=== PATIENT | female | born 1945 | race Caucasian/White ===

== ENCOUNTER → 2016-06-03 | Day surgery (SDC) | payer OTHER ==
[2016-05-27 08:22] VITALS: Ht 162.6 cm; Wt 77.3 kg
[~2016-06-03] VITALS: Ht 162.6 cm; Wt 77.3 kg
[~2016-06-03] MED LIST: 500ML BSS 0.3ML EPI 1:1000PF IRRIG ONE; ACETAMINOPHEN 325 MG TAB PO PRN; AMVISC PLUS 0.8ML SYRINGE INT OCU ONE; ATROPINE SULFATE 0.1 MG/ML 5ML SYR IV PRN; BRIMONIDINE TART 0.2% OP SOLN PER DROP CHARGE ONE; BSS FLUSH ONE; BUME1TAB PO; CALC600T9 PO; CYAN10004 PO; DICY20TA35 PO; DULO-24 PO; ENDOCOAT 0.85ML SYRINGE INT OCU ONE; EpHEDrine SULFATE INJ 50 MG/ML AMP IV PRN; EpINEphrine INJ 1MG/ML AMP 1 MG/ML AMP ONE; FLUT0.15 NAE; LACTATED RINGER'S 1000ML 500 ML IV SCH; LEVO-14 PO; LEVO100T7 PO; LIDOCAINE 4% OP SOLN DROP CHARGE ONE; LIDOCAINE 4% OP SOLN DROP CHARGE OPR SCH; LIDOCAINE HCL 1% MPF 2 ML VIAL ONE; LISI-789 PO; MIDAZOLAM HCL 1 MG/ML 2ML VIAL ONE; MIX: 3ML BSS AND 1ML EPI(PF) TOP ONE; MOXIFLOXACIN OPH SOLN PER DROP CHARGE ONE; POTA10CA28 PO; POVIDONE-IODINE OP SOLN 30 ML BTL ONE; PRLSR20 PO; PROB1TAB16 PO; PROPARACAINE 0.5% OP SOLN PER DROP CHARGE OPR SCH; ROPI1TAB PO; SUMA100T16 PO; TOBRAMYCIN/DEXAMETHASONE OPH OINT PER APPLN CHARGE ONE; VNTHFA/IN INH; ZNT/150 PO
[2016-06-03] MEDS: PHENYLEPHRINE HCL 2.5% OP SOLN PER DROP CHARGE OPR SCH ×2 (09:47→09:52)
[2016-06-03] MEDS: TROPICAMIDE 1% OP SOLN PER DROP CHARGE OPR SCH ×2 (09:48→09:53)
[2016-06-03] MEDS: CYCLOPENTOLATE HCL 1% OP SOLN PER DROP CHARGE OPR SCH ×2 (09:49→09:54)
[2016-06-03] MEDS: KETOROLAC 0.5% OP SOLN PER DROP CHARGE OPR SCH ×2 (09:50→09:55)
[2016-06-03] MEDS: MOXIFLOXACIN OPH SOLN PER DROP CHARGE OPR SCH ×2 (09:51→10:01)
--- NOTE | 2016-06-03 10:37 | History & Physical Bridge - [place] ---
H&P Re-Evaluation Bridge Note: I have examined the patient, reviewed the History & Physical and in the interval since the performance of the History & Physical I have noted the following changes of clinical significance: No changes noted
--- NOTE | 2016-06-03 10:58 | Discharge Instructions-SurgCtr ---
Discharge Instructions Visit Reason for Visit: Cataract Right Eye Discharge Discharge Diagnosis / Problem: cataract right eye Discharge Goals Goal(s): Improve function Activity Recommendations Activity Limitations: per Instructions/Follow-up section Lifting Limitations: no more than 5 pounds Anesthesia . Post Anesthesia Instructions: If you have had General Anesthesia or IV Sedation: * Do not drive today. * Resume driving when surgeon permits. * Do not make important decisions or sign legal documents today. * Call surgeon for: 1. Temperature elevations greater than 101 degrees F. 2. Uncontrollable pain. 3. Excessive bleeding. 4. Persistent nausea and vomiting. 5. Medication intolerance (nausea, vomiting or rash). * For nausea and vomiting use only clear liquids such as: tea, soda, bouillon until nausea subsides, then gradually increase diet as tolerated. * If you have any concerns or questions, call your surgeon's office. If physician is unavailable and it is an emergency, call 911 or go to the nearest emergency room. . Instructions / Follow-Up Instructions / Follow-Up ACTIVITY RECOMMENDATIONS: * Light activities * You may walk outside, read, watch television. * Mild irritation and blurred vision are common for the first few days, redness around the white part of the eye is common. MEDICATIONS: Resume previous medications unless instructed otherwise by your surgeon. Eye drops (today and tomorrow): Polytrim - one drop in operative eye every 2 hours while awake Prednisolone 1% - one drop in operative eye every 2 hours while awake Ketorolac - one drop in operative eye every 2 hours while awake SPECIAL CARE INSTRUCTIONS: * If any problems or concerns, please call Dr. Barton's office at . * Keep plastic shield taped over eye to sleep at night. * Keep plastic shield taped over eye except to administer eye drops. * Keep plastic shield on until office visit the following day. FOLLOW UP VISIT: Follow-up with Dr. Barton in the [place] office as scheduled. If not already scheduled, please call the office at . Diet Recommendations Home Diet: resume previous diet Procedures Procedures Performed: Right Cataract Phacoemulsification With Intraocular Lens Implant Pending Studies Studies pending at discharge: no Medical Emergencies . Who to Call and When: Medical Emergencies: If at any time you feel your situation is an emergency, please call 911 immediately. . Non-Emergent Contact Non-Emergency issues call your: [employer] . . "Provider Documentation" section prepared by Wilmar Barton.
--- NOTE | 2016-06-03 10:58 | [facility] Post Operative Brief Note ---
Immediate Operative Summary Operative Date Jun 03, 2016. Pre-Operative Diagnosis Right Eye Cataract Post-Operative Diagnosis Same Procedure(s) Performed Right Cataract Phacoemulsification With Intraocular Lens Implant Surgeon Dr Barton [employer] Surgeon(s) None Estimated Blood Loss 0ml Findings cataract right eye Specimens None Complication(s) None Disposition Recovery Room / PACU
[2016-06-03 10:59] VITALS: TEMP 36.2
--- NOTE | 2016-06-03 11:14 | OPERATIVE REPORT ---
DATE OF OPERATION: 06/03/2016 PREOPERATIVE DIAGNOSIS: Cataract, right eye. POSTOPERATIVE DIAGNOSIS: Cataract, right eye. PROCEDURE: Phacoemulsification cataract extraction with intraocular lens placement, right eye. SURGEON: Dr. Barton. COMPLICATIONS: None. ESTIMATED BLOOD LOSS: None. ANESTHESIA: Topical with sedation. OPERATION AND FINDINGS: After informed consent was obtained in the holding area the patient was wheeled back to the Operating Room where cardiac monitoring leads and oxygen by nasal cannula was administered by Anesthesia. Gentle IV sedation was given, and the patient's right eye was prepped and draped in usual sterile fashion. A wire lid speculum was placed into the right eye and the operating microscope was swung into position. Using 0.12 forceps and a Supersharp blade a paracentesis port was made 3 o'clock hours away from the 9 o'clock position of patient's right eye. 1% non-preserved Lidocaine was then injected into the anterior chamber for anesthesia. A 2.2 mm keratotome blade was then used to make a shelved clear corneal incision at the 9 o'clock position of her right eye. Amvisc was injected into the anterior chamber and a cystotome and Utrata forceps were used to perform a curvilinear capsulorrhexis. BSS on a hydrodissection cannula was used to hydrodissect the lens nucleus away from the capsular bag. The phacoemulsification handpiece was then used in a stop and chop fashion to remove the lens nucleus. The irrigation and aspiration handpiece was then used to remove the residual cortical material. Amvisc was injected into the capsular bag and anterior chamber and a Bausch \T\ Lomb MX60, 18.5 Diopter intraocular lens was injected into the capsular bag. Irrigation and aspiration handpiece was used to remove the residual viscoelastic material. The wounds were hydrated and noted to be watertight. The wire lid speculum was removed from the eye. Vigamox, Brimonidine, and TobraDex ointment were placed on the eye and it was shielded. It should be noted that EndoCoat was used throughout the case to protect the cornea endothelium. DISPOSITION: The patient tolerated the procedure well and was wheeled to the post anesthesia care unit in stable condition. I attest to the content of the Intraoperative Record and any orders documented therein. Any exceptions are noted below. I attest to the content of the Intraoperative Record and any orders documented therein. Any exceptio ns are noted below.
[2016-06-03 11:19] VITALS: BP 115/77; PULSE 88; O2SAT 94
--- NOTE | 2016-06-03 11:24 | Anesthesia Progress Nt - [facility] ---
Anesthesia Post Op Note Date & Time Jun 03, 2016 at 11:24 Vital Signs Pain Intensity: 0 Vital Signs Past 12 Hours Date Time Temp Pulse Resp B/P Pulse Ox O2 Delivery O2 Flow Rate FiO2 06/03/16 11:19 88 16 115/77 94 Room Air 06/03/16 10:59 36.2 71 16 147/80 96 Room Air 06/03/16 09:35 36.5 84 16 126/92 99 Room Air Notes Mental Status: alert / awake / arousable, participated in evaluation Pt Amnestic to Procedure: Yes Nausea / Vomiting: adequately controlled Pain: adequately controlled Airway Patency, RR, SpO2: stable & adequate BP & HR: stable & adequate Hydration State: stable & adequate Anesthetic Complications: no major complications apparent
== END | disposition home or self-care (01) ==
LOC: X.SURG 09:16
PROVIDERS: ATTEND Ophthalmology
DX: H26.9 Unspecified cataract (principal); H54.7 Unspecified visual loss; H53.2 Diplopia; I10 Essential (primary) hypertension; Z98.49 Cataract extraction status, unspecified eye; K21.9 Gastro-esophageal reflux disease without esophagitis; H52.13 Myopia, bilateral; Z98.890 Other specified postprocedural states; Z90.710 Acquired absence of both cervix and uterus; Z88.2 Allergy status to sulfonamides

== ENCOUNTER 2020-06-03 22:28 | Inpatient (IN) ==
[2020-06-03] MEDS ORDERED: SODIUM CHLORIDE 0.9% 1000ML 1,000 ML IV ONE ×2 (22:51)
[2020-06-03] MEDS ORDERED: ONDANSETRON INJ 2 MG/ML 2 ML VIAL IV STA (22:51)
[2020-06-03] MEDS ORDERED: ACETAMINOPHEN 500 MG TAB PO STA (22:51)
--- NOTE | 2020-06-03 22:58 | Emergency Department Note ---
Impression & Plan Sepsis, Acute UTI (urinary tract infection), Failure of outpatient treatment ED Provider Note Name: ROSSY BURDEN Age: 74 Sex: F Arrives Via: Walk-In Informant: Patient ED Provider: Thomas Chavarira MD Chief Complaint: Fever Impression: Sepsis Acute UTI Failure of Outpatient Treatment Medical Decision Makin yr old female with a history of GERD, IBS, Restless Leg, Migraine, HTN, Depression/Anxiety, Hypothyroid, Osteoporosis, Pyelonephritis, ISSA, HLD and previous admission for sepsis arrives with fevers, chills, uti symptoms and low back pain worsening last 24 hours. Ill appearing on arrival with fever/tachy. Given IV fluids (given the patients BMI >30, IBW was used to calculate the 30ml/kg fluid bolus) and Tylenol with improving HR and symptoms. BP stable and Lactate OK. She looks much better though is still ill appearing and I do not feel discharge reasonable at this time, especially given she was just treated with abx. This is consistent with UTI sepsis. Zosyn ordered (noted allergic Keflex with Hives). Hospitalist consulted and managed. Offered to call though she notes she has let him know what is going on. Prior Medical Record and Triage/Nursing Notes reviewed by Me Additional history obtained from chart Differentials:Viral syndrome, otitis, pharyngitis, pneumonia, influenza, meningitis, urinary tract infection, sepsis, bacteremia, as well as other pat hologies. Vital Signs: reviewed and remarkable for fever, tachycardia Interventions: saline lock, nss bolus 2 L IV, zosyn 4.5gm IV (ordered but hosp italist changed to Aztreonam) Labs:Reviewed and remarkable for concerning for UTI Imaging:X ray results are stated below per my interpretation: Chest: 1 view: No infiltrate, no effusion, normal cardiac border. EKG:Per My Interpretation: Indication sepsis: NSR 90 bpm, qtc 450. No Ectopy. No Ischemia. Compared to EKG 09/20/15, no significant changes. Cardiac/Tele Monitoring: Cardiac Monitoring: An Order was placed for continuous cardiac monitoring. The monitor shows a rate of 90 with a normal sinus rhythm. Consults:Dr Gerald Delacruz Hospitalist Plan: Disposition:Hospitalization. Referred to: PCP Condition: Good History of Present Illness:74 yr old female arrives for evaluation of fever. Patient with recent UTI treated 3 weeks ago with Macrobid. She notes over last 24 hours worsening fatigue and weakness. Today developed low back pain, urinary frequency/burning, fevers, chills, rigors, nausea, and loss of appetite. She notes having developed a worsening headache as evening has gone on. No rash, sob, chest pain, diaphoresis, vomiting, neck stiffness, leg swelling, syncope, nor other symptoms. Exertion makes worse, rest makes better. She used 1 gm Tylenol 4 hours ago with minimal improvement. History of sepsis secondary to UTI and required admission 2 years ago for this. No sick contacts. No history COVID, nor vaccine. Ecoli UTI has been pansensitive in past per EPIC record a few weeks ago. Treated with Macrobid 3 weeks ago for UTI. ROS: See above HPI for pertinent positives & negatives. A total of 10 systems reviewed and were otherwise negative. Past Medical History:GERD, IBS, Restless Leg, Migraine, HTN, Depression/Anxiety, Hypothyroid, Osteoporosis, Pyelonephritis, ISSA, HLD, Past Surgical History:Tonsillectomy, appendectomy, PINA-BSO, Family History:Restless legs Social History:Lives with , retired, ex-smoker Home Medications:See Below Allergies:Sulfa, Keflex, Lisinopril Vitals:Blood Pressure: 125/70, Pulse 116, RR 20, T 38.2C, O2 98% on RA Physical Exam: GENERAL: Patient is tired and ill appearing and in moderate distress. EYES: No scleral icterus, unremarkable pupils. ENT: Mucous membranes moist, no nasal congestion. NECK: No masses appreciated, nomeningismus, trachea is midline. RESPIRATORY: Mild dyspnea/tachypnea. Clear to auscultation and equal bilaterall y. No wheeze, no rhonchi. CARDIOVASCULAR: Tachy.No murmurs, rubs, gallops appreciated. GASTROINTESTINAL: Abdomen soft, non-tender, no peritonitis.Bowel sounds positive.No masses appreciated. BACK: No midline tenderness, no CVA tenderness EXTREMITIES: Normal motion all extremities, no cyanosis, no edema. NEUROLOGIC: Alert and oriented, no acute motor or sensory deficits, no focal weakness, cranial nerves grossly intact. SKIN: No rash, no jaundice, no diaphoresis. PSYCH: Appropriate GCS: 15 ED Course: Times/Reassessments: improving heart rate, still appearing ill thus hospitalization indicated Thomas Chavarria MD Past Med/Surg History Social History Smoking Status: Former smoker Preferred Language: Yemeni Feels Safe at Home: Yes Allergies Allergies Allergy/AdvReac Type Severity Reaction Status Date / Time cephalexin Allergy Intermediate Hives Verified 06/03/20 23:07 Sulfa (Sulfonamide Allergy Intermediate HIVES Verified 06/03/20 23:07 Antibiotics) Home Meds Home Medications Medication Instructions Recorded Confirmed albuterol sulfate [Ventolin HFA] 2 - 4 puff INHALATION Q6H PRN #0 03/19/16 06/03/20 bumetanide 1 mg PO DAILY PRN #0 tab 03/19/16 06/03/20 dicyclomine 20 mg PO BID PRN #0 tab 03/19/16 06/03/20 duloxetine 20 mg PO BID #0 03/19/16 06/03/20 fluticasone propionate [Flonase 1 spray INTRANASAL DAILY PRN #0 03/19/16 06/03/20 Allergy Relief] omeprazole magnesium [Prilosec OTC] 20 mg PO DAILY PRN #0 03/19/16 06/03/20 potassium chloride 10 meq PO DAILY PRN #0 cap 03/19/16 06/03/20 sumatriptan succinate [Imitrex] 100 mg PO DIRECTED PRN #0 tab 03/19/16 06/03/20 cyanocobalamin (vitamin B-12) 1,000 mcg PO DAILY #0 05/27/16 06/03/20 [Vitamin B-12] Medical Marijuana 1 dose SUBLINGUAL BID 06/03/20 06/03/20 levothyroxine 75 mcg PO DAILY 06/03/20 06/03/20 multivitamin 1 tab PO HS 06/03/20 06/03/20 Results & Data (ED) Vital Signs Vital Signs - 24 hr 06/03/20 22:30 06/03/20 23:30 06/04/20 00:00 Temperature 38.2 C H Temperature Source Oral Pulse Rate 116 H 93 H 102 H Respiratory Rate 20 16 14 Blood Pressure 125/70 117/67 97/69 L Blood Pressure Mean 88 83 78 Pulse Oximetry 98 96 93 Oxygen Delivery Method Room Air Sepsis Recent Fever Within 48 Hours Yes Sepsis New/Unexplained Change in Mental Status N/A Sepsis Action Taken by Nursing No Action Required 06/04/20 00:21 06/04/20 00:30 Temperature 37.1 C Temperature Source Oral Pulse Rate 96 H Respiratory Rate 12 Blood Pressure 93/52 L Blood Pressure Mean 65 Pulse Oximetry 94 Oxygen Delivery Method Room Air Sepsis Recent Fever Within 48 Hours Sepsis New/Unexplained Change in Mental Status Sepsis Action Taken by Nursing Laboratory Data Result diagrams: 06/03/20 23:08 06/03/20 23:08 Lab Results 06/03/20 06/03/20 06/03/20 Range/Units 22:46 23:08 23:08 WBC (4.8-10.8) K/uL RBC (4.2-5.4) M/uL Hgb (12.0-16.0) g/dL Hct (37-47) % MCV (80-100) fL MCH (25-34) pg MCHC (32-36) g/dL RDW Std Deviation (36.4-46.3) fL RDW Coeff of [place] (11.5-14.5) % Plt Count (130-400) K/uL MPV (7.4-10.4) fL Immature Gran % (Auto) % Neut % (Auto) % Lymph % (Auto) % [place] % (Auto) % Eos % (Auto) % Baso % (Auto) % Neut # (Auto) (1.4-6.5) K/uL Lymph # (Auto) (1.2-3.4) K/uL [place] # (Auto) (0.11-0.59) K/uL Eos # (Auto) (0-0.5) K/uL Baso # (Auto) (0-0.2) K/uL Immature Gran # (Auto) (0.00-0.02) K/uL PT (9.0-12.0) Seconds INR (0.9-1.1) Sodium 137 (136-145) mmol/L Potassium 3.3 L (3.5-5.1) mmol/L Chloride 105 (98-107) mmol/L Carbon Dioxide 24 (21-32) mmol/L Anion Gap 8.0 (3-11) BUN 25 H (7-18) mg/dl Creatinine 0.95 (0.6-1.2) mg/dl Est Cr Clr Drug Dosing 55.0 ml/min Est GFR ( Amer) 69.4 Est GFR (Non-Af Amer) 59.8 BUN/Creatinine Ratio 26.7 H (10-20) Glucose 119 H (70-99) mg/dl Lactate 1.3 (0.4-2.0) mmol/L Calcium 8.7 (8.5-10.1) mg/dl Magnesium 2.1 (1.8-2.4) mg/dl Total Bilirubin 0.7 (0.2-1) mg/dl Direct Bilirubin < 0.1 (0-0.2) mg/dl AST 38 H (15-37) U/L ALT 59 (12-78) U/L Alkaline Phosphatase 108 (45-117) U/L Troponin I < 0.015 (0-0.045) ng/ml Total Protein 7.4 (6.4-8.2) gm/dl Albumin 3.8 (3.4-5.0) gm/dl Lipase 83 (73-393) U/L TSH 2.030 (0.300-4.500) uIu/ml Urine Color Yellow Urine Appearance Cloudy A (Clear) Urine pH 8.0 H (4.5-7.5) Ur Specific [place] 1.017 (1.000-1.030) Urine Protein 1+ H (Negative) Urine Glucose (UA) Negative (Negative) Urine Ketones Negative (Negative) Urine Blood 1+ H (Negative) Urine Nitrite Positive A (Negative) Urine Bilirubin Negative (Negative) Urine Urobilinogen Negative (Negative) Ur Leukocyte Esterase 2+ H (Negative) Urine WBC (Auto) >30 H (0-5) /hpf Urine RBC (Auto) 10-30 H (0-4) /hpf U Hyaline Cast (Auto) 1-5 (0-5) /lpf U Epithel Cells (Auto) 0-5 (0-5) /lpf Urine Bacteria (Auto) 4+ H (Negative) COVID-19 Eval Order SARS-CoV-2 (PCR) (Negative) Influenza Type A (PCR) (Neg) Influenza Type B (PCR) (Neg) RSV (RT-PCR) (Neg) 06/03/20 06/03/20 06/03/20 Range/Units 23:08 23:08 23:25 WBC 12.22 H (4.8-10.8) K/uL RBC 4.79 (4.2-5.4) M/uL Hgb 14.0 (12.0-16.0) g/dL Hct 41.3 (37-47) % MCV 86.2 (80-100) fL MCH 29.2 (25-34) pg MCHC 33.9 (32-36) g/dL RDW Std Deviation 45.4 (36.4-46.3) fL RDW Coeff of [place] 14.4 (11.5-14.5) % Plt Count 221 (130-400) K/uL MPV 9.9 (7.4-10.4) fL Immature Gran % (Auto) 0.2 % Neut % (Auto) 83.2 % Lymph % (Auto) 4.7 % [place] % (Auto) 11.3 % Eos % (Auto) 0.4 % Baso % (Auto) 0.2 % Neut # (Auto) 10.17 H (1.4-6.5) K/uL Lymph # (Auto) 0.57 L (1.2-3.4) K/uL [place] # (Auto) 1.38 H (0.11-0.59) K/uL Eos # (Auto) 0.05 (0-0.5) K/uL Baso # (Auto) 0.02 (0-0.2) K/uL Immature Gran # (Auto) 0.03 H (0.00-0.02) K/uL PT 10.8 (9.0-12.0) Seconds INR 1.1 (0.9-1.1) Sodium (136-145) mmol/L Potassium (3.5-5.1) mmol/L Chloride (98-107) mmol/L Carbon Dioxide (21-32) mmol/L Anion Gap (3-11) BUN (7-18) mg/dl Creatinine (0.6-1.2) mg/dl Est Cr Clr Drug Dosing ml/min Est GFR ( Amer) Est GFR (Non-Af Amer) BUN/Creatinine Ratio (10-20) Glucose (70-99) mg/dl Lactate (0.4-2.0) mmol/L Calcium (8.5-10.1) mg/dl Magnesium (1.8-2.4) mg/dl Total Bilirubin (0.2-1) mg/dl Direct Bilirubin (0-0.2) mg/dl AST (15-37) U/L ALT (12-78) U/L Alkaline Phosphatase (45-117) U/L Troponin I (0-0.045) ng/ml Total Protein (6.4-8.2) gm/dl Albumin (3.4-5.0) gm/dl Lipase (73-393) U/L TSH (0.300-4.500) uIu/ml Urine Color Urine Appearance (Clear) Urine pH (4.5-7.5) Ur Specific [place] (1.000-1.030) Urine Protein (Negative) Urine Glucose (UA) (Negative) Urine Ketones (Negative) Urine Blood (Negative) Urine Nitrite (Negative) Urine Bilirubin (Negative) Urine Urobilinogen (Negative) Ur Leukocyte Esterase (Negative) Urine WBC (Auto) (0-5) /hpf Urine RBC (Auto) (0-4) /hpf U Hyaline Cast (Auto) (0-5) /lpf U Epithel Cells (Auto) (0-5) /lpf Urine Bacteria (Auto) (Negative) COVID-19 Eval Order [facility]Rsv at [facility] SARS-CoV-2 (PCR) (Negative) Influenza Type A (PCR) (Neg) Influenza Type B (PCR) (Neg) RSV (RT-PCR) (Neg) 06/03/20 Range/Units 23:25 WBC (4.8-10.8) K/uL RBC (4.2-5.4) M/uL Hgb (12.0-16.0) g/dL Hct (37-47) % MCV (80-100) fL MCH (25-34) pg MCHC (32-36) g/dL RDW Std Deviation (36.4-46.3) fL RDW Coeff of [place] (11.5-14.5) % Plt Count (130-400) K/uL MPV (7.4-10.4) fL Immature Gran % (Auto) % Neut % (Auto) % Lymph % (Auto) % [place] % (Auto) % Eos % (Auto) % Baso % (Auto) % Neut # (Auto) (1.4-6.5) K/uL Lymph # (Auto) (1.2-3.4) K/uL [place] # (Auto) (0.11-0.59) K/uL Eos # (Auto) (0-0.5) K/uL Baso # (Auto) (0-0.2) K/uL Immature Gran # (Auto) (0.00-0.02) K/uL PT (9.0-12.0) Seconds INR (0.9-1.1) Sodium (136-145) mmol/L Potassium (3.5-5.1) mmol/L Chloride (98-107) mmol/L Carbon Dioxide (21-32) mmol/L Anion Gap (3-11) BUN (7-18) mg/dl Creatinine (0.6-1.2) mg/dl Est Cr Clr Drug Dosing ml/min Est GFR ( Amer) Est GFR (Non-Af Amer) BUN/Creatinine Ratio (10-20) Glucose (70-99) mg/dl Lactate (0.4-2.0) mmol/L Calcium (8.5-10.1) mg/dl Magnesium (1.8-2.4) mg/dl Total Bilirubin (0.2-1) mg/dl Direct Bilirubin (0-0.2) mg/dl AST (15-37) U/L ALT (12-78) U/L Alkaline Phosphatase (45-117) U/L Troponin I (0-0.045) ng/ml Total Protein (6.4-8.2) gm/dl Albumin (3.4-5.0) gm/dl Lipase (73-393) U/L TSH (0.300-4.500) uIu/ml Urine Color Urine Appearance (Clear) Urine pH (4.5-7.5) Ur Specific [place] (1.000-1.030) Urine Protein (Negative) Urine Glucose (UA) (Negative) Urine Ketones (Negative) Urine Blood (Negative) Urine Nitrite (Negative) Urine Bilirubin (Negative) Urine Urobilinogen (Negative) Ur Leukocyte Esterase (Negative) Urine WBC (Auto) (0-5) /hpf Urine RBC (Auto) (0-4) /hpf U Hyaline Cast (Auto) (0-5) /lpf U Epithel Cells (Auto) (0-5) /lpf Urine Bacteria (Auto) (Negative) COVID-19 Eval Order SARS-CoV-2 (PCR) NEGATIVE (Negative) Influenza Type A (PCR) Negative (Neg) Influenza Type B (PCR) Negative (Neg) RSV (RT-PCR) Negative (Neg) Administered Medications Discontinued Medications Acetaminophen (Acetaminophen 500 Mg Tab) 500 mg PO NOW STA Stop: 06/03/20 22:52 Last Admin: 06/03/20 23:35 Dose: 500 mg Documented by: [id number] Sodium Chloride (Nss 1000ml) 1,000 mls @ 999 mls/hr IV .Q1H1M ONE Stop: 06/03/20 23:51 Last Infusion: 06/04/20 00:24 Dose: 0 mls/hr Documented by: [id number] Admin: 06/03/20 23:23 Dose: 999 mls/hr Documented by: [id number] Sodium Chloride (Nss 1000ml) 1,000 mls @ 999 mls/hr IV .Q1H1M ONE Stop: 06/03/20 23:51 Last Infusion: 06/04/20 00:24 Dose: 0 mls/hr Documented by: [id number] Admin: 06/03/20 23:23 Dose: 999 mls/hr Documented by: [id number] Piperacillin Sod/Tazobactam Sod (Zosyn) 4.5 gm in 120 mls @ 240 mls/hr IV NOW ONE Stop: 06/04/20 00:14 Last Admin: 06/04/20 00:31 Dose: Not Given Documented by: [id number] Ondansetron HCl (Ondansetron Inj 2 Mg/Ml 2 Ml Vial) 4 mg IV NOW STA Stop: 06/03/20 22:52 Last Admin: 06/03/20 23:35 Dose: 4 mg Documented by: [id number] Potassium Chloride (Potassium Chloride Crtab 20 Meq Tabcr) 40 meq PO NOW STA Stop: 06/03/20 23:53 Last Admin: 06/04/20 00:15 Dose: 40 meq Documented by: [id number] Discharge Plan Visit Data Chief Complaint: Fever Stated Complaint: FEVER ED Provider: Thomas Chavarria Discharge Problem: Sepsis, Acute UTI (urinary tract infection), Failure of outpatient treatment Forms Stand Alone Forms: [facility] Prescriptions Prescriptions: No Action potassium chloride 10 mEq Capsule, Extended Release 10 meq PO DAILY PRN (Reason: WHEN TAKES BUMETANIDE) Qty: 0 RF: 0 sumatriptan succinate [Imitrex] 100 mg Tablet 100 mg PO DIRECTED PRN (Reason: Headache) Qty: 0 RF: 0 dicyclomine 20 mg Tablet 20 mg PO BID PRN (Reason: Diarrhea) Qty: 0 RF: 0 bumetanide 1 mg Tablet 1 mg PO DAILY PRN (Reason: Fluid Retention) Qty: 0 RF: 0 albuterol sulfate [Ventolin HFA] 90 mcg/actuation Hfa Aerosol Inhaler 2 - 4 puff INHALATION Q6H PRN (Reason: Shortness Of Breath) Qty: 0 RF: 0 fluticasone propionate [Flonase Allergy Relief] 50 mcg/actuation Benedict,Suspension 1 spray intranasal DAILY PRN (Reason: Allergy Symptoms) Qty: 0 RF: 0 omeprazole magnesium [Prilosec OTC] 20 mg Tablet,Delayed Release (Dr/Ec) 20 mg PO DAILY PRN (Reason: HEARTBURN/INDIGESTION) Qty: 0 RF: 0 duloxetine 20 mg Capsule,Delayed Release(Dr/Ec) 20 mg PO BID Qty: 0 RF: 0 cyanocobalamin (vitamin B-12) [Vitamin B-12] 1,000 mcg Tablet 1,000 mcg PO DAILY Qty: 0 RF: 0 multivitamin Tablet 1 tab PO HS RF: 0 levothyroxine 75 mcg tablet 75 mcg PO DAILY RF: 0 Medical Marijuana 1 dose sublingual BID RF: 0 Discharge Problem: Sepsis Qualifiers: Sepsis type: Escherichia coli Sepsis acute organ dysfunction status: without acute organ dysfunction Qualified Code(s): A41.51 - Sepsis due to Escherichia coli [E. coli]
[2020-06-03 23:11] LABS: Appearance Urine Cloudy (Clear); Bacteria Urine Automated 4+ (Negative); Bilirubin Urine Negative (Negative); Blood Urine 1+ (Negative); Color Urine Yellow; Epithelial Cell Urine Auto 0-5 /lpf (0-5); Glucose Urine UA Negative (Negative); Ketones Urine Negative (Negative); Leukocyte Esterase Urine 2+ (Negative); Nitrite Urine Positive (Negative); Specific Gravity Urine 1.017 (1.000-1.030); Urobilinogen Urine Negative (Negative); WBC Urine Automated >30 /hpf (0-5)
[2020-06-03 23:12] LABS: Protein Urine 1+ (Negative)
[2020-06-03 23:18] LABS: Basophils # (auto) 0.02 K/uL (0-0.2); Basophils % (auto) 0.2 %; Eosinophils # (auto) 0.05 K/uL (0-0.5); Eosinophils % (auto) 0.4 %; Hematocrit (blood only) 41.3 % (37-47); Immature Granulocytes # (auto) 0.03 K/uL (0.00-0.02); Immature Granulocytes % (auto) 0.2 %; Lymphocytes # (auto) 0.57 K/uL (1.2-3.4); Lymphocytes % (auto) 4.7 %; Mean Corpuscular Hemoglobin 29.2 pg (25-34); Mean Corpuscular Hgb Conc 33.9 g/dL (32-36); Mean Corpuscular Volume 86.2 fL (80-100); Mean Platelet Volume 9.9 fL (7.4-10.4); Monocytes # (auto) 1.38 K/uL (0.11-0.59); Monocytes % (auto) 11.3 %; Neutrophils # (auto) 10.17 K/uL (1.4-6.5); Neutrophils % (auto) 83.2 %; Platelet Count 221 K/uL (130-400); RDW Coefficient of Variation 14.4 % (11.5-14.5); RDW Standard Deviation 45.4 fL (36.4-46.3); Red Blood Count 4.79 M/uL (4.2-5.4); White Blood Count 12.22 K/uL (4.8-10.8)
[2020-06-03 23:29] LABS: INR 1.1 (0.9-1.1); Prothrombin Time 10.8 Seconds (9.0-12.0)
--- NOTE | 2020-06-03 23:35 | XRay Report ---
SINGLE VIEW CHEST CLINICAL HISTORY: Sepsis. FINDINGS: An AP, portable, upright chest radiograph is compared to chest x-ray and chest CT dated 09/05. The cardiomediastinal silhouette is unremarkable noting atherosclerotic calcification of the thoracic aorta. Emphysema and chronic interstitial thickening is similar to previous. There is mild b ibasilar scarring/atelectasis. No airspace consolidation or large pleural effusion is identified. Que stion a 12 mm nodular density projecting over a right lower rib. No pneumothorax is seen. The skeleta l structures are osteopenic. The bony thorax is grossly intact. IMPRESSION: 1. Emphysematous change with no acute cardiopulmonary abnormality. 2. Question a 12 mm nodular density projecting over a right lower rib. This may be artifactual. Corre lation with a dedicated PA and lateral examination is recommended when the patient is clinically able . ACT 112: Positive. There are findings on this exam that require communication between the performing entity and the patient following Patient Test Result Information Act ([place] Act 112) guidelines. Electronically signed by: Joni Fay M.D. 06/03/2020 11:34 PM
[2020-06-03 23:37] LABS: Alanine Aminotransferase 59 U/L (12-78); Albumin Level 3.8 gm/dl (3.4-5.0); Aspartate Aminotransferase 38 U/L (15-37); BUN Creatinine Ratio 26.7 (10-20); Bilirubin Direct < 0.1 mg/dl (0-0.2); Blood Urea Nitrogen 25 mg/dl (7-18); Calcium 8.7 mg/dl (8.5-10.1); Carbon Dioxide 24 mmol/L (21-32); Chloride 105 mmol/L (98-107); Est GFR (African American) 69.4; Est GFR (Non-African American) 59.8; Glucose 119 mg/dl (70-99); Lipase 83 U/L (73-393); Magnesium 2.1 mg/dl (1.8-2.4); Potassium 3.3 mmol/L (3.5-5.1); Sodium 137 mmol/L (136-145)
[2020-06-03] MEDS ORDERED: PIPERACILL/TAZOBAC CONSULT ACTIVE PRN (23:45)
[2020-06-03] MEDS ORDERED: PIPERACILLIN/TAZOBACTAM 4.5 GM/120 ML BAG IV ONE (23:45)
[2020-06-03 23:48] LABS: Alkaline Phosphatase 108 U/L (45-117); Bilirubin,Total 0.7 mg/dl (0.2-1); Total Protein 7.4 gm/dl (6.4-8.2); Troponin I < 0.015 ng/ml (0-0.045)
[2020-06-03] MEDS ORDERED: POTASSIUM CHLORIDE CRTAB 20 MEQ TABCR PO STA (23:52)
[2020-06-04 00:19] LABS: Influenza A virus by PCR Negative (Neg); Influenza B virus by PCR Negative (Neg); RSV by PCR Negative (Neg); SARS CoV2 RNA(COVID-19) InHosp NEGATIVE (Negative)
[2020-06-04] MEDS ORDERED: POTASSIUM CHLORIDE 40 MEQ in SODIUM CHLORIDE 0.9% 1000ML 1,000 ML IV STA (00:23)
[2020-06-04] MEDS ORDERED: AZTREONAM 2,000 MG in DEXTROSE 5% 100 ML IV STA (00:23)
--- NOTE | 2020-06-04 00:29 | History & Physical Report ---
Date of Service June 04, 2020 Assessment & Plan (1) Sepsis: hx recurrent UTIs/history stress/urge incontinence as per records Failed outpatient treatment Rule out obstructive uropathy given recurrent disease/persistent symptoms hypertension, BP on the lower side Hypokalemia secondary to diuretic Rx Hyperglycemia rule out DM Abnormal portable CXR finding, possible pulmonary nodule past tobacco abuse Medical telemetry Cultures, Azactam CT abdomen pelvis RE flank pain rule out obstructive uropathy IVF, replace potassium Hold home diuretic until patient euvolemic Check hemoglobin A1c 2 view CXR in a.m. RE possible pulmonary nodule DVT prophylaxis per Lovenox subcu Full code Patient requesting updates from providers. Mr. Norman Sewell, contact #[phone]. Text document was generated using [employer] voice recognition software. It may contain grammatical or spelling errors. Kindly contact undersigned for clarification of any documentation item in question. History of Present Illness Chief Complaint: Fever, UTI symptoms, back pain Primary Care Provider: Nader Clark MD History obtained from patient and records. Medical history significant for hypertension, hyperlipidemia, GERD, IBS (constipation predominant), recurrent UTIs/history stress/urge incontinence as per records, ISSA on CPAP, past tobacco abuse. Last confinement September 2015 for sepsis secondary to pyelonephritis. Few weeks ago, patient had UTI symptoms without hematuria. No fever, no chills. Outpatient UA showed pansensitive E. coli. Persistent UTI symptoms despite completion of Macrobid course outpatient. Outpatient urology referral contemplated by PCP for microscopic hematuria on repeat UA. Patient had worsening discomfort the last few days with fever and chills. Achy back pain without gross hematuria symptoms No chest pain, no S OB, no cough. Patient brought to the ER by . Medical History as above Surgical History : Appendectomy, carpal tunnel surgery, cystoscopy, sinus surgery, cataract surgery, nasal septoplasty, PINA/BSO Family History : PTSD Personal/Social history : Past tobacco abuse, occasional EtOH intake, retired laboratory secretary Allergies Allergy/AdvReac Type Severity Reaction Status Date / Time cephalexin Allergy Intermediate Hives Verified 06/03/20 23:07 Sulfa (Sulfonamide Allergy Intermediate HIVES Verified 06/03/20 23:07 Antibiotics) Home Medications Medication Instructions Recorded Confirmed Type albuterol sulfate [Ventolin HFA] 2 - 4 puff INHALATION Q6H PRN #0 03/19/16 06/03/20 History bumetanide 1 mg PO DAILY PRN #0 tab 03/19/16 06/03/20 History dicyclomine 20 mg PO BID PRN #0 tab 03/19/16 06/03/20 History duloxetine 20 mg PO BID #0 03/19/16 06/03/20 History fluticasone propionate [Flonase 1 spray INTRANASAL DAILY PRN #0 03/19/16 06/03/20 History Allergy Relief] omeprazole magnesium [Prilosec OTC] 20 mg PO DAILY PRN #0 03/19/16 06/03/20 History potassium chloride 10 meq PO DAILY PRN #0 cap 03/19/16 06/03/20 History sumatriptan succinate [Imitrex] 100 mg PO DIRECTED PRN #0 tab 03/19/16 06/03/20 History cyanocobalamin (vitamin B-12) 1,000 mcg PO DAILY #0 05/27/16 06/03/20 History [Vitamin B-12] Medical Marijuana 1 dose SUBLINGUAL BID 06/03/20 06/03/20 History levothyroxine 75 mcg PO DAILY 06/03/20 06/03/20 History multivitamin 1 tab PO HS 06/03/20 06/03/20 History Past Med/Surg History Social History Smoking Status: Former smoker Hx Alcohol Use: No Hx Substance Use: No Preferred Language: Frisian Communication Ability: Effective Beliefs That Will Affect Care: None Current Living Situation: Spouse Other Information That Helps Us Care for You: No Feels Safe at Home: Yes Safety Concerns: Feels Safe At This Time Assistive Devices: CPAP Review of Systems Review of Systems: As per HPI, all 10 systems reviewed, all other ROS negative Physical Exam Physical Exam: GENERAL: Slightly uncomfortable, anxious, obese, looks younger for stated age, no respiratory distress SKIN: Normal color, warm HEENT: Bespectacled, [place] palpebral conjunctivae, no ptosis, dry buccal mucosa NECK : Supple, short neck, no tenderness CHEST : CTA, no tenderness HEART : Tachycardic , no obvious murmurs ABDOMEN: Some distention, nontender BACK : Minimal flank tenderness EXTREMITIES : No LE swelling/tenderness, no other conspicuous deformities noted NEUROLOGIC : Coherent, no facial asymmetry, no other gross focality Results & Data Results & Data ([facility]) Vital Signs (Past 12 Hours) Vital Signs Temp Pulse Resp BP Pulse Ox 06/04/20 00:21 37.1 C 06/03/20 23:30 93 H 16 117/67 96 06/03/20 22:30 38.2 C H 116 H 20 125/70 98 Laboratory Results Laboratory Results WBC 12.22 K/uL (4.8-10.8) H 06/03/20 23:08 RBC 4.79 M/uL (4.2-5.4) 06/03/20 23:08 Hgb 14.0 g/dL (12.0-16.0) 06/03/20 23:08 Hct 41.3 % (37-47) 06/03/20 23:08 MCV 86.2 fL (80-100) 06/03/20 23:08 MCH 29.2 pg (25-34) 06/03/20 23:08 MCHC 33.9 g/dL (32-36) 06/03/20 23:08 RDW Std Deviation 45.4 fL (36.4-46.3) 06/03/20 23:08 RDW Coeff of [place] 14.4 % (11.5-14.5) 06/03/20 23:08 Plt Count 221 K/uL (130-400) 06/03/20 23:08 MPV 9.9 fL (7.4-10.4) 06/03/20 23:08 Immature Gran % (Auto) 0.2 % 06/03/20 23:08 Neut % (Auto) 83.2 % 06/03/20 23:08 Lymph % (Auto) 4.7 % 06/03/20 23:08 [place] % (Auto) 11.3 % 06/03/20 23:08 Eos % (Auto) 0.4 % 06/03/20 23:08 Baso % (Auto) 0.2 % 06/03/20 23:08 Neut # (Auto) 10.17 K/uL (1.4-6.5) H 06/03/20 23:08 Lymph # (Auto) 0.57 K/uL (1.2-3.4) L 06/03/20 23:08 [place] # (Auto) 1.38 K/uL (0.11-0.59) H 06/03/20 23:08 Eos # (Auto) 0.05 K/uL (0-0.5) 06/03/20 23:08 Baso # (Auto) 0.02 K/uL (0-0.2) 06/03/20 23:08 Immature Gran # (Auto) 0.03 K/uL (0.00-0.02) H 06/03/20 23:08 PT 10.8 Seconds (9.0-12.0) 06/03/20 23:08 INR 1.1 (0.9-1.1) 06/03/20 23:08 Sodium 137 mmol/L (136-145) 06/03/20 23:08 Potassium 3.3 mmol/L (3.5-5.1) L 06/03/20 23:08 Chloride 105 mmol/L (98-107) 06/03/20 23:08 Carbon Dioxide 24 mmol/L (21-32) 06/03/20 23:08 Anion Gap 8.0 (3-11) 06/03/20 23:08 BUN 25 mg/dl (7-18) H 06/03/20 23:08 Creatinine 0.95 mg/dl (0.6-1.2) 06/03/20 23:08 Est Cr Clr Drug Dosing 55.0 ml/min 06/03/20 23:08 Est GFR ( Amer) 69.4 06/03/20 23:08 Est GFR (Non-Af Amer) 59.8 06/03/20 23:08 BUN/Creatinine Ratio 26.7 (10-20) H 06/03/20 23:08 Glucose 119 mg/dl (70-99) H 06/03/20 23:08 Lactate 1.3 mmol/L (0.4-2.0) 06/03/20 23:08 Calcium 8.7 mg/dl (8.5-10.1) 06/03/20 23:08 Magnesium 2.1 mg/dl (1.8-2.4) 06/03/20 23:08 Total Bilirubin 0.7 mg/dl (0.2-1) 06/03/20 23:08 Direct Bilirubin < 0.1 mg/dl (0-0.2) 06/03/20 23:08 AST 38 U/L (15-37) H 06/03/20 23:08 ALT 59 U/L (12-78) 06/03/20 23:08 Alkaline Phosphatase 108 U/L (45-117) 06/03/20 23:08 Troponin I < 0.015 ng/ml (0-0.045) 06/03/20 23:08 Total Protein 7.4 gm/dl (6.4-8.2) 06/03/20 23:08 Albumin 3.8 gm/dl (3.4-5.0) 06/03/20 23:08 Lipase 83 U/L (73-393) 06/03/20 23:08 TSH 2.030 uIu/ml (0.300-4.500) 06/03/20 23:08 Urine Color Yellow 06/03/20 22:46 Urine Appearance Cloudy (Clear) A 06/03/20 22:46 Urine pH 8.0 (4.5-7.5) H 06/03/20 22:46 Ur Specific [place] 1.017 (1.000-1.030) 06/03/20 22:46 Urine Protein 1+ (Negative) H 06/03/20 22:46 Urine Glucose (UA) Negative (Negative) 06/03/20 22:46 Urine Ketones Negative (Negative) 06/03/20 22:46 Urine Blood 1+ (Negative) H 06/03/20 22:46 Urine Nitrite Positive (Negative) A 06/03/20 22:46 Urine Bilirubin Negative (Negative) 06/03/20 22:46 Urine Urobilinogen Negative (Negative) 06/03/20 22:46 Ur Leukocyte Esterase 2+ (Negative) H 06/03/20 22:46 Urine WBC (Auto) >30 /hpf (0-5) H 06/03/20 22:46 Urine RBC (Auto) 10-30 /hpf (0-4) H 06/03/20 22:46 U Hyaline Cast (Auto) 1-5 /lpf (0-5) 06/03/20 22:46 U Epithel Cells (Auto) 0-5 /lpf (0-5) 06/03/20 22:46 Urine Bacteria (Auto) 4+ (Negative) H 06/03/20 22:46 COVID-19 Eval Order CovFluRsv at [facility] 06/03/20 23:25 SARS-CoV-2 (PCR) NEGATIVE (Negative) 06/03/20 23:25 Influenza Type A (PCR) Negative (Neg) 06/03/20 23:25 Influenza Type B (PCR) Negative (Neg) 06/03/20 23:25 RSV (RT-PCR) Negative (Neg) 06/03/20 23:25 Diagnostic Findings Chest x-ray : 1. Emphysematous change with no acute cardiopulmonary abnormality. 2. Question a 12 mm nodular density projecting over a right lower rib. This may be artifactual. Correlation with a dedicated PA and lateral examination is recommended when the patient is clinically able. EKG as per my interpretation : Rate 90, NSR, LAD, LAFB, T wave abnormality septal leads (1) Sepsis Sepsis acute organ dysfunction status: without acute organ dysfunction Sepsis type: Escherichia coli Qualified Code(s): A41.51 - Sepsis due to Escherichia coli [E. coli]
[2020-06-04] MEDS ORDERED: LORazepam 0.25 MG/0.5 ML VIAL IV PRN (01:55)
[2020-06-04] MEDS ORDERED: PANTOprazole 40 MG TAB PO PRN (01:55)
[2020-06-04] MEDS ORDERED: FLUTICASONE PROPIONATE NA SPR 16 GM BTL PRN (01:55)
[2020-06-04] MEDS ORDERED: PROMETHAZINE HCL 12.5 MG in SODIUM CHLORIDE 0.9% 50 ML IV PRN (01:55)
[2020-06-04] MEDS ORDERED: traMADol HCL 50 MG TABLET PO PRN (01:55)
[2020-06-04] MEDS ORDERED: MoRPHine SULFATE 4 MG/ML 1 ML CARP\\VIAL IV PRN (01:55)
[2020-06-04] MEDS ORDERED: AZTREONAM CONSULT ACTIVE PRN (03:47)
[2020-06-04] MEDS: LEVOTHYROXINE SODIUM 75 MCG TABLET PO SCH (06:29)
[2020-06-04 06:54] LABS: White Blood Count 12.69 K/uL (4.8-10.8)
[2020-06-04 06:55] LABS: Basophils # (auto) 0.02 K/uL (0-0.2); Basophils % (auto) 0.2 %; Eosinophils # (auto) 0.03 K/uL (0-0.5); Eosinophils % (auto) 0.2 %; Hematocrit (blood only) 37.8 % (37-47); Hemoglobin 12.7 g/dL (12.0-16.0); Immature Granulocytes # (auto) 0.01 K/uL (0.00-0.02); Immature Granulocytes % (auto) 0.1 %; Lymphocytes # (auto) 1.07 K/uL (1.2-3.4); Lymphocytes % (auto) 8.4 %; Mean Corpuscular Hemoglobin 29.7 pg (25-34); Mean Corpuscular Hgb Conc 33.6 g/dL (32-36); Mean Corpuscular Volume 88.5 fL (80-100); Mean Platelet Volume 10.1 fL (7.4-10.4); Monocytes # (auto) 1.82 K/uL (0.11-0.59); Monocytes % (auto) 14.3 %; Neutrophils # (auto) 9.74 K/uL (1.4-6.5); Neutrophils % (auto) 76.8 %; Platelet Count 207 K/uL (130-400); RDW Coefficient of Variation 14.7 % (11.5-14.5); RDW Standard Deviation 47.6 fL (36.4-46.3); Red Blood Count 4.27 M/uL (4.2-5.4)
--- NOTE | 2020-06-04 07:40 | CT Scan Report ---
CT OF THE ABDOMEN AND PELVIS WITHOUT CONTRAST CLINICAL HISTORY: Flank pain. Hematuria. COMPARISON STUDY: CT of the abdomen and pelvis September 18, 2015. TECHNIQUE: Axial images of the abdomen and pelvis were obtained without IV contrast. Images were revi ewed in the axial, sagittal, and coronal planes. Automated exposure control was utilized for the kristopher dy. A dose lowering technique was utilized adhering to the principles of ALARA. FINDINGS: Mild emphysema is noted within the lower lungs. There is mild right perinephric and periure teral infiltration with mild right hydroureter and hydronephrosis. Numerous small right renal calculi measure up to 3 mm. There are no ureteral calculi. There is mild left hydronephrosis. Collecting sys tem dilatation is similar to CT of September 18, 2015. A few punctate left renal calculi are present. Ther e is no left perinephric infiltration. Evaluation of the remainder of the abdomen and pelvis is subop timal on this unenhanced exam. There is probable hepatic steatosis. The spleen, adrenal glands and pa ncreas are unremarkable. A moderate amount stool is noted within the colon. There is no evidence for a bowel obstruction. The uterus is surgically absent. No acute fracture or suspicious osseous lesion is noted. There is no evidence for a bowel obstruction. IMPRESSION: 1. Mild right hydronephrosis and hydroureter with perinephric and periureteral infiltration. No urete ral calculi. The findings could reflect a recently passed calculus or an infectious process and could be correlated with urinalysis. 2. Bilateral nephrolithiasis. 3. Mild left hydronephrosis which is similar to CT of September 18, 2015. This may reflect a mild UPJ type obstruction. ACT 112: Negative or not required by law. Electronically signed by: Nick Oreilly M.D. 06/04/2020 7:39 AM
[2020-06-04 07:59] LABS: BUN Creatinine Ratio 26.8 (10-20); Calcium 7.4 mg/dl (8.5-10.1); Creatinine Clr Calc Pharmacy 72.8 ml/min; Est GFR (Non-African American) 83.7; Potassium 5.4 mmol/L (3.5-5.1)
[2020-06-04] MEDS: AZTREONAM 1,000 MG in DEXTROSE 5% 100 ML IV SCH ×3 (08:04→23:40)
[2020-06-04] MEDS: DULoxetine HCL 20 MG CAP PO SCH ×2 (08:04→19:33)
[2020-06-04] MEDS: ENOXAPARIN INJ 40 MG/0.4 ML SYR SQ SCH (08:05)
--- NOTE | 2020-06-04 09:18 | Electrocardiogram Report ---
Test Reason : Blood Pressure : / mmHG Vent. Rate : 090 BPM Atrial Rate : 090 BPM P-R Int : 172 ms QRS Dur : 090 ms QT Int : 368 ms P-R-T Axes : 038 -49 024 degrees QTc Int : 450 ms Normal sinus rhythm Low voltage QRS Left anterior fascicular block Abnormal ECG When compared with ECG of 20-SEP-2015 07:04, Premature atrial complexes are no longer Present Left anterior fascicular block now present Confirmed by Tremaine Jackson ([id number]) on 06/04/2020 9:18:23 AM Referred By: REFERRED SELF Confirmed By:Tremaine Jackson
--- NOTE | 2020-06-04 10:36 | Hospitalist Progress Note ---
Date of Service June 04, 2020 Assessment & Plan (1) Acute UTI (urinary tract infection): Recurrent UTI Possible sepsis since pt met criteria on admission with Leukocytosis and tachycardia Failed outpatient management with Macrobid therapy UA on admission positive for leukocytes, nitrite and bacteria CT abd/pelvis showed mild right hydronephrosis and hydroureter with perinephric and periureteral infiltration. No ureteral calculi. Mild left hydronephrosis which is similar to CT of September 18, 2015. WBC on admission slightly increased from 12.2 to 12.6 Received IV Zosyn in the ER, then starting on IV Azactam Blood and urine cx collected in the ER - pending Will monitor WBC Hyperkalemia Possible related to K supplement Potassium 5.4 today Will repeat K later Continue monitor BMP Lung Nodule CXR showed questionable 12 mm nodular density projecting over a right lower rib Will get a PA and lateral CXR in am DVT px on Lovenox Code status Full code Admission and Anticipated Discharge Date Admission Date: June 04, 2020 Subjective Pt was seen and examined for follow up of UTI symptoms Lying in bed with no distress watching TV She said that her back tenderness improves She said that she continues to have burning with urination She said that she feels a little better Denies any chest pain, palpitation, dizziness and SOB Review of Systems Review of Systems: All systems reviewed & are unremarkable except as noted in Subjective Physical Exam Physical Exam: General- No acute distress Head- atraumatic Eyes- PERRL, EOMI, ENT- oropharynx clear Neck- supple, no JVD Lungs- clear to auscultation Heart- regular rhythm; no murmur Abdomen- normal bowel sounds, soft, nontender Extremities- no calf tenderness Neuro- alert, oriented x 3; PERRL, EOMI; no facial palsy; no dysarthria Skin- warm & dry Results & Data Results & Data ([facility]) Vital Signs (Past 12 Hours) Vital Signs Temp Pulse Pulse Resp BP BP BP 06/04/20 07:47 36.5 C 65 20 90/59 L 06/04/20 06:59 60 06/04/20 06:55 64 06/04/20 02:45 85 06/04/20 01:56 37.2 C 103 H 18 107/67 06/04/20 01:01 96 H 17 100/51 L 06/04/20 00:30 96 H 12 93/52 L 06/04/20 00:21 37.1 C 06/04/20 00:00 102 H 14 97/69 L 06/03/20 23:30 93 H 16 117/67 06/03/20 22:30 38.2 C H 116 H 20 125/70 Pulse Ox 06/04/20 07:47 96 06/04/20 06:59 06/04/20 06:55 06/04/20 02:45 06/04/20 01:56 95 06/04/20 01:01 96 06/04/20 00:30 94 06/04/20 00:21 06/04/20 00:00 93 06/03/20 23:30 96 06/03/20 22:30 98
[2020-06-04] MEDS: ACETAMINOPHEN 325 MG TAB PO PRN ×3 (11:46→23:40)
[2020-06-04] MEDS: MULTIVITAMIN TAB PO SCH (19:33)
[2020-06-04] MEDS ORDERED: SUMAtriptan succinate 100 MG TAB PO STA (19:49)
[2020-06-05] MEDS: LEVOTHYROXINE SODIUM 75 MCG TABLET PO SCH (06:17)
[2020-06-05 07:08] LABS: Estimated Average Glucose 108 mg/dl; Hemoglobin A1C 5.4 % (4.5-5.6)
[2020-06-05] MEDS: DULoxetine HCL 20 MG CAP PO SCH ×2 (08:15→20:36)
[2020-06-05] MEDS: ENOXAPARIN INJ 40 MG/0.4 ML SYR SQ SCH (08:16)
[2020-06-05] MEDS: AZTREONAM 1,000 MG in DEXTROSE 5% 100 ML IV SCH ×3 (08:16→23:12)
[2020-06-05] MEDS ORDERED: SUMAtriptan succinate 50 MG TAB PO ONE (09:10)
--- NOTE | 2020-06-05 17:04 | Hospitalist Progress Note ---
Date of Service June 05, 2020 Assessment & Plan (1) Acute UTI (urinary tract infection): Recurrent UTI Possible sepsis since pt met criteria on admission with Leukocytosis and tachycardia Failed outpatient management with Macrobid therapy UA on admission positive for leukocytes, nitrite and bacteria CT abd/pelvis showed mild right hydronephrosis and hydroureter with perinephric and periureteral infiltration. No ureteral calculi. Mild left hydronephrosis which is similar to CT of September 18, 2015. WBC on admission slightly increased from 12.2 to 12.6 Received IV Zosyn in the ER, then starting on IV Azactam Urine cx grew E. coli Will follow urine sensitivity Hyperkalemia Possible related to K supplement Repeat K was 3.8 Continue monitor BMP Lung Nodule CXR showed questionable 12 mm nodular density projecting over a right lower rib Will get a PA and lateral CXR in am ISSA Continue CPAP DVT px on Lovenox Code status Full code Admission and Anticipated Discharge Date Admission Date: June 04, 2020 Subjective Pt was seen and examined for follow up of UTI symptoms Walking in her room with no distress She said that she feels much better Denies any chest pain, palpitation, dizziness and SOB Physical Exam Physical Exam: General- No acute distress Head- atraumatic Eyes- PERRL, EOMI, ENT- oropharynx clear Neck- supple, no JVD Lungs- clear to auscultation Heart- regular rhythm; no murmur Abdomen- normal bowel sounds, soft, nontender Extremities- no calf tenderness Neuro- alert, oriented x 3; PERRL, EOMI; no facial palsy; no dysarthria Skin- warm & dry Results & Data Results & Data ([facility]) Vital Signs (Past 12 Hours) Vital Signs Temp Pulse Pulse Resp BP BP Pulse Ox 06/05/20 16:00 72 06/05/20 15:10 37.1 C 78 18 113/71 97 06/05/20 11:36 36.4 C L 66 16 117/75 96 06/05/20 08:45 74 06/05/20 07:00 36.7 C 78 20 109/71 94
[2020-06-05] MEDS: MULTIVITAMIN TAB PO SCH (20:36)
[2020-06-06] MEDS: LEVOTHYROXINE SODIUM 75 MCG TABLET PO SCH (05:32)
[2020-06-06 06:28] LABS: Hematocrit (blood only) 41.2 % (37-47); Hemoglobin 14.1 g/dL (12.0-16.0); Mean Corpuscular Hemoglobin 29.8 pg (25-34); Mean Corpuscular Hgb Conc 34.2 g/dL (32-36); Mean Corpuscular Volume 87.1 fL (80-100); Mean Platelet Volume 10.6 fL (7.4-10.4); Platelet Count 267 K/uL (130-400); RDW Coefficient of Variation 14.2 % (11.5-14.5); RDW Standard Deviation 45.7 fL (36.4-46.3); Red Blood Count 4.73 M/uL (4.2-5.4); White Blood Count 8.34 K/uL (4.8-10.8)
[2020-06-06 07:03] LABS: BUN Creatinine Ratio 13.5 (10-20); Calcium 9.1 mg/dl (8.5-10.1); Est GFR (African American) 95.4; Est GFR (Non-African American) 82.3; Potassium 3.5 mmol/L (3.5-5.1)
[2020-06-06] MEDS: ENOXAPARIN INJ 40 MG/0.4 ML SYR SQ SCH (07:46)
[2020-06-06] MEDS: DULoxetine HCL 20 MG CAP PO SCH (07:47)
--- NOTE | 2020-06-06 08:16 | XRay Report ---
TWO VIEW CHEST CLINICAL HISTORY: Follow-up pulmonary nodule. FINDINGS: PA and lateral chest radiographs are compared to study dated 06/03/2020 and correlated with abdominal CT dated 06/04/2020. The cardiomediastinal silhouette is unremarkable noting atherosclerotic calcification of the thoracic aorta. Emphysema and chronic interstitial thickening is similar to pre vious. There is no airspace consolidation or pleural effusion. There are foci of bibasilar scarring/a telectasis. There is no pneumothorax. The skeletal structures are osteopenic. Degenerative change and mild compression deformities are noted in the thoracic spine. IMPRESSION: 1. Emphysematous change with no active disease in the chest. 2. No pulmonary nodule is identified at the right lung base as questioned on the prior examination. T his was likely artifactual, and the right lung base was also evaluated on the 06/04/[address] ACT 112: Negative or not required by law. Electronically signed by: Joni Fay M.D. 06/06/2020 8:15 AM
[2020-06-06] MEDS: AZTREONAM 1,000 MG in DEXTROSE 5% 100 ML IV SCH (08:46)
[2020-06-06] MEDS ORDERED: POTASSIUM CHLORIDE CRTAB 20 MEQ TABCR PO ONE (11:30)
[2020-06-06] MEDS ORDERED: POTASSIUM CHLORIDE 10 MEQ TABCR PO ONE (12:15)
--- NOTE | 2020-06-06 15:03 | Hospitalist Progress Note ---
Date of Service June 06, 2020 Assessment & Plan (1) Acute UTI (urinary tract infection): Recurrent UTI Possible sepsis since pt met criteria on admission with Leukocytosis and tachycardia Failed outpatient management with Macrobid therapy UA on admission positive for leukocytes, nitrite and bacteria CT abd/pelvis showed mild right hydronephrosis and hydroureter with perinephric and periureteral infiltration. No ureteral calculi. Mild left hydronephrosis which is similar to CT of September 18, 2015. WBC on admission slightly increased from 12.2 to 12.6 Received IV Zosyn in the ER, then starting on IV Azactam Urine cx grew E. coli Will transition IV Azactam to PO cipro to complete the course of the antibiotic with cipro Hyperkalemia Possible related to K supplement K 3.5 today Continue monitor BMP Questionable Lung Nodule CXR showed questionable 12 mm nodular density projecting over a right lower rib CXR LA/PA showed no pulmonary nodule is identified at the right lung base as questioned on the prior examination. This was likely artifactual, and the right lung base was also evaluated on the 06/04/[address] Brief Episode of PAT Showed on telemonitor Asymptomatic K was 3.5, supplement was given ISSA Continue CPAP DVT px on Lovenox Code status Full code Disposition Will discharge home today Admission and Anticipated Discharge Date Admission Date: June 04, 2020 Subjective Pt was seen and examined for follow up of UTI symptoms Lying in bed with with no distress. Pt said that she feels fine She said that she does not have any burning during urination and her urine is cleared She said that she feels good to go home Denies any chest pain, palpitation, dizziness and SOB Review of Systems Review of Systems: All systems reviewed & are unremarkable except as noted in Subjective Physical Exam Physical Exam: General- No acute distress Head- atraumatic Eyes- PERRL, EOMI, ENT- oropharynx clear Neck- supple, no JVD Lungs- clear to auscultation Heart- regular rhythm; no murmur Abdomen- normal bowel sounds, soft, nontender Extremities- no calf tenderness Neuro- alert, oriented x 3; PERRL, EOMI; no facial palsy; no dysarthria Skin- warm & dry Results & Data Results & Data ([facility]) Vital Signs (Past 12 Hours) Vital Signs Temp Pulse Pulse Resp BP Pulse Ox 06/06/20 11:17 36.5 C 70 16 104/71 96 06/06/20 08:30 65 06/06/20 07:07 36.4 C L 67 20 131/87 98 06/06/20 05:22 37.1 C 64 18 122/73 96
[2020-06-06] MEDS ORDERED: CIPROFLOXACIN 500 MG TAB PO SCH (16:00)
--- NOTE | 2020-06-11 08:08 | Discharge Summary ---
Date of Service June 06, 2020 Admission HPI Per Admitting Provider History obtained from patient and records. Medical history significant for hypertension, hyperlipidemia, GERD, IBS (constipation predominant), recurrent UTIs/history stress/urge incontinence as per records, ISSA on CPAP, past tobacco abuse. Last confinement September 2015 for sepsis secondary to pyelonephritis. Few weeks ago, patient had UTI symptoms without hematuria. No fever, no chills. Outpatient UA showed pansensitive E. coli. Persistent UTI symptoms despite completion of Macrobid course outpatient. Outpatient urology referral contemplated by PCP for microscopic hematuria on repeat UA. Patient had worsening discomfort the last few days with fever and chills. Achy back pain without gross hematuria symptoms No chest pain, no S OB, no cough. Patient brought to the ER by . Medical History as above Surgical History : Appendectomy, carpal tunnel surgery, cystoscopy, sinus surgery, cataract surgery, nasal septoplasty, PINA/BSO Family History : PTSD Personal/Social history : Past tobacco abuse, occasional EtOH intake, retired membership secretary Admission Exam Per Admitting Provider GENERAL: Slightly uncomfortable, anxious, obese, looks younger for stated age, no respiratory distress SKIN: Normal color, warm HEENT: Bespectacled, [place] palpebral conjunctivae, no ptosis, dry buccal mucosa NECK : Supple, short neck, no tenderness CHEST : CTA, no tenderness HEART : Tachycardic , no obvious murmurs ABDOMEN: Some distention, nontender BACK : Minimal flank tenderness EXTREMITIES : No LE swelling/tenderness, no other conspicuous deformities noted NEUROLOGIC : Coherent, no facial asymmetry, no other gross focality Principal Diagnosis Acute UTI (urinary tract infection): Recurrent UTI Hyperkalemia Discharge Exam General- No acute distress Head- atraumatic Eyes- PERRL, EOMI, ENT- oropharynx clear Neck- supple, no JVD Lungs- clear to auscultation Heart- regular rhythm; no murmur Abdomen- normal bowel sounds, soft, nontender Extremities- no calf tenderness Neuro- alert, oriented x 3; PERRL, EOMI; no facial palsy; no dysarthria Skin- warm & dry Discharge Data Allergies Allergy/AdvReac Type Severity Reaction Status Date / Time cephalexin Allergy Intermediate Hives Verified 06/03/20 23:07 Sulfa (Sulfonamide Allergy Intermediate HIVES Verified 06/03/20 23:07 Antibiotics) Consultations 06/03/20 23:48 ED Decision to Admit Stat Ordered Studies 06/04/20 00:29 CT abd pelvis wo con Urgent TWO VIEW CHEST CLINICAL HISTORY: Follow-up pulmonary nodule. FINDINGS: PA and lateral chest radiographs are compared to study dated 06/03/2020 and correlated with abdominal CT dated 06/04/2020. The cardiomediastinal silhouette is unremarkable noting atherosclerotic calcification of the thoracic aorta. Emphysema and chronic interstitial thickening is similar to previous. There is no airspace consolidation or pleural effusion. There are foci of bibasilar scarring/atelectasis. There is no pneumothorax. The skeletal structures are osteopenic. Degenerative change and mild compression deformities are noted in the thoracic spine. IMPRESSION: 1. Emphysematous change with no active disease in the chest. 2. No pulmonary nodule is identified at the right lung base as questioned on the prior examination. This was likely artifactual, and the right lung base was also evaluated on the 06/04/[address] ACT 112: Negative or not required by law. Electronically signed by: Joni Fay M.D. 06/06/2020 8:15 AM Dictated: 06/06/20 0813Transcribed: 06/06/[address] OF THE ABDOMEN AND PELVIS WITHOUT CONTRAST CLINICAL HISTORY: Flank pain. Hematuria. COMPARISON STUDY: CT of the abdomen and pelvis September 18, 2015. TECHNIQUE: Axial images of the abdomen and pelvis were obtained without IV contrast. Images were reviewed in the axial, sagittal, and coronal planes. Automated exposure control was utilized for the study. A dose lowering technique was utilized adhering to the principles of ALARA. FINDINGS: Mild emphysema is noted within the lower lungs. There is mild right perinephric and periureteral infiltration with mild right hydroureter and hydronephrosis. Numerous small right renal calculi measure up to 3 mm. There are no ureteral calculi. There is mild left hydronephrosis. Collecting system dilatation is similar to CT of September 18, 2015. A few punctate left renal calculi are present. There is no left perinephric infiltration. Evaluation of the remainder of the abdomen and pelvis is suboptimal on this unenhanced exam. There is probable hepatic steatosis. The spleen, adrenal glands and pancreas are unremarkable. A moderate amount stool is noted within the colon. There is no evidence for a bowel obstruction. The uterus is surgically absent. No acute fracture or suspicious osseous lesion is noted. There is no evidence for a bowel obstruction. IMPRESSION: 1. Mild right hydronephrosis and hydroureter with perinephric and periureteral infiltration. No ureteral calculi. The findings could reflect a recently passed calculus or an infectious process and could be correlated with urinalysis. 2. Bilateral nephrolithiasis. 3. Mild left hydronephrosis which is similar to CT of September 18, 2015. This may reflect a mild UPJ type obstruction. ACT 112: Negative or not required by law. Electronically signed by: Nick Oreilly M.D. 06/04/2020 7:39 AM Dictated: 06/04/20729Transcribed: 06/04/20729 SINGLE VIEW CHEST CLINICAL HISTORY: Sepsis. FINDINGS: An AP, portable, upright chest radiograph is compared to chest x-ray and chest CT dated 09/18/2015. The cardiomediastinal silhouette is unremarkable noting atherosclerotic calcification of the thoracic aorta. Emphysema and chronic interstitial thickening is similar to previous. There is mild bibasilar scarring/atelectasis. No airspace consolidation or large pleural effusion is identified. Question a 12 mm nodular density projecting over a right lower rib. No pneumothorax is seen. The skeletal structures are osteopenic. The bony thorax is grossly intact. IMPRESSION: 1. Emphysematous change with no acute cardiopulmonary abnormality. 2. Question a 12 mm nodular density projecting over a right lower rib. This may be artifactual. Correlation with a dedicated PA and lateral examination is recommended when the patient is clinically able. ACT 112: Positive. There are findings on this exam that require communication between the performing entity and the patient following Patient Test Result Information Act ([place] Act 112) guidelines. Electronically signed by: Joni Fay M.D. 06/03/2020 11:34 PM Dictated: 06/03/202330Transcribed: 06/03/202330 Hospital Course (1) Acute UTI (urinary tract infection): Recurrent UTI Possible sepsis since pt met criteria on admission with Leukocytosis and tachycardia Failed outpatient management with Macrobid therapy UA on admission positive for leukocytes, nitrite and bacteria CT abd/pelvis showed mild right hydronephrosis and hydroureter with perinephric and periureteral infiltration. No ureteral calculi. Mild left hydronephrosis which is similar to CT of September 18, 2015. WBC on admission slightly increased from 12.2 to 12.6 Received IV Zosyn in the ER, then starting on IV Azactam Urine cx grew E. coli Will transition IV Azactam to PO cipro to complete the course of the antibiotic with cipro Hyperkalemia Possible related to K supplement K 3.5 today Continue monitor BMP Questionable Lung Nodule CXR showed questionable 12 mm nodular density projecting over a right lower rib CXR LA/PA showed no pulmonary nodule is identified at the right lung base as questioned on the prior examination. This was likely artifactual, and the right lung base was also evaluated on the 06/04/[address] Brief Episode of PAT Showed on telemonitor Asymptomatic K was 3.5, supplement was given ISSA Continue CPAP DVT px on Lovenox Code status Full code Disposition Will discharge home today Total Time Total Time Spent Total Time Spent (In Minutes): 35 minutes Total Time Includes: Examination of the Patient, Discharge Planning, Medication Reconciliation, Communication With Other Providers and Other Discharge Plan Discharge Items Patient Disposition: Home - Self-Care Reason For Visit: SEPSIS Discharge Diagnosis: Acute UTI (urinary tract infection): Recurrent UTI Hyperkalemia Activity: Resume your previous activity Non-emergency contact: Primary Care Provider Call non-emergency contact if: you have any medication questions Follow-up/Referrals: Nader Clark MD [Primary Care Provider] - (Date & Time 06/09/2020 11:20 AM Provider Nader Clark MD Department [facility] ) Diet: Heart Healthy Addtl Attending Provider Instructions: Follow up with your primary care provider Dr. Clark on 06/09/2020 @ 11:20 AM Check BMP in 1 week to monitor potassium level Complete the course of the antibiotic with cipro Fall precaution Pending Studies at Discharge: No Stand-Alone Forms: My [employer], Smoking Cessation Medications and DC Order Prescriptions: Continued potassium chloride 10 mEq Capsule, Extended Release 10 meq PO DAILY PRN (Reason: WHEN TAKES BUMETANIDE) Qty: 0 RF: 0 sumatriptan succinate [Imitrex] 100 mg Tablet 100 mg PO DIRECTED PRN (Reason: Headache) Qty: 0 RF: 0 dicyclomine 20 mg Tablet 20 mg PO BID PRN (Reason: Diarrhea) Qty: 0 RF: 0 bumetanide 1 mg Tablet 1 mg PO DAILY PRN (Reason: Fluid Retention) Qty: 0 RF: 0 albuterol sulfate [Ventolin HFA] 90 mcg/actuation Hfa Aerosol Inhaler 2 - 4 puff INHALATION Q6H PRN (Reason: Shortness Of Breath) Qty: 0 RF: 0 fluticasone propionate [Flonase Allergy Relief] 50 mcg/actuation [place],Suspension 1 spray intranasal DAILY PRN (Reason: Allergy Symptoms) Qty: 0 RF: 0 omeprazole magnesium [Prilosec OTC] 20 mg Tablet,Delayed Release (Dr/Ec) 20 mg PO DAILY PRN (Reason: HEARTBURN/INDIGESTION) Qty: 0 RF: 0 duloxetine 20 mg Capsule,Delayed Release(Dr/Ec) 20 mg PO BID Qty: 0 RF: 0 cyanocobalamin (vitamin B-12) [Vitamin B-12] 1,000 mcg Tablet 1,000 mcg PO DAILY Qty: 0 RF: 0 multivitamin Tablet 1 tab PO HS RF: 0 levothyroxine 75 mcg tablet 75 mcg PO DAILY RF: 0 Medical Marijuana 1 dose sublingual BID RF: 0 Discharge Orders: Discharge Order (Routine); Ordered 06/06/20 Ordered By: Heriberto Vigil Admission Data Admit Date/Time: 06/04/20 00:30 Attending Provider: Heriberto Vigil Admit Provider: Rony Duarte Primary Care Provider: Nader Clark Other Providers: Rony Duarte Other Interventions: Discharge Summary Assessment (RN) Last Done: 06/06/20 15:29
== END 2020-06-06 16:26 | disposition home or self-care (01) ==
LOC: ED 22:28 → 2W 06-04 00:30

== ENCOUNTER 2020-08-10 16:01 | Inpatient (IN) ==
[2020-08-10] MEDS ORDERED: KETOROLAC TROMETHAMINE 15 MG/ML VIAL IV STA (16:19)
[2020-08-10] MEDS ORDERED: SODIUM CHLORIDE 0.9% 1000ML 1,000 ML IV ONE (16:19)
[2020-08-10] MEDS ORDERED: ONDANSETRON INJ 2 MG/ML 2 ML VIAL IV STA (16:19)
--- NOTE | 2020-08-10 16:48 | Emergency Department Note ---
History of Present Illness General Chief Complaint: Illness Stated Complaint: VOMITING, DIZZY, FLANK PAIN Time Seen by Provider: 08/10/20 16:13 History of Present Illness Provider Complaint: flank pain (R) Onset (ago): 2 day(s) Pain Consistency: intermittent Location: R flank Radiation: none Severity: moderate Maximum Pain Intensity: 5 Current Pain Intensity: 5 Quality: + stabbing and + sharp Context: + recent surgery/procedure (Recent ureteral stent placement) Associated Symptoms: + nausea and + vomiting (3 episodes today); no diarrhea, no fever, no chills, no constipation, no dysuria, no hematemesis, no hematochezia, no melena, no hematuria, no anorexia, no syncope, no headache, no neck pain, no chest pain, no weakness, no breathing difficulty and no numbness Home Medications Medication Instructions Recorded Confirmed Type albuterol sulfate [Ventolin HFA] 1 - 2 puff INHALATION Q6H PRN #0 03/19/16 08/10/20 History bumetanide 1 mg PO DAILY PRN #0 tab 03/19/16 08/10/20 History duloxetine 20 mg PO BID #0 03/19/16 08/10/20 History fluticasone propionate [Flonase 1 spray INTRANASAL DAILY PRN #0 03/19/16 08/10/20 History Allergy Relief] omeprazole magnesium [Prilosec OTC] 20 mg PO DAILY PRN #0 03/19/16 08/10/20 History potassium chloride 10 meq PO DAILY PRN #0 cap 03/19/16 08/10/20 History sumatriptan succinate [Imitrex] 100 mg PO DIRECTED PRN #0 tab 03/19/16 08/10/20 History Medical Marijuana 1 dose SUBLINGUAL UD PRN 06/03/20 08/10/20 History levothyroxine 75 mcg PO QAM 06/03/20 08/10/20 History multivitamin 1 tab PO HS 06/03/20 08/10/20 History L.acidoph-L.rhamn-B.bifidum-B.long 1 tab PO QAM tab 06/27/20 08/10/20 History 12.9 mg (2 billion cell) tablet, DR betamethasone dipropionate 0.05 % 1 applic TOPICAL DAILY PRN 06/27/20 08/10/20 History topical ointment cholecalciferol (vitamin D3) 125 125 mcg PO QAM 06/27/20 08/10/20 History mcg (5,000 unit) tablet clobetasol 0.05 % topical cream 1 applic TOPICAL BID PRN 06/27/20 08/10/20 History cyanocobalamin (vitamin B-12) 2,500 mcg PO QAM 06/27/20 08/10/20 History 2,500 mcg tablet gabapentin 600 mg tablet 600 mg PO QPM 06/27/20 08/10/20 History hydroxyzine HCl 25 mg tablet 25 mg PO QID PRN 06/27/20 08/10/20 History levocetirizine 5 mg tablet 5 mg PO QPM 06/27/20 08/10/20 History oxybutynin chloride 10 mg 10 mg PO QAM 06/27/20 08/10/20 History tablet,extended release 24 hr ascorbic acid (vitamin C) [Vitamin 500 mg PO QAM 07/03/20 08/10/20 History C] gabapentin 400 mg PO QAM 07/03/20 08/10/20 History phenazopyridine [Pyridium] 200 mg PO Q8H PRN #10 tab 07/17/20 08/10/20 Rx tamsulosin 0.4 mg PO HS #30 cap 07/17/20 08/10/20 Rx magnesium oxide 500 mg PO QPM 08/10/20 08/10/20 History Allergies Allergy/AdvReac Type Severity Reaction Status Date / Time cephalexin Allergy Intermediate Hives Verified 08/10/20 17:34 Sulfa (Sulfonamide Allergy Intermediate HIVES Verified 08/10/20 17:34 Antibiotics) lisinopril Allergy Mild Cough Verified 08/10/20 17:34 Past Med/Surg History Medical History Arthritis GERD (gastroesophageal reflux disease) Hypothyroidism IBS (irritable bowel syndrome) Kidney stone Migraine Overactive bladder Peripheral neuropathy Restless leg syndrome Sleep apnea CPAP, USING EVERY NIGHT. Surgical History H/O foot surgery R foot hammertoe correction 07/10/20 at [facility]. H/O sinus surgery H/O: hysterectomy History of appendectomy History of bladder surgery BLADDER TACK History of carpal tunnel release RT/LEFT History of cataract surgery RT/LEFT History of colonoscopy History of esophagogastroduodenoscopy (EGD) History of tonsillectomy History of tooth extraction Strabismus LEFT EYE REPAIRED Family History Other No family history of adverse response to anesthesia Social History Smoking Status: Former smoker packs per day: 1; Years Smoked: 30; Smoking End Date: 2001; Second Hand Exposure: Yes (IN THE PAST); Hx Alcohol Use: No Hx Substance Use: No Preferred Language: Cook Islander Communication Ability: Effective Visual Impairment: No Limitations Hearing Ability: Normal 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 Beliefs That Will Affect Care: None marital status: Current Living Situation: Spouse current occupational status: retired How many Children do You have: 2 Other Information That Helps Us Care for You: No Feels Safe at Home: Yes Safety Concerns: Feels Safe At This Time Assistive Devices: Denture - Upper and Hearing Aid - Bilateral Assistive Devices Comment: not here Review of Systems A total of 10 systems reviewed and were otherwise negative Physical Exam Vital Signs: Vital Signs - 24 hr 08/10/20 16:07 08/10/20 17:54 Temperature 36.5 C Temperature Source Temporal Artery Sc an Pulse Rate 101 H Pulse Rate [Left F milton] 83 Pulse Rhythm [Left Finger] Regular Pulse Strength [Le ft Finger] Normal Respiratory Rate 18 20 Respiratory Effort / Characteristics Non-Labored Non-Labored Respiratory Depth Normal Normal Respiratory Patter n Regular Blood Pressure 115/75 Blood Pressure [Le ft Arm] 105/58 L Blood Pressure Emperatriz n 88 Blood Pressure Emperatriz n [Left Arm] 73 Blood Pressure Pos ition [Left Arm] Lying Pulse Oximetry 95 94 Oxygen Delivery Me thod Room Air Room Air Sepsis Recent Feve r Within 48 Hours No Sepsis New/Unexpla ined Change in Men peggy Status No Sepsis Action Take n by Nursing No Action Required Physical Exam: Physical Exam GENERAL: She is oriented to person, place, and time. She appears well-developed and well-nourished. She does not appear distressed. HENT: Exam performed. -Head: Normocephalic and atraumatic. -Right Ear: External ear normal. No mastoid tenderness. -Left Ear: External ear normal. No mastoid tenderness. -Mouth/Throat: The oropharynx is clear and moist. No trismus in the jaw. No dental abscesses or uvula swelling. No oropharyngeal exudate or tonsillar abscesses. EYES: Conjunctivae and EOM are normal. Pupils are equal, round, and reactive to light. Right eye exhibits no discharge. Left eye exhibits no discharge. No scleral icterus. NECK: Normal range of motion. Neck supple. No JVD present. No spinous process tenderness present. No carotid bruit present. No rigidity. No tracheal deviation and normal range of motion present. No Brudzinski's sign and no Kernig's sign noted. CV: Normal rate, regular rhythm, normal heart sounds and intact distal pulses. There is no peripheral edema. Palpable radial pulses bue. PULM/CHEST: Effort normal and breath sounds normal. No respiratory distress. No stridor. She has no wheezes. She has no rales. -Chest Wall: She exhibits no tenderness. ABD: The abdomen is soft. Bowel sounds are normal. She has no distension. No mass is present. There is no tenderness. There is no rebound, no guarding, no Toledo's sign and no tenderness at McBurney's point. Rovsig negative. Right- sided CVA tenderness. MUSC/SKEL: Normal range of motion. There is no peripheral edema, tenderness or deformity. LYMPH: No cervical adenopathy. NEURO: She is alert and oriented to person, place, and time. She has normal strength. No cranial nerve deficit or sensory deficit. Coordination and gait normal. GCS eye subscore is 4. GCS verbal subscore is 5. GCS motor subscore is 6. Cerebellar tests wnl. SKIN: Skin is warm and dry. She is not diaphoretic. PSYCH: She has a normal mood and affect. Behavior is normal. Judgment and thought content normal. Course Course 1612: The patient was evaluated in room A2. A complete history and physical exam was performed Cardiac monitoring: An order was placed for continuous cardiac monitoring. The monitor shows a rate of 100 with sinus rhythm 1814: Vital signs stable. Labs show leukocytosis of 14. Urine does appear to be infected. CT shows continuing hydronephrosis with perinephric stranding. Discussed the case with Dr. Diaz who agrees that the patient should be admitted to the [facility] hospitalist team and he will evaluate the patient in the morning to see if the stents need to be removed or if patient needs any other further urological procedure. Discussed case with Denisha concepcion who states to admit to Dr. Chance Administered Medications Acetaminophen (Acetaminophen 325 Mg Tab) 650 mg PO QID RACHEL Stop: 09/09/20 20:59 Last Admin: 08/10/20 22:50 Dose: 650 mg Documented by: [id number] Cetirizine HCl (Cetirizine Hcl 10 Mg Tablet) 5 mg PO QPM RACHEL Stop: 09/09/20 20:59 Last Admin: 08/10/20 22:50 Dose: 5 mg Documented by: [id number] Duloxetine HCl (Duloxetine Hcl 20 Mg Cap) 20 mg PO BID RACHEL Stop: 09/09/20 20:59 Last Admin: 08/10/20 22:52 Dose: 20 mg Documented by: [id number] Gabapentin (Gabapentin 600 Mg Tab) 600 mg PO QPM RACHEL Stop: 09/09/20 20:59 Last Admin: 08/10/20 22:51 Dose: 600 mg Documented by: [id number] Heparin Sodium (Porcine) (Heparin Sod 5,000 Unit/0.5 Ml Vial) 5,000 units SQ Q8 RACHEL Stop: 09/09/20 21:59 Last Admin: 08/10/20 22:51 Dose: 5,000 units Documented by: [id number] Sodium Chloride (Nss 1000ml) 1,000 mls @ 100 mls/hr IV .Q10H RACHEL Stop: 09/09/20 20:29 Last Admin: 08/10/20 23:26 Dose: 100 mls/hr Documented by: Magnesium Oxide (Magnesium Oxide 400 Mg Tab) 400 mg PO QPM RACHEL Stop: 09/09/20 20:59 Last Admin: 08/10/20 22:52 Dose: 400 mg Documented by: [id number] Multivitamins (Multivitamin Tab) 1 tab PO HS RACHEL Stop: 09/09/20 20:59 Last Admin: 08/10/20 22:51 Dose: 1 tab Documented by: [id number] Tamsulosin HCl (Tamsulosin Hcl 0.4 Mg Cap) 0.4 mg PO HS RACHEL Stop: 09/09/20 20:59 Last Admin: 08/10/20 22:52 Dose: 0.4 mg Documented by: [id number] Discontinued Medications Sodium Chloride (Nss 1000ml) 1,000 mls @ 999 mls/hr IV .Q1H1M ONE Stop: 08/10/20 17:19 Last Infusion: 08/10/20 19:45 Dose: 0 mls/hr Documented by: [id number] Admin: 08/10/20 17:00 Dose: 999 mls/hr Documented by: [id number] Ceftriaxone Sodium (Rocephin) 1,000 mg in 50 mls @ 100 mls/hr IV NOW STA Stop: 08/10/20 18:47 Last Infusion: 08/10/20 19:45 Dose: 0 mls/hr Documented by: [id number] Admin: 08/10/20 18:22 Dose: 100 mls/hr Documented by: [id number] Sodium Chloride (Nss 1000ml) 1,000 mls @ 125 mls/hr IV .Q8H RACHEL Stop: 09/09/20 18:29 Last Admin: 08/10/20 19:44 Dose: 125 mls/hr Documented by: [id number] Sodium Chloride (Nss) 500 mls @ 999 mls/hr IV .Q31M ONE Stop: 08/10/20 19:23 Last Infusion: 08/10/20 19:45 Dose: 0 mls/hr Documented by: [id number] Admin: 08/10/20 19:00 Dose: 999 mls/hr Documented by: [id number] Ciprofloxacin (Cipro / D5w) 400 mg in 200 mls @ 100 mls/hr IV NOW STA; Protocol Stop: 08/10/20 21:12 Last Admin: 08/10/20 19:44 Dose: 100 mls/hr Documented by: [id number] Ketorolac Tromethamine (Ketorolac Tromethamine 15 Mg/Ml Vial) 15 mg IV NOW STA Stop: 08/10/20 16:20 Last Admin: 08/10/20 17:04 Dose: 15 mg Documented by: [id number] Ondansetron HCl (Ondansetron Inj 2 Mg/Ml 2 Ml Vial) 4 mg IV NOW STA Stop: 08/10/20 16:20 Last Admin: 08/10/20 17:04 Dose: 4 mg Documented by: [id number] Medical Decision Making Laboratory Data Result diagrams: 08/10/20 16:45 08/10/20 18:09 Lab Results 08/10/20 08/10/2021 Range/Units 16:29 16:29 16:45 WBC 14.18 H (4.8-10.8) K/uL RBC 4.67 (4.2-5.4) M/uL Hgb 13.8 (12.0-16.0) g/dL Hct 40.9 (37-47) % MCV 87.6 (80-100) fL MCH 29.6 (25-34) pg MCHC 33.7 (32-36) g/dL RDW Std Deviation 47.9 H (36.4-46.3) fL RDW Coeff of [place] 15.0 H (11.5-14.5) % Plt Count 233 (130-400) K/uL MPV 9.7 (7.4-10.4) fL Immature Gran % (Auto) 0.4 % Neut % (Auto) 87.0 % Lymph % (Auto) 3.6 % [place] % (Auto) 8.7 % Eos % (Auto) 0.1 % Baso % (Auto) 0.2 % Neut # (Auto) 12.35 H (1.4-6.5) K/uL Lymph # (Auto) 0.51 L (1.2-3.4) K/uL [place] # (Auto) 1.23 H (0.11-0.59) K/uL Eos # (Auto) 0.01 (0-0.5) K/uL Baso # (Auto) 0.03 (0-0.2) K/uL Immature Gran # (Auto) 0.05 H (0.00-0.02) K/uL Sodium (136-145) mmol/L Potassium (3.5-5.1) mmol/L Chloride (98-107) mmol/L Carbon Dioxide (21-32) mmol/L Anion Gap (3-11) BUN (7-18) mg/dl Creatinine (0.6-1.2) mg/dl Est Cr Clr Drug Dosing ml/min Est GFR ( Amer) Est GFR (Non-Af Amer) BUN/Creatinine Ratio (10-20) Glucose (70-99) mg/dl Calcium (8.5-10.1) mg/dl Total Bilirubin (0.2-1) mg/dl Direct Bilirubin (0-0.2) mg/dl AST (15-37) U/L ALT (12-78) U/L Alkaline Phosphatase (45-117) U/L Total Protein (6.4-8.2) gm/dl Albumin (3.4-5.0) gm/dl Lipase (73-393) U/L Procalcitonin (0-0.5) ng/ml Urine Color Urine Appearance (Clear) Urine pH (4.5-7.5) Ur Specific [place] (1.000-1.030) Urine Protein (Negative) Urine Glucose (UA) (Negative) Urine Ketones (Negative) Urine Blood (Negative) Urine Nitrite (Negative) Urine Bilirubin (Negative) Urine Urobilinogen (Negative) Ur Leukocyte Esterase (Negative) Urine WBC (Auto) (0-5) /hpf Urine RBC (Auto) (0-4) /hpf U Hyaline Cast (Auto) (0-5) /lpf U Epithel Cells (Auto) (0-5) /lpf Urine Bacteria (Auto) (Negative) Urine Yeast COVID-19 Eval Order Covid19 IDNow [facility] SARS-CoV-2, RNA, NAAT NEGATIVE (NEGATIVE) 08/10/20 08/10/20 08/10/20 Range/Units 16:45 17:32 18:09 WBC (4.8-10.8) K/uL RBC (4.2-5.4) M/uL Hgb (12.0-16.0) g/dL Hct (37-47) % MCV (80-100) fL MCH (25-34) pg MCHC (32-36) g/dL RDW Std Deviation (36.4-46.3) fL RDW Coeff of [place] (11.5-14.5) % Plt Count (130-400) K/uL MPV (7.4-10.4) fL Immature Gran % (Auto) % Neut % (Auto) % Lymph % (Auto) % [place] % (Auto) % Eos % (Auto) % Baso % (Auto) % Neut # (Auto) (1.4-6.5) K/uL Lymph # (Auto) (1.2-3.4) K/uL [place] # (Auto) (0.11-0.59) K/uL Eos # (Auto) (0-0.5) K/uL Baso # (Auto) (0-0.2) K/uL Immature Gran # (Auto) (0.00-0.02) K/uL Sodium 136 (136-145) mmol/L Potassium 3.8 (3.5-5.1) mmol/L Chloride 104 (98-107) mmol/L Carbon Dioxide 24 (21-32) mmol/L Anion Gap 8.0 (3-11) BUN 21 H (7-18) mg/dl Creatinine 1.05 (0.6-1.2) mg/dl Est Cr Clr Drug Dosing 50.5 ml/min Est GFR ( Amer) 61.4 Est GFR (Non-Af Amer) 53.0 BUN/Creatinine Ratio 20.0 (10-20) Glucose 113 H (70-99) mg/dl Calcium 9.1 (8.5-10.1) mg/dl Total Bilirubin 1.1 H (0.2-1) mg/dl Direct Bilirubin 0.2 (0-0.2) mg/dl AST 24 (15-37) U/L ALT 41 (12-78) U/L Alkaline Phosphatase 107 (45-117) U/L Total Protein 7.8 (6.4-8.2) gm/dl Albumin 3.5 (3.4-5.0) gm/dl Lipase 47 L (73-393) U/L Procalcitonin (0-0.5) ng/ml Urine Color Dark Yellow Urine Appearance Turbid A (Clear) Urine pH 6.0 (4.5-7.5) Ur Specific [place] 1.017 (1.000-1.030) Urine Protein 3+ H (Negative) Urine Glucose (UA) Negative (Negative) Urine Ketones 1+ H (Negative) Urine Blood 3+ H (Negative) Urine Nitrite Positive A (Negative) Urine Bilirubin Negative (Negative) Urine Urobilinogen Negative (Negative) Ur Leukocyte Esterase 3+ H (Negative) Urine WBC (Auto) >30 H (0-5) /hpf Urine RBC (Auto) >30 H (0-4) /hpf U Hyaline Cast (Auto) 1-5 (0-5) /lpf U Epithel Cells (Auto) >30 H (0-5) /lpf Urine Bacteria (Auto) Negative (Negative) Urine Yeast Not Reportable COVID-19 Eval Order SARS-CoV-2, RNA, NAAT (NEGATIVE) 08/10/20 Range/Units 18:15 WBC (4.8-10.8) K/uL RBC (4.2-5.4) M/uL Hgb (12.0-16.0) g/dL Hct (37-47) % MCV (80-100) fL MCH (25-34) pg MCHC (32-36) g/dL RDW Std Deviation (36.4-46.3) fL RDW Coeff of [place] (11.5-14.5) % Plt Count (130-400) K/uL MPV (7.4-10.4) fL Immature Gran % (Auto) % Neut % (Auto) % Lymph % (Auto) % [place] % (Auto) % Eos % (Auto) % Baso % (Auto) % Neut # (Auto) (1.4-6.5) K/uL Lymph # (Auto) (1.2-3.4) K/uL [place] # (Auto) (0.11-0.59) K/uL Eos # (Auto) (0-0.5) K/uL Baso # (Auto) (0-0.2) K/uL Immature Gran # (Auto) (0.00-0.02) K/uL Sodium (136-145) mmol/L Potassium (3.5-5.1) mmol/L Chloride (98-107) mmol/L Carbon Dioxide (21-32) mmol/L Anion Gap (3-11) BUN (7-18) mg/dl Creatinine (0.6-1.2) mg/dl Est Cr Clr Drug Dosing ml/min Est GFR ( Amer) Est GFR (Non-Af Amer) BUN/Creatinine Ratio (10-20) Glucose (70-99) mg/dl Calcium (8.5-10.1) mg/dl Total Bilirubin (0.2-1) mg/dl Direct Bilirubin (0-0.2) mg/dl AST (15-37) U/L ALT (12-78) U/L Alkaline Phosphatase (45-117) U/L Total Protein (6.4-8.2) gm/dl Albumin (3.4-5.0) gm/dl Lipase (73-393) U/L Procalcitonin 0.39 (0-0.5) ng/ml Urine Color Urine Appearance (Clear) Urine pH (4.5-7.5) Ur Specific [place] (1.000-1.030) Urine Protein (Negative) Urine Glucose (UA) (Negative) Urine Ketones (Negative) Urine Blood (Negative) Urine Nitrite (Negative) Urine Bilirubin (Negative) Urine Urobilinogen (Negative) Ur Leukocyte Esterase (Negative) Urine WBC (Auto) (0-5) /hpf Urine RBC (Auto) (0-4) /hpf U Hyaline Cast (Auto) (0-5) /lpf U Epithel Cells (Auto) (0-5) /lpf Urine Bacteria (Auto) (Negative) Urine Yeast COVID-19 Eval Order SARS-CoV-2, RNA, NAAT (NEGATIVE) Imaging Data Radiologist's Impression: Abdomen/Pelvis CT 08/10/20 16:20 CT OF THE ABDOMEN AND PELVIS WITHOUT CONTRAST CLINICAL HISTORY: Right flank pain. COMPARISON STUDY: CT of the abdomen and pelvis June 04, 2020. Retrograde e xams July 17, 2020. TECHNIQUE: Axial images of the abdomen and pelvis were obtained without IV co ntrast. Images were reviewed in the axial, sagittal, and coronal planes. Automated exposure control was utilized for the study. A dose lowering technique was utilized adhering to the principles of ALARA. FINDINGS: Emphysema is noted within the lower lungs. Hepatic steatosis is noted. Evaluation of the abdomen and pelvis is suboptimal on this unenhanced examination. There is mild gallbladder distention without adjacent infiltration. No biliary or pancreatic ductal dilatation is present. There is no evidence for a bowel obstruction. The caliber of small and large bowel are normal. There is a moderate amount stool within the colon. The appendix is not visualized. There is no lymphadenopathy. No acute fracture or suspicious lesion is identified within the visualized skeletal structures. Bilateral ureteral stents are properly positioned. Moderate to severe right hydronephrosis has increased since CT of June 04, 2020. No ureteral calculi are present. Note is made of right perinephric infiltration and fluid. This has developed since prior exam. Mild left hydronephrosis has slightly improved. Numerous small right renal calculi shown to 3 mm. A few left renal calculi measure up to 2 mm. No bladder calculi. IMPRESSION: 1. Increase in moderate to severe right hydronephrosis despite indwelling stent. Right perinephric infiltration and fluid. The etiology for this hydronephrosis is not clear on this examination but could be due to a stricture. 2. Mild left hydronephrosis, slightly improved since prior exam. 3. No ureteral calculi. Bilateral nephrolithiasis. 4. Hepatic steatosis. ACT 112: Negative or not required by law. Electronically signed by: Nick Oreilly M.D. 08/10/2020 5:27 PM MDM Narrative Vital signs stable. Labs show leukocytosis of 14. Urine does appear to be infected. CT shows continuing hydronephrosis with perinephric stranding. Discussed the case with Dr. Diaz who [facility] will evaluate the patient in the morning to see if the stents need to be removed or if patient needs any other further urological procedure. Discussed case with Denisha concepcion who states to admit to Dr. Chance Impression & Plan Acute pyelonephritis Discharge Plan Visit Data Chief Complaint: Illness Stated Complaint: VOMITING, DIZZY, FLANK PAIN ED Provider: Víctor Capps Discharge Problem: Acute pyelonephritis Patient Disposition: Admitted As Inpatient Discharge Instructions Interventions: ED Discharge Assessment Last Done: 08/10/20 20:16
[2020-08-10 16:56] LABS: Basophils # (auto) 0.03 K/uL (0-0.2); Basophils % (auto) 0.2 %; Eosinophils # (auto) 0.01 K/uL (0-0.5); Eosinophils % (auto) 0.1 %; Hematocrit (blood only) 40.9 % (37-47); Hemoglobin 13.8 g/dL (12.0-16.0); Immature Granulocytes # (auto) 0.05 K/uL (0.00-0.02); Immature Granulocytes % (auto) 0.4 %; Lymphocytes # (auto) 0.51 K/uL (1.2-3.4); Lymphocytes % (auto) 3.6 %; Mean Corpuscular Hemoglobin 29.6 pg (25-34); Mean Corpuscular Hgb Conc 33.7 g/dL (32-36); Mean Corpuscular Volume 87.6 fL (80-100); Mean Platelet Volume 9.7 fL (7.4-10.4); Monocytes # (auto) 1.23 K/uL (0.11-0.59); Monocytes % (auto) 8.7 %; Neutrophils # (auto) 12.35 K/uL (1.4-6.5); Platelet Count 233 K/uL (130-400); RDW Standard Deviation 47.9 fL (36.4-46.3); Red Blood Count 4.67 M/uL (4.2-5.4); White Blood Count 14.18 K/uL (4.8-10.8)
--- NOTE | 2020-08-10 17:29 | CT Scan Report ---
CT OF THE ABDOMEN AND PELVIS WITHOUT CONTRAST CLINICAL HISTORY: Right flank pain. COMPARISON STUDY: CT of the abdomen and pelvis June 04, 2020. Retrograde exams July 17, 2020. TECHNIQUE: Axial images of the abdomen and pelvis were obtained without IV contrast. Images were revi ewed in the axial, sagittal, and coronal planes. Automated exposure control was utilized for the kristopher dy. A dose lowering technique was utilized adhering to the principles of ALARA. FINDINGS: Emphysema is noted within the lower lungs. Hepatic steatosis is noted. Evaluation of the ab domen and pelvis is suboptimal on this unenhanced examination. There is mild gallbladder distention w ithout adjacent infiltration. No biliary or pancreatic ductal dilatation is present. There is no evid ence for a bowel obstruction. The caliber of small and large bowel are normal. There is a moderate am ount stool within the colon. The appendix is not visualized. There is no lymphadenopathy. No acute fr acture or suspicious lesion is identified within the visualized skeletal structures. Bilateral ureteral stents are properly positioned. Moderate to severe right hydronephrosis has increa sed since CT of June 04, 2020. No ureteral calculi are present. Note is made of right perinephric infiltration and fluid. This has developed since prior exam. Mild left hydronephrosis has slightly i mproved. Numerous small right renal calculi shown to 3 mm. A few left renal calculi measure up to 2 m m. No bladder calculi. IMPRESSION: 1. Increase in moderate to severe right hydronephrosis despite indwelling stent. Right perinephric in filtration and fluid. The etiology for this hydronephrosis is not clear on this examination but could be due to a stricture. 2. Mild left hydronephrosis, slightly improved since prior exam. 3. No ureteral calculi. Bilateral nephrolithiasis. 4. Hepatic steatosis. ACT 112: Negative or not required by law. Electronically signed by: Nick Oreilly M.D. 08/10/2020 5:27 PM
[2020-08-10 17:39] LABS: Albumin Level 3.5 gm/dl (3.4-5.0); Bilirubin,Total 1.1 mg/dl (0.2-1); Calcium 9.1 mg/dl (8.5-10.1); Creatinine Clr Calc Pharmacy 50.5 ml/min; Est GFR (African American) 61.4; Total Protein 7.8 gm/dl (6.4-8.2)
[2020-08-10 17:43] LABS: Appearance Urine Turbid (Clear); Bacteria Urine Automated Negative (Negative); Bilirubin Urine Negative (Negative); Blood Urine 3+ (Negative); Color Urine Dark Yellow; Epithelial Cell Urine Auto >30 /lpf (0-5); Glucose Urine UA Negative (Negative); Ketones Urine 1+ (Negative); Leukocyte Esterase Urine 3+ (Negative); Nitrite Urine Positive (Negative); Protein Urine 3+ (Negative); RBC Urine Automated >30 /hpf (0-4); Specific Gravity Urine 1.017 (1.000-1.030); Urobilinogen Urine Negative (Negative); WBC Urine Automated >30 /hpf (0-5)
[2020-08-10] MEDS ORDERED: cefTRIAXone SODIUM 1,000 MG/50 ML BAG IV STA (18:18)
[2020-08-10] MEDS ORDERED: SODIUM CHLORIDE 0.9% 1000ML 1,000 ML IV SCH ×2 (18:30→20:30)
[2020-08-10 18:41] LABS: Potassium 3.8 mmol/L (3.5-5.1)
--- NOTE | 2020-08-10 18:43 | History & Physical Report ---
Date of Service August 10, 2020 Assessment & Plan (1) Sepsis: (2) Pyelonephritis: (3) Acute unilateral obstructive uropathy: This is a 74-year-old female who has significant past medical history of HTN, HLD, ISSA on CPAP, hypothyroidism, GERD, history of migraines, RLS who presents to ED secondary to nausea, vomiting and right flank pain x1 day. On 07/17/20 pt underwent 1. Cystoscopy, 2. Left Ureteroscopy, retrograde pyelogram, Laser endopyelotomy, ureteral stent, 3. Right ureteroscopy, ureteral dilation x2, laser lithotripsy and stone basket extraction, retrograde pyelogram, and ureteral stent by Dr. Avendano. She was to have stent removed today; however felt ill and presented to ED. Pt meets Sepsis criteria per current CMS guidelines 2/2 to leukocytosis (14k) and hypotension Clinically pt appears septic During my evaluation pt had SBP in 90s She received 1L of IVF in ED and 1g IV rocephin - pt does have allergy to keflex with hives so this will need to be monitored closely Urine cultures obtained blood cultures, procalcitonin and lactic acid ordered post administration of IV antibiotics Source: Urine/Pyelonephritis in setting of ureteral stent with severe hydronephrosis admit to tele consult urology - discussed case with Shiv Florez PA-C give 500ml IVF bolus x 1 now switch IV antibiotics to IV cipro 400mg q12 in setting of cephalosporin allergy - prior urine cultures grew pansensitive e.coli and enterococcus after bolus of IVF continue maintenance fluids 100 cc/h Keep n.p.o. Await urologic evaluation Blood and urine cultures ordered Lactic acid and procalcitonin pending (4) Sleep apnea: CPAP at HS (5) Hypothyroidism: continue levothyroxine (6) GERD (gastroesophageal reflux disease): continue PPI (7) Restless leg syndrome, familial: continue gabapentin (8) DVT prophylaxis: SQ Heparin Dispo: Med tele PCP: Amber FULL CODE Pt was seen and examined in collaboration with Dr. Chance, please see addendum History of Present Illness Chief Complaint: Nausea, vomiting and right flank pain x1 day. Primary Care Provider: Nader Clark MD This is a 74-year-old female who has significant past medical history of HTN, HLD, ISSA on CPAP, hypothyroidism, GERD, history of migraines, RLS who presents to ED secondary to nausea, vomiting and right flank pain x1 day. Of significance on 07/17/2020 patient underwent cystoscopy by Dr. Avendano secondary to microscopic hematuria. She underwent a left ureteroscopic E with stent placement and laser Endo pyelotomy as well as right ureteroscopy, ureteral dilatation x2, laser lithotripsy with stone basket extraction and stent placement. 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 She complains of feeling feverish, chills, nausea and vomiting. She vomitted 3 times today. She further complained of right flank pain that was severe, nonradiating, worsened with movement, improved with IV Toradol in ED. She did not take her temperature therefore no documented fever, but complained being feverish. She overall complains of feeling, "not well." She denies any lightheadedness, dizziness, syncope, headache, chest pain, shortness of breath, URI symptoms, abdominal pain, dysuria, increased urgency or frequency with urination, melena, hematochezia or hematuria. In ED patient remained hemodynamically stable although blood pressures were on the softer side. Her urinalysis did appear consistent with underlying infection. CT scan abdomen pelvis concerning for increase in moderate to severe right hydronephrosis despite indwelling stent with right perinephritic infiltration and fluid. Mild left hydronephrosis was improved from prior exam. There is no ureteral calculi noted. In ED she received 1 L IV fluid as well as 1 g IV Rocephin. Urology was contacted and stated they would see in the morning. Overall poor appetite today as she has not had anything to eat or drink. Allergies Allergy/AdvReac Type Severity Reaction Status Date / Time cephalexin Allergy Intermediate Hives Verified 08/10/20 17:34 Sulfa (Sulfonamide Allergy Intermediate HIVES Verified 08/10/20 17:34 Antibiotics) lisinopril Allergy Mild Cough Verified 08/10/20 17:34 Home Medications Medication Instructions Recorded Confirmed Type albuterol sulfate [Ventolin HFA] 1 - 2 puff INHALATION Q6H PRN #0 03/19/16 08/10/20 History bumetanide 1 mg PO DAILY PRN #0 tab 03/19/16 08/10/20 History duloxetine 20 mg PO BID #0 03/19/16 08/10/20 History fluticasone propionate [Flonase 1 spray INTRANASAL DAILY PRN #0 03/19/16 08/10/20 History Allergy Relief] omeprazole magnesium [Prilosec OTC] 20 mg PO DAILY PRN #0 03/19/16 08/10/20 History potassium chloride 10 meq PO DAILY PRN #0 cap 03/19/16 08/10/20 History sumatriptan succinate [Imitrex] 100 mg PO DIRECTED PRN #0 tab 03/19/16 08/10/20 History Medical Marijuana 1 dose SUBLINGUAL UD PRN 06/03/20 08/10/20 History levothyroxine 75 mcg PO QAM 06/03/20 08/10/20 History multivitamin 1 tab PO HS 06/03/20 08/10/20 History L.acidoph-L.rhamn-B.bifidum-B.long 1 tab PO QAM tab 06/27/20 08/10/20 History 12.9 mg (2 billion cell) tablet, DR betamethasone dipropionate 0.05 % 1 applic TOPICAL DAILY PRN 06/27/20 08/10/20 History topical ointment cholecalciferol (vitamin D3) 125 125 mcg PO QAM 06/27/20 08/10/20 History mcg (5,000 unit) tablet clobetasol 0.05 % topical cream 1 applic TOPICAL BID PRN 06/27/20 08/10/20 History cyanocobalamin (vitamin B-12) 2,500 mcg PO QAM 06/27/20 08/10/20 History 2,500 mcg tablet gabapentin 600 mg tablet 600 mg PO QPM 06/27/20 08/10/20 History hydroxyzine HCl 25 mg tablet 25 mg PO QID PRN 06/27/20 08/10/20 History levocetirizine 5 mg tablet 5 mg PO QPM 06/27/20 08/10/20 History oxybutynin chloride 10 mg 10 mg PO QAM 06/27/20 08/10/20 History tablet,extended release 24 hr ascorbic acid (vitamin C) [Vitamin 500 mg PO QAM 07/03/20 08/10/20 History C] gabapentin 400 mg PO QAM 07/03/20 08/10/20 History phenazopyridine [Pyridium] 200 mg PO Q8H PRN #10 tab 07/17/20 08/10/20 Rx tamsulosin 0.4 mg PO HS #30 cap 07/17/20 08/10/20 Rx magnesium oxide 500 mg PO QPM 08/10/20 08/10/20 History Past Med/Surg History Medical History Arthritis GERD (gastroesophageal reflux disease) Hypothyroidism IBS (irritable bowel syndrome) Kidney stone Migraine Overactive bladder Peripheral neuropathy Restless leg syndrome Sleep apnea CPAP, USING EVERY NIGHT. Surgical History H/O foot surgery R foot hammertoe correction 07/10/20 at [facility]. H/O sinus surgery H/O: hysterectomy History of appendectomy History of bladder surgery BLADDER TACK History of carpal tunnel release RT/LEFT History of cataract surgery RT/LEFT History of colonoscopy History of esophagogastroduodenoscopy (EGD) History of tonsillectomy History of tooth extraction Strabismus LEFT EYE REPAIRED Family History Other No family history of adverse response to anesthesia Social History Smoking Status: Former smoker packs per day: 1; Years Smoked: 30; Smoking End Date: 2001; Second Hand Exposure: Yes (IN THE PAST); Hx Alcohol Use: No Hx Substance Use: No Preferred Language: Grenadian Communication Ability: Effective Visual Impairment: No Limitations Hearing Ability: Normal Census Clerk Required: No Beliefs That Will Affect Care: None marital status: Current Living Situation: Spouse current occupational status: retired How many Children do You have: 2 Other Information That Helps Us Care for You: No Feels Safe at Home: Yes Safety Concerns: Feels Safe At This Time Assistive Devices: None Assistive Devices Comment: not here Review of Systems Review of Systems: All systems reviewed & are unremarkable except as noted in HPI & below Physical Exam Physical Exam: Constitutional: WD/WN, acutely ill-appearing female, vitals as above, NAD, sitting up in bed, pleasant, conversing easily Head: Normocephalic, Atraumatic Eyes: PERRL, conjunctivae normal, anicteric sclerae ENMT: external ear and nose normal, oropharynx normal mucous membrane dry Neck: trachea midline, no thyromegaly normal visual inspection Respiratory: normal respiratory effort, lungs clear to auscultation, no wheeze, rales, rhonchi. Normal insp/exp effort, no accessory muscle use Cardiovascular: RRR, no murmur, no edema Vessels: no JVD or carotid bruit Chest: normal inspection of chest Abdomen: normal bowel sounds, soft, nontender, no hepatosplenomegaly , no CVA tenderness Musculoskeletal: no cyanosis or clubbing, extremities motor strength 5/5 Skin: no rashes, warm and dry normal turgor Neurologic: PERRL, EOMI, accommodation nl, no face palsy, no dysarthria CN's II-XI intact bilaterally and moves all extremities Psychiatric: A+Ox3, euthymic affect Lymphatic: no cervical or axillary lymphadenopathy : deferred Results & Data Results & Data ([facility]) Vital Signs (Past 12 Hours) Vital Signs Temp Pulse Pulse Resp BP BP Pulse Ox 08/10/20 17:54 83 20 105/58 L 94 08/10/20 16:07 36.5 C 101 H 18 115/75 95 Diagnostic Findings Abdomen/Pelvis CT 08/10/20 16:20 CT OF THE ABDOMEN AND PELVIS WITHOUT CONTRAST CLINICAL HISTORY: Right flank pain. COMPARISON STUDY: CT of the abdomen and pelvis June 04, 2020. Retrograde exams July 17, 2020. TECHNIQUE: Axial images of the abdomen and pelvis were obtained without IV contrast. Images were reviewed in the axial, sagittal, and coronal planes. Automated exposure control was utilized for the study. A dose lowering technique was utilized adhering to the principles of ALARA. FINDINGS: Emphysema is noted within the lower lungs. Hepatic steatosis is noted. Evaluation of the abdomen and pelvis is suboptimal on this unenhanced examination. There is mild gallbladder distention without adjacent infiltration. No biliary or pancreatic ductal dilatation is present. There is no evidence for a bowel obstruction. The caliber of small and large bowel are normal. There is a moderate amount stool within the colon. The appendix is not visualized. There is no lymphadenopathy. No acute fracture or suspicious lesion is identified within the visualized skeletal structures. Bilateral ureteral stents are properly positioned. Moderate to severe right hydronephrosis has increased since CT of June 04, 2020. No ureteral calculi are present. Note is made of right perinephric infiltration and fluid. This has developed since prior exam. Mild left hydronephrosis has slightly improved. Numerous small right renal calculi shown to 3 mm. A few left renal calculi measure up to 2 mm. No bladder calculi. IMPRESSION: 1. Increase in moderate to severe right hydronephrosis despite indwelling stent. Right perinephric infiltration and fluid. The etiology for this hydronephrosis is not clear on this examination but could be due to a stricture. 2. Mild left hydronephrosis, slightly improved since prior exam. 3. No ureteral calculi. Bilateral nephrolithiasis. 4. Hepatic steatosis. ACT 112: Negative or not required by law. Electronically signed by: Nick Oreilly M.D. 08/10/2020 5:27 PM Medications Administered Discontinued Medications Sodium Chloride (Nss 1000ml) 1,000 mls @ 999 mls/hr IV .Q1H1M ONE Stop: 08/10/20 17:19 Last Admin: 08/10/20 17:00 Dose: 999 mls/hr Documented by: [id number] Ceftriaxone Sodium (Rocephin) 1,000 mg in 50 mls @ 100 mls/hr IV NOW STA Stop: 08/10/20 18:47 Last Admin: 08/10/20 18:22 Dose: 100 mls/hr Documented by: [id number] Ketorolac Tromethamine (Ketorolac Tromethamine 15 Mg/Ml Vial) 15 mg IV NOW STA Stop: 08/10/20 16:20 Last Admin: 08/10/20 17:04 Dose: 15 mg Documented by: [id number] Ondansetron HCl (Ondansetron Inj 2 Mg/Ml 2 Ml Vial) 4 mg IV NOW STA Stop: 08/10/20 16:20 Last Admin: 08/10/20 17:04 Dose: 4 mg Documented by: [id number] COVID-19 Results Results COVID-19 Adm Lab Results: RBC 3.92 M/uL (4.2-5.4) L 08/12/20 WBC 9.73 K/uL (4.8-10.8) 08/12/20 Hgb 11.8 g/dL (12.0-16.0) L 08/12/20 Hct 35.5 % (37-47) L 08/12/20 Plt Count 162 K/uL (130-400) 08/12/20 Neutrophils (%) (Auto) 89.3 % 08/12/20 Lymphocytes (%) (Auto) 5.2 % 08/12/20 Monocytes # (Auto) 0.46 K/uL (0.11-0.59) 08/12/20 Eosinophils # (Auto) 0.06 K/uL (0-0.5) 08/12/20 Immature Granulocyte % (Auto) 0.1 % 08/12/20 Neutrophils # (Auto) 8.68 K/uL (1.4-6.5) H 08/12/20 Lymphocytes # (Auto) 0.51 K/uL (1.2-3.4) L 08/12/20 Monocytes # (Auto) 0.46 K/uL (0.11-0.59) 08/12/20 Eosinophils # (Auto) 0.06 K/uL (0-0.5) 08/12/20 Basophils # (Auto) 0.01 K/uL (0-0.2) 08/12/20 Immature Granulocyte # (Auto) 0.01 K/uL (0.00-0.02) 08/12/20 Na 138 mmol/L (136-145) 08/12/20 K 4.6 mmol/L (3.5-5.1) 08/12/20 Cl 113 mmol/L (98-107) H 08/12/20 CO2 21 mmol/L (21-32) 08/12/20 Anion Gap 4.0 (3-11) 08/12/20 BUN 13 mg/dl (7-18) 08/12/20 Creatinine 0.87 mg/dl (0.6-1.2) 08/12/20 BUN/Creatinine Ratio 15.2 (10-20) 08/12/20 Glucose Level 105 mg/dl (70-99) H 08/12/20 Ca 7.9 mg/dl (8.5-10.1) L 08/12/20 Total Bilirubin 0.7 mg/dl (0.2-1) 08/11/20 Direct Bilirubin 0.2 mg/dl (0-0.2) 08/10/20 AST/SGOT 24 U/L (15-37) 08/11/20 ALT/SGPT 28 U/L (12-78) 08/11/20 Alkaline Phosphatase 84 U/L (45-117) 08/11/20 Total Protein 6.3 gm/dl (6.4-8.2) L 08/11/20 Albumin 2.8 gm/dl (3.4-5.0) L 08/11/20 Globulin 3.5 gm/dl (2.5-4.0) 08/11/20 Albumin/Globulin Ratio 0.8 (0.9-2) L 08/11/20 Troponin I 0.036 ng/ml (0-0.045) 08/12/20 Procalcitonin 0.39 ng/ml (0-0.5) 08/10/20 PTT 33.8 Seconds (21.0-31.0) H 08/12/20 SARS-CoV-2, RNA, NAAT NEGATIVE (NEGATIVE) 08/10/20 Chest X-Ray 08/12/20 Code Status & VTE Plan Code Status Full Code VTE Prophylaxis Plan VTE Prophylaxis will be ordered: Yes Supervising Physician Co-Signing Physician Notes Patient seen and examined by me, care coordinated with Denisha Lopez PA-C, PAC, please refer to her note above for further detail. Patient is a 74-year-old female, with history of HTN, HLD, ISSA on CPAP, and hx of recent urologic procedure who presents to ED secondary to nausea, vomiting, subjective fever, chills and right flank pain x1 day. On 07/17/20 pt underwent 1. Cystoscopy, 2. Left Ureteroscopy, retrograde pyel ogram, Laser endopyelotomy, ureteral stent, 3. Right ureteroscopy, ureteral dilation x2, laser lithotripsy and stone basket extraction, retrograde pyelogram, and ureteral stent by Dr. Avendano. She was to have stent removed today; however felt ill and presented to ED. UA significant for nitrite, leuk esterase, but no bacteria. CT abdomen showing moderate to severe right hydronephrosis despite stent placement and right perinephric infiltration. WBC elevated at 14,000, and blood pressure low despite IV fluids received in the ED. Overall patient does not feel well. She still has some right flank discomfort, nausea better controlled now. She received 1 g of Rocephin, she has some allergy/hives noted in the chart. Patient appears ill , she is however alert and oriented and answering questions appropriately. Lung sounds clear without any wheezing rhonchi crackles noted. Heart sounds regular. Abdomen soft obese nontender nondistended. + Right flank pain. No lower extremity edema. Patient's presentation concerning for sepsis, will continue with IV fluids and closely monitor hemodynamic status. Received 1 g of Rocephin, given possible allergy, will switch to Cipro now. CT showing worsening hydronephrosis on the right side despite stent, will contact urology for further evaluation. Concern for obstructive uropathy/acute pyelonephritis. We will continue to follow urine cultures. Will obtain blood culture, procalcitonin and lactic acid. Damon Chance MD
[2020-08-10 18:46] LABS: Bilirubin Direct 0.2 mg/dl (0-0.2)
[2020-08-10] MEDS ORDERED: SODIUM CHLORIDE 0.9% 500 ML IV ONE (18:53)
[2020-08-10] MEDS ORDERED: AZTREONAM 1,000 MG in DEXTROSE 5% 100 ML IV STA (19:09)
[2020-08-10] MEDS ORDERED: CIPROFLOXACIN / D5W 400 MG/200 ML BAG IV STA (19:13)
--- NOTE | 2020-08-10 20:02 | Urology Consultation ---
Date of Consultation August 10, 2020 Assessment & Plan (1) Acute unilateral obstructive uropathy: Patient has been admitted to the hospital by the [facility] service. We will proceed as follows: At the present time the patient is normotensive, not tachycardic, and afebrile. Her labs she is also not in acute renal failure. Patient is also noted be mentating well. Due to these findings there is currently no urgent intervention for cystoscopy. Recommend keeping the patient n.p.o. except for medicines Continue antibiotics. The patient has received a dose of Rocephin in the ER and she is scheduled to receive a dose of aztreonam followed by Javid. Follow for urine culture results at which time her antibiotics can be tailored based on these results Maintain the patient on maintenance IV fluids. She has IV fluids ordered at 125 cc/h Patient will be reevaluated in the morning to determine if cystoscopy will be required at that time. Please contact the [facility] university relations director service if the patient becomes febrile, hypotensive, tachycardic, develops acute kidney injury, or demonstrates other findings suggestive of sepsis. We will continue to follow the patient is hospitalized. Supervising Physician Co-Signing Physician Notes Patient seen and examined. Agree with above assessment Since patient is fairly uncomfortable we will plan on proceeding with cystoscopy and bilateral stent exchanges clarence Jang discussed the procedure with her including the risks and benefits per the consent All her questions were answered and she agrees to proceed History of Present Illness Reason for Consultation: Hydronephrosis and concern for sepsis from urinary source History of Present Illness This 74-year-old female who presented to [facility] emergency department earlier today as she has not been feeling well. On July [address] Avendano of [facility] performed a cystoscopy laser lithotripsy and bilateral ureteral stent placement. Patient says that she took 3 days of antibiotics following this procedure. She notes that she was initially doing well and was scheduled to have her stent removed in the office today. She says that she did not make her office appointment because over the last 24 to 36 hours she felt feverish (although she admitted she did not take her temperature), had some back pain, was experiencing shakes and chills, and was having nausea and vomiting. Because of her symptoms she presented to [facility] emergency department. In the emergency department the patient did have labs and imaging which were independently reviewed by myself. She did have a CT scan of the abdomen and pelvis that showed that she had improved left-sided hydronephrosis. She was noted to have some worsening right-sided hydronephrosis with perinephric infiltration. A CBC was performed that showed her white blood cell count was 14.1, hemoglobin and hematocrit were noted to be within normal range, and her platelet count was noted be normal. Chemistry profile showed a slight increase of her BUN at 21, but her sodium, potassium, and creatinine were noted to be within normal range. A Covid test has been performed and is noted to be negative. She did have a urinalysis that did show no bacteria however she did have pyuria as well as a positive leukocyte esterase. A lactic acid level has been ordered and is pending Was [facility] who [facility] the patient. They were concerned the patient was becoming septic from urinary source. They reported that the patient was having episodes of hypotension. I did review with the nurse in the emergency department in room A2. Thus far the patient has received 1 L of normal saline. She was received antibiotics in the form of Rocephin. The nurse notes that her blood pressure has been running anywhere from 107-115 systolic. At the time of my exam the patient was noted to be mentating well and she was in no distress. Allergies Allergy/AdvReac Type Severity Reaction Status Date / Time cephalexin Allergy Intermediate Hives Verified 08/10/20 17:34 Sulfa (Sulfonamide Allergy Intermediate HIVES Verified 08/10/20 17:34 Antibiotics) lisinopril Allergy Mild Cough Verified 08/10/20 17:34 Home Medications Medication Instructions Recorded Confirmed Type albuterol sulfate [Ventolin HFA] 1 - 2 puff INHALATION Q6H PRN #0 03/19/16 08/10/20 History bumetanide 1 mg PO DAILY PRN #0 tab 03/19/16 08/10/20 History duloxetine 20 mg PO BID #0 03/19/16 08/10/20 History fluticasone propionate [Flonase 1 spray INTRANASAL DAILY PRN #0 03/19/16 08/10/20 History Allergy Relief] omeprazole magnesium [Prilosec OTC] 20 mg PO DAILY PRN #0 03/19/16 08/10/20 History potassium chloride 10 meq PO DAILY PRN #0 cap 03/19/16 08/10/20 History sumatriptan succinate [Imitrex] 100 mg PO DIRECTED PRN #0 tab 03/19/16 08/10/20 History Medical Marijuana 1 dose SUBLINGUAL UD PRN 06/03/20 08/10/20 History levothyroxine 75 mcg PO QAM 06/03/20 08/10/20 History multivitamin 1 tab PO HS 06/03/20 08/10/20 History L.acidoph-L.rhamn-B.bifidum-B.long 1 tab PO QAM tab 06/27/20 08/10/20 History 12.9 mg (2 billion cell) tabletDR betamethasone dipropionate 0.05 % 1 applic TOPICAL DAILY PRN 06/27/20 08/10/20 History topical ointment cholecalciferol (vitamin D3) 125 125 mcg PO QAM 06/27/20 08/10/20 History mcg (5,000 unit) tablet clobetasol 0.05 % topical cream 1 applic TOPICAL BID PRN 06/27/20 08/10/20 History cyanocobalamin (vitamin B-12) 2,500 mcg PO QAM 06/27/20 08/10/20 History 2,500 mcg tablet gabapentin 600 mg tablet 600 mg PO QPM 06/27/20 08/10/20 History hydroxyzine HCl 25 mg tablet 25 mg PO QID PRN 06/27/20 08/10/20 History levocetirizine 5 mg tablet 5 mg PO QPM 06/27/20 08/10/20 History oxybutynin chloride 10 mg 10 mg PO QAM 06/27/20 08/10/20 History tablet,extended release 24 hr ascorbic acid (vitamin C) [Vitamin 500 mg PO QAM 07/03/20 08/10/20 History C] gabapentin 400 mg PO QAM 07/03/20 08/10/20 History phenazopyridine [Pyridium] 200 mg PO Q8H PRN #10 tab 07/17/20 08/10/20 Rx tamsulosin 0.4 mg PO HS #30 cap 07/17/20 08/10/20 Rx magnesium oxide 500 mg PO QPM 08/10/20 08/10/20 History Patient History Medical History Arthritis GERD (gastroesophageal reflux disease) Hypothyroidism IBS (irritable bowel syndrome) Kidney stone Migraine Overactive bladder Peripheral neuropathy Restless leg syndrome Sleep apnea CPAP, USING EVERY NIGHT. Surgical History H/O foot surgery R foot hammertoe correction 07/10/20 at [facility]. H/O sinus surgery H/O: hysterectomy History of appendectomy History of bladder surgery BLADDER TACK History of carpal tunnel release RT/LEFT History of cataract surgery RT/LEFT History of colonoscopy History of esophagogastroduodenoscopy (EGD) History of tonsillectomy History of tooth extraction Strabismus LEFT EYE REPAIRED Family History Other No family history of adverse response to anesthesia Social History Smoking Status: Former smoker packs per day: 1; Years Smoked: 30; Smoking End Date: 2001; Second Hand Exposure: Yes (IN THE PAST); Hx Alcohol Use: No Hx Substance Use: No Preferred Language: Kosovan Communication Ability: Effective Visual Impairment: No Limitations Hearing Ability: Normal Evaporator Helper Required: No Beliefs That Will Affect Care: None marital status: Current Living Situation: Spouse current occupational status: retired How many Children do You have: 2 Other Information That Helps Us Care for You: No Feels Safe at Home: Yes Safety Concerns: Feels Safe At This Time Assistive Devices: Denture - Upper and Hearing Aid - Bilateral Assistive Devices Comment: not here Review of Systems Constitutional: + fever, + chills and + sweats Eyes: no diplopia Ear, Nose, Mouth, Throat: no ear pain Respiratory: no cough and no dyspnea Cardiovascular: no chest pain Gastrointestinal: + nausea and + vomiting; no abdominal pain Genitourinary: + dysuria Musculoskeletal: + back pain Integumentary: no rash Neurologic: no localized weakness Physical Exam Constitutional: well developed and well nourished; no acute distress Eyes: no conjunctival abnormality ENMT: Ears: no hearing impairment Neck: trachea midline Respiratory: normal respiratory effort; no respiratory distress and no labored breathing Cardiovascular: Rate/Rhythm: regular rate and regular rhythm Gastrointestinal (Abdomen): Percussion/Palpation: abdomen soft; abdomen nontender Musculoskeletal: No calf tenderness Skin: no rashes, warm and dry Neurologic: moves all extremities Psychiatric: A+Ox3, euthymic affect Genitourinary: + CVA tenderness (Minimal CVA tenderness with percussion) Results & Data ([facility]) Vital Signs (Past 12 Hours) Vital Signs Temp Pulse Pulse Resp BP BP Pulse Ox 08/10/20 18:56 76 18 107/61 98 08/10/20 17:54 83 20 105/58 L 94 08/10/20 16:07 36.5 C 101 H 18 115/75 95 PG Care Time/CCT Total # of Minutes Spent Total Time Spent with Patient: Total time spent is greater than 50% in coordination of care (as documented) at patient's floor/unit and/or counseling patient: Coding Level of Care Code 72314 Inpt Consult Level 5 Diagnoses Acute unilateral obstructive uropathy N13.9
[2020-08-10] MEDS ORDERED: ALBUTEROL HFA 8 GM INHALER INH PRN (20:30)
[2020-08-10] MEDS ORDERED: POLYETHYLENE (MIRALAX) 17 GM PACK PO PRN (20:30)
[2020-08-10] MEDS ORDERED: ONDANSETRON INJ 2 MG/ML 2 ML VIAL IV PRN ×2 (20:30→21:18)
[2020-08-10] MEDS ORDERED: PHENAZOPYRIDINE HCL 200 MG TAB PO PRN (20:30)
[2020-08-10] MEDS ORDERED: MAGNESIUM HYDROXIDE SUSP 30 ML UDC PO PRN (20:30)
[2020-08-10] MEDS ORDERED: ALUMINUM/MAGNESIUM SUSP 30 ML UDC PO PRN (20:30)
[2020-08-10] MEDS ORDERED: FLUTICASONE PROPIONATE NA SPR 16 GM BTL PRN (20:30)
[2020-08-10] MEDS ORDERED: hydrOXYzine HCl 25 MG TAB PO PRN (20:30)
[2020-08-10] MEDS ORDERED: MIDAZOLAM HCL 1 MG/ML 2ML VIAL ONE (20:53)
[2020-08-10] MEDS ORDERED: fentaNYL citrate 100 MCG/2 ML VIAL ONE (20:53)
--- NOTE | 2020-08-10 21:01 | Anesthesiology Consultation ---
Date of Service August 10, 2020 Assessment & Plan (1) Encounter for pre-operative examination: Chart Review Chart Review: Acceptable Risk for Surgery (Urgent) History Surgery Operation Date: 08/10/20 20:45 Proposed Procedures p Cystoscopy - Master Solis MD Operation Date: 08/10/20 20:50 Proposed Procedures p Cystoscopy - Master Solis MD s Ureteral Stent Insertion/Removal(Bilateral) - Master Solis MD Height/Weight Height: 5 ft 5 in Weight: 81.9 kg Allergies Allergy/AdvReac Type Severity Reaction Status Date / Time cephalexin Allergy Intermediate Hives Verified 08/10/20 17:34 Sulfa (Sulfonamide Allergy Intermediate HIVES Verified 08/10/20 17:34 Antibiotics) lisinopril Allergy Mild Cough Verified 08/10/20 17:34 Medications Home Medications Medication Instructions Recorded Confirmed Last Taken albuterol sulfate [Ventolin HFA] 1 - 2 puff INHALATION Q6H PRN #0 03/19/16 08/10/20 07/31/19 bumetanide 1 mg PO DAILY PRN #0 tab 03/19/16 08/10/20 07/14/20 duloxetine 20 mg PO BID #0 03/19/16 08/10/20 08/10/20 08:00 fluticasone propionate [Flonase 1 spray INTRANASAL DAILY PRN #0 03/19/16 08/10/20 07/31/19 Allergy Relief] omeprazole magnesium [Prilosec OTC] 20 mg PO DAILY PRN #0 03/19/16 08/10/20 07/31/19 potassium chloride 10 meq PO DAILY PRN #0 cap 03/19/16 08/10/20 07/14/20 sumatriptan succinate [Imitrex] 100 mg PO DIRECTED PRN #0 tab 03/19/16 08/10/20 07/31/19 Medical Marijuana 1 dose SUBLINGUAL UD PRN 06/03/20 08/10/20 07/15/20 levothyroxine 75 mcg PO QAM 06/03/20 08/10/20 08/10/20 multivitamin 1 tab PO HS 06/03/20 08/10/20 08/09/20 L.acidoph-L.rhamn-B.bifidum-B.long 1 tab PO QAM tab 06/27/20 08/10/20 08/10/20 12.9 mg (2 billion cell) tablet, betamethasone dipropionate 0.05 % 1 applic TOPICAL DAILY PRN 06/27/20 08/10/20 Unknown topical ointment cholecalciferol (vitamin D3) 125 125 mcg PO QAM 06/27/20 08/10/20 08/10/20 mcg (5,000 unit) tablet clobetasol 0.05 % topical cream 1 applic TOPICAL BID PRN 06/27/20 08/10/20 Unknown cyanocobalamin (vitamin B-12) 2,500 mcg PO QAM 06/27/20 08/10/20 08/10/20 2,500 mcg tablet gabapentin 600 mg tablet 600 mg PO QPM 06/27/20 08/10/20 08/09/20 hydroxyzine HCl 25 mg tablet 25 mg PO QID PRN 06/27/20 08/10/20 07/16/20 levocetirizine 5 mg tablet 5 mg PO QPM 06/27/20 08/10/20 08/09/20 oxybutynin chloride 10 mg 10 mg PO QAM 06/27/20 08/10/20 08/10/20 tablet,extended release 24 hr ascorbic acid (vitamin C) [Vitamin 500 mg PO QAM 07/03/20 08/10/20 08/10/20 C] gabapentin 400 mg PO QAM 07/03/20 08/10/20 08/10/20 phenazopyridine [Pyridium] 200 mg PO Q8H PRN #10 tab 07/17/20 08/10/20 Unknown tamsulosin 0.4 mg PO HS #30 cap 07/17/20 08/10/20 08/09/20 magnesium oxide 500 mg PO QPM 08/10/20 08/10/20 08/09/20 Active Medications Generic Name Dose Route Start Last Admin Trade Name Freq PRN Reason Stop Dose Admin Ciprofloxacin 400 mg in 200 mls @ 100 mls/hr 08/10/20 19:13 08/10/20 19:44 Cipro / D5w IV 08/10/20 21:12 100 mls/hr NOW STA Administration Protocol Past Medical History Medical History Arthritis GERD (gastroesophageal reflux disease) Hypothyroidism IBS (irritable bowel syndrome) Kidney stone Migraine Overactive bladder Peripheral neuropathy Restless leg syndrome Sleep apnea CPAP, USING EVERY NIGHT. Past Family History Family History Other No family history of adverse response to anesthesia Past Surgical History Surgical History H/O foot surgery R foot hammertoe correction 07/10/20 at [facility]. H/O sinus surgery H/O: hysterectomy History of appendectomy History of bladder surgery BLADDER TACK History of carpal tunnel release RT/LEFT History of cataract surgery RT/LEFT History of colonoscopy History of esophagogastroduodenoscopy (EGD) History of tonsillectomy History of tooth extraction Strabismus LEFT EYE REPAIRED Social History Smoking Status: Former smoker tobacco type: cigarettes Smoking End Date: 2001 Hx Alcohol Use: No alcohol intake frequency: holidays/special occasions only Hx Substance Use: No substance use type: marijuana Substance Use Type Other:: medical Last Used Substance: Days (ago) Last Used Substance Other:: ONLY RX MARIJUANA Physical Exam Vital Signs Last Vital Signs Temp 36.8 C 08/10/20 20:32 Pulse 69 08/10/20 20:32 Resp 18 08/10/20 20:32 BP 92/55 L 08/10/20 20:32 Pulse Ox 94 08/10/20 20:32 Testing Laboratory Results 08/10/20 16:45 08/10/20 18:09 Urine Color Dark Yellow 08/10/20 17:32 Urine Appearance Turbid (Clear) A 08/10/20 17:32 Urine pH 6.0 (4.5-7.5) 08/10/20 17:32 Ur Specific [place] 1.017 (1.000-1.030) 08/10/20 17:32 Urine Protein 3+ (Negative) H 08/10/20 17:32 Urine Glucose (UA) Negative (Negative) 08/10/20 17:32 Urine Ketones 1+ (Negative) H 08/10/20 17:32 Urine Nitrite Positive (Negative) A 08/10/20 17:32 Ur Leukocyte Esterase 3+ (Negative) H 08/10/20 17:32 Urine WBC (Auto) >30 /hpf (0-5) H 08/10/20 17:32 Urine RBC (Auto) >30 /hpf (0-4) H 08/10/20 17:32 U Hyaline Cast (Auto) 1-5 /lpf (0-5) 08/10/20 17:32 U Epithel Cells (Auto) >30 /lpf (0-5) H 08/10/20 17:32 Urine Bacteria (Auto) Negative (Negative) 08/10/20 17:32 Laboratory Tests 08/10/20 16:45 Carbon Dioxide 24 Creatinine 1.05
[2020-08-10] MEDS ORDERED: ePHEDrine sulfate 50 MG/ML AMP IV PRN (21:18)
[2020-08-10] MEDS ORDERED: ATROPINE SULFATE 0.1 MG/ML 10ML SYR IV PRN (21:18)
[2020-08-10] MEDS ORDERED: PHENYLEPHRINE 100MCG/ML 5ML SYR IV PRN (21:18)
[2020-08-10] MEDS ORDERED: IOTHALAMATE MEGLUMINE II 17.2% 250 ML VIAL INSTIL SCH (21:45)
[2020-08-10] MEDS ORDERED: LIDOCAINE HCL 2% 2 ML VIAL/AMP(20MG/ML) INFIL ONE (21:59)
[2020-08-10] MEDS ORDERED: PHENYLEPHRINE 100MCG/ML 5ML SYR ONE (21:59)
[2020-08-10] MEDS ORDERED: PROPOFOL IV EMULSION 10 MG/ML 20 ML VIAL IV ONE (21:59)
--- NOTE | 2020-08-10 22:06 | Anesthesiology Progress Note ---
Date of Service August 10, 2020 Anesthesia Post Procedure Vital Signs Vital Signs: Temp Pulse Pulse Pulse Resp BP BP 08/10/20 22:00 75 14 08/10/20 21:55 36.0 C L 75 14 08/10/20 21:17 36.4 C L 71 18 08/10/20 20:32 36.8 C 69 18 08/10/20 20:31 36.8 C 69 18 92/55 L 08/10/20 20:16 79 18 104/61 08/10/20 18:56 76 18 107/61 08/10/20 17:54 83 20 105/58 L 08/10/20 16:07 36.5 C 101 H 18 115/75 BP Pulse Ox 08/10/20 22:00 93/53 L 99 08/10/20 21:55 93/54 L 98 08/10/20 21:17 86/59 L 97 08/10/20 20:32 92/55 L 94 08/10/20 20:31 94 08/10/20 20:16 98 08/10/20 18:56 98 08/10/20 17:54 94 08/10/20 16:07 95 Transfer of Care Handoff Completed per policy Notes Mental Status: alert / awake / arousable Patient Amnestic to Procedure: Yes Nausea / Vomiting: adequately controlled Pain: adequately controlled Airway Patency, RR, SpO2: stable & adequate BP & HR: stable & adequate Hydration State: stable & adequate Anesthetic Complications: no major complications apparent
--- NOTE | 2020-08-10 22:10 | Operative Report ---
PG Post Operative Report Pre & Post Diagnosis Operation Date: 08/10/20 20:45 <No data on this case meets the specified criteria> Operation Date: 08/10/20 20:50 Pre-Op Diagnosis: HYDRONEPHROSIS with Sepsis Post-Op Diagnosis: HYDRONEPHROSIS with Sepsis I identified the patient and participated in the time-out.: Yes Procedure Operation Date: 08/10/20 20:45 <No data on this case meets the specified criteria> Operation Date: 08/10/20 20:50 Actual Procedures p Cystoscopy(Not Applicable) - Master Solis MD s Bilateral Ureteral Stent Removal; Bilateral Ureteral Stent Insertion(Bilateral) - Master Solis MD Surgeon Master Solis MD Web Methods Developer None Estimated Blood Loss 0 Findings See Below Patient had bilateral ureteral stents. Right retrograde showed dilated right collecting system. Left retrograde showed mild left hydronephrosis Specimens Left and right ureteral stents Drains 6 [place]an by 26 cm left and right ureteral stents Anesthesia Type MAC Complications none Disposition Accompanied Patient To Recovery: Yes Disposition: Surgical ICU Indications 74-year-old white female who is post bilateral ureteroscopy laser lithotripsy and stent placement. She was supposed to have her stents removed in the office today but developed nausea vomiting and right flank pain. She came to the ER where a CT was done showing some worsening of her right hydronephrosis. She was afebrile but her blood pressure was somewhat labile. It was felt the safest thing to do would be to exchange the stents Description of Procedure After the induction of an adequate level of intravenous sedation and appropriate timeout patient was placed in the dorsolithotomy position. Lower abdomen genitalia were prepped with Hibiclens draped in a sterile fashion. Next using a 22 Chilean cystoscope the bladder was inspected there were bilateral stents. The left stent was grasped and brought out the meatus and then under fluoroscopic guidance 0.038 guidewire was passed through this stent up the left ureter to position in the area of the renal pelvis. The old stent was removed. 5 [place]an open-ended catheter was passed over the wire. Retrograde pyelogram was done to confirm position in the renal pelvis. Guidewire was then rethreaded through the open-ended catheter which was then removed. The guidewire was rethreaded through the cystoscope and a 6 [place]an by 26 cm stent was passed over the guidewire to position in the renal pelvis confirmed by fluoroscopy guidewire was removed there was good curl at the bladder level. An identical procedure was then performed on the right-hand side. After replacing both stents patient's bladder was drained cystoscope and sheath removed. All needle sponge and instrument counts were correct at the end of the case. Patient tolerated the procedure well and was taken to the ICU to recovery in stable condition I attest to the content of the Intraoperative Record and any orders documented therein. Any exceptions are noted below.
[2020-08-10 22:20] LABS: Appearance Urine Turbid (Clear); Bacteria Urine Automated Negative (Negative); Bilirubin Urine Negative (Negative); Blood Urine 2+ (Negative); Color Urine Yellow; Epithelial Cell Urine Auto >30 /lpf (0-5); Glucose Urine UA Negative (Negative); Ketones Urine Negative (Negative); Leukocyte Esterase Urine 3+ (Negative); Nitrite Urine Negative (Negative); Protein Urine 1+ (Negative); RBC Urine Automated 0-4 /hpf (0-4); Specific Gravity Urine 1.007 (1.000-1.030); Urobilinogen Urine Negative (Negative); WBC Urine Automated >30 /hpf (0-5)
[2020-08-10] MEDS: ACETAMINOPHEN 325 MG TAB PO SCH (22:50)
[2020-08-10] MEDS: CETIRIZINE HCL 10 MG TABLET PO SCH (22:50)
[2020-08-10] MEDS: HEPARIN SOD 5,000 UNIT/0.5 ML VIAL SQ SCH (22:51)
[2020-08-10] MEDS: GABAPENTIN 600 MG TAB PO SCH (22:51)
[2020-08-10] MEDS: MULTIVITAMIN TAB PO SCH (22:51)
[2020-08-10] MEDS: DULoxetine HCL 20 MG CAP PO SCH (22:52)
[2020-08-10] MEDS: MAGNESIUM OXIDE 400 MG TAB PO SCH (22:52)
[2020-08-10] MEDS: TAMSULOSIN HCL 0.4 MG CAP PO SCH (22:52)
[2020-08-11] MEDS: KETOROLAC TROMETHAMINE 15 MG/ML VIAL IV PRN ×2 (00:12→19:29)
[2020-08-11] MEDS ORDERED: PIPERACILL/TAZOBAC CONSULT ACTIVE PRN (00:48)
--- NOTE | 2020-08-11 00:49 | Communication Note ---
Date of Service: August 11, 2020 Notified by RN of persistent fever post uro procedure. AP Complicated UTI Zosyn in place of current Cipro for broader antibiotic coverage. (hx Enterococcus, enteric organisms on prior urine CS) Will relay to AM provider.
[2020-08-11] MEDS ORDERED: PIPERACILLIN/TAZOBACTAM 4.5 GM in DEXTROSE 5% 100 ML IV ONE (01:00)
[2020-08-11] MEDS: ACETAMINOPHEN 325 MG TAB PO PRN ×2 (01:02→11:03)
[2020-08-11] MEDS ORDERED: NSS + 20MEQ KCL 20 MEQ/1,000 ML BAG IV ONE (04:00)
[2020-08-11 04:24] LABS: Basophils # (auto) 0.01 K/uL (0-0.2); Basophils % (auto) 0.1 %; Hematocrit (blood only) 35.3 % (37-47); Hemoglobin 11.8 g/dL (12.0-16.0); Immature Granulocytes # (auto) 0.02 K/uL (0.00-0.02); Immature Granulocytes % (auto) 0.2 %; Lymphocytes # (auto) 0.44 K/uL (1.2-3.4); Lymphocytes % (auto) 3.5 %; Mean Corpuscular Hemoglobin 29.6 pg (25-34); Mean Corpuscular Hgb Conc 33.4 g/dL (32-36); Mean Corpuscular Volume 88.7 fL (80-100); Mean Platelet Volume 9.6 fL (7.4-10.4); Monocytes # (auto) 0.49 K/uL (0.11-0.59); Monocytes % (auto) 3.9 %; Neutrophils # (auto) 11.74 K/uL (1.4-6.5); Neutrophils % (auto) 92.3 %; Platelet Count 184 K/uL (130-400); RDW Coefficient of Variation 15.1 % (11.5-14.5); RDW Standard Deviation 49.2 fL (36.4-46.3); Red Blood Count 3.98 M/uL (4.2-5.4)
[2020-08-11 04:55] LABS: Albumin Level 2.8 gm/dl (3.4-5.0); BUN Creatinine Ratio 16.3 (10-20); Creatinine Clr Calc Pharmacy 48.3 ml/min; Est GFR (African American) 58.1; Est GFR (Non-African American) 50.1; Potassium 3.4 mmol/L (3.5-5.1)
[2020-08-11 05:02] LABS: Albumin Globulin Ratio 0.8 (0.9-2); Bilirubin,Total 0.7 mg/dl (0.2-1); Globulin 3.5 gm/dl (2.5-4.0); Total Protein 6.3 gm/dl (6.4-8.2)
[2020-08-11] MEDS ORDERED: POTASSIUM CHLORIDE CRTAB 20 MEQ TABCR PO STA (05:14)
--- NOTE | 2020-08-11 05:20 | Communication Note ---
Date of Service: August 11, 2020 Postop check Patient developed fever of 39.3 postop with some hypotension Her antibiotics were switched by the hospitalist Current temperature is 36.6 heart rate is 88 Currently resting comfortably in bed Urine output was 150 cc Repeat lab work pending Assessment #1 urosepsis Bilateral ureteral stents have been changed Are in good position on the imaging studies Continue current antibiotic regimen pending urine culture results
[2020-08-11] MEDS ORDERED: NSS + 20MEQ KCL 20 MEQ/1,000 ML BAG IV SCH (06:00)
[2020-08-11] MEDS ORDERED: POTASSIUM CHLORIDE 40 MEQ in SODIUM CHLORIDE 0.45 % 1,000 ML IV ONE (06:30)
[2020-08-11] MEDS: LEVOTHYROXINE SODIUM 75 MCG TABLET PO SCH (06:40)
[2020-08-11] MEDS: HEPARIN SOD 5,000 UNIT/0.5 ML VIAL SQ SCH ×3 (06:40→21:01)
[2020-08-11] MEDS: PIPERACILLIN/TAZOBACTAM 3.375 GM in DEXTROSE 5% 100 ML IV SCH ×3 (06:42→21:01)
[2020-08-11] MEDS ORDERED: CIPROFLOXACIN / D5W 400 MG/200 ML BAG IV SCH (07:00)
--- NOTE | 2020-08-11 07:28 | Fluoroscopy Report ---
FL retrograde includes kub HISTORY: 74 years-old Female STENT EXCHANGE STATUS post bilateral ureteral stent exchange COMPARISON: CT abdomen pelvis 08/10/2020 TECHNIQUE: 2 spot fluoroscopic images of the abdomen were obtained utilizing 88.5 seconds fluoroscopy time. FINDINGS: Bilateral ureteral stents are present which appear to be in satisfactory positioning. Contrast-filled the right renal collecting system demonstrates persistent moderate hydronephrosis with calyceal blun ting. No definite ureteral calculi identified on these images. IMPRESSION: Fluoroscopic assistance as above. Please see procedural report for further details. ACT 112: Negative or not required by law. The above report was generated using voice recognition software. It may contain grammatical, syntax o r spelling errors. Electronically signed by: Olvin Fields M.D. 08/11/2020 7:27 AM
--- NOTE | 2020-08-11 08:01 | Urology Progress Note ---
Date of Service August 11, 2020 Assessment & Plan (1) Sepsis: (2) Hydronephrosis: 74yo F with bilateral ureteral stents admitted with UTI/Sepsis in the setting of moderate to severe right hydronephrosis and mild left hydronephrosis with right perinephric infiltration and fluid. - Postop day #1 status post Cystoscopy, Bilateral Ureteral Stent Removal and Bilateral Ureteral Stent Insertion with Dr. Solis. - Patient clinically progressing with improvement in symptoms. - Afebrile, non-toxic appearing. - Labs reviewed, Wbc improved this morning and creatinine stable. - Urine and blood cultures pending. - Tolerating bilateral stents with minimal bother. - Voiding spontaneously without difficulty. - Continue supportive care and antibiotic therapy, follow cultures. - Plan to maintain bilateral ureteral stents for 3-4 weeks until infection has cleared. - Will arrange outpatient follow-up with urology for cystoscopy, stent removal. - Expected clinical course reviewed with patient, all questions were answered. - On discharge, recommend home with tamsulosin, oxybutynin, prn pyridium, and antibiotics pending final culture sensitivities. - Thank you for allowing us to participate in the acute care of Mrs. Sewell. - Please reconsult us with additional questions, concerns or changes in patient status. Admission and Anticipated Discharge Date Admission Date: August 10, 2020 Subjective Pt examined at bedside this AM. Awake, resting in bed on arrival. Pt reports feeling "much better" this morning. Currently denies any pain or discomfort. Tolerating stents with minimal bother. Denies hematuria, some dysuria. Feels she is emptying her bladder without difficulty. Denies urinary urgency and frequency. Some hesitancy. No fevers or chills. Tolerating diet, no nausea or vomiting. Chart review: Afebrile Wbc 12.70 Hgb 11.8 Cr 1.10 Urine and blood cultures pending. Pt with persistent fever post procedure yesterday- Antibiotics changed from Cipro to Zosyn. Review of Systems Constitutional: as per Subjective / HPI Gastrointestinal: as per Subjective / HPI Genitourinary: as per Subjective / HPI Physical Exam Constitutional: well developed, well nourished and comfortable; no acute distress Respiratory: normal respiratory effort and able to speak in complete sentences; no labored breathing and no audible wheezes Cardiovascular: Extremities: no calf tenderness Gastrointestinal (Abdomen): Percussion/Palpation: abdomen soft; abdomen nontender, no guarding and abdomen not rigid Musculoskeletal: Head/Neck/Chest: normocephalic Skin: Warm and dry Neurologic: moves all extremities and awake Psychiatric: A+Ox3, euthymic affect Genitourinary: no CVA tenderness Results & Data ([facility]) Vital Signs (Past 12 Hours) Vital Signs Temp Pulse Pulse Pulse Resp BP BP 08/11/20 07:49 37.4 C 93 H 19 116/61 08/11/20 06:51 36.8 C 87 16 08/11/20 05:21 88 08/11/20 03:28 08/11/20 03:17 36.6 C 89 22 82/43 L 08/11/20 01:37 39.1 C H 104 H 20 08/11/20 00:40 39.3 C H 108 H 18 08/11/20 00:10 39.3 C H 112 H 18 08/11/20 00:00 101 H 08/10/20 23:35 37.8 C H 110 H 18 08/10/20 23:25 37.5 C 113 H 18 08/10/20 23:10 36.7 C 98 H 18 08/10/20 22:55 36.6 C 85 18 08/10/20 22:40 36.5 C 82 16 08/10/20 22:20 69 16 08/10/20 22:10 36.0 C L 79 18 08/10/20 22:00 75 14 08/10/20 21:55 36.0 C L 75 14 08/10/20 21:30 08/10/20 21:17 36.4 C L 71 18 08/10/20 21:00 78 08/10/20 20:32 36.8 C 69 18 08/10/20 20:31 36.8 C 69 18 92/55 L 08/10/20 20:16 79 18 104/61 BP Pulse Ox Pulse Ox 08/11/20 07:49 64/31 L 96 08/11/20 06:51 95/56 L 95 08/11/20 05:21 93/54 L 08/11/20 03:28 72/40 L 08/11/20 03:17 82/45 L 98 08/11/20 01:37 98/50 L 95 08/11/20 00:40 105/58 L 96 08/11/20 00:10 149/74 H 99 08/11/20 00:00 08/10/20 23:35 159/117 H 97 08/10/20 23:25 134/80 97 08/10/20 23:10 146/59 H 91 08/10/20 22:55 151/77 H 92 08/10/20 22:40 115/71 99 08/10/20 22:20 103/54 L 100 08/10/20 22:10 89/55 L 94 08/10/20 22:00 93/53 L 99 08/10/20 21:55 93/54 L 98 08/10/20 21:30 94 08/10/20 21:17 86/59 L 97 08/10/20 21:00 08/10/20 20:32 92/55 L 94 08/10/20 20:31 94 08/10/20 20:16 98 PG Care Time/CCT Total # of Minutes Spent Total Time Spent with Patient: Total time spent is greater than 50% in coordination of care (as documented) at patient's floor/unit and/or counseling patient: Coding Level of Care Code 51231 Subseq Hosp Care Lvl 2 Diagnoses Sepsis A41.9 Hydronephrosis N13.30
[2020-08-11] MEDS: GABAPENTIN 400 MG CAP PO SCH (08:41)
[2020-08-11] MEDS: OXYBUTYNIN CHLORIDE XL 5 MG TABCR PO SCH (08:41)
[2020-08-11] MEDS: CYANOCOBALAMIN (VITAMIN B-12) 2,500 MCG TAB.SUBL SL SCH (08:41)
[2020-08-11] MEDS: ADVANCED PROBIOTIC 1250 MG CAPSULE PO SCH (08:41)
[2020-08-11] MEDS: PANTOprazole 40 MG TAB PO SCH (08:41)
[2020-08-11] MEDS: DULoxetine HCL 20 MG CAP PO SCH ×2 (08:42→20:06)
[2020-08-11] MEDS: ASCORBIC ACID 500 MG TAB PO SCH (08:42)
[2020-08-11] MEDS: CHOLECALCIFEROL 1,000 UNITS 25 MCG TAB PO SCH (08:42)
[2020-08-11] MEDS: ACETAMINOPHEN 325 MG TAB PO SCH ×4 (08:42→21:25)
[2020-08-11] MEDS ORDERED: LEVOTHYROXINE SODIUM 75 MCG TABLET PO SCH (09:00)
--- NOTE | 2020-08-11 17:30 | Hospitalist Progress Note ---
Date of Service August 11, 2020 Assessment & Plan (1) Sepsis: (2) Pyelonephritis: (3) Acute unilateral obstructive uropathy: This is a 74-year-old female who has significant past medical history of HTN, HLD, ISSA on CPAP, hypothyroidism, GERD, history of migraines, RLS who presents to ED secondary to nausea, vomiting and right flank pain x1 day. On 07/17/20 pt underwent 1. Cystoscopy, 2. Left Ureteroscopy, retrograde pyelogram, Laser endopyelotomy, ureteral stent, 3. Right ureteroscopy, ureteral dilation x2, laser lithotripsy and stone basket extraction, retrograde pyelogram, and ureteral stent by Dr. Avendano. Met Sepsis criteria on admission per current [facility] guidelines with leukocytosis (14k), tachycardia and febrile with Tmax 39.3 S/P day #1 bilateral Ureteral Stent Removal; Bilateral Ureteral Stent Insertion performed by Urology Dr. Solis No post op complication Received IV Rocephin on admission IV Cipro was transition to Zosyn for broader coverage Blood cx and urine cx pending Plan to maintain bilateral ureteral stents for 3-4 weeks until infection has cleared. Outpatient follow-up with urology for cystoscopy, stent removal Continue flomax, Oxybutynin and pyridium Clinically improves Continue monitor (4) Sleep apnea: CPAP at HS (5) Hypothyroidism: continue levothyroxine (6) GERD (gastroesophageal reflux disease): continue PPI (7) Restless leg syndrome, familial: continue gabapentin (8) DVT prophylaxis: SQ Heparin Dispo: Med tele PCP: Amber FULL CODE Admission and Anticipated Discharge Date Admission Date: August 10, 2020 Subjective Pt was seen and examined for follow up of flank pain Lying in bed with no distress Pt said that she feels nauseated She said that her flank pain improves Denies any chest pain, palpitation, dizziness and SOB Review of Systems Review of Systems: All systems reviewed & are unremarkable except as noted in Subjective Physical Exam Physical Exam: General- No acute distress Head- atraumatic Eyes- PERRL, EOMI, ENT- oropharynx clear Neck- supple, no JVD Lungs- clear to auscultation Heart- regular rhythm; no murmur Abdomen- normal bowel sounds, soft, nontender Extremities- no calf tenderness Neuro- alert, oriented x 3; PERRL, EOMI; no facial palsy; no dysarthria Skin- warm & dry Results & Data Results & Data ([facility]) Vital Signs (Past 12 Hours) Vital Signs Temp Pulse Pulse Resp BP BP Pulse Ox 08/11/20 14:47 37.4 C 96 H 20 99/62 L 94 08/11/20 11:37 37.8 C H 97 H 19 115/65 96 08/11/20 11:00 38.7 C H 08/11/20 07:49 37.4 C 93 H 19 116/61 64/31 L 96 08/11/20 06:51 36.8 C 87 16 95/56 L 95
[2020-08-11] MEDS ORDERED: SODIUM CHLOR 0.45% + 20MEQ KCL 20 MEQ/1,000 ML BAG IV ONE (19:45)
[2020-08-11] MEDS: CETIRIZINE HCL 10 MG TABLET PO SCH (20:06)
[2020-08-11] MEDS: TAMSULOSIN HCL 0.4 MG CAP PO SCH (20:07)
[2020-08-11] MEDS: MAGNESIUM OXIDE 400 MG TAB PO SCH (20:07)
[2020-08-11] MEDS: GABAPENTIN 600 MG TAB PO SCH (20:07)
[2020-08-11] MEDS: MULTIVITAMIN TAB PO SCH (20:08)
[2020-08-12] MEDS ORDERED: METOPROLOL TARTRATE 1 MG/ML VIAL IV STA ×2 (02:07→02:14)
[2020-08-12] MEDS ORDERED: ACETAMINOPHEN 1000 MG/100 ML IV IV ONE (02:07)
[2020-08-12] MEDS ORDERED: LACTATED RINGER'S 1,000 ML IV ONE (02:08)
[2020-08-12] MEDS ORDERED: POTASSIUM CHLORIDE CRTAB 20 MEQ TABCR PO STA (02:08)
--- NOTE | 2020-08-12 02:10 | Communication Note ---
Date of Service: August 12, 2020 Around 2 AM, patient heart rate noted to be 170s, temperature 39.2 SBP 120s as per RN. Patient complaining of shortness of breath and pleuritic chest pain. EKG as per my interpretation: Rate 140, LAD, LAFB, atrial flutter, low voltage AP New onset atrial flutter secondary to fever Rule out PE given pleuritic chest pain complaints PCU transfer IV Tylenol now Beta-preet for rate control TTE, cardiology consult Re: New onset atrial flutter CT chest PE study Will relay to AM provider.
[2020-08-12] MEDS ORDERED: METOPROLOL TARTRATE 1 MG/ML VIAL IV ONE (02:12)
[2020-08-12] MEDS ORDERED: ACETAMINOPHEN 1,000 MG/100 ML VIAL IV STA (02:14)
[2020-08-12] MEDS ORDERED: MAGNESIUM SULFATE / D5W 1 GM/100 ML BAG IV ONE (02:30)
[2020-08-12 02:44] LABS: Basophils # (auto) 0.01 K/uL (0-0.2); Basophils % (auto) 0.1 %; Eosinophils # (auto) 0.06 K/uL (0-0.5); Eosinophils % (auto) 0.6 %; Hematocrit (blood only) 35.5 % (37-47); Hemoglobin 11.8 g/dL (12.0-16.0); Immature Granulocytes # (auto) 0.01 K/uL (0.00-0.02); Immature Granulocytes % (auto) 0.1 %; Lymphocytes # (auto) 0.51 K/uL (1.2-3.4); Lymphocytes % (auto) 5.2 %; Mean Corpuscular Hemoglobin 30.1 pg (25-34); Mean Corpuscular Hgb Conc 33.2 g/dL (32-36); Mean Corpuscular Volume 90.6 fL (80-100); Mean Platelet Volume 9.5 fL (7.4-10.4); Monocytes # (auto) 0.46 K/uL (0.11-0.59); Monocytes % (auto) 4.7 %; Neutrophils # (auto) 8.68 K/uL (1.4-6.5); Neutrophils % (auto) 89.3 %; Platelet Count 162 K/uL (130-400); RDW Coefficient of Variation 15.3 % (11.5-14.5); RDW Standard Deviation 50.7 fL (36.4-46.3); Red Blood Count 3.92 M/uL (4.2-5.4); White Blood Count 9.73 K/uL (4.8-10.8)
[2020-08-12 02:55] LABS: Partial Thromboplastin Ratio 1.3; Partial Thromboplastin Time 33.8 Seconds (21.0-31.0)
[2020-08-12 03:02] LABS: BUN Creatinine Ratio 15.2 (10-20); Calcium 7.9 mg/dl (8.5-10.1); Est GFR (African American) 77.1; Est GFR (Non-African American) 66.6; Potassium 4.6 mmol/L (3.5-5.1)
[2020-08-12] MEDS ORDERED: PROMETHAZINE HCL 12.5 MG in SODIUM CHLORIDE 0.9% 50 ML IV PRN (03:11)
[2020-08-12 03:18] LABS: Thyroid Stimulating Hormone 15.8 uIu/ml (0.300-4.500); Troponin I 0.046 ng/ml (0-0.045)
[2020-08-12] MEDS ORDERED: OPTIRAY 350 500ml IV ONE (03:40)
[2020-08-12 04:06] LABS: T4 Free Thyroxine 0.99 ng/dl (0.8-1.6)
[2020-08-12] MEDS ORDERED: DIGOXIN 250 MCG in SYRINGE 9 ML IV ONE (04:15)
[2020-08-12] MEDS: ALBUMIN 25% 12.5 GM/50 ML VIAL IV SCH ×2 (04:35→07:00)
[2020-08-12] MEDS: HEPARIN SOD 5,000 UNIT/0.5 ML VIAL SQ SCH ×3 (06:04→21:46)
[2020-08-12] MEDS: LEVOTHYROXINE SODIUM 75 MCG TABLET PO SCH (06:05)
[2020-08-12] MEDS: PIPERACILLIN/TAZOBACTAM 3.375 GM in DEXTROSE 5% 100 ML IV SCH ×3 (07:01→21:45)
--- NOTE | 2020-08-12 07:41 | XRay Report ---
XR chest 1V portable CLINICAL HISTORY: Chest pain. COMPARISON STUDY: Chest radiograph June 06, 2020. FINDINGS: No pneumothorax is noted. Interstitial thickening with Armond B lines is noted. There are b ilateral airspace opacities, greater within the left lung. Suspected trace left pleural effusion is n oted. IMPRESSION: Interstitial thickening consistent with moderate pulmonary edema. Bilateral airspace opacities likely reflect alveolar pulmonary edema. A superimposed infectious process could appear similar. ACT 112: Negative or not required by law. Electronically signed by: Nick Oreilly M.D. 08/12/2020 7:40 AM
[2020-08-12] MEDS: KETOROLAC TROMETHAMINE 15 MG/ML VIAL IV PRN ×2 (08:03→17:28)
[2020-08-12] MEDS: PANTOprazole 40 MG TAB PO SCH (08:07)
[2020-08-12] MEDS: ACETAMINOPHEN 325 MG TAB PO SCH ×4 (08:07→20:09)
[2020-08-12] MEDS: CHOLECALCIFEROL 1,000 UNITS 25 MCG TAB PO SCH (08:07)
[2020-08-12] MEDS: GABAPENTIN 400 MG CAP PO SCH (08:07)
[2020-08-12] MEDS: CYANOCOBALAMIN (VITAMIN B-12) 2,500 MCG TAB.SUBL SL SCH (08:08)
[2020-08-12] MEDS: METOPROLOL TARTRATE 25 MG TAB PO SCH ×2 (08:08→20:13)
[2020-08-12] MEDS: ASCORBIC ACID 500 MG TAB PO SCH (08:08)
[2020-08-12] MEDS: ADVANCED PROBIOTIC 1250 MG CAPSULE PO SCH (08:09)
[2020-08-12] MEDS: OXYBUTYNIN CHLORIDE XL 5 MG TABCR PO SCH (08:09)
[2020-08-12] MEDS ORDERED: METOPROLOL TARTRATE 25 MG TAB PO SCH (09:00)
--- NOTE | 2020-08-12 09:30 | CT Scan Report ---
CT ANGIOGRAPHY OF THE CHEST, PULMONARY EMBOLUS PROTOCOL CLINICAL HISTORY: Chest pain. Evaluate for pulmonary embolus. COMPARISON STUDY: Chest CT September 18, 2015. Chest radiograph performed earlier today. TECHNIQUE: Following IV administration of 110 mL of Optiray, helical axial images of the chest were o btained utilizing the pulmonary embolus protocol. Maximal intensity projections and sagittal and cor onal reformats were viewed on an independent 3D workstation. IV contrast was administered without co mplication. Automated exposure control was utilized for the study. A dose lowering technique was ut ilized adhering to the principles of ALARA. CT DOSE: 449.75 mGy.cm FINDINGS: No pulmonary emboli are identified. Size of the heart is within normal limits. Exam is pre sent. There is no pericardial effusion. There are prominent bilateral hilar lymph nodes. Small bilate ral pleural effusions are noted, left larger than right. Interlobular septal thickening is noted. Add itional airspace opacities within the bilateral upper lobes are noted. Bronchial wall thickening is p resent. There is no pneumothorax. No suspicious lesions within the bony thorax are noted. Visualized portions of the upper abdomen demonstrate mild splenomegaly. There is hepatic steatosis. IMPRESSION: 1. No pulmonary emboli identified. 2. Moderate interstitial pulmonary edema. Bilateral airspace opacities suggestive of alveolar pulmona ry edema. A superimposed infectious process could appear similar but is considered less likely. 3. Small bilateral pleural effusions, left larger than right. 4. Emphysema. ACT 112: Negative or not required by law. Electronically signed by: Nick Oreilly M.D. 08/12/2020 9:29 AM
[2020-08-12] MEDS: DULoxetine HCL 20 MG CAP PO SCH ×2 (09:35→20:17)
--- NOTE | 2020-08-12 10:36 | Cardiology Consultation ---
Date of Consultation August 12, 2020 Assessment & Plan (1) Paroxysmal atrial flutter: (2) Acute unilateral obstructive uropathy: Patient developed narrow complex tachycardia that persisted for just under 3-1/2 hours converted back to sinus rhythm this morning 08/12/2020 at 5:23 AM without conversion pause after receiving a dose of IV metoprolol, and electrolyte replacement. EKG performed 08/12/2020 at 2:10 AM the presence of atrial flutter at 114 bpm with left anterior fascicular block. Per review of telemetry, is difficult to tell if the patient's underlying rhythm was atrial fibrillation or atrial flutter. Troponin performed at 2:37 AM was minimally elevated at 0.046 NG per mL, it is trended down to 0.036 NG per mL, which did not within the "undetectable range ", but is within normal limits. Patient without symptoms suggestive angina and the mild troponin I elevation is likely explained by myocardial strain from fluid overloaded state and tachycardia. Her [id number] score is at least 3 for risk factors of age over 65 but under 75, female, and history of hypertension. At present however given her 11.8, recent urologic procedure, with uncertainty with regards to need for further procedures, I think it is reasonable for her to remain off of anticoagulation. She has received significant fluid resuscitation given concerns of urosepsis. It is noted that she is on Bumex as an outpatient, presumably for treatment of edema and hypertension. A CT angiogram has been performed with no evidence of pulmonary emboli, but there was interstitial edema and small bilateral pleural effusions. She remains on Zosyn with systolic blood pressure in the 90s at present try to run her even as things proceed from an intake/output perspective, and will therefore proceed with a low dose of furosemide 10 mg IV x1 given her borderline blood pressure. An echocardiogram has been ordered and will be reviewed. Agree with recently added metoprolol tartrate 12.5 mg twice daily. Agree with subcutaneous heparin for DVT prophylaxis. History of Present Illness Attending Physician: Heriberto Vigil MD History of Present Illness Brittaney Sewell is a 74 year old female seen in cardiology consultation per the request of Dr Duarte and Dr Vigil for the evaluation of new onset atrial flutter. Patient was admitted on 08/10/2020 complaint of right flank pain and vomiting. CT of the abdomen and pelvis at that time revealed acute right-sided. Blood cultures were obtained growth thus far, there has staphylococcal species. On 08/10/2020 the patient underwent cystoscopy with bilateral ureter stent removal full bilateral stents were placed. Post procedure she developed a persistent fever. Early this morning, 08/12/2020, 1:37 AM, patient had abrupt onset of narrow complex tachycardia consistent with atrial fibrillation. She subsequently converted to sinus rhythm at 5:23 AM. At the time of my assessment, the patient was comfortable. She is afebrile and her most recent vital signs. She denies any past cardiac history. Allergies Allergy/AdvReac Type Severity Reaction Status Date / Time cephalexin Allergy Intermediate Hives Verified 08/10/20 17:34 Sulfa (Sulfonamide Allergy Intermediate HIVES Verified 08/10/20 17:34 Antibiotics) lisinopril Allergy Mild Cough Verified 08/10/20 17:34 Home Medications Medication Instructions Recorded Confirmed Type albuterol sulfate [Ventolin HFA] 1 - 2 puff INHALATION Q6H PRN #0 03/19/16 08/10/20 History bumetanide 1 mg PO DAILY PRN #0 tab 03/19/16 08/10/20 History duloxetine 20 mg PO BID #0 03/19/16 08/10/20 History fluticasone propionate [Flonase 1 spray INTRANASAL DAILY PRN #0 03/19/16 08/10/20 History Allergy Relief] omeprazole magnesium [Prilosec OTC] 20 mg PO DAILY PRN #0 03/19/16 08/10/20 History potassium chloride 10 meq PO DAILY PRN #0 cap 03/19/16 08/10/20 History sumatriptan succinate [Imitrex] 100 mg PO DIRECTED PRN #0 tab 03/19/16 08/10/20 History Medical Marijuana 1 dose SUBLINGUAL UD PRN 06/03/20 08/10/20 History levothyroxine 75 mcg PO QAM 06/03/20 08/10/20 History multivitamin 1 tab PO HS 06/03/20 08/10/20 History L.acidoph-L.rhamn-B.bifidum-B.long 1 tab PO QAM tab 06/27/20 08/10/20 History 12.9 mg (2 billion cell) tabletDR betamethasone dipropionate 0.05 % 1 applic TOPICAL DAILY PRN 06/27/20 08/10/20 History topical ointment cholecalciferol (vitamin D3) 125 125 mcg PO QAM 06/27/20 08/10/20 History mcg (5,000 unit) tablet clobetasol 0.05 % topical cream 1 applic TOPICAL BID PRN 06/27/20 08/10/20 History cyanocobalamin (vitamin B-12) 2,500 mcg PO QAM 06/27/20 08/10/20 History 2,500 mcg tablet gabapentin 600 mg tablet 600 mg PO QPM 06/27/20 08/10/20 History hydroxyzine HCl 25 mg tablet 25 mg PO QID PRN 06/27/20 08/10/20 History levocetirizine 5 mg tablet 5 mg PO QPM 06/27/20 08/10/20 History oxybutynin chloride 10 mg 10 mg PO QAM 06/27/20 08/10/20 History tablet,extended release 24 hr ascorbic acid (vitamin C) [Vitamin 500 mg PO QAM 07/03/20 08/10/20 History C] gabapentin 400 mg PO QAM 07/03/20 08/10/20 History phenazopyridine [Pyridium] 200 mg PO Q8H PRN #10 tab 07/17/20 08/10/20 Rx tamsulosin 0.4 mg PO HS #30 cap 07/17/20 08/10/20 Rx magnesium oxide 500 mg PO QPM 08/10/20 08/10/20 History Patient History Medical History Arthritis GERD (gastroesophageal reflux disease) Hypothyroidism IBS (irritable bowel syndrome) Kidney stone Migraine Overactive bladder Peripheral neuropathy Restless leg syndrome Sleep apnea CPAP, USING EVERY NIGHT. Surgical History H/O foot surgery R foot hammertoe correction 07/10/20 at [facility], [place]. H/O sinus surgery H/O: hysterectomy History of appendectomy History of bladder surgery BLADDER TACK History of carpal tunnel release RT/LEFT History of cataract surgery RT/LEFT History of colonoscopy History of esophagogastroduodenoscopy (EGD) History of tonsillectomy History of tooth extraction Strabismus LEFT EYE REPAIRED Family History Other No family history of adverse response to anesthesia Social History Smoking Status: Former smoker packs per day: 1; Years Smoked: 30; Smoking End Date: 2001; Second Hand Exposure: Yes (IN THE PAST); Hx Alcohol Use: No Hx Substance Use: No Preferred Language: Bhutanese Communication Ability: Effective Visual Impairment: No Limitations Hearing Ability: Normal Section [employer] Required: No Beliefs That Will Affect Care: None marital status: Current Living Situation: Spouse current occupational status: retired How many Children do You have: 2 Other Information That Helps Us Care for You: No Feels Safe at Home: Yes Safety Concerns: Feels Safe At This Time Assistive Devices: None Assistive Devices Comment: not here Review of Systems Review of Systems: All systems reviewed & are unremarkable except as noted in HPI & below Physical Exam Physical Exam: Temp Pulse Resp BP Pulse Ox 36.8 C 81 18 92/64 L 95 08/12/20 07:17 08/12/20 09:35 08/12/20 09:35 08/12/20 09:35 08/12/20 09:35 Constitutional: WD/WN, vitals as above Respiratory: normal respiratory effort, lungs clear to auscultation Cardiovascular: RRR, no murmur, no edema Gastrointestinal (Abdomen): normal bowel sounds, soft, nontender, no hepatosplenomegaly Neurologic: PERRL, EOMI, accommodation nl, no face palsy, no dysarthria Results & Data ([facility]) Vital Signs (Past 12 Hours) Vital Signs Temp Pulse Pulse Pulse Resp BP BP 08/12/20 09:35 81 18 92/64 L 08/12/20 08:00 87 08/12/20 07:44 08/12/20 07:30 84 18 92/64 L 08/12/20 07:17 36.8 C 88 18 87/55 L 08/12/20 04:34 142 H 08/12/20 04:14 37.1 C 142 H 16 08/12/20 02:32 147 H 122/85 08/12/20 02:31 147 H 122/85 08/12/20 02:29 147 H 08/12/20 02:23 144 H 128/68 08/11/20 23:38 08/11/20 23:18 36.8 C 88 18 86/50 L BP Pulse Ox Pulse Ox 08/12/20 09:35 95 08/12/20 08:00 08/12/20 07:44 97 08/12/20 07:30 96 08/12/20 07:17 98 08/12/20 04:34 08/12/20 04:14 93/62 L 97 08/12/20 02:32 08/12/20 02:31 08/12/20 02:29 122/85 08/12/20 02:23 08/11/20 23:38 97/63 L 08/11/20 23:18 93 Laboratory Results Cardiac Enzymes 08/12/20 08/12/20 Range/Units 02:37 06:49 Troponin I 0.046 H* 0.036 (0-0.045) ng/ml Coagulation 08/12/20 Range/Units 02:37 APTT 33.8 H (21.0-31.0) Seconds CBC 08/12/20 Range/Units 02:37 WBC 9.73 (4.8-10.8) K/uL RBC 3.92 L (4.2-5.4) M/uL Hgb 11.8 L (12.0-16.0) g/dL Hct 35.5 L (37-47) % Plt Count 162 (130-400) K/uL Neut # (Auto) 8.68 H (1.4-6.5) K/uL Lymph # (Auto) 0.51 L (1.2-3.4) K/uL [place] # (Auto) 0.46 (0.11-0.59) K/uL Eos # (Auto) 0.06 (0-0.5) K/uL Baso # (Auto) 0.01 (0-0.2) K/uL Comprehensive Metabolic Panel 08/12/20 Range/Units 02:37 Sodium 138 (136-145) mmol/L Potassium 4.6 D (3.5-5.1) mmol/L Chloride 113 H (98-107) mmol/L Carbon Dioxide 21 (21-32) mmol/L BUN 13 (7-18) mg/dl Creatinine 0.87 (0.6-1.2) mg/dl Glucose 105 H (70-99) mg/dl Calcium 7.9 L (8.5-10.1) mg/dl Intake and Output 08/11/20 08/12/20 08/12/20 22:59 06:59 14:59 Intake Total 1655 / 5980.000 2248.333 / 5980.000 265 / 265 Output Total 450 / 1250 250 / 250 Balance 1205 / 4730.000 2248.333 / 4730.000 15 Intake: IV 1135 / 4150.000 1898.333 / 4150.000 265 / 265 Acetaminophen 1,000 mg In 100 100 / 100 ml @ 400 mls/hr IV [facility] Rx#: [id number] Albumin 25% 12.5 gm In 50 ml @ 50 / 50 50 / 50 50 mls/hr IV Q1H [facility] Rx#: [id number] Lactated Ringer's 1,000 ml @ 1000 / 1000 500 mls/hr IV .Q2H [facility] Rx#: [id number] Magnesium Sulfate / D5w 1 gm In 100 / 100 100 ml @ 50 mls/hr IV [facility] Rx#:[id number] Piperacillin/Tazobactam 3.375 115 / 345 115 / 345 115 / 115 gm In Dextrose 5% 100 ml @ 28. 75 mls/hr IV Q8H [facility] Rx#: [id number] Potassium Chloride 40 meq In 1020 / 1020 Sodium Chloride 0.45 % 1,000 ml @ 100 mls/hr IV .[id number] [facility] Rx#:[id number] Sodium Chlor 0.45% + 20Meq KCl 633.333 / 633.333 20 meq In 1,000 ml @ 100 mls/hr IV .Q10H [facility] Rx#:[id number] Oral 520 / 1830 350 / 1830 Output: Urine 450 / 1250 250 / 250 Other: # Unmeasured Voids 1 Weight 79.9 kg
[2020-08-12] MEDS ORDERED: FUROSEMIDE 10 MG in SYRINGE 0 ML IV ONE (12:15)
--- NOTE | 2020-08-12 15:31 | Electrocardiogram Report ---
Test Reason : Blood Pressure : / mmHG Vent. Rate : 141 BPM Atrial Rate : 277 BPM P-R Int : 000 ms QRS Dur : 068 ms QT Int : 282 ms P-R-T Axes : 000 -53 000 degrees QTc Int : 431 ms Poor data quality, interpretation may be adversely affected Atrial flutter with variable A-V block Left anterior fascicular block Abnormal ECG When compared with ECG of 03-JUN-2020 23:19, Significant changes have occurred Confirmed by Teddy Campos ([id number]) on 08/12/2020 3:31:30 PM Referred By: REFERRED SELF Confirmed By:Teddy Campos
--- NOTE | 2020-08-12 18:50 | Hospitalist Progress Note ---
Date of Service August 12, 2020 Assessment & Plan (1) Sepsis: (2) Pyelonephritis: (3) Acute unilateral obstructive uropathy: This is a 74-year-old female who has significant past medical history of HTN, HLD, ISSA on CPAP, hypothyroidism, GERD, history of migraines, RLS who presents to ED secondary to nausea, vomiting and right flank pain x1 day. On 07/17/20 pt underwent 1. Cystoscopy, 2. Left Ureteroscopy, retrograde pyelogram, Laser endopyelotomy, ureteral stent, 3. Right ureteroscopy, ureteral dilation x2, laser lithotripsy and stone basket extraction, retrograde pyelogram, and ureteral stent by Dr. Avendano. Met Sepsis criteria on admission per current CMS guidelines with leukocytosis (14k), tachycardia and febrile with Tmax 39.3 S/P day #1 bilateral Ureteral Stent Removal; Bilateral Ureteral Stent Insertion performed by Urology Dr. Solis No post op complication Received IV Rocephin on admission IV Cipro was transition to Zosyn for broader coverage Blood cx no growth Urine cx grew staph species Plan to maintain bilateral ureteral stents for 3-4 weeks until infection has cleared. Outpatient follow-up with urology for cystoscopy, stent removal Continue flomax, Oxybutynin and pyridium Clinically improves Continue monitor (4) Paroxysmal atrial flutter: EKG showed atrial flutter Received Digoxin x1, now back to sinus rhythm Rate control Cardiology on board Echo showed normal LV wall motion with ejection fraction 60 to 65% Continue low dose metoprolol 12.5mg BID Continue monitor closely (5) Hypoxia: Acute respiratory failure with hypoxia Possible due to fluid resuscitation given CTA chest showed no PE showed no PE. Moderate interstitial pulmonary edema. Small bilateral pleural effusions, left larger than right. Due to her low blood pressure we will try Lasix 10 mg x 1 Continue oxygen supplement Continue monitor closely (6) Sleep apnea: CPAP at HS (7) Hypothyroidism: continue levothyroxine (8) GERD (gastroesophageal reflux disease): continue PPI (9) Restless leg syndrome, familial: continue gabapentin (10) DVT prophylaxis: SQ Heparin Dispo: Med tele PCP: Amber FULL CODE Admission and Anticipated Discharge Date Admission Date: August 10, 2020 Subjective Pt was seen and examined for follow up of hypoxia and atrial flutter Lying in bed with no distress Last night she went to Afib and converted back to NSR after receiving Digoxin She continues required oxygen supplement Her BP has been borderline low Denies any chest pain, palpitation, dizziness and fever Review of Systems Review of Systems: All systems reviewed & are unremarkable except as noted in Subjective Physical Exam Physical Exam: General- No acute distress Head- atraumatic Eyes- PERRL, EOMI, ENT- oropharynx clear Neck- supple, no JVD Lungs- clear to auscultation Heart- regular rhythm; no murmur Abdomen- normal bowel sounds, soft, nontender Extremities- no calf tenderness Neuro- alert, oriented x 3; PERRL, EOMI; no facial palsy; no dysarthria Skin- warm & dry Results & Data Results & Data ([facility]) Vital Signs (Past 12 Hours) Vital Signs Temp Pulse Pulse Pulse Resp BP BP 08/12/20 17:41 08/12/20 15:30 36.7 C 84 19 101/67 08/12/20 12:19 36.7 C 80 20 97/64 L 08/12/20 09:35 81 18 92/64 L 08/12/20 08:00 87 08/12/20 07:44 08/12/20 07:30 84 18 92/64 L 08/12/20 07:17 36.8 C 88 18 87/55 L Pulse Ox Pulse Ox 08/12/20 17:41 96 08/12/20 15:30 95 08/12/20 12:19 95 08/12/20 09:35 95 08/12/20 08:00 08/12/20 07:44 97 08/12/20 07:30 96 08/12/20 07:17 98
[2020-08-12] MEDS: CETIRIZINE HCL 10 MG TABLET PO SCH (20:16)
[2020-08-12] MEDS: MAGNESIUM OXIDE 400 MG TAB PO SCH (20:16)
[2020-08-12] MEDS: TAMSULOSIN HCL 0.4 MG CAP PO SCH (20:17)
[2020-08-12] MEDS: GABAPENTIN 600 MG TAB PO SCH (20:18)
[2020-08-12] MEDS: MULTIVITAMIN TAB PO SCH (20:19)
[2020-08-13] MEDS ORDERED: METOPROLOL TARTRATE 25 MG TAB PO SCH (05:05)
[2020-08-13] MEDS ORDERED: ALBUMIN 25% 12.5 GM/50 ML VIAL IV ONE (05:07)
[2020-08-13] MEDS ORDERED: DIGOXIN 250 MCG in SYRINGE 9 ML IV ONE (05:15)
[2020-08-13] MEDS: PIPERACILLIN/TAZOBACTAM 3.375 GM in DEXTROSE 5% 100 ML IV SCH (05:28)
[2020-08-13] MEDS: LEVOTHYROXINE SODIUM 75 MCG TABLET PO SCH (05:32)
[2020-08-13] MEDS: HEPARIN SOD 5,000 UNIT/0.5 ML VIAL SQ SCH ×3 (05:32→21:19)
[2020-08-13 06:08] LABS: Basophils # (auto) 0.02 K/uL (0-0.2); Basophils % (auto) 0.3 %; Eosinophils # (auto) 0.41 K/uL (0-0.5); Eosinophils % (auto) 5.4 %; Hematocrit (blood only) 36.6 % (37-47); Hemoglobin 12.1 g/dL (12.0-16.0); Immature Granulocytes # (auto) 0.03 K/uL (0.00-0.02); Immature Granulocytes % (auto) 0.4 %; Lymphocytes # (auto) 0.48 K/uL (1.2-3.4); Lymphocytes % (auto) 6.3 %; Mean Corpuscular Hemoglobin 29.2 pg (25-34); Mean Corpuscular Hgb Conc 33.1 g/dL (32-36); Mean Corpuscular Volume 88.4 fL (80-100); Mean Platelet Volume 11.2 fL (7.4-10.4); Monocytes # (auto) 0.63 K/uL (0.11-0.59); Monocytes % (auto) 8.2 %; Neutrophils # (auto) 6.09 K/uL (1.4-6.5); Neutrophils % (auto) 79.4 %; Platelet Count 172 K/uL (130-400); RDW Coefficient of Variation 15.5 % (11.5-14.5); RDW Standard Deviation 49.8 fL (36.4-46.3); Red Blood Count 4.14 M/uL (4.2-5.4); White Blood Count 7.66 K/uL (4.8-10.8)
[2020-08-13 06:16] LABS: Partial Thromboplastin Ratio 1.1; Partial Thromboplastin Time 29.5 Seconds (21.0-31.0)
[2020-08-13 06:44] LABS: BUN Creatinine Ratio 14.5 (10-20); Calcium 8.8 mg/dl (8.5-10.1); Creatinine Clr Calc Pharmacy 65.7 ml/min; Est GFR (African American) 79.3; Est GFR (Non-African American) 68.5
[2020-08-13 08:08] LABS: Potassium 4.2 mmol/L (3.5-5.1)
[2020-08-13] MEDS: OXYBUTYNIN CHLORIDE XL 5 MG TABCR PO SCH (08:09)
[2020-08-13] MEDS: ADVANCED PROBIOTIC 1250 MG CAPSULE PO SCH (08:09)
[2020-08-13] MEDS: GABAPENTIN 400 MG CAP PO SCH (08:09)
[2020-08-13] MEDS: DULoxetine HCL 20 MG CAP PO SCH ×2 (08:10→20:10)
[2020-08-13] MEDS: ASCORBIC ACID 500 MG TAB PO SCH (08:10)
[2020-08-13] MEDS: PANTOprazole 40 MG TAB PO SCH (08:11)
[2020-08-13] MEDS: CHOLECALCIFEROL 1,000 UNITS 25 MCG TAB PO SCH (08:11)
[2020-08-13] MEDS: CYANOCOBALAMIN (VITAMIN B-12) 2,500 MCG TAB.SUBL SL SCH (08:11)
[2020-08-13 08:12] LABS: Magnesium 2.2 mg/dl (1.8-2.4)
[2020-08-13] MEDS ORDERED: FUROSEMIDE 20 MG in SYRINGE 0 ML IV ONE ×2 (08:54→18:30)
[2020-08-13] MEDS: ACETAMINOPHEN 325 MG TAB PO SCH ×4 (08:55→20:06)
[2020-08-13] MEDS: AMPICILLIN/SULBACTAM SOD 3,000 MG in 0.9 % SODIUM CHLORIDE 100 ML IV SCH ×3 (12:27→23:28)
--- NOTE | 2020-08-13 12:43 | Hospitalist Progress Note ---
Date of Service August 13, 2020 Assessment & Plan (1) Sepsis: (2) Pyelonephritis: (3) Acute unilateral obstructive uropathy: This is a 74-year-old female who has significant past medical history of HTN, HLD, ISSA on CPAP, hypothyroidism, GERD, history of migraines, RLS who presents to ED secondary to nausea, vomiting and right flank pain x1 day. On 07/17/20 pt underwent 1. Cystoscopy, 2. Left Ureteroscopy, retrograde pyelogram, Laser endopyelotomy, ureteral stent, 3. Right ureteroscopy, ureteral dilation x2, laser lithotripsy and stone basket extraction, retrograde pyelogram, and ureteral stent by Dr. Avendano. Met Sepsis criteria on admission per current CMS guidelines with leukocytosis (14k), tachycardia and febrile with Tmax 39.3 S/P day #3 bilateral Ureteral Stent Removal; Bilateral Ureteral Stent Insertion performed by Urology Dr. Solis No post op complication Received IV Rocephin on admission IV Cipro was transition to Zosyn for broader coverage Blood cx no growth Urine cx grew staph species Plan to maintain bilateral ureteral stents for 3-4 weeks until infection has cleared. Outpatient follow-up with urology for cystoscopy, stent removal Continue flomax, Oxybutynin and pyridium Case discussed with urology that recommended to complete 7 to 10 days of abx Clinically improves Continue monitor (4) Paroxysmal atrial flutter: EKG showed atrial flutter Received Digoxin x1, now back to sinus rhythm Rate control Cardiology on board Echo showed normal LV wall motion with ejection fraction 60 to 65% Continue low dose metoprolol 12.5mg BID Continue monitor closely (5) Hypoxia: Acute respiratory failure with hypoxia Possible due to fluid resuscitation given CTA chest showed no PE showed no PE. Moderate interstitial pulmonary edema. Small bilateral pleural effusions, left larger than right. Will give lasix 20mg x1 today, will consider to give additional lasix later Continue oxygen supplement Continue monitor closely (6) Sleep apnea: CPAP at HS (7) Hypothyroidism: continue levothyroxine (8) GERD (gastroesophageal reflux disease): continue PPI (9) Restless leg syndrome, familial: continue gabapentin (10) DVT prophylaxis: SQ Heparin Dispo: Med tele PCP: Amber FULL CODE Admission and Anticipated Discharge Date Admission Date: August 10, 2020 Subjective Pt was seen and examined for follow up of hypoxia and atrial flutter Lying in bed with no distress Early this morning pt said that her breathing was a little heavy, but she feels much better now She continues required oxygen supplement Denies any chest pain, palpitation, dizziness and fever Review of Systems Review of Systems: All systems reviewed & are unremarkable except as noted in Subjective Physical Exam Physical Exam: General- No acute distress Head- atraumatic Eyes- PERRL, EOMI, ENT- oropharynx clear Neck- supple, no JVD Lungs- clear to auscultation Heart- regular rhythm; no murmur Abdomen- normal bowel sounds, soft, nontender Extremities- no calf tenderness Neuro- alert, oriented x 3; PERRL, EOMI; no facial palsy; no dysarthria Skin- warm & dry Results & Data Results & Data ([facility]) Vital Signs (Past 12 Hours) Vital Signs Temp Pulse Pulse Pulse Resp BP BP 08/13/20 12:35 84 18 08/13/20 11:41 36.8 C 74 19 103/64 08/13/20 08:00 81 08/13/20 07:36 38.1 C H 85 19 122/76 08/13/20 05:35 106 H 08/13/20 04:18 37 C 106 H 18 119/72 Pulse Ox 08/13/20 12:35 95 08/13/20 11:41 95 08/13/20 08:00 08/13/20 07:36 96 08/13/20 05:35 08/13/20 04:18 97
--- NOTE | 2020-08-13 15:14 | Cardiology Progress Note ---
Date of Service August 13, 2020 Assessment & Plan (1) Paroxysmal atrial flutter: (2) Acute unilateral obstructive uropathy: (3) Volume overload: Paroxysmal atrial fibrillation/flutter. Echo with findings of normal left ventricular myocardial thickness Normal LVEF 60 to 65% Mild MR, mild TR, grade 2 diastolic dysfunction, mild pulmonary hypertension. Increase metoprolol tartrate to 12.5 mg 4 times daily, with holds for heart rate less than 60, systolic blood pressure less than 95 mm Hg. Her [id number] score is at least 3 for risk factors of age over 65 but under 75, female, and history of hypertension. At present however given recent urologic procedure, with uncertainty with regards to need for further procedures, I think it is reasonable for her to remain off of anticoagulation. Volume overload Diastolic dysfunction noted on echo. Likely due to IV fluids administered for resuscitation. Agree with plan for furosemide 40 mg today, possible dose this afternoon. Obstructive uropathy/UTI Continue ampicillin sulbactam DVT prophylaxis: Continue subcutaneous heparin Admission and Anticipated Discharge Date Admission Date: August 10, 2020 Subjective Patient seen in cardiology follow-up of atrial fibrillation and shortness of breath. She has been in sinus rhythm today with ventricular rate in the range of 80 to 90 bpm. She did have brief nonsustained episodes of atrial fibrillation overnight last night at about midnight. A 6 beat run of nonsustained ventricular tachycardia was observed at 1326 today, 08/13/2020. She notes dyspnea with minimal activity such as walking to the commode. Her maximum temperature in the last 24 hours was 38.1 C this morning at 736. Repeat at 1141 was normal at 36.8 C. Physical Exam Physical Exam: Temp Pulse Resp BP Pulse Ox 36.8 C 84 18 103/64 95 08/13/20 11:41 08/13/20 12:35 08/13/20 12:35 08/13/20 11:41 08/13/20 12:35 Constitutional: WD/WN, vitals as above Respiratory: + cough Auscultation: + rales (Mild rales bilaterally at the bases) Cardiovascular: Rate/Rhythm: regular rhythm Heart Sounds: no murmur Vessels: no JVD Extremities: no edema Gastrointestinal (Abdomen): normal bowel sounds, soft, nontender, no hepatosplenomegaly Neurologic: PERRL, EOMI, accommodation nl, no face palsy, no dysarthria Results & Data ([facility]) Vital Signs (Past 12 Hours) Vital Signs Temp Pulse Pulse Pulse Resp BP BP 08/13/20 12:35 84 18 08/13/20 11:41 36.8 C 74 19 103/64 08/13/20 08:00 81 08/13/20 07:36 38.1 C H 85 19 122/76 08/13/20 05:35 106 H 08/13/20 04:18 37 C 106 H 18 119/72 Pulse Ox 08/13/20 12:35 95 08/13/20 11:41 95 08/13/20 08:00 08/13/20 07:36 96 08/13/20 05:35 08/13/20 04:18 97 Laboratory Results Coagulation 08/13/20 Range/Units 05:33 APTT 29.5 (21.0-31.0) Seconds CBC 08/13/20 Range/Units 05:33 WBC 7.66 (4.8-10.8) K/uL RBC 4.14 L (4.2-5.4) M/uL Hgb 12.1 (12.0-16.0) g/dL Hct 36.6 L (37-47) % Plt Count 172 (130-400) K/uL Neut # (Auto) 6.09 (1.4-6.5) K/uL Lymph # (Auto) 0.48 L (1.2-3.4) K/uL Marion # (Auto) 0.63 H (0.11-0.59) K/uL Eos # (Auto) 0.41 (0-0.5) K/uL Baso # (Auto) 0.02 (0-0.2) K/uL Comprehensive Metabolic Panel 08/13/20 08/13/20 Range/Units 05:33 07:04 Sodium 140 (136-145) mmol/L Potassium 4.2 (3.5-5.1) mmol/L Chloride 110 H (98-107) mmol/L Carbon Dioxide 24 (21-32) mmol/L BUN 12 (7-18) mg/dl Creatinine 0.85 (0.6-1.2) mg/dl Glucose 82 (70-99) mg/dl Calcium 8.8 (8.5-10.1) mg/dl Intake and Output 08/13/20 08/13/20 08/13/20 06:59 14:59 22:59 Intake Total 665 / 1575.5 223 / 223 Output Total 500 / 3225 1700 / 1700 Balance 165 / -1649.5 -1477 / -1477 Intake: IV 165 / 595.5 223 / 223 Albumin 25% 12.5 gm In 50 ml @ 50 / 50 50 mls/hr IV ONE ONE Rx#: [id number] Ampicillin/Sulbactam Sod 3,000 108 / 108 mg In 0.9 % Sodium Chloride 100 ml @ 216 mls/hr IV Q6H [facility] Rx# :[id number] Piperacillin/Tazobactam 3.375 115 / 345 115 / 115 gm In Dextrose 5% 100 ml @ 28. 75 mls/hr IV Q8H [facility] Rx#: [id number] Oral 500 / 980 Output: Urine 500 / 3225 1700 / 1700 Other: Weight 88.3 kg Weight Measurement Method Built in [facility]
[2020-08-13] MEDS: METOPROLOL TARTRATE 25 MG TAB PO SCH ×2 (17:11→20:09)
[2020-08-13] MEDS: TAMSULOSIN HCL 0.4 MG CAP PO SCH (20:07)
[2020-08-13] MEDS: GABAPENTIN 600 MG TAB PO SCH (20:07)
[2020-08-13] MEDS: CETIRIZINE HCL 10 MG TABLET PO SCH (20:08)
[2020-08-13] MEDS: MAGNESIUM OXIDE 400 MG TAB PO SCH (20:10)
[2020-08-13] MEDS: MULTIVITAMIN TAB PO SCH (20:10)
[2020-08-14] MEDS: AMPICILLIN/SULBACTAM SOD 3,000 MG in 0.9 % SODIUM CHLORIDE 100 ML IV SCH ×4 (05:41→23:29)
[2020-08-14] MEDS: LEVOTHYROXINE SODIUM 75 MCG TABLET PO SCH (05:41)
[2020-08-14] MEDS: HEPARIN SOD 5,000 UNIT/0.5 ML VIAL SQ SCH ×3 (05:41→20:45)
[2020-08-14] MEDS: OXYBUTYNIN CHLORIDE XL 5 MG TABCR PO SCH (08:19)
[2020-08-14] MEDS: METOPROLOL TARTRATE 25 MG TAB PO SCH ×4 (08:19→20:47)
[2020-08-14] MEDS: PANTOprazole 40 MG TAB PO SCH (08:19)
[2020-08-14] MEDS: CHOLECALCIFEROL 1,000 UNITS 25 MCG TAB PO SCH (08:19)
[2020-08-14] MEDS: ASCORBIC ACID 500 MG TAB PO SCH (08:20)
[2020-08-14] MEDS: ADVANCED PROBIOTIC 1250 MG CAPSULE PO SCH (08:20)
[2020-08-14] MEDS: GABAPENTIN 400 MG CAP PO SCH (08:20)
[2020-08-14] MEDS: DULoxetine HCL 20 MG CAP PO SCH ×2 (08:20→20:46)
[2020-08-14] MEDS: CYANOCOBALAMIN (VITAMIN B-12) 2,500 MCG TAB.SUBL SL SCH (08:21)
[2020-08-14] MEDS: ACETAMINOPHEN 325 MG TAB PO SCH ×4 (08:22→20:45)
[2020-08-14 09:41] LABS: BUN Creatinine Ratio 13.6 (10-20); Calcium 9.1 mg/dl (8.5-10.1); Creatinine Clr Calc Pharmacy 65.4 ml/min; Est GFR (African American) 82.9; Est GFR (Non-African American) 71.5; Potassium 3.6 mmol/L (3.5-5.1)
[2020-08-14] MEDS ORDERED: POTASSIUM CHLORIDE CRTAB 20 MEQ TABCR PO STA (11:19)
[2020-08-14] MEDS ORDERED: FUROSEMIDE 20 MG in SYRINGE 0 ML IV ONE (11:30)
--- NOTE | 2020-08-14 16:19 | Hospitalist Progress Note ---
Date of Service August 14, 2020 Assessment & Plan (1) Sepsis: (2) Pyelonephritis: (3) Acute unilateral obstructive uropathy: This is a 74-year-old female who has significant past medical history of HTN, HLD, ISSA on CPAP, hypothyroidism, GERD, history of migraines, RLS who presents to ED secondary to nausea, vomiting and right flank pain x1 day. On 07/17/20 pt underwent 1. Cystoscopy, 2. Left Ureteroscopy, retrograde pyelogram, Laser endopyelotomy, ureteral stent, 3. Right ureteroscopy, ureteral dilation x2, laser lithotripsy and stone basket extraction, retrograde pyelogram, and ureteral stent by Dr. Avendano. Met Sepsis criteria on admission per current CMS guidelines with leukocytosis (14k), tachycardia and febrile with Tmax 39.3 S/P day #3 bilateral Ureteral Stent Removal; Bilateral Ureteral Stent Insertion performed by Urology Dr. Solis No post op complication Received IV Rocephin on admission IV Cipro was transition to Zosyn for broader coverage Blood cx no growth Urine cx grew staph species Plan to maintain bilateral ureteral stents for 3-4 weeks until infection has cleared. Outpatient follow-up with urology for cystoscopy, stent removal Continue flomax, Oxybutynin and pyridium Case discussed with urology that recommended to complete 7 to 10 days of abx Clinically improves Continue monitor (4) Paroxysmal atrial flutter: EKG showed atrial flutter Received Digoxin x1, now back to sinus rhythm Rate control Cardiology on board Echo showed normal LV wall motion with ejection fraction 60 to 65% Continue low dose metoprolol 12.5mg BID Continue monitor closely (5) Hypoxia: Acute respiratory failure with hypoxia Possible due to volume overload CTA chest showed no PE showed no PE. Moderate interstitial pulmonary edema. Small bilateral pleural effusions, left larger than right. Will give lasix 20mg x1 today, will consider to give additional lasix later Continue oxygen supplement Continue monitor closely (6) Sleep apnea: CPAP at HS (7) Hypothyroidism: continue levothyroxine (8) GERD (gastroesophageal reflux disease): continue PPI (9) Restless leg syndrome, familial: continue gabapentin (10) DVT prophylaxis: SQ Heparin Dispo: Med tele PCP: Amber FULL CODE Admission and Anticipated Discharge Date Admission Date: August 10, 2020 Subjective Pt was seen and examined Lying in bed with no distress Pt said that she feels fine She said that her breathing feels better denies any chest pain, palpitation, dizziness and SOB Review of Systems Review of Systems: All systems reviewed & are unremarkable except as noted in Subjective Physical Exam Physical Exam: General- No acute distress Head- atraumatic Eyes- PERRL, EOMI, ENT- oropharynx clear Neck- supple, no JVD Lungs- clear to auscultation Heart- regular rhythm; no murmur Abdomen- normal bowel sounds, soft, nontender Extremities- no calf tenderness Neuro- alert, oriented x 3; PERRL, EOMI; no facial palsy; no dysarthria Skin- warm & dry Results & Data Results & Data ([facility]) Vital Signs (Past 12 Hours) Vital Signs Temp Pulse Pulse Resp BP BP Pulse Ox 08/14/20 15:24 36.6 C 70 18 107/65 95 08/14/20 15:00 65 08/14/20 11:09 37.3 C 77 19 104/57 L 95 08/14/20 08:00 69 08/14/20 07:55 37.0 C 80 20 120/77 94
--- NOTE | 2020-08-14 18:03 | Cardiology Progress Note ---
Date of Service August 14, 2020 Assessment & Plan (1) Paroxysmal atrial flutter: (2) Volume overload: (3) Sepsis: Continue IV antibiotics, as well as diuretics to keep her intake and output even or perhaps a little negative. She has tolerated metoprolol tartrate 12.5 mg 4 times daily. Josh EKG tomorrow for new baseline in sinus rhythm. Admission and Anticipated Discharge Date Admission Date: August 10, 2020 Subjective Patient describes that her shortness of breath was much improved overnight last night and again today. Telemetry reveals sinus rhythm in the 80s with occasional premature atrial contractions, no recurrence of atrial fibrillation/flutter. Review of Systems Review of Systems: All systems reviewed & are unremarkable except as noted in HPI & below Physical Exam Physical Exam: Temp Pulse Resp BP Pulse Ox 36.6 C 70 18 107/65 95 08/14/20 15:24 08/14/20 15:24 08/14/20 15:24 08/14/20 15:24 08/14/20 15:24 Constitutional: WD/WN, vitals as above Respiratory: normal percussion Auscultation: + diminished lung sounds (Mildly reduced breath sounds the bases, no rales rhonchi or wheezing) Cardiovascular: RRR, no murmur, no edema Gastrointestinal (Abdomen): normal bowel sounds, soft, nontender, no hepatosp lenomegaly Neurologic: PERRL, EOMI, accommodation nl, no face palsy, no dysarthria Results & Data ([facility]) Vital Signs (Past 12 Hours) Vital Signs Temp Pulse Pulse Resp BP BP Pulse Ox 08/14/20 15:24 36.6 C 70 18 107/65 95 08/14/20 15:00 65 08/14/20 11:09 37.3 C 77 19 104/57 L 08/14/20 08:00 69 08/14/20 07:55 37.0 C 80 20 120/77 94 Laboratory Results Comprehensive Metabolic Panel 08/14/20 Range/Units 08:53 Sodium 138 (136-145) mmol/L Potassium 3.6 (3.5-5.1) mmol/L Chloride 106 (98-107) mmol/L Carbon Dioxide 25 (21-32) mmol/L BUN 11 (7-18) mg/dl Creatinine 0.82 (0.6-1.2) mg/dl Glucose 131 H (70-99) mg/dl Calcium 9.1 (8.5-10.1) mg/dl Intake and Output 08/14/20 08/14/20 08/14/20 06:59 14:59 22:59 Intake Total 456 / 1429 748 / 856 108 / 856 Output Total 950 / 4325 802 / 802 Balance -494 / -2896 - / 54 108 / 54 Intake: IV 216 / 547 108 / 216 108 / 216 Ampicillin/Sulbactam Sod 3,000 216 / 432 108 / 216 108 / 216 mg In 0.9 % Sodium Chloride 100 ml @ 216 mls/hr IV Q6H [facility] Rx# :[id number] Oral 240 / 762 640 / 640 Output: Urine 300 / 3675 800 / 800 Urine/Stool Mix 2 / 2 Other 650 / 650 Other: # Unmeasured Voids 1 Weight 81.6 kg
[2020-08-14] MEDS: GABAPENTIN 600 MG TAB PO SCH (20:46)
[2020-08-14] MEDS: MULTIVITAMIN TAB PO SCH (20:46)
[2020-08-14] MEDS: TAMSULOSIN HCL 0.4 MG CAP PO SCH (20:47)
[2020-08-14] MEDS: CETIRIZINE HCL 10 MG TABLET PO SCH (20:47)
[2020-08-14] MEDS: MAGNESIUM OXIDE 400 MG TAB PO SCH (20:47)
[2020-08-15] MEDS: AMPICILLIN/SULBACTAM SOD 3,000 MG in 0.9 % SODIUM CHLORIDE 100 ML IV SCH ×3 (06:00→17:02)
[2020-08-15] MEDS: LEVOTHYROXINE SODIUM 75 MCG TABLET PO SCH (06:02)
[2020-08-15] MEDS: HEPARIN SOD 5,000 UNIT/0.5 ML VIAL SQ SCH ×2 (06:02→13:27)
[2020-08-15] MEDS: DULoxetine HCL 20 MG CAP PO SCH (08:36)
[2020-08-15] MEDS: ADVANCED PROBIOTIC 1250 MG CAPSULE PO SCH (08:36)
[2020-08-15] MEDS: PANTOprazole 40 MG TAB PO SCH (08:36)
[2020-08-15] MEDS: OXYBUTYNIN CHLORIDE XL 5 MG TABCR PO SCH (08:36)
[2020-08-15] MEDS: CYANOCOBALAMIN (VITAMIN B-12) 2,500 MCG TAB.SUBL SL SCH (08:36)
[2020-08-15] MEDS: GABAPENTIN 400 MG CAP PO SCH (08:36)
[2020-08-15] MEDS: ASCORBIC ACID 500 MG TAB PO SCH (08:37)
[2020-08-15] MEDS: METOPROLOL TARTRATE 25 MG TAB PO SCH ×3 (08:37→16:53)
[2020-08-15] MEDS: CHOLECALCIFEROL 1,000 UNITS 25 MCG TAB PO SCH (08:37)
[2020-08-15] MEDS: ACETAMINOPHEN 325 MG TAB PO SCH ×3 (08:40→16:45)
[2020-08-15 09:03] LABS: Calcium 9.3 mg/dl (8.5-10.1); Creatinine Clr Calc Pharmacy 63.1 ml/min; Est GFR (African American) 80.5; Est GFR (Non-African American) 69.4; Potassium 3.4 mmol/L (3.5-5.1)
[2020-08-15] MEDS ORDERED: POTASSIUM CHLORIDE CRTAB 20 MEQ TABCR PO STA (12:49)
--- NOTE | 2020-08-15 14:29 | Cardiology Progress Note ---
Date of Service August 15, 2020 Assessment & Plan (1) Paroxysmal atrial flutter: -Transition to metoprolol succinate 25 mg daily. -No recurrence now that the patient is afebrile. -Given the need for potential additional urology intervention for ureter stones, and anticipated short lived atrial arrhythmias, hold off on systemic anticoagulation for now, likely reassess with a 2-week outpatient monitor in the future to reassess A. fib/a flutter burden. (2) Volume overload: -Potassium replaced -Start furosemide 20 mg p.o. daily tomorrow (3) Sepsis: -UTI -Staph aureus on urine culture x2 for which patient is on ampicillin sulbactam. -Transition to oral antibiotic as per hospitalist service. -DVT prophylaxis, continue subcutaneous heparin. Admission and Anticipated Discharge Date Admission Date: August 10, 2020 Subjective Patient seen in follow-up. Denies subjective palpitations, shortness of breath improved. Telemetry reveals ongoing sinus rhythm. Physical Exam Physical Exam: Temp Pulse Resp BP Pulse Ox 37.2 C 66 18 111/77 93 08/15/20 11:10 08/15/20 13:28 08/15/20 11:10 08/15/20 13:28 08/15/20 11:10 Constitutional: WD/WN, vitals as above Respiratory: normal respiratory effort, lungs clear to auscultation Cardiovascular: RRR, no murmur, no edema Gastrointestinal (Abdomen): normal bowel sounds, soft, nontender, no hepatosplenomegaly Neurologic: PERRL, EOMI, accommodation nl, no face palsy, no dysarthria Results & Data ([facility]) Vital Signs (Past 12 Hours) Vital Signs Temp Pulse Pulse Resp BP BP Pulse Ox 08/15/20 13:28 66 111/77 08/15/20 11:10 37.2 C 66 18 112/68 93 08/15/20 08:00 70 08/15/20 07:56 36.7 C 77 18 113/64 93 08/15/20 03:43 36.8 C 58 L 16 122/77 91 Laboratory Results Comprehensive Metabolic Panel 08/15/20 Range/Units 08:18 Sodium 139 (136-145) mmol/L Potassium 3.4 L (3.5-5.1) mmol/L Chloride 106 (98-107) mmol/L Carbon Dioxide 26 (21-32) mmol/L BUN 13 (7-18) mg/dl Creatinine 0.84 (0.6-1.2) mg/dl Glucose 122 H (70-99) mg/dl Calcium 9.3 (8.5-10.1) mg/dl Intake and Output 08/14/20 08/15/20 08/15/20 22:59 06:59 14:59 Intake Total 258 / 1322 316 / 1322 108 / 108 Output Total 2051 550 / 2051 Balance -442 / -730 -234 / -730 108 / 108 Intake: IV 108 / 432 216 / 432 108 / 108 Ampicillin/Sulbactam Sod 3,000 108 / 432 216 / 432 108 / 108 mg In 0.9 % Sodium Chloride 100 ml @ 216 mls/hr IV Q6H [facility] Rx# :[id number] Oral 150 / 890 100 / 890 Output: Urine 2049 550 / 2049 Other: Weight 79.5 kg Weight Measurement Method Standing Scale
--- NOTE | 2020-08-15 16:35 | Hospitalist Progress Note ---
Date of Service August 15, 2020 Assessment & Plan (1) Sepsis: (2) Acute unilateral obstructive uropathy: This is a 74-year-old female who has significant past medical history of HTN, HLD, ISSA on CPAP, hypothyroidism, GERD, history of migraines, RLS who presents to ED secondary to nausea, vomiting and right flank pain x1 day. On 07/17/20 pt underwent 1. Cystoscopy, 2. Left Ureteroscopy, retrograde pyelogram, Laser endopyelotomy, ureteral stent, 3. Right ureteroscopy, ureteral dilation x2, laser lithotripsy and stone basket extraction, retrograde pyelogram, and ureteral stent by Dr. Avendano. Met Sepsis criteria on admission per current CMS guidelines with leukocytosis (14k), tachycardia and febrile with Tmax 39.3 S/P day #3 bilateral Ureteral Stent Removal; Bilateral Ureteral Stent Insertion performed by Urology Dr. Solis No post op complication Received IV Rocephin on admission IV Cipro was transition to Zosyn for broader coverage Blood cx no growth Urine cx grew staph species IV Zosyn was deescalate to Unasyn Plan to maintain bilateral ureteral stents for 3-4 weeks until infection has cleared. Outpatient follow-up with urology for cystoscopy for stent removal Continue Flomax, Oxybutynin and Pyridium Case discussed with urology that recommended to complete 7 to 10 days of abx Will transition Unasyn to Augmentin Clinically improves Continue monitor (3) Paroxysmal atrial flutter: EKG showed atrial flutter Received Digoxin x1, now back to sinus rhythm Rate control Cardiology on board Echo showed normal LV wall motion with ejection fraction 60 to 65% Will change metoprolol to metoprolol succinate 25mg Will hold anticoagulant for now in case pt will anticipate outpatient procedure with urology in the next few weeks Follow up with cardiology in 2 week Continue monitor closely (4) Hypoxia: Acute respiratory failure with hypoxia Possible due to volume overload Received IV Lasix during the hospital course Will start on furosemide 20 mg p.o. daily Saturated well on RA Will check BMP in 1 week (5) Sleep apnea: CPAP at HS (6) Hypothyroidism: continue levothyroxine (7) GERD (gastroesophageal reflux disease): continue PPI (8) Restless leg syndrome, familial: continue gabapentin (9) DVT prophylaxis: SQ Heparin Dispo: Med tele PCP: Amber FULL CODE Disposition Discharge home today Admission and Anticipated Discharge Date Admission Date: August 10, 2020 Subjective Pt was seen and examined Lying in bed with no distress Pt said that she feels fine She saturated well on RA She said that her breathing is much better denies any chest pain, palpitation, dizziness and SOB Review of Systems Review of Systems: All systems reviewed & are unremarkable except as noted in Subjective Physical Exam Physical Exam: General- No acute distress Head- atraumatic Eyes- PERRL, EOMI, ENT- oropharynx clear Neck- supple, no JVD Lungs- clear to auscultation Heart- regular rhythm; no murmur Abdomen- normal bowel sounds, soft, nontender Extremities- no calf tenderness Neuro- alert, oriented x 3; PERRL, EOMI; no facial palsy; no dysarthria Skin- warm & dry Results & Data Results & Data ([facility]) Vital Signs (Past 12 Hours) Vital Signs Temp Pulse Pulse Resp BP BP Pulse Ox 08/15/20 15:28 36.9 C 66 18 118/70 95 08/15/20 13:28 66 111/77 08/15/20 11:10 37.2 C 66 18 112/68 93 08/15/20 08:00 70 08/15/20 07:56 36.7 C 77 18 113/64 93
--- NOTE | 2020-08-16 06:27 | Electrocardiogram Report ---
Test Reason : Blood Pressure : / mmHG Vent. Rate : 058 BPM Atrial Rate : 058 BPM P-R Int : 204 ms QRS Dur : 074 ms QT Int : 404 ms P-R-T Axes : 035 -31 023 degrees QTc Int : 396 ms Sinus bradycardia with with sinus arrhythmia Left axis deviation Nonspecific T wave abnormality Abnormal ECG When compared with ECG of 12-AUG-2020 02:10, Sinus rhythm has replaced Atrial flutter Vent. rate has decreased BY [address] no longer depressed in Inferior leads Confirmed by Denilson Albrecht ([id number]) on 08/16/2020 6:27:26 AM Referred By: REFERRED SELF Confirmed By:Denilson Albrecht
[2020-08-16] MEDS ORDERED: AMOXICILLIN/CLAVULANATE 875 MG TAB PO SCH (08:00)
[2020-08-16] MEDS ORDERED: METOPROLOL SUCC 25MG EXT REL TAB PO SCH (09:00)
[2020-08-16] MEDS ORDERED: FUROSEMIDE 20 MG TAB PO SCH (09:00)
--- NOTE | 2020-08-22 23:52 | Discharge Summary ---
Date of Service August 15, 2020 Admission HPI Per Admitting Provider This is a 74-year-old female who has significant past medical history of HTN, HLD, ISSA on CPAP, hypothyroidism, GERD, history of migraines, RLS who presents to ED secondary to nausea, vomiting and right flank pain x1 day. Of significance on 07/17/2020 patient underwent cystoscopy by Dr. Avendano secondary to microscopic hematuria. She underwent a left ureteroscopic E with stent placement and laser Endo pyelotomy as well as right ureteroscopy, ureteral dilatation x2, laser lithotripsy with stone basket extraction and stent placement. 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 She complains of feeling feverish, chills, nausea and vomiting. She vomitted 3 times today. She further complained of right flank pain that was severe, nonradiating, worsened with movement, improved with IV Toradol in ED. She did not take her temperature therefore no documented fever, but complained being feverish. She overall complains of feeling, "not well." She denies any lightheadedness, dizziness, syncope, headache, chest pain, shortness of breath, URI symptoms, abdominal pain, dysuria, increased urgency or frequency with urination, melena, hematochezia or hematuria. In ED patient remained hemodynamically stable although blood pressures were on the softer side. Her urinalysis did appear consistent with underlying infection. CT scan abdomen pelvis concerning for increase in moderate to severe right hydronephrosis despite indwelling stent with right perinephritic infiltration and fluid. Mild left hydronephrosis was improved from prior exam. There is no ureteral calculi noted. In ED she received 1 L IV fluid as well as 1 g IV Rocephin. Urology was contacted and stated they would see in the morning. Overall poor appetite today as she has not had anything to eat or drink. Admission Exam Per Admitting Provider Constitutional: WD/WN, acutely ill-appearing female, vitals as above, NAD, sitting up in bed, pleasant, conversing easily Head: Normocephalic, Atraumatic Eyes: PERRL, conjunctivae normal, anicteric sclerae ENMT: external ear and nose normal, oropharynx normal mucous membrane dry Neck: trachea midline, no thyromegaly normal visual inspection Respiratory: normal respiratory effort, lungs clear to auscultation, no wheeze, rales, rhonchi. Normal insp/exp effort, no accessory muscle use Cardiovascular: RRR, no murmur, no edema Vessels: no JVD or carotid bruit Chest: normal inspection of chest Abdomen: normal bowel sounds, soft, nontender, no hepatosplenomegaly , no CVA tenderness Musculoskeletal: no cyanosis or clubbing, extremities motor strength 5/5 Skin: no rashes, warm and dry normal turgor Neurologic: PERRL, EOMI, accommodation nl, no face palsy, no dysarthria CN's II-XI intact bilaterally and moves all extremities Psychiatric: A+Ox3, euthymic affect Lymphatic: no cervical or axillary lymphadenopathy : deferred Principal Diagnosis (1) Sepsis: (2) Acute unilateral obstructive uropathy: (3) Paroxysmal atrial flutter: (4) Hypoxia: (5) Acute respiratory failure with hypoxia (5) Sleep apnea: (6) Hypothyroidism: (7) GERD (gastroesophageal reflux disease) (8) Restless leg syndrome, familial: Discharge Exam General- No acute distress Head- atraumatic Eyes- PERRL, EOMI, ENT- oropharynx clear Neck- supple, no JVD Lungs- clear to auscultation Heart- regular rhythm; no murmur Abdomen- normal bowel sounds, soft, nontender Extremities- no calf tenderness Neuro- alert, oriented x 3; PERRL, EOMI; no facial palsy; no dysarthria Skin- warm & dry Discharge Data Allergies Allergy/AdvReac Type Severity Reaction Status Date / Time cephalexin Allergy Intermediate Hives Verified 08/10/20 17:34 Sulfa (Sulfonamide Allergy Intermediate HIVES Verified 08/10/20 17:34 Antibiotics) lisinopril Allergy Mild Cough Verified 08/10/20 17:34 Consultations 08/10/20 18:18 ED Decision to Admit Stat 08/10/20 18:28 Consult Urology Routine 08/12/20 03:11 Consult Cardiology Routine Procedures Performed Operation Date: 08/10/20 20:45 <No data on this case meets the specified criteria> Operation Date: 08/10/20 20:50 Actual Procedures p Cystoscopy(Not Applicable) - Master Solis MD s Bilateral Ureteral Stent Removal; Bilateral Ureteral Stent Insertion(Bilateral) - Master Solis MD Ordered Studies 08/10/20 16:20 CT abd pelvis wo con Stat 08/10/20 20:58 FL retrograde includes kub Stat 08/12/20 03:30 CT angio chest PE protocol Urgent CT ANGIOGRAPHY OF THE CHEST, PULMONARY EMBOLUS PROTOCOL CLINICAL HISTORY: Chest pain. Evaluate for pulmonary embolus. COMPARISON STUDY: Chest CT September 18, 2015. Chest radiograph performed earlier today. TECHNIQUE: Following IV administration of 110 mL of Optiray, helical axial images of the chest were obtained utilizing the pulmonary embolus protocol. Maximal intensity projections and sagittal and coronal reformats were viewed on an independent 3D workstation. IV contrast was administered without complication. Automated exposure control was utilized for the study. A dose lowering technique was utilized adhering to the principles of ALARA. CT DOSE: 449.75 mGy.cm FINDINGS: No pulmonary emboli are identified. Size of the heart is within normal limits. Exam is present. There is no pericardial effusion. There are prominent bilateral hilar lymph nodes. Small bilateral pleural effusions are noted, left larger than right. Interlobular septal thickening is noted. Additional airspace opacities within the bilateral upper lobes are noted. Bronchial wall thickening is present. There is no pneumothorax. No suspicious le sions within the bony thorax are noted. Visualized portions of the upper abdomen demonstrate mild splenomegaly. There is hepatic steatosis. IMPRESSION: 1. No pulmonary emboli identified. 2. Moderate interstitial pulmonary edema. Bilateral airspace opacities suggestive of alveolar pulmonary edema. A superimposed infectious process could appear similar but is considered less likely. 3. Small bilateral pleural effusions, left larger than right. 4. Emphysema. ACT 112: Negative or not required by law. Electronically signed by: Nick Oreilly M.D. 08/12/2020 9:29 AM Dictated: 08/12/20921Transcribed: 08/12/20921 XR chest 1V portable CLINICAL HISTORY: Chest pain. COMPARISON STUDY: Chest radiograph June 06, 2020. FINDINGS: No pneumothorax is noted. Interstitial thickening with Armond B lines is noted. There are bilateral airspace opacities, greater within the left lung. Suspected trace left pleural effusion is noted. IMPRESSION: Interstitial thickening consistent with moderate pulmonary edema. Bilateral airspace opacities likely reflect alveolar pulmonary edema. A superimposed infectious process could appear similar. ACT 112: Negative or not required by law. Electronically signed by: Nick Oreilly M.D. 08/12/2020 7:40 AM Dictated: 08/12/20737Transcribed: 08/12/20737 FL retrograde includes kub HISTORY: 74 years-old Female STENT EXCHANGE STATUS post bilateral ureteral stent exchange COMPARISON: CT abdomen pelvis 08/10/2020 TECHNIQUE: 2 spot fluoroscopic images of the abdomen were obtained utilizing 88.5 seconds fluoroscopy time. FINDINGS: Bilateral ureteral stents are present which appear to be in satisfactory positioning. Contrast-filled the right renal collecting system demonstrates persistent moderate hydronephrosis with calyceal blunting. No definite ureteral calculi identified on these images. IMPRESSION: Fluoroscopic assistance as above. Please see procedural report for further details. ACT 112: Negative or not required by law. The above report was generated using voice recognition software. It may contain grammatical, syntax or spelling errors. Electronically signed by: Olvin Fields M.D. 08/11/2020 7:27 AM Dictated: 08/11/20724Transcribed: 08/11/20724 CT OF THE ABDOMEN AND PELVIS WITHOUT CONTRAST CLINICAL HISTORY: Right flank pain. COMPARISON STUDY: CT of the abdomen and pelvis June 04, 2020. Retrograde exams July 17, 2020. TECHNIQUE: Axial images of the abdomen and pelvis were obtained without IV contrast. Images were reviewed in the axial, sagittal, and coronal planes. Automated exposure control was utilized for the study. A dose lowering technique was utilized adhering to the principles of ALARA. FINDINGS: Emphysema is noted within the lower lungs. Hepatic steatosis is noted. Evaluation of the abdomen and pelvis is suboptimal on this unenhanced examination. There is mild gallbladder distention without adjacent infiltration. No biliary or pancreatic ductal dilatation is present. There is no evidence for a bowel obstruction. The caliber of small and large bowel are normal. There is a moderate amount stool within the colon. The appendix is not visualized. There is no lymphadenopathy. No acute fracture or suspicious lesion is identified within the visualized skeletal structures. Bilateral ureteral stents are properly positioned. Moderate to severe right hydronephrosis has increased since CT of June 04, 2020. No ureteral calculi are present. Note is made of right perinephric infiltration and fluid. This has developed since prior exam. Mild left hydronephrosis has slightly improved. Numerous small right renal calculi shown to 3 mm. A few left renal calculi measure up to 2 mm. No bladder calculi. IMPRESSION: 1. Increase in moderate to severe right hydronephrosis despite indwelling stent. Right perinephric infiltration and fluid. The etiology for this hydronephrosis is not clear on this examination but could be due to a stricture. 2. Mild left hydronephrosis, slightly improved since prior exam. 3. No ureteral calculi. Bilateral nephrolithiasis. 4. Hepatic steatosis. ACT 112: Negative or not required by law. Electronically signed by: Nick Oreilly M.D. 08/10/2020 5:27 PM Dictated: 08/10/201717Transcribed: 08/10/201717 Hospital Course (1) Sepsis: (2) Acute unilateral obstructive uropathy: This is a 74-year-old female who has significant past medical history of HTN, HLD, ISSA on CPAP, hypothyroidism, GERD, history of migraines, RLS who presents to ED secondary to nausea, vomiting and right flank pain x1 day. On 07/17/20 pt underwent 1. Cystoscopy, 2. Left Ureteroscopy, retrograde pyelogram, Laser endopyelotomy, ureteral stent, 3. Right ureteroscopy, ureteral dilation x2, laser lithotripsy and stone basket extraction, retrograde pyelogram, and ureteral stent by Dr. Avendano. Met Sepsis criteria on admission per current CMS guidelines with leukocytosis (14k), tachycardia and febrile with Tmax 39.3 S/P day #3 bilateral Ureteral Stent Removal; Bilateral Ureteral Stent Insertion performed by Urology Dr. Solis No post op complication Received IV Rocephin on admission IV Cipro was transition to Zosyn for broader coverage Blood cx no growth Urine cx grew staph species IV Zosyn was deescalate to Unasyn Plan to maintain bilateral ureteral stents for 3-4 weeks until infection has cleared. Outpatient follow-up with urology for cystoscopy for stent removal Continue Flomax, Oxybutynin and Pyridium Case discussed with urology that recommended to complete 7 to 10 days of abx Will transition Unasyn to Augmentin Clinically improves Continue monitor (3) Paroxysmal atrial flutter: EKG showed atrial flutter Received Digoxin x1, now back to sinus rhythm Rate control Cardiology on board Echo showed normal LV wall motion with ejection fraction 60 to 65% Will change metoprolol to metoprolol succinate 25mg Will hold anticoagulant for now in case pt will anticipate outpatient procedure with urology in the next few weeks Follow up with cardiology in 2 week Continue monitor closely (4) Hypoxia: Acute respiratory failure with hypoxia Possible due to volume overload Received IV Lasix during the hospital course Will start on furosemide 20 mg p.o. daily Saturated well on RA Will check BMP in 1 week (5) Sleep apnea: CPAP at HS (6) Hypothyroidism: continue levothyroxine (7) GERD (gastroesophageal reflux disease): continue PPI (8) Restless leg syndrome, familial: continue gabapentin (9) DVT prophylaxis: SQ Heparin Dispo: Med tele PCP: Amber FULL CODE Disposition Discharge home today Total Time Total Time Spent Total Time Spent (In Minutes): 35 minutes Total Time Includes: Examination of the Patient, Discharge Planning, Medication Reconciliation, Communication With Other Providers and Other Discharge Plan Discharge Items Patient Disposition: Home - Self-Care Reason For Visit: SEVERE R HYDRONEPHROSIS, INFECTED URINARY STENT Discharge Diagnosis: (1) Sepsis: (2) Acute unilateral obstructive uropathy: (3) Paroxysmal atrial flutter: (4) Hypoxia: (5) Acute respiratory failure with hypoxia (5) Sleep apnea: (6) Hypothyroidism: (7) GERD (gastroesophageal reflux disease) (8) Restless leg syndrome, familial: Activity: Resume your previous activity Non-emergency contact: Primary Care Provider, Ruffling Machine Operator and Urologist Call non-emergency contact if: you have any medication questions and your symptoms worsen Follow-up/Referrals: Nader Clark MD [Primary Care Provider] - (Date & Time 08/18/2020 3:00 PM Provider Nader Clark MD Department [facility] ) Diet: Heart Healthy Addtl Attending Provider Instructions: Follow up on with your primary care provider on Dr. Clark on 08/18/2020 at3:00 Pm at the [facility] Follow up with cardiology in 2 weeks (please call for the appointment) Follow up with urology for stent removal (Office will call you for the appointment) Complete the antibiotic course Check BMP in 1 week to monitor your electrolytes and renal function while taking lasix Seek medical attention if you develop any shortness of breath or fever Pending Studies at Discharge: No Stand-Alone Forms: [employer], Smoking Cessation Medications and DC Order Prescriptions: New metoprolol succinate 25 mg Tablet Extended Release 24 Hr 25 mg PO QAM Qty: 30 RF: 0 furosemide 20 mg Tablet 20 mg PO QAM Qty: 30 RF: 0 Continued sumatriptan succinate [Imitrex] 100 mg Tablet 100 mg PO DIRECTED PRN (Reason: Migraine Headache) Qty: 0 RF: 0 albuterol sulfate [Ventolin HFA] 90 mcg/actuation Hfa Aerosol Inhaler 1 - 2 puff INHALATION Q6H PRN (Reason: Shortness Of Breath) Qty: 0 RF: 0 fluticasone propionate [Flonase Allergy Relief] 50 mcg/actuation [place],Suspension 1 spray intranasal DAILY PRN (Reason: Allergy Symptoms) Qty: 0 RF: 0 omeprazole magnesium [Prilosec OTC] 20 mg Tablet,Delayed Release (Dr/Ec) 20 mg PO DAILY PRN (Reason: HEARTBURN/INDIGESTION) Qty: 0 RF: 0 duloxetine 20 mg Capsule,Delayed Release(Dr/Ec) 20 mg PO BID Qty: 0 RF: 0 betamethasone dipropionate 0.05 % ointment 1 applic topical DAILY PRN (Reason: Skin Irritation) RF: 0 clobetasol [Temovate] 0.05 % cream 1 applic topical BID PRN (Reason: ITCHING SKIN) RF: 0 gabapentin 600 mg tablet 600 mg PO QPM RF: 0 hydroxyzine HCl 25 mg tablet 25 mg PO QID PRN (Reason: Itching) RF: 0 levocetirizine 5 mg tablet 5 mg PO QPM RF: 0 oxybutynin chloride 10 mg tablet extended release 24hr 10 mg PO QAM RF: 0 Probiotic Acidophilus Biobeads 12.9 mg (2 billion cell) tablet,delayed release (DR/EC) 1 tab PO QAM RF: 0 cyanocobalamin (vitamin B-12) 2,500 mcg tablet 2,500 mcg PO QAM RF: 0 cholecalciferol (vitamin D3) [Vitamin D3] 125 mcg (5,000 unit) tablet 125 mcg PO QAM RF: 0 multivitamin Tablet 1 tab PO HS RF: 0 levothyroxine 75 mcg tablet 75 mcg PO QAM RF: 0 Medical Marijuana 1 dose sublingual UD PRN (Reason: RESTLESS LEG SYNDROME) RF: 0 gabapentin 400 mg Capsule 400 mg PO QAM RF: 0 ascorbic acid (vitamin C) [Vitamin C] 500 mg Tablet 500 mg PO QAM RF: 0 phenazopyridine [Pyridium] 200 mg tablet 200 mg PO Q8H PRN (Reason: pain) Qty: 10 RF: 0 tamsulosin 0.4 mg capsule 0.4 mg PO HS Qty: 30 RF: 0 magnesium oxide 500 mg Tablet 500 mg PO QPM RF: 0 Changed potassium chloride 10 mEq Capsule, Extended Release 10 meq PO DAILY Qty: 30 RF: 0 Discontinued bumetanide 1 mg Tablet 1 mg PO DAILY PRN (Reason: Fluid Retention) Qty: 0 RF: 0 Discharge Orders: Discharge Order (Routine); Ordered 08/15/20 Ordered By: Heriberto Vigil Admission Data Admit Date/Time: 08/10/20 18:48 Attending Provider: Heriberto Vigil Admit Provider: Pal Chance Primary Care Provider: Nader Clark Other Providers: Pal Chance ; Master Solis ; Master John ; Seferino Barron ; Tra Matthews ; Aclon Muir ; Erick Donovan ; Nader Barone ; Ely Hodges ; Mary Joshi ; Vanessa Crump ; Morales Guo Other Interventions: Discharge Summary Assessment (RN) Last Done: 08/15/20 17:12
== END 2020-08-15 18:55 | disposition home or self-care (01) | DRG 853 ==
LOC: 2W 16:01 → ED 16:01 → SUATTDRO 18:43 → OBSVTOIN 18:43 → 2W 20:16 → 2S 08-12 03:10

== ENCOUNTER 2020-11-01 19:10 | Inpatient (IN) ==
[2020-11-01] MEDS ORDERED: ONDANSETRON INJ 2 MG/ML 2 ML VIAL IV STA (21:53)
--- NOTE | 2020-11-01 22:00 | Emergency Department Note ---
History of Present Illness General Chief complaint: Urinary Symptoms Stated complaint: UTI, THOWING UP Time Seen by Provider: 11/01/20 21:46 Source: patient History of Present Illness Provider complaint: Bilateral flank pain Onset (ago): day(s) Location: back, left and right Radiation: back Severity: moderate Pain Consistency: + intermittent Maximum Pain Intensity: 3 Quality: + other (Like a band across her lower back) Relieved By: + none Associated symptoms: + fever/chills and + nausea/vomiting; no chest pain, no cough or no shortness of breath This is a 74-year-old female with a history of kidney stones and sepsis from UTI presenting with bilateral flank pain starting yesterday. She describes it like a bandlike sensation across her lower back and flank. She rates it a 3 out of 10 in severity. No alleviating factors. It is associated with pain with urination and frequency. She called her doctor who placed her on Flomax, Pyridium and Cipro. After taking the medication she started throwing up and has not been able to keep down anything all day today. She did have a fever of 101 last night. She states that she has been septic twice from a kidney stone and UTI this year. She denies any chest pain, shortness of breath, cough or cold symptoms, or diarrhea. Home Medications Medication Instructions Recorded Confirmed Type albuterol sulfate 90 mcg/actuation 1 - 2 puff INHALATION Q6H PRN #0 03/19/16 11/01/20 History aerosol inhaler (Ventolin HFA) duloxetine 20 mg capsule,delayed 20 mg PO BID #0 03/19/16 11/01/20 History release fluticasone propionate 50 1 spray INTRANASAL DAILY PRN #0 03/19/16 11/01/20 History mcg/actuation nasal spray,suspension (Flonase Allergy Relief) omeprazole magnesium 20 mg 20 mg PO DAILY PRN #0 03/19/16 11/01/20 History tablet,delayed release (Prilosec OTC) sumatriptan succinate 100 mg 100 mg PO DIRECTED PRN #0 tab 03/19/16 11/01/20 History tablet (Imitrex) Medical Marijuana 1 dose SUBLINGUAL UD PRN 06/03/20 11/01/20 History levothyroxine 75 mcg tablet 75 mcg PO QAM 06/03/20 11/01/20 History multivitamin 1 tab PO HS 06/03/20 11/01/20 History L.acidoph-L.rhamn-B.bifidum-B.long 1 tab PO QAM tab 06/27/20 11/01/20 History 12.9 mg (2 billion cell) tabletDR (Probiotic Acidophilus Tracy) betamethasone dipropionate 0.05 % 1 applic TOPICAL DAILY PRN 06/27/20 11/01/20 History topical ointment cholecalciferol (vitamin D3) 125 125 mcg PO QAM 06/27/20 11/01/20 History mcg (5,000 unit) tablet (Vitamin D3) clobetasol 0.05 % topical cream 1 applic TOPICAL BID PRN 06/27/20 11/01/20 History (Temovate) cyanocobalamin (vitamin B-12) 2,500 mcg PO QAM 06/27/20 11/01/20 History 2,500 mcg tablet gabapentin 600 mg tablet 600 mg PO QPM 06/27/20 11/01/20 History hydroxyzine HCl 25 mg tablet 25 mg PO QID PRN 06/27/20 11/01/20 History levocetirizine 5 mg tablet 5 mg PO QPM 06/27/20 11/01/20 History oxybutynin chloride 10 mg 10 mg PO QAM 06/27/20 11/01/20 History tablet,extended release 24 hr ascorbic acid (vitamin C) 500 mg 500 mg PO QAM 07/03/20 11/01/20 History tablet (Vitamin C) gabapentin 400 mg capsule 400 mg PO QAM 07/03/20 11/01/20 History magnesium oxide 500 mg tablet 500 mg PO QPM 08/10/20 11/01/20 History furosemide 20 mg tablet 20 mg PO QAM #30 tab 08/15/20 11/01/20 Rx metoprolol succinate 25 mg 25 mg PO QAM #30 tab 08/15/20 11/01/20 Rx tablet,extended release 24 hr potassium chloride 10 mEq 10 meq PO DAILY #30 cap 08/15/20 11/01/20 Rx capsule,extended release ciprofloxacin HCl 500 mg tablet 500 mg PO BID #14 tab 10/31/20 11/01/20 Rx (Cipro) phenazopyridine 200 mg tablet 200 mg PO Q8H PRN #10 tab 10/31/20 11/01/20 Rx (Pyridium) tamsulosin 0.4 mg capsule 0.4 mg PO HS #30 cap 10/31/20 11/01/20 Rx conjugated estrogens 0.625 mg/gram 0.3125 mg VAGINAL DIRECTED 11/01/20 11/01/20 History vaginal cream (Premarin) Allergies Allergy/AdvReac Type Severity Reaction Status Date / Time cephalexin Allergy Intermediate Hives Verified 11/01/20 22:39 Sulfa (Sulfonamide Allergy Intermediate HIVES Verified 11/01/20 22:39 Antibiotics) lisinopril Allergy Mild Cough Verified 11/01/20 22:39 Past Med/Surg History Medical History Acute pyelonephritis Arthritis GERD (gastroesophageal reflux disease) GERD (gastroesophageal reflux disease) Hypothyroidism Hypothyroidism IBS (irritable bowel syndrome) Kidney stone Migraine Overactive bladder Peripheral neuropathy Restless leg syndrome Restless leg syndrome, familial Sleep apnea CPAP, USING EVERY NIGHT. Surgical History H/O foot surgery R foot hammertoe correction 07/10/20 at [facility]. H/O sinus surgery H/O: hysterectomy History of appendectomy History of bladder surgery BLADDER TACK History of carpal tunnel release RT/LEFT History of cataract surgery RT/LEFT History of colonoscopy History of esophagogastroduodenoscopy (EGD) History of tonsillectomy History of tooth extraction Strabismus LEFT EYE REPAIRED Family History Other No family history of adverse response to anesthesia Social History Smoking Status: Never smoker packs per day: 1; Years Smoked: 30; Second Hand Exposure: Yes (IN THE PAST); Hx Alcohol Use: No Hx Substance Use: No Preferred Language: Omani Communication Ability: Effective Visual Impairment: No Limitations Hearing Ability: Normal 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 and A total of 10 systems reviewed and were otherwise negative Physical Exam Vital Signs Vital Signs - 24 hr 11/01/20 19:14 11/01/20 22:07 11/01/20 22:08 Temperature 36.7 C Temperature Source Temporal Artery Scan Pulse Rate 80 67 Pulse Rate [Left Finger] 70 Pulse Rate from SpO2 Sensor Pulse Rhythm Regular Pulse Rhythm [Left Finger] Regular Pulse Strength [Left Finger] Normal Respiratory Rate 18 15 19 Respiratory Effort / Characteristics Non-Labored Spontaneous Non-Labored Spontaneous Respiratory Depth Normal Normal Respiratory Pattern Regular Blood Pressure 120/76 Blood Pressure [Right Arm] 132/81 Blood Pressure Mean 90 Blood Pressure Mean [Right Arm] 98 Blood Pressure Position [Right Arm] Lying Pulse Oximetry 98 96 96 Oxygen Delivery Method Room Air Room Air Room Air Sepsis Recent Fever Within 48 Hours No Sepsis New/Unexplained Change in Mental Status N/A Sepsis Action Taken by Nursing No Action Required 11/01/20 22:30 11/01/20 22:41 11/01/20 23:00 Temperature Temperature Source Pulse Rate 63 69 Pulse Rate [Left Finger] Pulse Rate from SpO2 Sensor 63 68 Pulse Rhythm Pulse Rhythm [Left Finger] Pulse Strength [Left Finger] Respiratory Rate 13 18 14 Respiratory Effort / Characteristics Non-Labored Spontaneous Respiratory Depth Respiratory Pattern Blood Pressure 129/67 128/91 Blood Pressure [Right Arm] Blood Pressure Mean 87 103 Blood Pressure Mean [Right Arm] Blood Pressure Position [Right Arm] Pulse Oximetry 99 96 98 Oxygen Delivery Method Room Air Sepsis Recent Fever Within 48 Hours Sepsis New/Unexplained Change in Mental Status Sepsis Action Taken by Nursing 11/01/20 23:06 11/02/20 00:08 11/02/20 00:30 Temperature 37.5 C Temperature Source Oral Pulse Rate Pulse Rate [Left Finger] 106 H Pulse Rate from SpO2 Sensor Pulse Rhythm Pulse Rhythm [Left Finger] Pulse Strength [Left Finger] Respiratory Rate 18 24 24 Respiratory Effort / Characteristics Non-Labored Spontaneous Non-Labored Non-Labored Respiratory Depth Respiratory Pattern Blood Pressure Blood Pressure [Right Arm] 170/82 H Blood Pressure Mean Blood Pressure Mean [Right Arm] 111 Blood Pressure Position [Right Arm] Pulse Oximetry 98 96 95 Oxygen Delivery Method Room Air Room Air Room Air Sepsis Recent Fever Within 48 Hours Sepsis New/Unexplained Change in Mental Status Sepsis Action Taken by Nursing 11/02/20 00:45 Temperature Temperature Source Pulse Rate Pulse Rate [Left Finger] 96 H Pulse Rate from SpO2 Sensor Pulse Rhythm Pulse Rhythm [Left Finger] Pulse Strength [Left Finger] Respiratory Rate 18 Respiratory Effort / Characteristics Respiratory Depth Respiratory Pattern Blood Pressure Blood Pressure [Right Arm] 144/90 H Blood Pressure Mean Blood Pressure Mean [Right Arm] 108 Blood Pressure Position [Right Arm] Pulse Oximetry 95 Oxygen Delivery Method Room Air Sepsis Recent Fever Within 48 Hours Sepsis New/Unexplained Change in Mental Status Sepsis Action Taken by Nursing Constitutional: Vital signs reviewed. Eyes: Pupils are equal round reactive to light. Conjunctiva are noninjected. ENT: Pharynx is clear without erythema or exudate. Mucous membranes are moist. Neck supple without meningeal signs. Respiratory: Clear to auscultation bilaterally. Breath sounds are equal bila terally. Cardiovascular: Regular rate and rhythm. No rubs or gallops. GI: Soft, nondistended and nontender. Bowel sounds are present. Musculoskeletal: No peripheral edema. No CVA tenderness. Integumentary: No cyanosis. or jaundice. Neurological: The patient is awake and alert. No focal deficits. Psychiatric: Normal affect. Not anxious appearing. Course Administered Medications Discontinued Medications Daptomycin 325 mg/ Syringe 6.5 mls @ 3.25 mls/min IV NOW ONE; Protocol Stop: 11/01/20 22:02 Last Admin: 11/01/20 23:07 Dose: 3.25 mls/min Documented by: [id number] Potassium Chloride (K Les / Wtr) 10 meq in 100 mls @ 100 mls/hr IV ONE ONE Stop: 11/02/20 01:01 Last Infusion: 11/02/20 01:27 Dose: 0 mls/hr Documented by: [id number] Admin: 11/02/20 00:14 Dose: 100 mls/hr Documented by: [id number] Piperacillin Sod/Tazobactam Sod (Zosyn) 4.5 gm in 120 mls @ 240 mls/hr IV NOW S TA Stop: 11/02/20 00:47 Last Infusion: 11/02/20 01:26 Dose: 0 mls/hr Documented by: [id number] Admin: 11/02/20 00:44 Dose: 240 mls/hr Documented by: [id number] Sodium Chloride (Nss 1000ml) 1,000 mls @ 999 mls/hr IV .Q1H1M STA Stop: 11/02/20 01:18 Last Admin: 11/02/20 00:39 Dose: 999 mls/hr Documented by: [id number] Promethazine HCl (Phenergan) 12.5 mg in 50.5 mls @ 202 mls/hr IV NOW STA Stop: 11/02/20 01:41 Last Admin: 11/02/20 01:32 Dose: 202 mls/hr Documented by: [id number] Ondansetron HCl (Ondansetron Inj 2 Mg/Ml 2 Ml Vial) 4 mg IV NOW STA Stop: 11/01/20 21:54 Last Admin: 11/01/20 22:13 Dose: 4 mg Documented by: [id number] Potassium Chloride (Potassium Chloride Crtab 20 Meq Tabcr) 40 meq PO NOW STA Stop: 11/02/20 00:56 Last Admin: 11/02/20 02:06 Dose: Not Given Documented by: [id number] Potassium Chloride (Potassium Chloride 10 Meq Tabcr) Confirm Administered Dose 40 meq PO .STK-MED ONE Stop: 11/02/20 01:08 Last Admin: 11/02/20 02:05 Dose: 40 meq Documented by: [id number] Medical Decision Making Differential Diagnosis Sepsis, UTI, pyelonephritis, obstructive uropathy, ureterolithiasis Medical Records Attestation: I reviewed the patient's medical records. I did perform a limited focused review of portions of the patient's old chart on the electronic medical record. The patient was admitted in August of this year for sepsis, obstructive uropathy and UTI. She has had several positive urine cultures from this year that is shown methicillin sensitive staph aureus as well as E. coli and Enterococcus. Home Medications Current Medication List: was personally reviewed by me Laboratory Data Attestation: I reviewed the patient's lab results. Result diagrams: 11/01/20 22:14 11/01/20 22:14 Lab Results 11/01/20 11/01/20 11/01/20 Range/Units 22:14 22:14 22:14 WBC 14.71 H (4.8-10.8) K/uL RBC 4.88 (4.2-5.4) M/uL Hgb 14.7 (12.0-16.0) g/dL Hct 42.8 (37-47) % MCV 87.7 (80-100) fL MCH 30.1 (25-34) pg MCHC 34.3 (32-36) g/dL RDW Std Deviation 47.5 H (36.4-46.3) fL RDW Coeff of [place] 14.8 H (11.5-14.5) % Plt Count 241 (130-400) K/uL MPV 10.0 (7.4-10.4) fL Immature Gran % (Auto) 0.2 % Neut % (Auto) 84.4 % Lymph % (Auto) 8.6 % [place] % (Auto) 6.6 % Eos % (Auto) 0.1 % Baso % (Auto) 0.1 % Neut # (Auto) 12.42 H (1.4-6.5) K/uL Lymph # (Auto) 1.26 (1.2-3.4) K/uL [place] # (Auto) 0.97 H (0.11-0.59) K/uL Eos # (Auto) 0.01 (0-0.5) K/uL Baso # (Auto) 0.02 (0-0.2) K/uL Immature Gran # (Auto) 0.03 H (0.00-0.02) K/uL PT 10.4 (9.0-12.0) Seconds INR 1.0 (0.9-1.1) APTT 26.5 (21.0-31.0) Seconds PTT Ratio 1.0 Sodium 137 (136-145) mmol/L Potassium 3.1 L (3.5-5.1) mmol/L Chloride 104 (98-107) mmol/L Carbon Dioxide 25 (21-32) mmol/L Anion Gap 9.0 (3-11) BUN 20 H (7-18) mg/dl Creatinine 1.05 (0.6-1.2) mg/dl Est Cr Clr Drug Dosing 50.8 ml/min Est GFR ( Amer) 61.4 ml/min Est GFR (Non-Af Amer) 53.0 ml/min BUN/Creatinine Ratio 18.6 (10-20) Glucose 114 H (70-99) mg/dl Lactate (0.4-2.0) mmol/L Calcium 9.3 (8.5-10.1) mg/dl Magnesium 2.1 (1.8-2.4) mg/dl Total Bilirubin 1.0 (0.2-1) mg/dl AST 26 (15-37) U/L ALT 44 (12-78) U/L Alkaline Phosphatase 94 (45-117) U/L Total Protein 8.6 H (6.4-8.2) gm/dl Albumin 3.7 (3.4-5.0) gm/dl Globulin 4.9 H (2.5-4.0) gm/dl Albumin/Globulin Ratio 0.8 L (0.9-2) Urine Color Urine Appearance (Clear) Urine pH (4.5-7.5) Ur Specific [place] (1.000-1.030) Urine Protein (Negative) Urine Glucose (UA) (Negative) Urine Ketones (Negative) Urine Blood (Negative) Urine Nitrite (Negative) Urine Bilirubin (Negative) Urine Urobilinogen (Negative) Ur Leukocyte Esterase (Negative) Urine WBC (Auto) (0-5) /hpf Urine RBC (Auto) (0-4) /hpf U Hyaline Cast (Auto) (0-5) /lpf U Epithel Cells (Auto) (0-5) /lpf Urine Bacteria (Auto) (Negative) COVID-19 Eval Order SARS-CoV-2 (PCR) (Negative) 11/01/20 11/01/20 11/01/20 Range/Units 22:14 22:56 22:56 WBC (4.8-10.8) K/uL RBC (4.2-5.4) M/uL Hgb (12.0-16.0) g/dL Hct (37-47) % MCV (80-100) fL MCH (25-34) pg MCHC (32-36) g/dL RDW Std Deviation (36.4-46.3) fL RDW Coeff of [place] (11.5-14.5) % Plt Count (130-400) K/uL MPV (7.4-10.4) fL Immature Gran % (Auto) % Neut % (Auto) % Lymph % (Auto) % [place] % (Auto) % Eos % (Auto) % Baso % (Auto) % Neut # (Auto) (1.4-6.5) K/uL Lymph # (Auto) (1.2-3.4) K/uL [place] # (Auto) (0.11-0.59) K/uL Eos # (Auto) (0-0.5) K/uL Baso # (Auto) (0-0.2) K/uL Immature Gran # (Auto) (0.00-0.02) K/uL PT (9.0-12.0) Seconds INR (0.9-1.1) APTT (21.0-31.0) Seconds PTT Ratio Sodium (136-145) mmol/L Potassium (3.5-5.1) mmol/L Chloride (98-107) mmol/L Carbon Dioxide (21-32) mmol/L Anion Gap (3-11) BUN (7-18) mg/dl Creatinine (0.6-1.2) mg/dl Est Cr Clr Drug Dosing ml/min Est GFR ( Amer) ml/min Est GFR (Non-Af Amer) ml/min BUN/Creatinine Ratio (10-20) Glucose (70-99) mg/dl Lactate 2.3 H* (0.4-2.0) mmol/L Calcium (8.5-10.1) mg/dl Magnesium (1.8-2.4) mg/dl Total Bilirubin (0.2-1) mg/dl AST (15-37) U/L ALT (12-78) U/L Alkaline Phosphatase (45-117) U/L Total Protein (6.4-8.2) gm/dl Albumin (3.4-5.0) gm/dl Globulin (2.5-4.0) gm/dl Albumin/Globulin Ratio (0.9-2) Urine Color Urine Appearance (Clear) Urine pH (4.5-7.5) Ur Specific [place] (1.000-1.030) Urine Protein (Negative) Urine Glucose (UA) (Negative) Urine Ketones (Negative) Urine Blood (Negative) Urine Nitrite (Negative) Urine Bilirubin (Negative) Urine Urobilinogen (Negative) Ur Leukocyte Esterase (Negative) Urine WBC (Auto) (0-5) /hpf Urine RBC (Auto) (0-4) /hpf U Hyaline Cast (Auto) (0-5) /lpf U Epithel Cells (Auto) (0-5) /lpf Urine Bacteria (Auto) (Negative) COVID-19 Eval Order Covid19 at [facility] SARS-CoV-2 (PCR) NEGATIVE (Negative) 11/01/20 11/02/20 Range/Units Unknown 00:32 WBC (4.8-10.8) K/uL RBC (4.2-5.4) M/uL Hgb (12.0-16.0) g/dL Hct (37-47) % MCV (80-100) fL MCH (25-34) pg MCHC (32-36) g/dL RDW Std Deviation (36.4-46.3) fL RDW Coeff of [place] (11.5-14.5) % Plt Count (130-400) K/uL MPV (7.4-10.4) fL Immature Gran % (Auto) % Neut % (Auto) % Lymph % (Auto) % [place] % (Auto) % Eos % (Auto) % Baso % (Auto) % Neut # (Auto) (1.4-6.5) K/uL Lymph # (Auto) (1.2-3.4) K/uL [place] # (Auto) (0.11-0.59) K/uL Eos # (Auto) (0-0.5) K/uL Baso # (Auto) (0-0.2) K/uL Immature Gran # (Auto) (0.00-0.02) K/uL PT (9.0-12.0) Seconds INR (0.9-1.1) APTT (21.0-31.0) Seconds PTT Ratio Sodium (136-145) mmol/L Potassium (3.5-5.1) mmol/L Chloride (98-107) mmol/L Carbon Dioxide (21-32) mmol/L Anion Gap (3-11) BUN (7-18) mg/dl Creatinine (0.6-1.2) mg/dl Est Cr Clr Drug Dosing ml/min Est GFR ( Amer) ml/min Est GFR (Non-Af Amer) ml/min BUN/Creatinine Ratio (10-20) Glucose (70-99) mg/dl Lactate 2.7 H* (0.4-2.0) mmol/L Calcium (8.5-10.1) mg/dl Magnesium (1.8-2.4) mg/dl Total Bilirubin (0.2-1) mg/dl AST (15-37) U/L ALT (12-78) U/L Alkaline Phosphatase (45-117) U/L Total Protein (6.4-8.2) gm/dl Albumin (3.4-5.0) gm/dl Globulin (2.5-4.0) gm/dl Albumin/Globulin Ratio (0.9-2) Urine Color Dark Yellow Urine Appearance Clear (Clear) Urine pH 5.5 (4.5-7.5) Ur Specific [place] 1.010 (1.000-1.030) Urine Protein Negative (Negative) Urine Glucose (UA) Negative (Negative) Urine Ketones Trace H (Negative) Urine Blood Negative (Negative) Urine Nitrite Positive A (Negative) Urine Bilirubin Negative (Negative) Urine Urobilinogen Negative (Negative) Ur Leukocyte Esterase Trace H (Negative) Urine WBC (Auto) 10-30 H (0-5) /hpf Urine RBC (Auto) 0-4 (0-4) /hpf U Hyaline Cast (Auto) 0 (0-5) /lpf U Epithel Cells (Auto) 20-30 H (0-5) /lpf Urine Bacteria (Auto) Negative (Negative) COVID-19 Eval Order SARS-CoV-2 (PCR) (Negative) Imaging Data Attestation: I personally reviewed and interpreted this imaging study as follows: My Impression: Chest x-ray per my interpretation shows no acute cardiopulmonary process. Radiologist's Impression: Patient: ROSSY BURDEN (Female) : 49 Status: ER Date: 11/01/20 22:54 Room #: History: vomiting evla for stone Slices: [id number] Priors: Tech: Wesley Landeros @ [phone] Exams: CT ABDOMEN & PELVIS Without Contrast Contrast: Accession Numbers: [id number] Referring Physician: REFERRED SELF Preliminary Findings Only See Final Report For Complete Findings CT ABDOMEN & PELVIS Without Contrast: Ectasia of the renal collecting systems, left slightly more than right. Associated perirenal and periureteral stones again, the left slightly greater than right. Findings may be on the basis of a passed stone or infection in the appropriate clinical setting. Right nephrolithiasis. No radiodense gallstones or pancreatitis. Mild fatty liver. Hysterectomy no evidence of colitis. Nonobstructive bowel gas pattern. Appendix not identified. Radiologist: Brigida Mahmood M.D. Study ready at 23:03 and initial results transmitted at 23:22 ECG Data Attestation: I personally reviewed and interpreted this ECG as follows: Indication: + vomiting Rate (beats per minute): 62 Rhythm: + normal sinus ECG ST segments: + Nonspecific ST abnormalities ECG Findings: no Q waves or no PVCs MDM Narrative I did evaluate the patient as noted above. The patient has a history of sepsis due to UTI and obstructive uropathy. Her urine cultures have grown out MSSA, E. coli and Enterococcus. She is presenting with fever, vomiting, flank pain and urinary symptoms. IV access was established. I did place an order for continuous cardiac monitoring. The monitor showed normal sinus rhythm at a rate of 96 bpm. I did order and personally review the patient's 12-lead EKG as described above. She has no acute ischemic changes. I did order and personally reviewed the images of the patient's chest x-ray as described above. She has no signs of pneumonia. I did order a urine analysis. She does have a UTI. I did order blood cultures. I did treat the patient with Zofran IV as well as daptomycin IV based on her prior cultures. I did order and review the patient's blood work as noted in the electronic medical record. Her white count is elev ated at 14.7. Lactic acid is elevated at 2.3. Potassium is 3.1. She is not anemic. I did order a CT of the abdomen and pelvis. I did review the images myself as well as the radiology report as described above. There is no evidence of obstructive uropathy but she does have inflammation around the kidneys and ureters. I suspect the patient has early sepsis and pyelonephritis. I did discuss the test results with the patient. I did recommend hospitalization. I did discuss the case with the hospitalist and case picker. Impression & Plan Acute pyelonephritis, Hypokalemia, Sepsis Discharge Plan Visit Data Chief Complaint: Urinary Symptoms Stated Complaint: UTI, THOWING UP ED Provider: Alcon Bolton Discharge Problem: Acute pyelonephritis, Hypokalemia, Sepsis Patient Disposition: Being Evaluated by Hospitalist Forms Stand Alone Forms: My [facility] [employer] Prescriptions Prescriptions: No Action sumatriptan succinate [Imitrex] 100 mg Tablet 100 mg PO DIRECTED PRN (Reason: Migraine Headache) Qty: 0 RF: 0 albuterol sulfate [Ventolin HFA] 90 mcg/actuation Hfa Aerosol Inhaler 1 - 2 puff INHALATION Q6H PRN (Reason: Shortness Of Breath) Qty: 0 RF: 0 fluticasone propionate [Flonase Allergy Relief] 50 mcg/actuation [place],Suspension 1 spray intranasal DAILY PRN (Reason: Allergy Symptoms) Qty: 0 RF: 0 omeprazole magnesium [Prilosec OTC] 20 mg Tablet,Delayed Release (Dr/Ec) 20 mg PO DAILY PRN (Reason: HEARTBURN/INDIGESTION) Qty: 0 RF: 0 duloxetine 20 mg Capsule,Delayed Release(Dr/Ec) 20 mg PO BID Qty: 0 RF: 0 betamethasone dipropionate 0.05 % ointment 1 applic topical DAILY PRN (Reason: Skin Irritation) RF: 0 clobetasol [Temovate] 0.05 % cream 1 applic topical BID PRN (Reason: ITCHING SKIN) RF: 0 gabapentin 600 mg tablet 600 mg PO QPM RF: 0 hydroxyzine HCl 25 mg tablet 25 mg PO QID PRN (Reason: Itching) RF: 0 levocetirizine 5 mg tablet 5 mg PO QPM RF: 0 oxybutynin chloride 10 mg tablet extended release 24hr 10 mg PO QAM RF: 0 Probiotic Acidophilus Biobeads 12.9 mg (2 billion cell) tablet,delayed release (DR/EC) 1 tab PO QAM RF: 0 cyanocobalamin (vitamin B-12) 2,500 mcg tablet 2,500 mcg PO QAM RF: 0 cholecalciferol (vitamin D3) [Vitamin D3] 125 mcg (5,000 unit) tablet 125 mcg PO QAM RF: 0 tamsulosin 0.4 mg capsule 0.4 mg PO HS Qty: 30 RF: 0 phenazopyridine [Pyridium] 200 mg tablet 200 mg PO Q8H PRN (Reason: pain) Qty: 10 RF: 0 ciprofloxacin HCl [Cipro] 500 mg tablet 500 mg PO BID Qty: 14 RF: 0 multivitamin Tablet 1 tab PO HS RF: 0 levothyroxine 75 mcg tablet 75 mcg PO QAM RF: 0 Medical Marijuana 1 dose sublingual UD PRN (Reason: RESTLESS LEG SYNDROME) RF: 0 Premarin 0.625 mg/gram cream 0.3125 mg vaginal DIRECTED RF: 0 gabapentin 400 mg Capsule 400 mg PO QAM RF: 0 ascorbic acid (vitamin C) [Vitamin C] 500 mg Tablet 500 mg PO QAM RF: 0 magnesium oxide 500 mg Tablet 500 mg PO QPM RF: 0 metoprolol succinate 25 mg Tablet Extended Release 24 Hr 25 mg PO QAM Qty: 30 RF: 0 furosemide 20 mg Tablet 20 mg PO QAM Qty: 30 RF: 0 potassium chloride 10 mEq Capsule, Extended Release 10 meq PO DAILY Qty: 30 RF: 0 Referrals Referrals: Nader Clark MD [Primary Care Provider] -
[2020-11-01] MEDS ORDERED: DAPTOmycin 325 MG in SYRINGE 0 ML IV ONE (22:01)
[2020-11-01 22:27] LABS: Appearance Urine Clear (Clear); Bacteria Urine Automated Negative (Negative); Bilirubin Urine Negative (Negative); Blood Urine Negative (Negative); Cast Urine Automated 0 /lpf (0-5); Color Urine Dark Yellow; Epithelial Cell Urine Auto 20-30 /lpf (0-5); Glucose Urine UA Negative (Negative); Ketones Urine Trace (Negative); Leukocyte Esterase Urine Trace (Negative); Nitrite Urine Positive (Negative); Protein Urine Negative (Negative); RBC Urine Automated 0-4 /hpf (0-4); Urobilinogen Urine Negative (Negative); pH Urine 5.5 (4.5-7.5)
[2020-11-01 22:38] LABS: Partial Thromboplastin Time 26.5 Seconds (21.0-31.0); Prothrombin Time 10.4 Seconds (9.0-12.0)
[2020-11-01 22:44] LABS: Albumin Level 3.7 gm/dl (3.4-5.0); BUN Creatinine Ratio 18.6 (10-20); Calcium 9.3 mg/dl (8.5-10.1); Creatinine Clr Calc Pharmacy 50.8 ml/min; Est GFR (African American) 61.4 ml/min; Magnesium 2.1 mg/dl (1.8-2.4); Potassium 3.1 mmol/L (3.5-5.1)
[2020-11-01 22:47] LABS: Albumin Globulin Ratio 0.8 (0.9-2); Globulin 4.9 gm/dl (2.5-4.0); Total Protein 8.6 gm/dl (6.4-8.2)
[2020-11-01 22:53] LABS: Hematocrit (blood only) 42.8 % (37-47); Hemoglobin 14.7 g/dL (12.0-16.0); Mean Corpuscular Hemoglobin 30.1 pg (25-34); Mean Corpuscular Hgb Conc 34.3 g/dL (32-36); Mean Corpuscular Volume 87.7 fL (80-100); Platelet Count 241 K/uL (130-400); RDW Coefficient of Variation 14.8 % (11.5-14.5); RDW Standard Deviation 47.5 fL (36.4-46.3); Red Blood Count 4.88 M/uL (4.2-5.4); White Blood Count 14.71 K/uL (4.8-10.8)
[2020-11-01 22:56] LABS: Basophils # (auto) 0.02 K/uL (0-0.2); Basophils % (auto) 0.1 %; Eosinophils # (auto) 0.01 K/uL (0-0.5); Eosinophils % (auto) 0.1 %; Immature Granulocytes # (auto) 0.03 K/uL (0.00-0.02); Immature Granulocytes % (auto) 0.2 %; Lymphocytes # (auto) 1.26 K/uL (1.2-3.4); Lymphocytes % (auto) 8.6 %; Monocytes # (auto) 0.97 K/uL (0.11-0.59); Monocytes % (auto) 6.6 %; Neutrophils # (auto) 12.42 K/uL (1.4-6.5); Neutrophils % (auto) 84.4 %
[2020-11-02] MEDS ORDERED: POTASSIUM CHLORIDE / WTR 10 MEQ/100 ML PLCT IV ONE (00:02)
[2020-11-02] MEDS ORDERED: PIPERACILL/TAZOBAC CONSULT ACTIVE PRN (00:05)
[2020-11-02] MEDS ORDERED: SODIUM CHLORIDE 0.9% 1000ML 1,000 ML IV STA (00:18)
[2020-11-02] MEDS ORDERED: PIPERACILLIN/TAZOBACTAM 4.5 GM/120 ML BAG IV STA (00:18)
[2020-11-02] MEDS ORDERED: POTASSIUM CHLORIDE CRTAB 20 MEQ TABCR PO STA (00:55)
[2020-11-02] MEDS ORDERED: POTASSIUM CHLORIDE 10 MEQ TABCR PO ONE (01:07)
[2020-11-02] MEDS ORDERED: PROMETHAZINE 12.5 MG/50.5 ML BAG IV STA (01:27)
[2020-11-02] MEDS ORDERED: LACTATED RINGER'S 1,000 ML IV STA (01:42)
--- NOTE | 2020-11-02 01:49 | History & Physical Report ---
Date of Service November 02, 2020 Assessment & Plan (1) Severe sepsis: Plan: SIRS plus lactic acidosis Secondary to complicated UTI hx recurrent UTIs/history stress/urge incontinence/obstructive uropathy as per records Failed outpatient treatment hypertension, BP on the higher side hx paroxysmal atrial flutter, patient currently NSR Hypokalemia secondary to diuretic Rx past tobacco abuse Medical telemetry Cultures, Zosyn IVF, follow lactic acid replace potassium Hold home diuretic until patient euvolemic Follow official CT abdomen pelvis results May need inpatient Urology consultation pending official x-ray read DVT prophylaxis per Lovenox subcu Full code Text document was generated using [employer] voice recognition software. It may contain grammatical or spelling errors. Kindly contact undersigned for clarification of any documentation item in q uestion. History of Present Illness Chief Complaint: Fever, chills, vomiting, UTI Primary Care Provider: Nader Clark MD History obtained from patient and records. Medical history significant for hypertension, hyperlipidemia, paroxysmal atrial flutter as per records, GERD, IBS (constipation predominant), recurrent UTIs/history stress/urge incontinence as per records, ISSA on CPAP, past tobacco abuse. Last confinement August 2020 for sepsis secondary to unilateral obstructive uropathy. Patient underwent cystoscopy and bilateral ureteral stent removal/insertion. Transient atrial flutter during confinement. Stent subsequently removed outpatient last month due to discomfort. Outpatient renal ultrasound from 2 weeks ago showed: 1. Mild to moderate left-sided hydronephrosis. This has progressed in the interval. 2. Right-sided nephrolithiasis. 3. No right-sided hydronephrosis. Few days history of flank discomfort associated with dysuria and frequency symptoms, fever, chills. Subsequent nausea, emesis. Patient urologist prescribed Ciprofloxacin 2 days ago. CAT scan requested to rule out obstructive uropathy. Patient consulted ER for worsening symptoms. Received Daptomycin at the ER. Medical History as above Surgical History : Appendectomy, carpal tunnel surgery, urologic procedures, sinus surgery, cataract surgery, nasal septoplasty, PINA/BSO Family History : PTSD Personal/Social history : Past tobacco abuse, occasional EtOH intake, retired junior legal secretary Allergies Allergy/AdvReac Type Severity Reaction Status Date / Time cephalexin Allergy Intermediate Hives Verified 11/01/20 22:39 Sulfa (Sulfonamide Allergy Intermediate HIVES Verified 11/01/20 22:39 Antibiotics) lisinopril Allergy Mild Cough Verified 11/01/20 22:39 Home Medications Medication Instructions Recorded Confirmed Type albuterol sulfate 90 mcg/actuation 1 - 2 puff INHALATION Q6H PRN #0 03/19/16 History aerosol inhaler (Ventolin HFA) duloxetine 20 mg capsule,delayed 20 mg PO BID #0 03/19/16 11/01/20 History release fluticasone propionate 50 1 spray INTRANASAL DAILY PRN #0 03/19/16 11/01/20 History mcg/actuation nasal spray,suspension (Flonase Allergy Relief) omeprazole magnesium 20 mg 20 mg PO DAILY PRN #0 03/19/16 11/01/20 History tablet,delayed release (Prilosec OTC) sumatriptan succinate 100 mg 100 mg PO DIRECTED PRN #0 tab 03/19/16 11/01/20 History tablet (Imitrex) Medical Marijuana 1 dose SUBLINGUAL UD PRN 06/03/20 11/01/20 History levothyroxine 75 mcg tablet 75 mcg PO QAM 06/03/20 11/01/20 History multivitamin 1 tab PO HS 06/03/20 11/01/20 History L.acidoph-L.rhamn-B.bifidum-B.long 1 tab PO QAM tab 06/27/20 11/01/20 History 12.9 mg (2 billion cell) tabletDR (Probiotic Acidophilus [place]) betamethasone dipropionate 0.05 % 1 applic TOPICAL DAILY PRN 06/27/20 11/01/20 History topical ointment cholecalciferol (vitamin D3) 125 125 mcg PO QAM 06/27/20 11/01/20 History mcg (5,000 unit) tablet (Vitamin D3) clobetasol 0.05 % topical cream 1 applic TOPICAL BID PRN 06/27/20 11/01/20 History (Temovate) cyanocobalamin (vitamin B-12) 2,500 mcg PO QAM 06/27/20 11/01/20 History 2,500 mcg tablet gabapentin 600 mg tablet 600 mg PO QPM 06/27/20 11/01/20 History hydroxyzine HCl 25 mg tablet 25 mg PO QID PRN 06/27/20 11/01/20 History levocetirizine 5 mg tablet 5 mg PO QPM 06/27/20 11/01/20 History oxybutynin chloride 10 mg 10 mg PO QAM 06/27/20 11/01/20 History tablet,extended release 24 hr ascorbic acid (vitamin C) 500 mg 500 mg PO QAM 07/03/20 11/01/20 History tablet (Vitamin C) gabapentin 400 mg capsule 400 mg PO QAM 07/03/20 11/01/20 History magnesium oxide 500 mg tablet 500 mg PO QPM 08/10/20 11/01/20 History furosemide 20 mg tablet 20 mg PO QAM #30 tab 08/15/20 11/01/20 Rx metoprolol succinate 25 mg 25 mg PO QAM #30 tab 08/15/20 11/01/20 Rx tablet,extended release 24 hr potassium chloride 10 mEq 10 meq PO DAILY #30 cap 08/15/20 11/01/20 Rx capsule,extended release ciprofloxacin HCl 500 mg tablet 500 mg PO BID #14 tab 10/31/20 11/01/20 Rx (Cipro) phenazopyridine 200 mg tablet 200 mg PO Q8H PRN #10 tab 10/31/20 11/01/20 Rx (Pyridium) tamsulosin 0.4 mg capsule 0.4 mg PO HS #30 cap 10/31/20 11/01/20 Rx conjugated estrogens 0.625 mg/gram 0.3125 mg VAGINAL DIRECTED 11/01/20 11/01/20 History vaginal cream (Premarin) Past Med/Surg History Medical History Acute pyelonephritis Arthritis GERD (gastroesophageal reflux disease) GERD (gastroesophageal reflux disease) Hypothyroidism Hypothyroidism IBS (irritable bowel syndrome) Kidney stone Migraine Overactive bladder Peripheral neuropathy Restless leg syndrome Restless leg syndrome, familial Sleep apnea CPAP, USING EVERY NIGHT. Surgical History H/O foot surgery R foot hammertoe correction 07/10/20 at [facility]. H/O sinus surgery H/O: hysterectomy History of appendectomy History of bladder surgery BLADDER TACK History of carpal tunnel release RT/LEFT History of cataract surgery RT/LEFT History of colonoscopy History of esophagogastroduodenoscopy (EGD) History of tonsillectomy History of tooth extraction Strabismus LEFT EYE REPAIRED Family History Other No family history of adverse response to anesthesia Social History Smoking Status: Former smoker packs per day: 1; Years Smoked: 30; Second Hand Exposure: No; Do You Dip or Chew Tobacco: No; Hx Alcohol Use: Yes Alcohol type: wine Hx Substance Use: Yes Last Used Substance: Unknown Last Used Substance Other:: ONLY RX MARIJUANA Substance Use Type Other:: Medical marijuana Preferred Language: Japanese Communication Ability: Effective Visual Impairment: No Limitations Hearing Ability: Normal Production Line Solderer Required: No Beliefs That Will Affect Care: None marital status: Current Living Situation: Spouse current occupational status: retired How many Children do You have: 2 Other Information That Helps Us Care for You: No Feels Safe at Home: Yes Safety Concerns: Feels Safe At This Time Assistive Devices: None Review of Systems Review of Systems: As per HPI, all 10 systems reviewed, all other ROS negative Physical Exam Physical Exam: GENERAL: Slightly uncomfortable, obese, pleasant, no respiratory distress SKIN: Normal color, warm HEENT: [place] palpebral conjunctivae, no ptosis, dry buccal mucosa NECK : Supple, short neck, no tenderness CHEST : CTA, no tenderness HEART : RRR, no obvious murmurs ABDOMEN: Some distention, nontender EXTREMITIES : Minimal LE swelling, no LE tenderness, no other conspicuous deformities noted NEUROLOGIC : Coherent, no facial asymmetry, no other gross focality Results & Data Results & Data ([facility]) Vital Signs (Past 12 Hours) Vital Signs Temp Pulse Pulse Resp BP BP Pulse Ox 11/02/20 00:45 96 H 18 144/90 H 95 11/02/20 00:30 24 95 11/02/20 00:08 37.5 C 106 H 24 170/82 H 96 11/01/20 23:06 18 98 11/01/20 23:00 69 14 128/91 98 11/01/20 22:41 18 96 11/01/20 22:30 63 13 129/67 99 11/01/20 22:08 70 19 132/81 96 11/01/20 22:07 67 15 96 11/01/20 19:14 36.7 C 80 18 120/76 98 Laboratory Results Laboratory Results WBC 14.71 K/uL (4.8-10.8) H 11/01/20 22:14 RBC 4.88 M/uL (4.2-5.4) 11/01/20 22:14 Hgb 14.7 g/dL (12.0-16.0) 11/01/20 22:14 Hct 42.8 % (37-47) 11/01/20 22:14 MCV 87.7 fL (80-100) 11/01/20 22:14 MCH 30.1 pg (25-34) 11/01/20 22:14 MCHC 34.3 g/dL (32-36) 11/01/20 22:14 RDW Std Deviation 47.5 fL (36.4-46.3) H 11/01/20 22:14 RDW Coeff of [place] 14.8 % (11.5-14.5) H 11/01/20 22:14 Plt Count 241 K/uL (130-400) 11/01/20 22:14 MPV 10.0 fL (7.4-10.4) 11/01/20 22:14 Immature Gran % (Auto) 0.2 % 11/01/20 22:14 Neut % (Auto) 84.4 % 11/01/20 22:14 Lymph % (Auto) 8.6 % 11/01/20 22:14 [facility] % (Auto) 6.6 % 11/01/20 22:14 Eos % (Auto) 0.1 % 11/01/20 22:14 Baso % (Auto) 0.1 % 11/01/20 22:14 Neut # (Auto) 12.42 K/uL (1.4-6.5) H 11/01/20 22:14 Lymph # (Auto) 1.26 K/uL (1.2-3.4) 11/01/20 22:14 [facility] # (Auto) 0.97 K/uL (0.11-0.59) H 11/01/20 22:14 Eos # (Auto) 0.01 K/uL (0-0.5) 11/01/20 22:14 Baso # (Auto) 0.02 K/uL (0-0.2) 11/01/20 22:14 Immature Gran # (Auto) 0.03 K/uL (0.00-0.02) H 11/01/20 22:14 PT 10.4 Seconds (9.0-12.0) 11/01/20 22:14 INR 1.0 (0.9-1.1) 11/01/20 22:14 APTT 26.5 Seconds (21.0-31.0) 11/01/20 22:14 PTT Ratio 1.0 11/01/20 22:14 Sodium 137 mmol/L (136-145) 11/01/20 22:14 Potassium 3.1 mmol/L (3.5-5.1) L 11/01/20 22:14 Chloride 104 mmol/L (98-107) 11/01/20 22:14 Carbon Dioxide 25 mmol/L (21-32) 11/01/20 22:14 Anion Gap 9.0 (3-11) 11/01/20 22:14 BUN 20 mg/dl (7-18) H 11/01/20 22:14 Creatinine 1.05 mg/dl (0.6-1.2) 11/01/20 22:14 Est Cr Clr Drug Dosing 50.8 ml/min 11/01/20 22:14 Est GFR ( Amer) 61.4 ml/min 11/01/20 22:14 Est GFR (Non-Af Amer) 53.0 ml/min 11/01/20 22:14 BUN/Creatinine Ratio 18.6 (10-20) 11/01/20 22:14 Glucose 114 mg/dl (70-99) H 11/01/20 22:14 Lactate 2.7 mmol/L (0.4-2.0) H* 11/02/20 00:32 Calcium 9.3 mg/dl (8.5-10.1) 11/01/20 22:14 Magnesium 2.1 mg/dl (1.8-2.4) 11/01/20 22:14 Total Bilirubin 1.0 mg/dl (0.2-1) 11/01/20 22:14 AST 26 U/L (15-37) 11/01/20 22:14 ALT 44 U/L (12-78) 11/01/20 22:14 Alkaline Phosphatase 94 U/L (45-117) 11/01/20 22:14 Total Protein 8.6 gm/dl (6.4-8.2) H 11/01/20 22:14 Albumin 3.7 gm/dl (3.4-5.0) 11/01/20 22:14 Globulin 4.9 gm/dl (2.5-4.0) H 11/01/20 22:14 Albumin/Globulin Ratio 0.8 (0.9-2) L 11/01/20 22:14 Urine Color Dark Yellow 11/01/20 Unknown Urine Appearance Clear (Clear) 11/01/20 Unknown Urine pH 5.5 (4.5-7.5) 11/01/20 Unknown Ur Specific [place] 1.010 (1.000-1.030) 11/01/20 Unknown Urine Protein Negative (Negative) 11/01/20 Unknown Urine Glucose (UA) Negative (Negative) 11/01/20 Unknown Urine Ketones Trace (Negative) H 11/01/20 Unknown Urine Blood Negative (Negative) 11/01/20 Unknown Urine Nitrite Positive (Negative) A 11/01/20 Unknown Urine Bilirubin Negative (Negative) 11/01/20 Unknown Urine Urobilinogen Negative (Negative) 11/01/20 Unknown Ur Leukocyte Esterase Trace (Negative) H 11/01/20 Unknown Urine WBC (Auto) 10-30 /hpf (0-5) H 11/01/20 Unknown Urine RBC (Auto) 0-4 /hpf (0-4) 11/01/20 Unknown U Hyaline Cast (Auto) 0 /lpf (0-5) 11/01/20 Unknown U Epithel Cells (Auto) 20-30 /lpf (0-5) H 11/01/20 Unknown Urine Bacteria (Auto) Negative (Negative) 11/01/20 Unknown COVID-19 Eval Order Covid19 at [facility] 11/01/20 22:56 SARS-CoV-2 (PCR) NEGATIVE (Negative) 11/01/20 22:[address] abdomen pelvis initial read: Ectasia of the renal collecting systems, left slightlymore than right. Associat ed perirenal and periureteral stones again, the left slightlygreater than right. Findings maybe on the basis of a passed stone or infection in the appropriate clinical setting. Right nephrolithiasis. No radiodense gallstones or pancreatitis. Mild fattyliver. Hysterectomyno evidence of colitis. Nonobstructive bowel gas pattern. Appendix not identified. Chest x-ray as per my interpretation elevated right hemidiaphragm, no congestion EKG as per my interpretation : Rate 60, NSR, LAD, LAFB, diffuse T wave abnormalities
[2020-11-02] MEDS ORDERED: traMADol HCL 50 MG TABLET PO PRN (02:53)
[2020-11-02] MEDS ORDERED: FLUTICASONE PROPIONATE NA SPR 16 GM BTL PRN (02:53)
[2020-11-02] MEDS ORDERED: PROMETHAZINE HCL 12.5 MG in SODIUM CHLORIDE 0.9% 50 ML IV PRN (02:53)
[2020-11-02] MEDS ORDERED: PHENAZOPYRIDINE HCL 200 MG TAB PO PRN (02:53)
[2020-11-02] MEDS ORDERED: PANTOprazole 40 MG TAB PO PRN (03:07)
[2020-11-02] MEDS ORDERED: LACTATED RINGER'S 1,000 ML IV ONE (03:50)
[2020-11-02 05:50] LABS: Basophils # (auto) 0.02 K/uL (0-0.2); Basophils % (auto) 0.2 %; Hematocrit (blood only) 40.7 % (37-47); Hemoglobin 13.8 g/dL (12.0-16.0); Immature Granulocytes # (auto) 0.02 K/uL (0.00-0.02); Immature Granulocytes % (auto) 0.2 %; Lymphocytes # (auto) 0.67 K/uL (1.2-3.4); Lymphocytes % (auto) 5.8 %; Mean Corpuscular Hemoglobin 30.3 pg (25-34); Mean Corpuscular Hgb Conc 33.9 g/dL (32-36); Mean Corpuscular Volume 89.3 fL (80-100); Mean Platelet Volume 10.1 fL (7.4-10.4); Monocytes % (auto) 9.5 %; Neutrophils # (auto) 9.74 K/uL (1.4-6.5); Neutrophils % (auto) 84.3 %; Platelet Count 208 K/uL (130-400); RDW Coefficient of Variation 14.9 % (11.5-14.5); RDW Standard Deviation 48.2 fL (36.4-46.3); Red Blood Count 4.56 M/uL (4.2-5.4); White Blood Count 11.55 K/uL (4.8-10.8)
[2020-11-02 06:06] LABS: BUN Creatinine Ratio 20.5 (10-20); Calcium 8.6 mg/dl (8.5-10.1); Creatinine Clr Calc Pharmacy 59.2 ml/min; Est GFR (Non-African American) 63.9 ml/min; Potassium 3.4 mmol/L (3.5-5.1)
[2020-11-02] MEDS: LEVOTHYROXINE SODIUM 75 MCG TABLET PO SCH (06:21)
[2020-11-02] MEDS: PIPERACILLIN/TAZOBACTAM 3.375 GM in DEXTROSE 5% 100 ML IV SCH ×3 (06:21→22:02)
--- NOTE | 2020-11-02 07:31 | XRay Report ---
XR chest 1V portable HISTORY: 74 years-old Female SEPSIS acute sepsis COMPARISON: CT abdomen and pelvis of same day, chest radiograph and CTA chest 08/12/2020 TECHNIQUE: Portable AP view of the chest FINDINGS: Cardiac silhouette is upper limits of normal in size. Emphysema with mild chronic interstitial coarse stephanie. No pneumothorax, pleural effusion, airspace consolidation or overt pulmonary edema. Degenerativ e changes of the shoulders and spine. IMPRESSION: Emphysema without acute process. ACT 112: Negative or not required by law. The above report was generated using voice recognition software. It may contain grammatical, syntax o r spelling errors. Electronically signed by: Olvin Fields M.D. 11/02/2020 7:30 AM
[2020-11-02] MEDS: ACETAMINOPHEN 325 MG TAB PO PRN (07:40)
--- NOTE | 2020-11-02 08:29 | Electrocardiogram Report ---
Test Reason : Blood Pressure : / mmHG Vent. Rate : 062 BPM Atrial Rate : 062 BPM P-R Int : 156 ms QRS Dur : 084 ms QT Int : 436 ms P-R-T Axes : -01 -20 014 degrees QTc Int : 442 ms Normal sinus rhythm Nonspecific T wave abnormality Anterior leads Abnormal ECG When compared with ECG of 15-AUG-2020 05:28, T wave inversion more evident in Anterior leads Confirmed by Tremaine Jackson ([id number]) on 11/02/2020 8:28:41 AM Referred By: REFERRED SELF Confirmed By:Tremaine Jackson
--- NOTE | 2020-11-02 08:44 | CT Scan Report ---
ABDOMEN AND PELVIS CT WITHOUT CONTRAST CT DOSE: 409.16 mGy.cm HISTORY: Acute right-sided flank pain flank [pain eval for stone TECHNIQUE: Multiaxial CT images of the abdomen and pelvis were performed without contrast. A dose lo wering technique was utilized adhering to the principles of ALARA. COMPARISON STUDY: CT abdomen pelvis 08/10/2020 FINDINGS: Subpleural cystic changes of the lung bases with mild subpleural reticulation compatible with chronic fibrosis. No pneumatosis or pneumoperitoneum. Imaged inferior cardiac chambers are unremarkable with coronary artery calcifications. The spleen measures within the upper limits of normal in size. Mild to moderate generalized pancreatic atrophy. Unremarkable adrenal glands. Mild gallbladder distention. Hepatic steatosis. Right greater than left bilateral nonobstructing renal calculi measure up to approximately 3 mm. Ther e is resolution of the previously described right-sided hydronephrosis. There is equivocal urothelial thickening of the renal collecting systems bilaterally with persistent perinephric and periureteral stranding, left greater than right. There is mild left-sided hydronephrosis which has progressed from comparison. Status post removal of the bilateral ureteral stents. No ureteral calculi identified. Pa rtial distention of the urinary bladder. Uterus appears to be surgically absent. No adnexal mass lesi on. Atherosclerosis of the aorta. No adenopathy. No bowel obstruction or bowel wall thickening. Minimal colonic diverticulosis. Mild fecal retention. The appendix is not definitively seen. No secondary signs of acute appendicitis. Unremarkable soft ti ssues. Degenerative changes of the spine, pelvis and hips. Grade 1 anterolisthesis L5 on S1 likely se condary to chronic facet arthrosis. IMPRESSION: 1. Interval removal of the bilateral ureteral stents. There is resolution of the previously described right-sided hydroureteronephrosis. Mild left-sided hydroureteronephrosis has progressed from compari son. No ureteral calculi identified. 2. Equivocal urothelial thickening of the bilateral renal collecting systems. Correlate with urinalys is to exclude infection. 3. Right greater than left bilateral nephrolithiasis. 4. No bowel obstruction or bowel wall thickening. 5. Hepatic steatosis. ACT 112: Negative or not required by law. The above report was generated using voice recognition software. It may contain grammatical, syntax o r spelling errors. Electronically signed by: Olvin Fields M.D. 11/02/2020 8:43 AM
[2020-11-02] MEDS ORDERED: POTASSIUM CHLORIDE CRTAB 20 MEQ TABCR PO ONE (09:04)
[2020-11-02] MEDS: METOPROLOL SUCC 25MG EXT REL TAB PO SCH (09:15)
[2020-11-02] MEDS: GABAPENTIN 400 MG CAP PO SCH (09:16)
[2020-11-02] MEDS: DULoxetine HCL 20 MG CAP PO SCH ×2 (09:16→20:41)
[2020-11-02] MEDS: CYANOCOBALAMIN (VITAMIN B-12) 2,500 MCG TAB.SUBL SL SCH (09:17)
[2020-11-02] MEDS: OXYBUTYNIN CHLORIDE XL 5 MG TABCR PO SCH (09:17)
[2020-11-02] MEDS: ADVANCED PROBIOTIC 1250 MG CAPSULE PO SCH (09:17)
[2020-11-02] MEDS: ENOXAPARIN INJ 40 MG/0.4 ML SYR SQ SCH (09:18)
--- NOTE | 2020-11-02 10:06 | Urology Consultation ---
Date of Consultation November 02, 2020 Assessment & Plan (1) Sepsis: (2) Complicated UTI (urinary tract infection): (3) Hydronephrosis: 74 year-old female patient, with multiple comorbidities, admitted with presumed complicated UTI and sepsis. -Plan of care reviewed with Dr. Byrne, sap integration architect urologist. -Patient febrile this AM, T-max 38.1. Recheck temperature 36.9. -Labs reviewed - white count elevated at 11.55, creatinine normal. -Imaging reviewed - mild left-sided hydroureteronephrosis without ureteral calculi identified. -Urinalysis suspicious for infection, culture pending. -Blood cultures pending. -Plan to obtain IVP to further assess etiology left-sided hydronephrosis. -Recommend NPO at midnight in the event surgical intervention is warranted based on imaging results. -Continue supportive care and antibiotic therapy. -Will continue to follow while inpatient. .Please consult our service urgently if patient develops fever >101F, intractable pain or nausea, as this will necessitate urgent surgical intervention. Supervising Physician Co-Signing Physician Notes Not clear if patient has significant left ureteral obstruction . Will check IVP and place stent if obstructed History of Present Illness Reason for Consultation: obstructive uropathy, complicated UTI Attending Physician: Jah Garcia MD History of Present Illness 74 year-old female patient, with past medical history significant for hypertension, hyperlipidemia, paroxysmal atrial flutter as per records, GERD, IBS (constipation predominant), recurrent UTIs/history stress/urge incontinence as per records, ISSA on CPAP, and other comorbidities listed below, presented to the emergency room 11/01/20 with complaints of bilateral flank with associated dysuria, fevers, and chills. She was afebrile on admission, white count was elevated, and urinalysis was suspicious for UTI. She was admitted to medicine service for continued management. Urology consulted for evaluation of obstructive uropathy and complicated UTI. Patient known to [facility] urology, follows with Dr. Avendano. History of cystoscopy, left ureteroscopy, retrograde pyelogram, laser endopyelotomy, ureteral stent and right ureteroscopy, ureteral dilation x2, laser lithotripsy and stone basket extraction, retrograde pyelogram, and ureteral stent in July 2020. She was readmitted after that time in August 2020 secondary to hydronephrosis/sepsis. She underwent bilateral stent exchange on 08/10/20. Her left stent was removed 09/06/20. Right stent was removed 09/15/20. She had telephone visit with urology service 10/31 with complaints of worsening flank pain and low grade fevers. CT was ordered at that time. She was also stated on Ciprofloxacin 500 mg BID x7 days on 10/31/20. Chart review: Patient febrile, most recent temperature 38.1 this AM. Wbc 11.55 (14.71 on admission) Hgb 13.8 Creatinine 0.90 Urinalysis trace leukocytes, 10-30 wbc, 0-4 rbc, negative bacteria, positive nitrates. Urine culture 09/06 positive for Staphylococcus Aureus. Repeat urine culture 11/01 pending. Blood cultures pending. Patient currently on IV Zosyn. Imaging: CT abd/pelvis without contrast - IMPRESSION: 1. Interval removal of the bilateral ureteral stents. There is resolution of the previously described right-sided hydroureteronephrosis. Mild left-sided hydroureteronephrosis has progressed from comparison. No ureteral calculi identified. 2. Equivocal urothelial thickening of the bilateral renal collecting systems. Correlate with urinalysis to exclude infection. 3. Right greater than left bilateral nephrolithiasis. 4. No bowel obstruction or bowel wall thickening. 5. Hepatic steatosis. Patient seen and examined at bedside. She is alert, awake, comfortable, and non- toxic in appearance. Reports she is feeling better overall since admission yesterday. No longer experiencing nausea or vomiting. Does report continued lower back discomfort that extends into bilateral lower abdomen. Denies upper/mid back pain. Does not feel feverish, denies chills. Has been ambulating without dizziness/lightheadedness. Does report dysuria, denies hematuria. Denies significant urinary frequency/urgency. Feels she empties her bladder well. Did eat breakfast this morning. Denies additional urologic concerns today. Allergies Allergy/AdvReac Type Severity Reaction Status Date / Time cephalexin Allergy Intermediate Hives Verified 11/01/20 22:39 Sulfa (Sulfonamide Allergy Intermediate HIVES Verified 11/01/20 22:39 Antibiotics) lisinopril Allergy Mild Cough Verified 11/01/20 22:39 Home Medications Medication Instructions Recorded Confirmed Type albuterol sulfate 90 mcg/actuation 1 - 2 puff INHALATION Q6H PRN #0 03/19/16 11/01/20 History aerosol inhaler (Ventolin HFA) duloxetine 20 mg capsule,delayed 20 mg PO BID #0 03/19/16 11/01/20 History release fluticasone propionate 50 1 spray INTRANASAL DAILY PRN #0 03/19/16 11/01/20 History mcg/actuation nasal spray,suspension (Flonase Allergy Relief) omeprazole magnesium 20 mg 20 mg PO DAILY PRN #0 03/19/16 11/01/20 History tablet,delayed release (Prilosec OTC) sumatriptan succinate 100 mg 100 mg PO DIRECTED PRN #0 tab 03/19/16 11/01/20 History tablet (Imitrex) Medical Marijuana 1 dose SUBLINGUAL UD PRN 06/03/20 11/01/20 History levothyroxine 75 mcg tablet 75 mcg PO QAM 06/03/20 11/01/20 History multivitamin 1 tab PO HS 06/03/20 11/01/20 History L.acidoph-L.rhamn-B.bifidum-B.long 1 tab PO QAM tab 06/27/20 11/01/20 History 12.9 mg (2 billion cell) tabletDR (Probiotic Acidophilus Tracy) betamethasone dipropionate 0.05 % 1 applic TOPICAL DAILY PRN 06/27/20 11/01/20 History topical ointment cholecalciferol (vitamin D3) 125 125 mcg PO QAM 06/27/20 11/01/20 History mcg (5,000 unit) tablet (Vitamin D3) clobetasol 0.05 % topical cream 1 applic TOPICAL BID PRN 06/27/20 11/01/20 History (Temovate) cyanocobalamin (vitamin B-12) 2,500 mcg PO QAM 06/27/20 11/01/20 History 2,500 mcg tablet gabapentin 600 mg tablet 600 mg PO QPM 06/27/20 11/01/20 History hydroxyzine HCl 25 mg tablet 25 mg PO QID PRN 06/27/20 11/01/20 History levocetirizine 5 mg tablet 5 mg PO QPM 06/27/20 11/01/20 History oxybutynin chloride 10 mg 10 mg PO QAM 06/27/20 11/01/20 History tablet,extended release 24 hr ascorbic acid (vitamin C) 500 mg 500 mg PO QAM 07/03/20 11/01/20 History tablet (Vitamin C) gabapentin 400 mg capsule 400 mg PO QAM 07/03/20 11/01/20 History magnesium oxide 500 mg tablet 500 mg PO QPM 08/10/20 11/01/20 History furosemide 20 mg tablet 20 mg PO QAM #30 tab 08/15/20 11/01/20 Rx metoprolol succinate 25 mg 25 mg PO QAM #30 tab 08/15/20 11/01/20 Rx tablet,extended release 24 hr potassium chloride 10 mEq 10 meq PO DAILY #30 cap 08/15/20 11/01/20 Rx capsule,extended release ciprofloxacin HCl 500 mg tablet 500 mg PO BID #14 tab 10/31/20 11/01/20 Rx (Cipro) phenazopyridine 200 mg tablet 200 mg PO Q8H PRN #10 tab 10/31/20 11/01/20 Rx (Pyridium) tamsulosin 0.4 mg capsule 0.4 mg PO HS #30 cap 10/31/20 11/01/20 Rx conjugated estrogens 0.625 mg/gram 0.3125 mg VAGINAL DIRECTED 11/01/20 11/01/20 History vaginal cream (Premarin) Patient History Medical History Acute pyelonephritis Arthritis GERD (gastroesophageal reflux disease) GERD (gastroesophageal reflux disease) Hypothyroidism Hypothyroidism IBS (irritable bowel syndrome) Kidney stone Migraine Overactive bladder Peripheral neuropathy Restless leg syndrome Restless leg syndrome, familial Sleep apnea CPAP, USING EVERY NIGHT. Surgical History H/O foot surgery R foot hammertoe correction 07/10/20 at [facility]. H/O sinus surgery H/O: hysterectomy History of appendectomy History of bladder surgery BLADDER TACK History of carpal tunnel release RT/LEFT History of cataract surgery RT/LEFT History of colonoscopy History of esophagogastroduodenoscopy (EGD) History of tonsillectomy History of tooth extraction Strabismus LEFT EYE REPAIRED Family History Other No family history of adverse response to anesthesia Social History (Reviewed 11/02/20 @ 10:29 by KEVIN Alvarez Smoking Status: Former smoker packs per day: 1; Years Smoked: 30; Second Hand Exposure: No; Do You Dip or Chew Tobacco: No; Hx Alcohol Use: Yes Alcohol type: wine Hx Substance Use: Yes Last Used Substance: Unknown Last Used Substance Other:: ONLY RX MARIJUANA Substance Use Type Other:: Medical marijuana Preferred Language: Russian Communication Ability: Effective Visual Impairment: No Limitations Hearing Ability: Normal Siphon Operator Required: No Beliefs That Will Affect Care: None marital status: Current Living Situation: Spouse current occupational status: retired How many Children do You have: 2 Other Information That Helps Us Care for You: No Feels Safe at Home: Yes Safety Concerns: Feels Safe At This Time Assistive Devices: None Review of Systems Constitutional: as per Subjective / HPI Eyes: no problem reported Ear, Nose, Mouth, Throat: no dizziness Respiratory: no cough and no dyspnea Cardiovascular: no chest pain and no edema Gastrointestinal: as per Subjective / HPI Musculoskeletal: as per Subjective / HPI Neurologic: no dizziness Endocrine: no fatigue Hematologic / Lymphatic: no easy bleeding and no easy bruising Physical Exam Constitutional: well developed and well nourished; no acute distress Non- toxic in appearance ENMT: Ears: no external ear abnormality Nose: no external nose abnormality Neck: normal visual inspection and trachea midline Respiratory: normal respiratory effort and able to speak in complete sentences; no respiratory distress and no audible wheezes Cardiovascular: Extremities: no calf tenderness and no edema Gastrointestinal (Abdomen): Inspection/Auscultation: abdomen normal to inspection; abdomen not distended Percussion/Palpation: abdomen soft; abdomen nontender and no guarding Musculoskeletal: Moves all extremities without difficulty. Skin: No visible rashes, lesions, or wounds noted. Neurologic: moves all extremities and awake Psychiatric: Orientation: alert, oriented x 3 and cooperative Affect: euthymic affect Genitourinary: no CVA tenderness Results & Data ([facility]) Vital Signs (Past 12 Hours) Vital Signs Temp Pulse Pulse Resp BP BP Pulse Ox 11/02/20 07:30 38.1 C H 80 18 119/75 91 11/02/20 07:00 71 11/02/20 03:39 37.7 C H 78 20 112/66 95 11/02/20 03:00 38 C H 95 H 16 123/82 93 11/02/20 00:45 96 H 18 144/90 H 95 11/02/20 00:30 24 95 11/02/20 00:08 37.5 C 106 H 24 170/82 H 96 11/01/20 23:06 18 98 11/01/20 23:00 69 14 128/91 98 11/01/20 22:41 18 96 11/01/20 22:30 63 13 129/67 99 11/01/20 22:08 70 19 132/81 96 11/01/20 22:07 67 15 96 PG Care Time/CCT Total # of Minutes Spent Total Time Spent with Patient: Total time spent is greater than 50% in coordination of care (as documented) at patient's floor/unit and/or counseling patient: Coding Level of Care Code 22874 Initial Inpt Care Lvl 3 Diagnoses Sepsis A41.9 Sepsis acute organ dysfunction status: without acute organ dysfunction Sepsis type: sepsis due to unspecified organism Complicated UTI (urinary tract infection) N39.0 Hydronephrosis N13.30 (1) Sepsis Sepsis acute organ dysfunction status: without acute organ dysfunction Sepsis type: sepsis due to unspecified organism Qualified Code(s): A41.9 - Sepsis, unspecified organism
--- NOTE | 2020-11-02 16:06 | Hospitalist Progress Note ---
Date of Service November 02, 2020 Assessment & Plan (1) Severe sepsis: Plan: Sepsis Obstructive uropathy, hydronephrosis Complicated urinary tract infection H/O recurrent UTIs/history stress/urge incontinence/obstructive uropathy Failed outpatient treatment with Ciprofloxacin -CT ABD:Interval removal of the bilateral ureteral stents. There is resolution of the previously described right-sided hydroureteronephrosis. Mild left-sided hydroureteronephrosis has progressed from comparison. No ureteral calculi identified. Equivocal urothelial thickening of the bilateral renal collecting systems. Correlate with urinalysis to exclude infection. Right greater than left b ilateral nephrolithiasis. No bowel obstruction or bowel wall thickening. Hepatic steatosis. -Blood, urine culture pending Continue Zosyn for now Lactate levels normalized Appreciate urology input Plan for IVP to her assess left sided Hydronephrosis HTN Bp stable Hypothyroidism Continue levothyroxine Mood disorder Continue Cymbalta H/O Paroxysmal atrial flutter Hypokalemia secondary to diuretic therapy past tobacco abuse Replace electrolytes as needed DVT Px: Lovenox SQ Code Status Full code Admission and Anticipated Discharge Date Admission Date: November 02, 2020 Subjective Patient is seen and examined at bedside States having dysuria, bilateral groin pain, nausea No vomiting today Denies chest pain, shortness of breath, dizziness Review of Systems Review of Systems: All systems reviewed & are unremarkable except as noted in Subjective Physical Exam Physical Exam: Physical Exam: Vitals signs as noted above General Appearance:Moderately built and nourished, no apparent distress Head: normocephalic, Atraumatic Eyes: normal inspection, EOMI Neck: supple, Trachea midline Respiratory/Chest: Normal breath sounds, CTA, No accessory muscle use Cardiovascular: S1, S2, No murmur Abdomen/GI:Soft, LLQ tender, Bowel sounds present Extremities/Musculoskeletal:normal inspection, no edema Neurologic/Psych:AAOX3, grossly no focal neurological deficits Skin: normal color, warm Results & Data Results & Data ([facility]) Vital Signs (Past 12 Hours) Vital Signs Temp Pulse Pulse Resp BP Pulse Ox 11/02/20 11:57 36.9 C 62 19 102/63 96 11/02/20 07:30 38.1 C H 80 18 119/75 91 11/02/20 07:00 71 Laboratory Results Short CBC 11/01/20 11/02/20 Range/Units 22:14 05:42 WBC 14.71 H 11.55 H (4.8-10.8) K/uL Hgb 14.7 13.8 (12.0-16.0) g/dL Hct 42.8 40.7 (37-47) % Plt Count 241 208 (130-400) K/uL BMP 11/01/20 11/02/20 22:14 05:42 Sodium 137 138 Potassium 3.1 L 3.4 L Chloride 104 107 Carbon Dioxide 25 27 BUN 20 H 18 Creatinine 1.05 0.90 Glucose 114 H 122 H Calcium 9.3 8.6 Liver Function 11/01/20 Range/Units 22:14 Total Bilirubin 1.0 (0.2-1) mg/dl AST 26 (15-37) U/L ALT 44 (12-78) U/L Alkaline Phosphatase 94 (45-117) U/L Albumin 3.7 (3.4-5.0) gm/dl Urine 11/01/20 Range/Units Unknown Urine Color Dark Yellow Urine Appearance Clear (Clear) Urine pH 5.5 (4.5-7.5) Ur Specific [place] 1.010 (1.000-1.030) Urine Protein Negative (Negative) Urine Glucose (UA) Negative (Negative)
[2020-11-02] MEDS: TAMSULOSIN HCL 0.4 MG CAP PO SCH (20:41)
[2020-11-02] MEDS: GABAPENTIN 600 MG TAB PO SCH (20:41)
[2020-11-02] MEDS: MULTIVITAMIN TAB PO SCH (20:41)
[2020-11-03] MEDS: PIPERACILLIN/TAZOBACTAM 3.375 GM in DEXTROSE 5% 100 ML IV SCH ×3 (06:27→22:07)
[2020-11-03] MEDS: LEVOTHYROXINE SODIUM 75 MCG TABLET PO SCH (07:06)
[2020-11-03 07:43] LABS: Hematocrit (blood only) 41.4 % (37-47); Hemoglobin 13.9 g/dL (12.0-16.0); Mean Corpuscular Hemoglobin 29.8 pg (25-34); Mean Corpuscular Hgb Conc 33.6 g/dL (32-36); Mean Corpuscular Volume 88.8 fL (80-100); Mean Platelet Volume 10.2 fL (7.4-10.4); Platelet Count 260 K/uL (130-400); RDW Standard Deviation 48.8 fL (36.4-46.3); Red Blood Count 4.66 M/uL (4.2-5.4); White Blood Count 9.56 K/uL (4.8-10.8)
--- NOTE | 2020-11-03 08:14 | Urology Progress Note ---
Date of Service November 03, 2020 Assessment & Plan (1) Sepsis: (2) Complicated UTI (urinary tract infection): (3) Hydronephrosis: Plan: 74 year-old female patient, with multiple comorbidities, admitted with presumed complicated UTI and sepsis. -Plan of care reviewed with Dr. Avendano, on-call urologist. -Patient currently afebrile. T-max in 24 hours 37.9. -Labs reviewed - white count returned to normal, creatinine stable at 0.86. -Imaging reviewed - mild left-sided hydroureteronephrosis without ureteral calculi identified. -Urinalysis suspicious for infection, culture pending. -Preliminary blood cultures no growth after 24 hours. -Plan to obtain IVP, scheduled today, to further assess etiology left-sided hydronephrosis. -Keep NPO for now in the event she requires surgical intervention based on imaging findings. -Continue supportive care and antibiotic therapy. -Will continue to follow while inpatient. Please consult our service urgently if patient develops fever >101F, intractable pain or nausea, as this will necessitate urgent surgical intervention. Admission and Anticipated Discharge Date Admission Date: November 02, 2020 Subjective Patient seen and examined at bedside. She is alert, awake, comfortable, and non-toxic in appearance. Reports she is feeling better each day. Currently denies pain. Denies nausea or vomiting. Denies fevers or chills. Has been ambulating without dizziness/lightheadedness. Does report dysuria, however has improved since admission. Denies hematuria, significant urinary frequency or urgency. Chart review: Afebrile this AM. T-max in 24 hours 37.9. Wbc 9.56 Hgb 13.9 Creatinine 0.86 Urine culture pending. Preliminary blood cultures no growth after 24 hours. Patient currently on IV Zosyn. Denies additional urologic concerns today. Review of Systems Constitutional: as per Subjective / HPI; no fever and no chills Gastrointestinal: as per Subjective / HPI; no nausea and no vomiting Genitourinary: as per Subjective / HPI Physical Exam Constitutional: well developed and well nourished; no acute distress and not ill appearing Respiratory: normal respiratory effort and able to speak in complete sentences; no respiratory distress and no audible wheezes Gastrointestinal (Abdomen): Inspection/Auscultation: abdomen normal to inspection; abdomen not distended Percussion/Palpation: abdomen soft; abdomen nontender and no guarding Psychiatric: Orientation: alert, oriented x 3 and cooperative Affect: euthymic affect Genitourinary: no CVA tenderness Results & Data ([facility]) Vital Signs (Past 12 Hours) Vital Signs Temp Pulse Resp BP Pulse Ox 11/03/20 07:45 36.9 C 66 18 110/70 95 11/03/20 03:37 37.0 C 73 20 93/59 L 92 11/02/20 23:45 37.8 C H 72 20 104/63 95 PG Care Time/CCT Total # of Minutes Spent Total Time Spent with Patient: Total time spent is greater than 50% in coordination of care (as documented) at patient's floor/unit and/or counseling patient: Coding Level of Care Code 52953 Subseq Hosp Care Lvl 2 Diagnoses Sepsis A41.9 Sepsis acute organ dysfunction status: without acute organ dysfunction Sepsis type: sepsis due to unspecified organism Complicated UTI (urinary tract infection) N39.0 Hydronephrosis N13.30 (1) Sepsis Sepsis acute organ dysfunction status: without acute organ dysfunction Sepsis type: sepsis due to unspecified organism Qualified Code(s): A41.9 - Sepsis, unspecified organism
[2020-11-03 08:15] LABS: BUN Creatinine Ratio 15.3 (10-20); Calcium 9.1 mg/dl (8.5-10.1); Creatinine Clr Calc Pharmacy 60.7 ml/min; Est GFR (African American) 78.2 ml/min; Est GFR (Non-African American) 67.5 ml/min; Magnesium 2.3 mg/dl (1.8-2.4); Potassium 3.8 mmol/L (3.5-5.1)
[2020-11-03] MEDS: ENOXAPARIN INJ 40 MG/0.4 ML SYR SQ SCH (09:07)
[2020-11-03] MEDS ORDERED: OPTIRAY 300 IV ONE (11:08)
--- NOTE | 2020-11-03 13:42 | XRay Report ---
HISTORY: Left flank tenderness. Left hydronephrosis. History of nephrolithiasis. TECHNIQUE: Multiple frontal radiographs of the abdomen performed after IV contrast administration.. COMPARISON: None. Correlation is made with CT of the abdomen performed on November 01, 2020. FINDINGS: No evidence of contrast material is seen within the abdomen on biztalk software developer view. Opacification of bilateral renal pelvises was seen at the beginning of the study. Asymmetrical opacification of the ureters was seen with nondilated opacified right ureter and slightl y enlarged left renal pelvis with delayed and incomplete opacification of the left ureter. Delayed and postvoid images after 1 hour and 20 minutes of study shows almost completely empty urinar y bladder and minimal contrast within the anatomical region of the right renal pelvis. Slightly dilated opacified left renal pelvis and proximal aspect of the left ureter is seen after 1 h our and 20 minutes of study. IMPRESSION: Mild hydronephrosis on the left and delayed excretion of the intravenous contrast from the left colle cting system likely due to obstruction/stenosis within mid-distal aspect of the left ureter. Normal appearance and excretion of the contrast flow from the right collecting system. Electronically signed by: Jimena Fenton DO 11/03/2020 1:41 PM
[2020-11-03] MEDS: OXYBUTYNIN CHLORIDE XL 5 MG TABCR PO SCH (14:06)
[2020-11-03] MEDS: ADVANCED PROBIOTIC 1250 MG CAPSULE PO SCH (14:06)
[2020-11-03] MEDS: DULoxetine HCL 20 MG CAP PO SCH ×2 (14:06→20:42)
[2020-11-03] MEDS: CYANOCOBALAMIN (VITAMIN B-12) 2,500 MCG TAB.SUBL SL SCH (14:07)
[2020-11-03] MEDS: GABAPENTIN 400 MG CAP PO SCH (14:07)
[2020-11-03] MEDS: METOPROLOL SUCC 25MG EXT REL TAB PO SCH (14:07)
--- NOTE | 2020-11-03 18:44 | Hospitalist Progress Note ---
Date of Service November 03, 2020 Assessment & Plan (1) Severe sepsis: Plan: Sepsis Obstructive uropathy, hydronephrosis Complicated urinary tract infection H/O recurrent UTIs/history stress/urge incontinence/obstructive uropathy Failed outpatient treatment with Ciprofloxacin -CT ABD:Interval removal of the bilateral ureteral stents. There is resolution of the previously described right-sided hydroureteronephrosis. Mild left-sided hydroureteronephrosis has progressed from comparison. No ureteral calculi identified. Equivocal urothelial thickening of the bilateral renal collecting systems. Correlate with urinalysis to exclude infection. Right greater than left b ilateral nephrolithiasis. No bowel obstruction or bowel wall thickening. Hepatic steatosis. -Intravenous pyelogram: Mild hydronephrosis on the left and delayed excretion of the intravenous contrast from the left collecting system likely due to obstruction/stenosis within mid-distal aspect of the left ureter. Normal appearance and excretion of the contrast flow from the right collecting system. -Blood, urine culture : No growth to date Continue Zosyn for now Lactate levels normalized Appreciate urology input Intravenous Polygram showing mid distal left ureteral obstruction stenosis Further management as per urology HTN Bp stable Hypothyroidism Continue levothyroxine Mood disorder Continue Cymbalta H/O Paroxysmal atrial flutter Hypokalemia secondary to diuretic therapy past tobacco abuse Replace electrolytes as needed DVT Px: Lovenox SQ Code Status Full code Admission and Anticipated Discharge Date Admission Date: November 02, 2020 Subjective Patient is seen and examined at bedside States feeling much better today Minimal left flank pain Had intravenous pyelogram earlier today Denies dysuria, chest pain, shortness of breath, dizziness Review of Systems Review of Systems: All systems reviewed & are unremarkable except as noted in Subjective Physical Exam Physical Exam: Physical Exam: Vitals signs as noted above General Appearance:Moderately built and nourished, no apparent distress Head: normocephalic, Atraumatic Eyes: normal inspection, EOMI Neck: supple, Trachea midline Respiratory/Chest: Normal breath sounds, CTA, No accessory muscle use Cardiovascular: S1, S2, No murmur Abdomen/GI:Soft, LLQ tender, Bowel sounds present Extremities/Musculoskeletal:normal inspection, no edema Neurologic/Psych:AAOX3, grossly no focal neurological deficits Skin: normal color, warm Results & Data Results & Data ([facility]) Vital Signs (Past 12 Hours) Vital Signs Temp Pulse Pulse Resp BP Pulse Ox 11/03/20 15:30 76 11/03/20 15:23 36.7 C 58 L 18 103/58 L 94 11/03/20 14:13 36.8 C 62 18 122/79 97 11/03/20 08:00 84 11/03/20 07:45 36.9 C 66 18 110/70 95 Laboratory Results Short CBC 11/03/20 Range/Units 07:29 WBC 9.56 (4.8-10.8) K/uL Hgb 13.9 (12.0-16.0) g/dL Hct 41.4 (37-47) % Plt Count 260 (130-400) K/uL BMP 11/03/20 07:29 Sodium 137 Potassium 3.8 Chloride 107 Carbon Dioxide 23 BUN 13 Creatinine 0.86 Glucose 98 Calcium 9.1
[2020-11-03] MEDS: MULTIVITAMIN TAB PO SCH (20:41)
[2020-11-03] MEDS: GABAPENTIN 600 MG TAB PO SCH (20:41)
[2020-11-03] MEDS: TAMSULOSIN HCL 0.4 MG CAP PO SCH (20:41)
[2020-11-03] MEDS: CETIRIZINE HCL 10 MG TABLET PO SCH (20:42)
[2020-11-04] MEDS: PIPERACILLIN/TAZOBACTAM 3.375 GM in DEXTROSE 5% 100 ML IV SCH ×3 (06:41→21:30)
[2020-11-04] MEDS: LEVOTHYROXINE SODIUM 75 MCG TABLET PO SCH (06:48)
[2020-11-04 07:13] LABS: Hematocrit (blood only) 39.6 % (37-47); Hemoglobin 13.1 g/dL (12.0-16.0); Mean Corpuscular Hemoglobin 29.2 pg (25-34); Mean Corpuscular Hgb Conc 33.1 g/dL (32-36); Mean Corpuscular Volume 88.4 fL (80-100); Mean Platelet Volume 10.1 fL (7.4-10.4); Platelet Count 239 K/uL (130-400); RDW Coefficient of Variation 14.8 % (11.5-14.5); RDW Standard Deviation 47.9 fL (36.4-46.3); Red Blood Count 4.48 M/uL (4.2-5.4); White Blood Count 5.65 K/uL (4.8-10.8)
[2020-11-04 07:49] LABS: BUN Creatinine Ratio 17.6 (10-20); Calcium 8.7 mg/dl (8.5-10.1); Creatinine Clr Calc Pharmacy 67.8 ml/min; Est GFR (African American) 89.4 ml/min; Est GFR (Non-African American) 77.1 ml/min; Potassium 4.1 mmol/L (3.5-5.1)
[2020-11-04] MEDS ORDERED: SODIUM CHLORIDE 0.9% 1000ML 1,000 ML IV ONE (08:15)
[2020-11-04] MEDS: CYANOCOBALAMIN (VITAMIN B-12) 2,500 MCG TAB.SUBL SL SCH (08:16)
[2020-11-04] MEDS: DULoxetine HCL 20 MG CAP PO SCH ×2 (08:17→20:14)
[2020-11-04] MEDS: ENOXAPARIN INJ 40 MG/0.4 ML SYR SQ SCH (08:17)
[2020-11-04] MEDS: GABAPENTIN 400 MG CAP PO SCH (08:17)
[2020-11-04] MEDS: OXYBUTYNIN CHLORIDE XL 5 MG TABCR PO SCH (08:17)
[2020-11-04] MEDS: METOPROLOL SUCC 25MG EXT REL TAB PO SCH (08:17)
[2020-11-04] MEDS: ADVANCED PROBIOTIC 1250 MG CAPSULE PO SCH (08:17)
--- NOTE | 2020-11-04 17:18 | Hospitalist Progress Note ---
Date of Service November 04, 2020 Assessment & Plan (1) Severe sepsis: Plan: Sepsis Obstructive uropathy, hydronephrosis Complicated urinary tract infection H/O recurrent UTIs/history stress/urge incontinence/obstructive uropathy Failed outpatient treatment with Ciprofloxacin -CT ABD:Interval removal of the bilateral ureteral stents. There is resolution of the previously described right-sided hydroureteronephrosis. Mild left-sided hydroureteronephrosis has progressed from comparison. No ureteral calculi identified. Equivocal urothelial thickening of the bilateral renal collecting systems. Correlate with urinalysis to exclude infection. Right greater than left b ilateral nephrolithiasis. No bowel obstruction or bowel wall thickening. Hepatic steatosis. -Intravenous pyelogram: Mild hydronephrosis on the left and delayed excretion of the intravenous contrast from the left collecting system likely due to obstruction/stenosis within mid-distal aspect of the left ureter. Normal appearance and excretion of the contrast flow from the right collecting system. -Blood Cx:No growth to date Urine culture: Lactobacillus Urine Cx unreliable given partially treated with Cipro as outpatient Continue Zosyn for now Lactate levels normalized Appreciate urology input Intravenous Polygram showing mid distal left ureteral obstruction stenosis Further management as per urology HTN Bp stable Hypothyroidism Continue levothyroxine Mood disorder Continue Cymbalta H/O Paroxysmal atrial flutter Hypokalemia secondary to diuretic therapy past tobacco abuse Replace electrolytes as needed DVT Px: Lovenox SQ Code Status Full code Admission and Anticipated Discharge Date Admission Date: November 02, 2020 Subjective Patient is seen and examined at bedside States feeling tired left flank pain resolved Denies dysuria, chest pain, shortness of breath, dizziness Urine Culture growing lactobacillus Review of Systems Review of Systems: All systems reviewed & are unremarkable except as noted in Subjective Physical Exam Physical Exam: Physical Exam: Vitals signs as noted above General Appearance:Moderately built and nourished, no apparent distress Head: normocephalic, Atraumatic Eyes: normal inspection, EOMI Neck: supple, Trachea midline Respiratory/Chest: Normal breath sounds, CTA, No accessory muscle use Cardiovascular: S1, S2, No murmur Abdomen/GI:Soft, non tender, Bowel sounds present Extremities/Musculoskeletal:normal inspection, no edema Neurologic/Psych:AAOX3, grossly no focal neurological deficits Skin: normal color, warm Results & Data Results & Data ([facility]) Vital Signs (Past 12 Hours) Vital Signs Temp Pulse Pulse Resp BP Pulse Ox 11/04/20 15:51 37.0 C 61 19 108/63 93 11/04/20 15:04 59 L 11/04/20 08:14 63 112/60 11/04/20 08:00 70 11/04/20 07:34 36.9 C 62 18 99/62 L 95 Laboratory Results Short CBC 11/04/20 Range/Units 06:40 WBC 5.65 (4.8-10.8) K/uL Hgb 13.1 (12.0-16.0) g/dL Hct 39.6 (37-47) % Plt Count 239 (130-400) K/uL BMP 11/04/20 06:40 Sodium 141 Potassium 4.1 Chloride 110 H Carbon Dioxide 26 BUN 14 Creatinine 0.77 Glucose 92 Calcium 8.7
[2020-11-04] MEDS: CETIRIZINE HCL 10 MG TABLET PO SCH (20:11)
[2020-11-04] MEDS: GABAPENTIN 600 MG TAB PO SCH (20:12)
[2020-11-04] MEDS: MULTIVITAMIN TAB PO SCH (20:12)
[2020-11-04] MEDS: TAMSULOSIN HCL 0.4 MG CAP PO SCH (20:14)
[2020-11-05] MEDS: PIPERACILLIN/TAZOBACTAM 3.375 GM in DEXTROSE 5% 100 ML IV SCH ×3 (05:55→21:28)
[2020-11-05] MEDS: LEVOTHYROXINE SODIUM 75 MCG TABLET PO SCH (05:56)
[2020-11-05] MEDS: CYANOCOBALAMIN (VITAMIN B-12) 2,500 MCG TAB.SUBL SL SCH (08:21)
[2020-11-05] MEDS: METOPROLOL SUCC 25MG EXT REL TAB PO SCH (08:21)
[2020-11-05] MEDS: ADVANCED PROBIOTIC 1250 MG CAPSULE PO SCH (08:22)
[2020-11-05] MEDS: ENOXAPARIN INJ 40 MG/0.4 ML SYR SQ SCH (08:22)
[2020-11-05] MEDS: DULoxetine HCL 20 MG CAP PO SCH ×2 (08:22→20:38)
[2020-11-05] MEDS: GABAPENTIN 400 MG CAP PO SCH (08:22)
[2020-11-05] MEDS: OXYBUTYNIN CHLORIDE XL 5 MG TABCR PO SCH (08:22)
[2020-11-05 10:04] LABS: Hematocrit (blood only) 39.1 % (37-47); Hemoglobin 13.1 g/dL (12.0-16.0); Mean Corpuscular Hemoglobin 29.9 pg (25-34); Mean Corpuscular Hgb Conc 33.5 g/dL (32-36); Mean Corpuscular Volume 89.3 fL (80-100); Mean Platelet Volume 9.6 fL (7.4-10.4); Platelet Count 293 K/uL (130-400); RDW Coefficient of Variation 14.7 % (11.5-14.5); RDW Standard Deviation 48.1 fL (36.4-46.3); Red Blood Count 4.38 M/uL (4.2-5.4); White Blood Count 5.99 K/uL (4.8-10.8)
[2020-11-05 10:34] LABS: BUN Creatinine Ratio 15.9 (10-20); Calcium 9.1 mg/dl (8.5-10.1); Creatinine Clr Calc Pharmacy 62.7 ml/min; Est GFR (African American) 82.9 ml/min; Est GFR (Non-African American) 71.5 ml/min
--- NOTE | 2020-11-05 16:37 | Hospitalist Progress Note ---
Date of Service November 05, 2020 Assessment & Plan (1) Severe sepsis: Plan: Sepsis Obstructive uropathy, hydronephrosis Complicated urinary tract infection H/O recurrent UTIs/history stress/urge incontinence/obstructive uropathy Failed outpatient treatment with Ciprofloxacin -CT ABD:Interval removal of the bilateral ureteral stents. There is resolution of the previously described right-sided hydroureteronephrosis. Mild left-sided hydroureteronephrosis has progressed from comparison. No ureteral calculi identified. Equivocal urothelial thickening of the bilateral renal collecting systems. Correlate with urinalysis to exclude infection. Right greater than left bilateral nephrolithiasis. No bowel obstruction or bowel wall thickening. Hepatic steatosis. -Intravenous pyelogram: Mild hydronephrosis on the left and delayed excretion of the intravenous contrast from the left collecting system likely due to obstruction/stenosis within mid-distal aspect of the left ureter. Normal appearance and excretion of the contrast flow from the right collecting system. -Blood Cx:No growth to date Urine culture: Lactobacillus Urine Cx unreliable given partially treated with Cipro as outpatient Continue Zosyn for now Lactate levels normalized Appreciate urology input Intravenous Polygram showing mid distal left ureteral obstruction stenosis NPO midnight for procedure tomorrow HTN Bp stable Hypothyroidism Continue levothyroxine Mood disorder Continue Cymbalta H/O Paroxysmal atrial flutter Hypokalemia secondary to diuretic therapy past tobacco abuse Replace electrolytes as needed DVT Px: Lovenox SQ Code Status Full code Admission and Anticipated Discharge Date Admission Date: November 02, 2020 Subjective Patient is seen and examined at bedside Reports nausea, minimal dysuria today Discussed with Urology today Denies flank pain, chest pain, shortness of breath, dizziness Review of Systems Review of Systems: All systems reviewed & are unremarkable except as noted in Subjective Physical Exam Physical Exam: Physical Exam: Vitals signs as noted above General Appearance:Moderately built and nourished, no apparent distress Head: normocephalic, Atraumatic Eyes: normal inspection, EOMI Neck: supple, Trachea midline Respiratory/Chest: Normal breath sounds, CTA, No accessory muscle use Cardiovascular: S1, S2, No murmur Abdomen/GI:Soft, non tender, Bowel sounds present Extremities/Musculoskeletal:normal inspection, no edema Neurologic/Psych:AAOX3, grossly no focal neurological deficits Skin: normal color, warm Results & Data Results & Data ([facility]) Vital Signs (Past 12 Hours) Vital Signs Temp Pulse Pulse Resp BP Pulse Ox 11/05/20 15:05 36.6 C 62 20 123/77 91 11/05/20 11:42 36.5 C 55 L 18 136/81 93 11/05/20 09:52 56 L 11/05/20 07:57 36.5 C 57 L 19 131/82 96 Laboratory Results Short CBC 11/05/20 Range/Units 09:43 WBC 5.99 (4.8-10.8) K/uL Hgb 13.1 (12.0-16.0) g/dL Hct 39.1 (37-47) % Plt Count 293 (130-400) K/uL BMP 11/05/20 09:43 Sodium 140 Potassium 4.0 Chloride 110 H Carbon Dioxide 25 BUN 13 Creatinine 0.82 Glucose 88 Calcium 9.1
[2020-11-05] MEDS: CETIRIZINE HCL 10 MG TABLET PO SCH (20:36)
[2020-11-05] MEDS: GABAPENTIN 600 MG TAB PO SCH (20:39)
[2020-11-05] MEDS: TAMSULOSIN HCL 0.4 MG CAP PO SCH (20:40)
[2020-11-05] MEDS: MULTIVITAMIN TAB PO SCH (20:40)
[2020-11-06] MEDS: PIPERACILLIN/TAZOBACTAM 3.375 GM in DEXTROSE 5% 100 ML IV SCH ×3 (06:28→23:08)
[2020-11-06] MEDS: LEVOTHYROXINE SODIUM 75 MCG TABLET PO SCH (06:28)
[2020-11-06 06:50] LABS: BUN Creatinine Ratio 14.9 (10-20); Calcium 8.9 mg/dl (8.5-10.1); Creatinine Clr Calc Pharmacy 58.2 ml/min; Est GFR (African American) 76.1 ml/min; Est GFR (Non-African American) 65.6 ml/min; Potassium 3.8 mmol/L (3.5-5.1)
--- NOTE | 2020-11-06 07:33 | Urology Progress Note ---
Date of Service November 06, 2020 Assessment & Plan (1) Sepsis: (2) Complicated UTI (urinary tract infection): (3) Hydronephrosis: Plan: 74 year-old female patient, with multiple comorbidities, admitted with presumed complicated UTI and sepsis. -Patient remains afebrile. -Labs reviewed - creatinine normal, 0.88. -Imaging reviewed - IVP notable for mild left hydronephrosis with delayed contrast excretion likely due to obstruction/stenosis within left ureter. -Final urine culture with Lactobacillus. -Preliminary blood cultures no growth after 48 hours. -Continue supportive care and antibiotic therapy. -Keep NPO for planned procedure today. Findings reviewed with Dr. Avendano. Given her imaging findings indicative of left ureteral obstruction with associated hydronephrosis, will proceed with OR for cystoscopy, possible bilateral retrograde pyelogram, possible bilateral ureteroscopy, left endopyelotomy, left ureteral stent placement. Risks and benefits to be reviewed with patient by Dr. Avendano. OR notified. Preoperative CXR and EKG in chart. COVID-19 negative. Patient currently covered with routine IV Zosyn. ATTENDING NOTE: Reviewed Note. Independently evaluated and assessed and examined and agree with above. Risks and benefits discussed at length for procedure. These include bleeding, infection, injury to surrounding tissues or organs, and risks associated with anesthesia. Patient states understanding and agrees to proceed. Will sign consent and proceed. Set up cystoscopy with possible bilateral endopyletomy Admission and Anticipated Discharge Date Admission Date: November 02, 2020 Subjective Patient examined this AM, feeling well. She is comfortable and non-toxic in appearance. Currently denies flank or abdominal pain. Denies fevers or chills. Denies nausea or vomiting. Has been NPO since midnight. Reports on-going dysuria. Denies hematuria, urgency, or frequency. Overall, feeling better since admission. Chart review: Afebrile Labs 11/05 - Wbc 5.99 Hgb 13.1 Creatinine 0.88 this AM. Final urine culture with Lactobacillus. Preliminary blood cultures no growth after 48 hours. Patient currently on IV Zosyn. IVP 11/03/20 - IMPRESSION: Mild hydronephrosis on the left and delayed excretion of the intravenous contrast from the left collecting system likely due to obstruction/stenosis within mid-distal aspect of the left ureter. Normal appearance and excretion of the contrast flow from the right collecting system. Denies additional urologic concerns today. Review of Systems Constitutional: as per Subjective / HPI; no fever and no chills Respiratory: + dyspnea on exertion (Notes on exertion); no cough Cardiovascular: no chest pain and no palpitations Gastrointestinal: as per Subjective / HPI; no nausea and no vomiting Genitourinary: as per Subjective / HPI Physical Exam Constitutional: well developed and well nourished; no acute distress and not ill appearing Respiratory: normal respiratory effort and able to speak in complete sentences; no respiratory distress and no audible wheezes Gastrointestinal (Abdomen): Inspection/Auscultation: abdomen normal to inspection; abdomen not distended Psychiatric: Orientation: alert, oriented x 3 and cooperative Affect: euthymic affect Results & Data ([facility]) Vital Signs (Past 12 Hours) Vital Signs Temp Pulse Pulse Pulse Resp BP Pulse Ox 11/06/20 05:21 72 11/06/20 04:00 36.3 C L 60 18 97/68 L 97 11/05/20 23:00 36.6 C 59 L 18 107/68 97 PG Care Time/CCT Total # of Minutes Spent Total Time Spent with Patient: Total time spent is greater than 50% in coordination of care (as documented) at patient's floor/unit and/or counseling patient: Coding Level of Care Code 19278 Subseq Hosp Care Lvl 2 Diagnoses Sepsis A41.9 Sepsis acute organ dysfunction status: without acute organ dysfunction Sepsis type: sepsis due to unspecified organism Complicated UTI (urinary tract infection) N39.0 Hydronephrosis N13.30 (1) Sepsis Sepsis acute organ dysfunction status: without acute organ dysfunction Sepsis type: sepsis due to unspecified organism Qualified Code(s): A41.9 - Sepsis, unspecified organism
[2020-11-06] MEDS: CYANOCOBALAMIN (VITAMIN B-12) 2,500 MCG TAB.SUBL SL SCH (09:05)
[2020-11-06] MEDS: ADVANCED PROBIOTIC 1250 MG CAPSULE PO SCH (09:06)
[2020-11-06] MEDS: ENOXAPARIN INJ 40 MG/0.4 ML SYR SQ SCH (09:16)
[2020-11-06] MEDS: GABAPENTIN 400 MG CAP PO SCH (09:17)
[2020-11-06] MEDS: OXYBUTYNIN CHLORIDE XL 5 MG TABCR PO SCH (09:17)
[2020-11-06] MEDS: DULoxetine HCL 20 MG CAP PO SCH ×2 (09:17→20:18)
[2020-11-06] MEDS: METOPROLOL SUCC 25MG EXT REL TAB PO SCH (09:17)
--- NOTE | 2020-11-06 09:37 | Anesthesiology Consultation ---
Date of Service November 06, 2020 Assessment & Plan Chart Review Chart Review: Acceptable Risk for Surgery and Patient NOT seen in Pre Admission Testing Consults Requested none History Surgery Operation Date: 11/06/20 11:35 Proposed Procedures p Cystoscopy Endopyelotomy - Aguila Avendano DO Height/Weight Height: 5 ft 4 in Weight: 77.4 kg Allergies Allergy/AdvReac Type Severity Reaction Status Date / Time cephalexin Allergy Intermediate Hives Verified 11/01/20 22:39 Sulfa (Sulfonamide Allergy Intermediate HIVES Verified 11/01/20 22:39 Antibiotics) lisinopril Allergy Mild Cough Verified 11/01/20 22:39 Medications Home Medications Medication Instructions Recorded Confirmed Last Taken albuterol sulfate 90 mcg/actuation 1 - 2 puff INHALATION Q6H PRN #0 03/19/16 11/01/20 07/31/19 aerosol inhaler (Ventolin HFA) duloxetine 20 mg capsule,delayed 20 mg PO BID #0 03/19/16 11/01/20 10/31/20 release fluticasone propionate 50 1 spray INTRANASAL DAILY PRN #0 03/19/16 11/01/20 07/31/19 mcg/actuation nasal spray,suspension (Flonase Allergy Relief) omeprazole magnesium 20 mg 20 mg PO DAILY PRN #0 03/19/16 11/01/20 07/31/19 tablet,delayed release (Prilosec OTC) sumatriptan succinate 100 mg 100 mg PO DIRECTED PRN #0 tab 03/19/16 11/01/20 07/31/19 tablet (Imitrex) Medical Marijuana 1 dose SUBLINGUAL UD PRN 06/03/20 11/01/20 07/15/20 levothyroxine 75 mcg tablet 75 mcg PO QAM 06/03/20 11/01/20 11/01/20 multivitamin 1 tab PO HS 06/03/20 11/01/20 10/31/20 L.acidoph-L.rhamn-B.bifidum-B.long 1 tab PO QAM tab 06/27/20 11/01/20 10/31/20 12.9 mg (2 billion cell) tablet, DR (Probiotic Acidophilus Tracy) betamethasone dipropionate 0.05 % 1 applic TOPICAL DAILY PRN 06/27/20 11/01/20 Unknown topical ointment cholecalciferol (vitamin D3) 125 125 mcg PO QAM 06/27/20 11/01/20 10/31/20 mcg (5,000 unit) tablet (Vitamin D3) clobetasol 0.05 % topical cream 1 applic TOPICAL BID PRN 06/27/20 11/01/20 Unknown (Temovate) cyanocobalamin (vitamin B-12) 2,500 mcg PO QAM 06/27/20 11/01/20 10/31/20 2,500 mcg tablet gabapentin 600 mg tablet 600 mg PO QPM 06/27/20 11/01/20 10/31/20 hydroxyzine HCl 25 mg tablet 25 mg PO QID PRN 06/27/20 11/01/20 07/16/20 levocetirizine 5 mg tablet 5 mg PO QPM 06/27/20 11/01/20 10/31/20 oxybutynin chloride 10 mg 10 mg PO QAM 06/27/20 11/01/20 11/01/20 tablet,extended release 24 hr ascorbic acid (vitamin C) 500 mg 500 mg PO QAM 07/03/20 11/01/20 10/31/20 tablet (Vitamin C) gabapentin 400 mg capsule 400 mg PO QAM 07/03/20 11/01/20 10/31/20 magnesium oxide 500 mg tablet 500 mg PO QPM 08/10/20 11/01/20 10/31/20 furosemide 20 mg tablet 20 mg PO QAM #30 tab 08/15/20 11/01/20 10/31/20 metoprolol succinate 25 mg 25 mg PO QAM #30 tab 08/15/20 11/01/20 11/01/20 tablet,extended release 24 hr potassium chloride 10 mEq 10 meq PO DAILY #30 cap 08/15/20 11/01/20 10/31/20 capsule,extended release ciprofloxacin HCl 500 mg tablet 500 mg PO BID #14 tab 10/31/20 11/01/20 10/31/20 (Cipro) phenazopyridine 200 mg tablet 200 mg PO Q8H PRN #10 tab 10/31/20 11/01/20 Unknown (Pyridium) tamsulosin 0.4 mg capsule 0.4 mg PO HS #30 cap 10/31/20 11/01/20 10/31/20 conjugated estrogens 0.625 mg/gram 0.3125 mg VAGINAL DIRECTED 11/01/20 11/01/20 10/31/20 vaginal cream (Premarin) Active Medications Generic Name Dose Route Start Last Admin Trade Name Freq PRN Reason Stop Dose Admin Acetaminophen 650 mg 11/02/20 02:53 11/02/20 07:40 Acetaminophen 325 Mg Tab PO 12/02/20 02:52 650 mg Q4H PRN Administration Pain or Fever Cetirizine HCl 5 mg 11/03/20 21:00 11/05/20 20:36 Cetirizine Hcl 10 Mg Tablet PO 12/03/20 20:59 5 mg HS RACHEL Administration Cyanocobalamin 2,500 mcg 11/02/20 09:00 11/06/20 09:05 Cyanocobalamin (Vitamin B-12) 2,500 Mcg Tab.Subl SL 12/02/20 08:59 Not Gi heidi QAM RACHEL Duloxetine HCl 20 mg 11/02/20 09:00 11/06/20 09:17 Duloxetine Hcl 20 Mg Cap PO 12/02/20 08:59 20 mg BID RACHEL Administration Enoxaparin Sodium 40 mg 11/02/20 09:00 11/06/20 09:16 Enoxaparin Inj 40 Mg/0.4 Ml Syr SQ 12/02/20 08:59 40 mg QAM RACHEL Administration Gabapentin 600 mg 11/02/20 21:00 11/05/20 20:39 Gabapentin 600 Mg Tab PO 12/02/20 20:59 600 mg QPM RACHEL Administration Gabapentin 400 mg 11/02/20 09:00 11/06/20 09:17 Gabapentin 400 Mg Cap PO 12/02/20 08:59 400 mg QAM RACHEL Administration Piperacillin Sod/Tazobactam 115 mls @ 28.75 mls/hr 11/02/20 06:00 11/06/20 06:28 Sod 3.375 gm/ Dextrose IV 11/12/20 05:59 28.8 mls/hr Q8H RACHEL Administration Protocol Lactobacillus Acidoph/Casei/Rhamnos 2 cap 11/02/20 09:00 11/06/20 09:06 Advanced Probiotic 1250 Mg Capsule PO 12/02/20 08:59 Not Given QAM RACHEL Levothyroxine Sodium 75 mcg 11/02/20 06:30 08/02/21 06:28 Levothyroxine Sodium 75 Mcg Tablet PO 12/02/20 06:29 75 mcg DAILYBB RACHEL Administration Metoprolol Succinate 25 mg 11/02/20 09:00 11/06/20 09:17 Metoprolol Succ 25mg Ext Rel Tab PO 12/02/20 08:59 25 mg QAM RACHEL Administration Multivitamins 1 tab 11/02/20 21:00 11/05/20 20:40 Multivitamin Tab PO 12/02/20 20:59 1 tab HS RACHEL Administration Oxybutynin Chloride 10 mg 11/02/20 09:00 11/06/20 09:17 Oxybutynin Chloride Xl 5 Mg Tabcr PO 12/02/20 08:59 10 mg QAM RACHEL Administration Tamsulosin HCl 0.4 mg 11/02/20 21:00 11/05/20 20:40 Tamsulosin Hcl 0.4 Mg Cap PO 12/02/20 20:59 0.4 mg HS RACHEL Administration Past Medical History Medical History Acute pyelonephritis Arthritis GERD (gastroesophageal reflux disease) GERD (gastroesophageal reflux disease) Hypothyroidism Hypothyroidism IBS (irritable bowel syndrome) Kidney stone Migraine Overactive bladder Peripheral neuropathy Restless leg syndrome Restless leg syndrome, familial Sleep apnea CPAP, USING EVERY NIGHT. Past Family History Family History Other No family history of adverse response to anesthesia Past Surgical History Surgical History H/O foot surgery R foot hammertoe correction 07/10/20 at [facility]. H/O sinus surgery H/O: hysterectomy History of appendectomy History of bladder surgery BLADDER TACK History of carpal tunnel release RT/LEFT History of cataract surgery RT/LEFT History of colonoscopy History of esophagogastroduodenoscopy (EGD) History of tonsillectomy History of tooth extraction Strabismus LEFT EYE REPAIRED Social History Smoking Status: Former smoker tobacco type: cigarettes Do You Dip or Chew Tobacco: No Hx Alcohol Use: Yes Alcohol type: wine alcohol intake frequency: holidays/special occasions only Hx Substance Use: Yes substance use type: marijuana Substance Use Type Other:: Medical marijuana Last Used Substance: Unknown Last Used Substance Other:: ONLY RX MARIJUANA Physical Exam Vital Signs Last Vital Signs Temp 36.6 C 11/06/20 07:35 Pulse 77 11/06/20 07:35 Resp 16 11/06/20 07:35 BP 131/80 11/06/20 07:35 Pulse Ox 96 11/06/20 07:35 Testing Laboratory Results 11/05/20 09:43 11/06/20 05:42 PT 10.4 Seconds (9.0-12.0) 11/01/20 22:14 INR 1.0 (0.9-1.1) 11/01/20 22:14 APTT 26.5 Seconds (21.0-31.0) 11/01/20 22:14 Urine Color Dark Yellow 11/01/20 Unknown Urine Appearance Clear (Clear) 11/01/20 Unknown Urine pH 5.5 (4.5-7.5) 11/01/20 Unknown Ur Specific Agenda 1.010 (1.000-1.030) 11/01/20 Unknown Urine Protein Negative (Negative) 11/01/20 Unknown Urine Glucose (UA) Negative (Negative) 11/01/20 Unknown Urine Ketones Trace (Negative) H 11/01/20 Unknown Urine Nitrite Positive (Negative) A 11/01/20 Unknown Ur Leukocyte Esterase Trace (Negative) H 11/01/20 Unknown Urine WBC (Auto) 10-30 /hpf (0-5) H 11/01/20 Unknown Urine RBC (Auto) 0-4 /hpf (0-4) 11/01/20 Unknown U Hyaline Cast (Auto) 0 /lpf (0-5) 11/01/20 Unknown U Epithel Cells (Auto) 20-30 /lpf (0-5) H 11/01/20 Unknown Urine Bacteria (Auto) Negative (Negative) 11/01/20 Unknown 11/01/20 Unknown Urine Culture - Final Urine,Clean Catch Lactobacillus species 11/01/20 22:28 Aerobic Blood Culture - Preliminary Blood No growth in Aerobic bottle after 48 hours. Anaerobic Blood Culture - Preliminary No growth in Anaerobic bottle after 48 hours. 11/01/20 22:14 Aerobic Blood Culture - Preliminary Blood No growth in Aerobic bottle after 48 hours. Anaerobic Blood Culture - Preliminary No growth in Anaerobic bottle after 48 hours. Electrocardiogram Date: 11/01/20 Findings: + NSR @ (62) Nonspecific T wave abnormality Anterior leads Abnormal ECG When compared with ECG of 15-AUG-2020 05:28, T wave inversion more evident in Anterior leads
[2020-11-06] MEDS ORDERED: ATROPINE SULFATE 0.1 MG/ML 10ML SYR IV PRN (13:00)
[2020-11-06] MEDS ORDERED: ePHEDrine sulfate 50 MG/ML AMP IV PRN (13:00)
[2020-11-06] MEDS ORDERED: ONDANSETRON INJ 2 MG/ML 2 ML VIAL IV PRN (13:00)
[2020-11-06] MEDS ORDERED: fentaNYL citrate 100 MCG/2 ML VIAL IV PRN (13:00)
[2020-11-06] MEDS ORDERED: PROPOFOL IV EMULSION 10 MG/ML 20 ML VIAL IV ONE (13:16)
[2020-11-06] MEDS ORDERED: ONDANSETRON INJ 2 MG/ML 2 ML VIAL ONE ×2 (13:16→13:45)
[2020-11-06] MEDS ORDERED: MIDAZOLAM HCL 1 MG/ML 2ML VIAL ONE (13:16)
[2020-11-06] MEDS ORDERED: LIDOCAINE 2% 2 ML VIAL/AMP(20MG/ML) INFIL ONE (13:16)
[2020-11-06] MEDS ORDERED: fentaNYL citrate 100 MCG/2 ML VIAL ONE (13:16)
[2020-11-06] MEDS ORDERED: DEXAMETHASONE SOD INJ 4 MG/ML VIAL ONE (13:45)
[2020-11-06] MEDS ORDERED: DIATRIZOATE MEGLUMINE 30% 100ML VIAL INSTIL PRN (13:58)
--- NOTE | 2020-11-06 14:17 | Operative Report ---
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 Incised with laser at 3-4 o'clock. Specimens None Drains 7 Fr x 24 left Anesthesia Type General Complications none Disposition Disposition: Recovery Room Indications Patient with bothersome UPJ obstruction. Risks and benefits discussed at length. Description of Procedure Patient was consented and brought back to the operating room. Patient was placed under anesthesia in the supine position and moved to the dorsal lithotomy position. Patient was prepped and draped in the regular sterile fashion. A time out was completed identifying the correct patient and procedure. A 30degree Cystoscope was placed into the bladder and the entire bladder was examined. The UO's were identified. The UO was cannulized with a catheter and a retrograde pyelogram was completed on the right and then the left. Severe narrowing at left UPJ. A wire was then placed. With manipulation it was able to enter the renal pelvis. A second safety wire was placed. The flexible ureteroscope was taken into the ureter. The entire ureter and renal pelvis were examined. The UPJ obstruction was identified. A severe pinpoint narrowing was noted. Only enough room for one wire. A laser fiber was selected and the UPJ was incised from at the 3-4 o'clock position. This was slowly opened to allow access into the pelvis. The pelvis was free of stones and was dilated. No residual large fragments or areas of concern were noted. The scope was slowly removed with the wire left in place. Contrast was placed through the scope for a pyelogram to assist in stent placement. The entire ureter was examined as the scope was slowly removed. No obstructions or other areas of concern were noted. No major bleeding or issues. With the wire in place, a 7 Fr Double J stent was placed. It was confirmed with fluoroscopy. With the stent in place, the bladder was emptied. The scope was removed. The patient was cleaned, aroused from anesthesia, and transferred to the pacu in stable condition having tolerated the procedure well with no complications. I was present and participated in all aspects of the procedure. The patient will be monitored in the PACU until transferred. Plan to maintain the stent for next 3-4 and consider imaging prior to removal. Will discuss options at followup. I attest to the content of the Intraoperative Record and any orders documented therein. Any exceptions are noted below.
[2020-11-06] MEDS ORDERED: GLYCOPYRROLATE 0.2 MG/ML VIAL ONE (14:21)
--- NOTE | 2020-11-06 14:57 | Fluoroscopy Report ---
FL retrograde includes kub CLINICAL HISTORY: B/L STENTS COMPARISON STUDY: August 10, 2020 FLUOROSCOPY TIME: 58 seconds. NUMBER OF FLUOROSCOPIC IMAGES: 10 FINDINGS: Few intraoperative fluoroscopic images are presented for review. Lower aspect of the catheter is seen within pelvic region with injection of contrast material to the distal right ureter and subsequent opacification of the right renal pelvis. Image 4 out of 10 shows distal aspect of the catheter with injection of the contrast material to the distal aspect of the left ureter with subsequent extension of the catheter and wire to the anatomical region of the left renal pelvis and opacification of the left renal pelvis. Last few images shows double-J stent placement to the left renal collecting system. No definite filling defects are seen to suggest nephrolithiasis. IMPRESSION: As above. ACT 112: Negative or not required by law. The above report was generated using voice recognition software. It may contain grammatical, syntax o r spelling errors. Electronically signed by: Jimena Fenton DO 11/06/2020 2:55 PM
--- NOTE | 2020-11-06 15:27 | Anesthesiology Progress Note ---
Date of Service November 06, 2020 Anesthesia Post Procedure Vital Signs Vital Signs: Temp Pulse Pulse Pulse Pulse Resp BP 11/06/20 15:23 36.4 C L 68 20 131/84 11/06/20 15:05 72 18 128/88 11/06/20 14:55 36.4 C L 71 16 111/80 11/06/20 14:45 73 14 126/80 11/06/20 14:44 62 11/06/20 14:35 72 13 120/86 11/06/20 14:26 37 C 77 14 136/97 11/06/20 12:37 36.7 C 55 L 16 135/75 11/06/20 11:42 36.6 C 55 L 18 123/77 11/06/20 07:35 36.6 C 77 16 131/80 11/06/20 07:00 55 L 11/06/20 05:21 72 11/06/20 04:00 36.3 C L 60 18 97/68 L 11/05/20 23:00 36.6 C 59 L 18 107/68 11/05/20 19:23 36.6 C 65 18 113/74 Pulse Ox 11/06/20 15:23 97 11/06/20 15:05 95 11/06/20 14:55 94 11/06/20 14:45 99 11/06/20 14:44 11/06/20 14:35 99 11/06/20 14:26 99 11/06/20 12:37 97 11/06/20 11:42 95 11/06/20 07:35 96 11/06/20 07:00 11/06/20 05:21 11/06/20 04:00 97 11/05/20 23:00 97 11/05/20 19:23 91 Transfer of Care Handoff Completed per policy Notes Mental Status: alert / awake / arousable and participated in evaluation Patient Amnestic to Procedure: Yes Nausea / Vomiting: adequately controlled Pain: adequately controlled Airway Patency, RR, SpO2: stable & adequate BP & HR: stable & adequate Hydration State: stable & adequate Anesthetic Complications: no major complications apparent and Pt Satisfied with anesthetic care
--- NOTE | 2020-11-06 17:07 | Hospitalist Progress Note ---
Date of Service November 06, 2020 Assessment & Plan (1) Severe sepsis: Plan: Sepsis Obstructive uropathy, hydronephrosis Complicated urinary tract infection H/O recurrent UTIs/history stress/urge incontinence/obstructive uropathy Failed outpatient treatment with Ciprofloxacin -CT ABD:Interval removal of the bilateral ureteral stents. There is resolution of the previously described right-sided hydroureteronephrosis. Mild left-sided hydroureteronephrosis has progressed from comparison. No ureteral calculi identified. Equivocal urothelial thickening of the bilateral renal collecting systems. Correlate with urinalysis to exclude infection. Right greater than left bilateral nephrolithiasis. No bowel obstruction or bowel wall thickening. Hepatic steatosis. -Intravenous pyelogram: Mild hydronephrosis on the left and delayed excretion of the intravenous contrast from the left collecting system likely due to obstruction/stenosis within mid-distal aspect of the left ureter. Normal appearance and excretion of the contrast flow from the right collecting system. -S/P Cystoscopy with Bilateral Retrograde Pyelogram, Left ureteroscopy, Laser Endopyelotomy, and Stent Placement - Aguila Avendano, DO POD #0 Blood Cx:No growth to date Urine culture: Lactobacillus Urine Cx unreliable given partially treated with Cipro as outpatient Continue Zosyn Lactate levels normalized Appreciate urology input Continue current meds HTN Bp stable Hypothyroidism Continue levothyroxine Mood disorder Continue Cymbalta H/O Paroxysmal atrial flutter Hypokalemia secondary to diuretic therapy past tobacco abuse Replace electrolytes as needed DVT Px: Lovenox SQ Code Status Full code Admission and Anticipated Discharge Date Admission Date: November 02, 2020 Subjective Patient is seen and examined at bedside No new complaints Had ureteral stent placement today Denies flank pain, chest pain, shortness of breath, dizziness, dysuria Review of Systems Review of Systems: All systems reviewed & are unremarkable except as noted in Subjective Physical Exam Physical Exam: Physical Exam: Vitals signs as noted above General Appearance:Moderately built and nourished, no apparent distress Head: normocephalic, Atraumatic Eyes: normal inspection, EOMI Neck: supple, Trachea midline Respiratory/Chest: Normal breath sounds, CTA, No accessory muscle use Cardiovascular: S1, S2, No murmur Abdomen/GI:Soft, non tender, Bowel sounds present Extremities/Musculoskeletal:normal inspection, no edema Neurologic/Psych:AAOX3, grossly no focal neurological deficits Skin: normal color, warm Results & Data Results & Data ([facility]) Vital Signs (Past 12 Hours) Vital Signs Temp Pulse Pulse Pulse Resp BP Pulse Ox 11/06/20 15:52 63 11/06/20 15:23 36.4 C L 68 20 131/84 97 11/06/20 15:05 72 18 128/88 95 11/06/20 14:55 36.4 C L 71 16 111/80 94 11/06/20 14:45 73 14 126/80 99 11/06/20 14:44 62 11/06/20 14:35 72 13 120/86 99 11/06/20 14:26 37 C 77 14 136/97 99 11/06/20 12:37 36.7 C 55 L 16 135/75 97 11/06/20 11:42 36.6 C 55 L 18 123/77 95 11/06/20 07:35 36.6 C 77 16 131/80 96 11/06/20 07:00 55 L 11/06/20 05:21 72 Laboratory Results [facility] 11/06/20 05:42 Sodium 139 Potassium 3.8 Chloride 108 H Carbon Dioxide 25 BUN 13 Creatinine 0.88 Glucose 86 Calcium 8.9
[2020-11-06] MEDS: MULTIVITAMIN TAB PO SCH (20:18)
[2020-11-06] MEDS: CETIRIZINE HCL 10 MG TABLET PO SCH (20:18)
[2020-11-06] MEDS: GABAPENTIN 600 MG TAB PO SCH (20:18)
[2020-11-06] MEDS: ACETAMINOPHEN 325 MG TAB PO PRN (20:18)
[2020-11-06] MEDS: TAMSULOSIN HCL 0.4 MG CAP PO SCH (20:18)
[2020-11-07] MEDS: PIPERACILLIN/TAZOBACTAM 3.375 GM in DEXTROSE 5% 100 ML IV SCH ×2 (06:31→14:22)
[2020-11-07] MEDS: LEVOTHYROXINE SODIUM 75 MCG TABLET PO SCH (06:31)
[2020-11-07] MEDS: ADVANCED PROBIOTIC 1250 MG CAPSULE PO SCH (08:57)
[2020-11-07] MEDS: ENOXAPARIN INJ 40 MG/0.4 ML SYR SQ SCH (08:57)
--- NOTE | 2020-11-07 08:57 | Urology Progress Note ---
Date of Service November 07, 2020 Assessment & Plan (1) Hydronephrosis: (2) Complicated UTI (urinary tract infection): Plan: 74 year-old female patient, with multiple comorbidities, admitted with presumed complicated UTI and sepsis. - Pt POD#1 s/p Cystoscopy with Bilateral Retrograde Pyelogram, Left ureteroscopy, Laser Endopyelotomy, and Left Stent Placement - Doing well, progressing as expected - Afebrile, lab work reviewed - creatinine 0.98, WBC 11.22 - Tolerating left ureteral stent with minimal bother - Okay to d/c from perspective when medically stable - Recommend d/c with course of PO antibiotics, Tamsulosin, prn Pyridium and prn pain medication for stent management - Expected clinical course reviewed, all questions answered - Will arrange outpatient follow-up with our service Thank you for allowing us to participate in the acute care of Ms. Sewell. Please reconsult us with additional questions, concerns or changes in patient status. Admission and Anticipated Discharge Date Admission Date: November 02, 2020 Subjective 74 yo F POD #1 s/p Cystoscopy with Bilateral Retrograde Pyelogram, Left ureteroscopy, Laser Endopyelotomy, and Left Stent Placement with Dr. Avendano. Awake, alert and sitting up in bed. No acute issues overnight. No complaints at present. Tolerating left ureteral stent with minimal bother, no flank pain. She is voiding spontaneously, notes some bladder pressure with voids, mild dysuria. No hematuria. Tolerating diet, no nausea or vomiting. No fever or chills. No additional concerns today. Chart review: Afebrile, creatinine 0.98, WBC 11.22, Hgb 14.4. On IV Zosyn. Review of Systems Constitutional: as per Subjective / HPI Gastrointestinal: as per Subjective / HPI Genitourinary: as per Subjective / HPI Physical Exam Constitutional: well developed and well nourished; no acute distress and not ill appearing Respiratory: normal respiratory effort and able to speak in complete sentences; no respiratory distress and no labored breathing Cardiovascular: Extremities: no pedal edema Gastrointestinal (Abdomen): Inspection/Auscultation: abdomen normal to inspection; abdomen not distended Percussion/Palpation: abdomen soft; abdomen nontender and no guarding Neurologic: moves all extremities and awake Psychiatric: Orientation: alert, oriented x 3 and cooperative Results & Data ([facility]) Vital Signs (Past 12 Hours) Vital Signs Temp Pulse Pulse Resp BP BP Pulse Ox 11/07/20 07:15 57 L 11/07/20 07:05 36.4 C L 66 18 111/72 95 11/07/20 03:58 36.5 C 65 18 100/64 92 11/07/20 00:39 78 11/06/20 23:34 36.8 C 72 18 116/73 94 PG Care Time/CCT Total # of Minutes Spent Total Time Spent with Patient: Total time spent is greater than 50% in coordination of care (as documented) at patient's floor/unit and/or counseling patient: Coding Level of Care Code 61530 Subseq Hosp Care Lvl 2 Diagnoses Hydronephrosis N13.30 Complicated UTI (urinary tract infection) N39.0
[2020-11-07] MEDS: METOPROLOL SUCC 25MG EXT REL TAB PO SCH (08:58)
[2020-11-07] MEDS: DULoxetine HCL 20 MG CAP PO SCH (08:58)
[2020-11-07] MEDS: CYANOCOBALAMIN (VITAMIN B-12) 2,500 MCG TAB.SUBL SL SCH (08:58)
[2020-11-07] MEDS: OXYBUTYNIN CHLORIDE XL 5 MG TABCR PO SCH (08:59)
[2020-11-07] MEDS: GABAPENTIN 400 MG CAP PO SCH (09:00)
[2020-11-07 09:32] LABS: Hemoglobin 14.4 g/dL (12.0-16.0); Mean Corpuscular Hemoglobin 29.6 pg (25-34); Mean Corpuscular Hgb Conc 33.5 g/dL (32-36); Mean Corpuscular Volume 88.3 fL (80-100); Mean Platelet Volume 9.7 fL (7.4-10.4); Platelet Count 393 K/uL (130-400); RDW Coefficient of Variation 14.4 % (11.5-14.5); RDW Standard Deviation 46.4 fL (36.4-46.3); Red Blood Count 4.87 M/uL (4.2-5.4); White Blood Count 11.22 K/uL (4.8-10.8)
[2020-11-07 09:57] LABS: BUN Creatinine Ratio 16.2 (10-20); Calcium 9.2 mg/dl (8.5-10.1); Creatinine Clr Calc Pharmacy 52.6 ml/min; Est GFR (African American) 66.8 ml/min; Est GFR (Non-African American) 57.6 ml/min; Potassium 3.6 mmol/L (3.5-5.1)
--- NOTE | 2020-11-07 13:44 | Hospitalist Progress Note ---
Date of Service November 07, 2020 Assessment & Plan (1) Severe sepsis: Plan: Sepsis Obstructive uropathy, hydronephrosis Complicated urinary tract infection H/O recurrent UTIs/history stress/urge incontinence/obstructive uropathy Failed outpatient treatment with Ciprofloxacin -CT ABD:Interval removal of the bilateral ureteral stents. There is resolution of the previously described right-sided hydroureteronephrosis. Mild left-sided hydroureteronephrosis has progressed from comparison. No ureteral calculi identified. Equivocal urothelial thickening of the bilateral renal collecting systems. Correlate with urinalysis to exclude infection. Right greater than left bilateral nephrolithiasis. No bowel obstruction or bowel wall thickening. Hepatic steatosis. -Intravenous pyelogram: Mild hydronephrosis on the left and delayed excretion of the intravenous contrast from the left collecting system likely due to obstruction/stenosis within mid-distal aspect of the left ureter. Normal appearance and excretion of the contrast flow from the right collecting system. -S/P Cystoscopy with Bilateral Retrograde Pyelogram, Left ureteroscopy, Laser Endopyelotomy, and Stent Placement - Aguila Avendano, DO POD #1 Blood Cx:No growth to date Urine culture: Lactobacillus Urine Cx unreliable given partially treated with Cipro as outpatient Received Zosyn for 6 days Lactate levels normalized Appreciate urology input Plan to discharge on oral antibiotics to complete the course Needs follow-up with urology upon discharge HTN Bp stable Hypothyroidism Continue levothyroxine Mood disorder Continue Cymbalta H/O Paroxysmal atrial flutter Hypokalemia secondary to diuretic therapy past tobacco abuse Replace electrolytes as needed DVT Px: Lovenox SQ Code Status Full code Admission and Anticipated Discharge Date Admission Date: November 02, 2020 Subjective Patient is seen and examined at bedside Doing well Eager to get discharged Denies flank pain, chest pain, shortness of breath, dizziness, dysuria Review of Systems Review of Systems: All systems reviewed & are unremarkable except as noted in Subjective Physical Exam Physical Exam: Physical Exam: Vitals signs as noted above General Appearance:Moderately built and nourished, no apparent distress Head: normocephalic, Atraumatic Eyes: normal inspection, EOMI Neck: supple, Trachea midline Respiratory/Chest: Normal breath sounds, CTA, No accessory muscle use Cardiovascular: S1, S2, No murmur Abdomen/GI:Soft, non tender, Bowel sounds present Extremities/Musculoskeletal:normal inspection, no edema Neurologic/Psych:AAOX3, grossly no focal neurological deficits Skin: normal color, warm Results & Data Results & Data ([facility]) Vital Signs (Past 12 Hours) Vital Signs Temp Pulse Pulse Pulse Resp BP BP 11/07/20 12:34 37.0 C 61 20 109/72 11/07/20 09:00 74 11/07/20 07:15 57 L 11/07/20 07:05 36.4 C L 66 18 111/72 11/07/20 03:58 36.5 C 65 18 100/64 Pulse Ox 11/07/20 12:34 96 11/07/20 09:00 11/07/20 07:15 11/07/20 07:05 95 11/07/20 03:58 92 Laboratory Results Short CBC 11/07/20 Range/Units 09:02 WBC 11.22 H (4.8-10.8) K/uL Hgb 14.4 (12.0-16.0) g/dL Hct 43.0 (37-47) % Plt Count 393 (130-400) K/uL BMP 11/07/20 09:02 Sodium 137 Potassium 3.6 Chloride 105 Carbon Dioxide 27 BUN 16 Creatinine 0.98 Glucose 167 H Calcium 9.2
--- NOTE | 2020-11-07 14:00 | Discharge Summary ---
Date of Service November 07, 2020 Admission HPI Per Admitting Provider History obtained from patient and records. Medical history significant for hypertension, hyperlipidemia, paroxysmal atrial flutter as per records, GERD, IBS (constipation predominant), recurrent UTIs/history stress/urge incontinence as per records, ISSA on CPAP, past tobacco abuse. Last confinement August 2020 for sepsis secondary to unilateral obstructive uropathy. Patient underwent cystoscopy and bilateral ureteral stent removal/insertion. Transient atrial flutter during confinement. Stent subsequently removed outpatient last month due to discomfort. Outpatient renal ultrasound from 2 weeks ago showed: 1. Mild to moderate left-sided hydronephrosis. This has progressed in the interval. 2. Right-sided nephrolithiasis. 3. No right-sided hydronephrosis. Few days history of flank discomfort associated with dysuria and frequency symptoms, fever, chills. Subsequent nausea, emesis. Patient urologist prescribed Ciprofloxacin 2 days ago. CAT scan requested to rule out obstructive uropathy. Patient consulted ER for worsening symptoms. Received Daptomycin at the ER. Medical History as above Surgical History : Appendectomy, carpal tunnel surgery, urologic procedures, sinus surgery, cataract surgery, nasal septoplasty, PINA/BSO Family History : PTSD Personal/Social history : Past tobacco abuse, occasional EtOH intake, retired corporate secretary Admission Exam Per Admitting Provider Physical Exam Physical Exam: GENERAL: Slightly uncomfortable, obese, pleasant, no respiratory distress SKIN: Normal color, warm HEENT: [place] palpebral conjunctivae, no ptosis, dry buccal mucosa NECK : Supple, short neck, no tenderness CHEST : CTA, no tenderness HEART : RRR, no obvious murmurs ABDOMEN: Some distention, nontender EXTREMITIES : Minimal LE swelling, no LE tenderness, no other conspicuous deformities noted NEUROLOGIC : Coherent, no facial asymmetry, no other gross focality Principal Diagnosis Sepsis Obstructive uropathy, hydronephrosis Complicated urinary tract infection Discharge Data Allergies Allergy/AdvReac Type Severity Reaction Status Date / Time cephalexin Allergy Intermediate Hives Verified 11/06/20 12:30 Sulfa (Sulfonamide Allergy Intermediate HIVES Verified 11/06/20 12:30 Antibiotics) lisinopril AdvReac Mild Cough Verified 11/06/20 13:04 Consultations 11/02/20 00:01 ED Decision to Admit Stat 11/02/20 09:09 Consult Urology Routine Procedures Performed Operation Date: 11/06/20 11:35 Actual Procedures p Laser Endopyelotomy, Bilateral Retrograde Pyelogram, Left ureteroscopy(Bilateral) - DO juan pablo Valenzuela Left Stent Placement (Left) - DO juan pablo Valenzuela Cystoscopy (Bilateral) - Aguila Avendano DO Ordered Studies 11/01/20 21:53 CT abd pelvis wo con Urgent 11/06/20 12:00 FL retrograde includes kub Routine Hospital Course (1) Severe sepsis: Sepsis Obstructive uropathy, hydronephrosis Complicated urinary tract infection H/O recurrent UTIs/history stress/urge incontinence/obstructive uropathy Failed outpatient treatment with Ciprofloxacin -CT ABD:Interval removal of the bilateral ureteral stents. There is resolution of the previously described right-sided hydroureteronephrosis. Mild left-sided hydroureteronephrosis has progressed from comparison. No ureteral calculi identified. Equivocal urothelial thickening of the bilateral renal collecting systems. Correlate with urinalysis to exclude infection. Right greater than left bilateral nephrolithiasis. No bowel obstruction or bowel wall thickening. Hepatic steatosis. -Intravenous pyelogram: Mild hydronephrosis on the left and delayed excretion of the intravenous contrast from the left collecting system likely due to obstruction/stenosis within mid-distal aspect of the left ureter. Normal appearance and excretion of the contrast flow from the right collecting system. -S/P Cystoscopy with Bilateral Retrograde Pyelogram, Left ureteroscopy, Laser Endopyelotomy, and Stent Placement - Aguila Avendano DO POD #1 Blood Cx:No growth to date Urine culture: Lactobacillus Urine Cx unreliable given partially treated with Cipro as outpatient Received Zosyn for 6 days Lactate levels normalized Appreciate urology input Plan to discharge on oral antibiotics to complete the course Needs follow-up with urology upon discharge HTN Bp stable Hypothyroidism Continue levothyroxine Mood disorder Continue Cymbalta H/O Paroxysmal atrial flutter Hypokalemia secondary to diuretic therapy past tobacco abuse Replace electrolytes as needed DVT Px: Lovenox SQ Code Status Full code Total Time Total Time Spent Total Time Spent (In Minutes): 41 minutes Discharge Plan Discharge Items Patient Disposition: Home - Self-Care Reason For Visit: SEPSIS Discharge Diagnosis: Sepsis Obstructive uropathy, hydronephrosis Complicated urinary tract infection Activity: Per Instructions section Exercise/Sports: Gradually increase as tolerated Non-emergency contact: Primary Care Provider and Urologist Call non-emergency contact if: you have any medication questions, your symptoms worsen, your pain is concerning for you and you have a fever Follow-up/Referrals: Nader Clark MD [Primary Care Provider] - Diet: Heart Healthy Addtl Attending Provider Instructions: Follow-up with your primary care physician Dr. Clark on November 13, 2020 at 9:40 AM Follow-up with your urologist Dr. Lemons as recommended Complete antibiotic course (Ciprofloxacin) as previously prescribed for 5 more days. Seek immediate medical attention if your symptoms reoccur or worsen Please take all medications as instructed on discharge list below. Please call if you have any questions or problems. You can reach a [facility] hospitalist on duty at [facility] 24 hours a day by calling [phone] Pending Studies at Discharge: No Stand-Alone Forms: My [facility] Applimation, Smoking Cessation Medications and DC Order Prescriptions: Continued sumatriptan succinate [Imitrex] 100 mg Tablet 100 mg PO DIRECTED PRN (Reason: Migraine Headache) Qty: 0 RF: 0 albuterol sulfate [Ventolin HFA] 90 mcg/actuation Hfa Aerosol Inhaler 1 - 2 puff INHALATION Q6H PRN (Reason: Shortness Of Breath) Qty: 0 RF: 0 fluticasone propionate [Flonase Allergy Relief] 50 mcg/actuation [place],Suspension 1 spray intranasal DAILY PRN (Reason: Allergy Symptoms) Qty: 0 RF: 0 omeprazole magnesium [Prilosec OTC] 20 mg Tablet,Delayed Release (Dr/Ec) 20 mg PO DAILY PRN (Reason: HEARTBURN/INDIGESTION) Qty: 0 RF: 0 duloxetine 20 mg Capsule,Delayed Release(Dr/Ec) 20 mg PO BID Qty: 0 RF: 0 betamethasone dipropionate 0.05 % ointment 1 applic topical DAILY PRN (Reason: Skin Irritation) RF: 0 clobetasol [Temovate] 0.05 % cream 1 applic topical BID PRN (Reason: ITCHING SKIN) RF: 0 gabapentin 600 mg tablet 600 mg PO QPM RF: 0 hydroxyzine HCl 25 mg tablet 25 mg PO QID PRN (Reason: Itching) RF: 0 levocetirizine 5 mg tablet 5 mg PO QPM RF: 0 oxybutynin chloride 10 mg tablet extended release 24hr 10 mg PO QAM RF: 0 Probiotic Acidophilus Biobeads 12.9 mg (2 billion cell) tablet,delayed release (DR/EC) 1 tab PO QAM RF: 0 cyanocobalamin (vitamin B-12) 2,500 mcg tablet 2,500 mcg PO QAM RF: 0 cholecalciferol (vitamin D3) [Vitamin D3] 125 mcg (5,000 unit) tablet 125 mcg PO QAM RF: 0 tamsulosin 0.4 mg capsule 0.4 mg PO HS Qty: 30 RF: 0 ciprofloxacin HCl [Cipro] 500 mg tablet 500 mg PO BID Qty: 14 RF: 0 multivitamin Tablet 1 tab PO HS RF: 0 levothyroxine 75 mcg tablet 75 mcg PO QAM RF: 0 Medical Marijuana 1 dose sublingual UD PRN (Reason: RESTLESS LEG SYNDROME) RF: 0 Premarin 0.625 mg/gram cream 0.3125 mg vaginal DIRECTED RF: 0 phenazopyridine [Pyridium] 200 mg tablet 200 mg PO Q8H PRN (Reason: pain) Qty: 30 RF: 0 gabapentin 400 mg Capsule 400 mg PO QAM RF: 0 ascorbic acid (vitamin C) [Vitamin C] 500 mg Tablet 500 mg PO QAM RF: 0 magnesium oxide 500 mg Tablet 500 mg PO QPM RF: 0 metoprolol succinate 25 mg Tablet Extended Release 24 Hr 25 mg PO QAM Qty: 30 RF: 0 furosemide 20 mg Tablet 20 mg PO QAM Qty: 30 RF: 0 potassium chloride 10 mEq Capsule, Extended Release 10 meq PO DAILY Qty: 30 RF: 0 Discharge Orders: Discharge Order (Routine); Ordered 11/07/20 Ordered By: Jah Garcia Admission Data Admit Date/Time: 11/02/20 01:52 Attending Provider: Jah Garcia Admit Provider: Rony Duarte Primary Care Provider: Nader Clark Other Providers: Rony Duarte ; Oleksandr Byrne Other Interventions: Discharge Summary Assessment (RN) Last Done: 11/07/20 14:07
== END 2020-11-07 14:54 | disposition home or self-care (01) | DRG 854 ==
LOC: ED 19:10 → 2S 11-02 01:52 → 2W 11-04 17:38

== ENCOUNTER 2021-12-10 14:36 | Inpatient (IN) ==
[2021-12-10] MEDS ORDERED: CIPROFLOXACIN / D5W 400 MG/200 ML BAG IV STA (15:23)
[2021-12-10] MEDS ORDERED: DAPTOmycin 275 MG in SYRINGE 0 ML IV SCH (15:30)
--- NOTE | 2021-12-10 15:32 | Emergency Department Note ---
History of Present Illness General Chief complaint: Urinary Symptoms Time Seen by Provider: 12/10/21 15:13 History of Present Illness Maximum Pain Intensity: 5 76-year-old female presents to the ED with a chief complaint of right flank pain that started on Friday. She states that she has had intermittent pain since Friday. She describes it as a dull ache and sometimes a sharp pain. She had a fever last night with some chills. Her fever was up to 102. She took some Tylenol before coming in today. She does report similar symptoms with previous urinary tract infections. She states that she has had sepsis in the past. She also has a history of right-sided kidney stones and a dysfunctional left kidney. states that she was unable to get out of bed today and for this reason they brought her in for evaluation. Denies any upper respiratory symptoms. No additional complaints at this time. Home Medications Medication Instructions Recorded Confirmed Type albuterol sulfate 90 mcg/actuation 2 puff inhalation Q4 PRN Wheezing 03/19/16 12/10/21 History aerosol inhaler (Ventolin HFA) ##0 duloxetine 20 mg capsule,delayed 20 mg PO AMHS ##0 03/19/16 12/10/21 History release fluticasone propionate 50 1 spray intranasal DAILY PRN 03/19/16 11/01/20 History mcg/actuation nasal Allergy Symptoms ##0 spray,suspension (Flonase Allergy Relief) omeprazole magnesium 20 mg 20 mg PO DAILY PRN 03/19/16 11/01/20 History tablet,delayed release (Prilosec HEARTBURN/INDIGESTION ##0 OTC) sumatriptan succinate 100 mg 100 mg PO DIRECTED PRN Migraine 03/19/16 11/01/20 History tablet (Imitrex) Headache #0 tabs Medical Marijuana 1 dose sublingual UD PRN RESTLESS 06/03/20 11/01/20 History LEG SYNDROME levothyroxine 75 mcg tablet 75 mcg PO QAM 06/03/20 11/01/20 History multivitamin 1 tab PO HS 06/03/20 11/01/20 History L.acidoph-L.rhamn-B.bifidum-B.long 1 tab PO QAM 06/27/20 11/01/20 History 12.9 mg (2 billion cell) DR anastasiia (Probiotic Acidophilus Biobeads) gabapentin 600 mg tablet 600 mg PO QPM 06/27/20 12/10/21 History hydroxyzine HCl 25 mg tablet 25 mg PO QID PRN Itching 06/27/20 11/01/20 History levocetirizine 5 mg tablet 5 mg PO QPM 06/27/20 11/01/20 History oxybutynin chloride 10 mg 10 mg PO QAM 06/27/20 11/01/20 History tablet,extended release 24 hr gabapentin 400 mg capsule 400 mg PO .MORNING & MIDDAY 07/03/20 12/10/21 History magnesium oxide 500 mg tablet 500 mg PO QPM 08/10/20 11/01/20 History furosemide 20 mg tablet 20 mg PO QAM #30 tabs 08/15/20 11/01/20 Rx metoprolol succinate 25 mg 25 mg PO QAM #30 tabs 08/15/20 12/10/21 Rx tablet,extended release 24 hr potassium chloride 10 mEq 10 meq PO DAILY #30 caps 08/15/20 11/01/20 Rx capsule,extended release tamsulosin 0.4 mg capsule 0.4 mg PO HS #30 caps 10/31/20 11/01/20 Rx conjugated estrogens 0.625 mg/gram 0.3125 mg vaginal DIRECTED 11/01/20 11/01/20 History vaginal cream (Premarin) phenazopyridine 200 mg tablet 200 mg PO Q8H PRN pain #30 tabs 11/07/20 Rx (Pyridium) nitrofurantoin macrocrystal 100 mg 100 mg PO BID #6 caps 12/01/20 12/01/20 Rx capsule levothyroxine 88 mcg tablet 88 mcg PO DAILYBB 12/10/21 12/10/21 History (Synthroid) nitrofurantoin 100 mg PO HS 12/10/21 12/10/21 History monohydrate/macrocrystals 100 mg capsule omeprazole 20 mg capsule,delayed 20 mg PO DAILY PRN Heartburn 12/10/21 12/10/21 History release solifenacin 10 mg tablet 10 mg PO QAM 12/10/21 12/10/21 History Allergies Allergy/AdvReac Type Severity Reaction Status Date / Time cephalexin Allergy Intermediate Hives Verified 11/06/20 12:30 Sulfa (Sulfonamide Allergy Intermediate HIVES Verified 11/06/20 12:30 Antibiotics) lisinopril AdvReac Mild Cough Verified 11/06/20 13:04 Past Med/Surg History Medical History Acute pyelonephritis Arthritis GERD (gastroesophageal reflux disease) GERD (gastroesophageal reflux disease) Hypothyroidism Hypothyroidism IBS (irritable bowel syndrome) Kidney stone Migraine Overactive bladder Peripheral neuropathy Restless leg syndrome Restless leg syndrome, familial Sleep apnea CPAP, USING EVERY NIGHT. Surgical History H/O foot surgery R foot hammertoe correction 07/10/20 at [facility]. H/O sinus surgery H/O: hysterectomy History of appendectomy History of bladder surgery BLADDER TACK History of carpal tunnel release RT/LEFT History of cataract surgery RT/LEFT History of colonoscopy History of esophagogastroduodenoscopy (EGD) History of tonsillectomy History of tooth extraction Strabismus LEFT EYE REPAIRED Family History Other No family history of adverse response to anesthesia Social History Smoking Status: Former smoker Tobacco Type: Cigarettes packs per day: 1; Years Smoked: 30; Second Hand Exposure: No; Hx Alcohol Use: Yes Alcohol type: wine Hx Substance Use: Yes Last Used Substance: Unknown Last Used Substance Other:: ONLY RX MARIJUANA Substance Use Type Other:: Medical marijuana Preferred Language: Turkish Communication Ability: Effective Visual Impairment: No Limitations Hearing Ability: Normal Merchandise Clerk Required: No Beliefs That Will Affect Care: None marital status: Current Living Situation: Spouse current occupational status: retired How many Children do You have: 2 Feels Safe at Home: Yes Assistive Devices: None Review of Systems A total of 10 systems reviewed and were otherwise negative Physical Exam Vital Signs Vital Signs - 24 hr 12/10/21 14:40 12/10/21 15:23 12/10/21 14:43 Temperature 38 C H Temperature Source Oral Pulse Rate 90 88 Pulse Rate [Apical] Pulse Rate from SpO2 Sensor 88 Pulse Rhythm Regular Pulse Rhythm [Apical] Pulse Strength Normal Pulse Strength [Apical] Respiratory Rate 16 16 Respiratory Effort / Characteristics Non-Labored Spontaneous Respiratory Depth Normal Respiratory Pattern Regular Blood Pressure 109/60 Blood Pressure [Left Arm] Blood Pressure Mean 76 Blood Pressure Mean [Left Arm] Blood Pressure Position Semi-fowlers Blood Pressure Position [Left Arm] Pulse Oximetry 95 93 95 Oxygen Delivery Method Room Air Room Air Room Air Sepsis Recent Fever Within 48 Hours Yes Sepsis New/Unexplained Change in Mental Status Yes Sepsis Action Taken by Nursing No Action Required 12/10/21 15:00 12/10/21 15:00 12/10/21 15:30 Temperature Temperature Source Pulse Rate 88 Pulse Rate [Apical] Pulse Rate from SpO2 Sensor 90 Pulse Rhythm Pulse Rhythm [Apical] Pulse Strength Pulse Strength [Apical] Respiratory Rate 20 Respiratory Effort / Characteristics Respiratory Depth Respiratory Pattern Blood Pressure 104/54 L 117/62 Blood Pressure [Left Arm] Blood Pressure Mean 70 80 Blood Pressure Mean [Left Arm] Blood Pressure Position Blood Pressure Position [Left Arm] Pulse Oximetry 95 Oxygen Delivery Method Room Air Sepsis Recent Fever Within 48 Hours Sepsis New/Unexplained Change in Mental Status Sepsis Action Taken by Nursing 12/10/21 15:30 12/10/21 16:00 12/10/21 16:00 Temperature Temperature Source Pulse Rate 88 82 Pulse Rate [Apical] Pulse Rate from SpO2 Sensor 88 82 Pulse Rhythm Pulse Rhythm [Apical] Pulse Strength Pulse Strength [Apical] Respiratory Rate 14 11 L Respiratory Effort / Characteristics Respiratory Depth Respiratory Pattern Blood Pressure 92/73 L Blood Pressure [Left Arm] Blood Pressure Mean 79 Blood Pressure Mean [Left Arm] Blood Pressure Position Blood Pressure Position [Left Arm] Pulse Oximetry 95 93 Oxygen Delivery Method Room Air Room Air Sepsis Recent Fever Within 48 Hours Sepsis New/Unexplained Change in Mental Status Sepsis Action Taken by Nursing 12/10/21 16:30 12/10/21 16:30 12/10/21 17:00 Temperature Temperature Source Pulse Rate 80 Pulse Rate [Apical] Pulse Rate from SpO2 Sensor 80 Pulse Rhythm Pulse Rhythm [Apical] Pulse Strength Pulse Strength [Apical] Respiratory Rate 13 Respiratory Effort / Characteristics Respiratory Depth Respiratory Pattern Blood Pressure 97/62 L 95/57 L Blood Pressure [Left Arm] Blood Pressure Mean 73 69 Blood Pressure Mean [Left Arm] Blood Pressure Position Blood Pressure Position [Left Arm] Pulse Oximetry 94 Oxygen Delivery Method Sepsis Recent Fever Within 48 Hours Sepsis New/Unexplained Change in Mental Status Sepsis Action Taken by Nursing 12/10/21 17:00 12/10/21 17:30 12/10/21 17:30 Temperature Temperature Source Pulse Rate 74 75 Pulse Rate [Apical] Pulse Rate from SpO2 Sensor 74 75 Pulse Rhythm Pulse Rhythm [Apical] Pulse Strength Pulse Strength [Apical] Respiratory Rate 18 Respiratory Effort / Characteristics Respiratory Depth Respiratory Pattern Blood Pressure 89/56 L Blood Pressure [Left Arm] Blood Pressure Mean 67 Blood Pressure Mean [Left Arm] Blood Pressure Position Blood Pressure Position [Left Arm] Pulse Oximetry 93 91 Oxygen Delivery Method Sepsis Recent Fever Within 48 Hours Sepsis New/Unexplained Change in Mental Status Sepsis Action Taken by Nursing 12/10/21 18:00 12/10/21 18:00 12/10/21 19:23 Temperature Temperature Source Pulse Rate 71 Pulse Rate [Apical] 63 Pulse Rate from SpO2 Sensor 70 Pulse Rhythm Pulse Rhythm [Apical] Regular Pulse Strength Pulse Strength [Apical] Normal Respiratory Rate 16 18 Respiratory Effort / Characteristics Non-Labored Spontaneous Respiratory Depth Normal Respiratory Pattern Regular Blood Pressure 92/55 L Blood Pressure [Left Arm] 83/50 L Blood Pressure Mean 67 Blood Pressure Mean [Left Arm] 61 Blood Pressure Position Blood Pressure Position [Left Arm] Semi-fowlers Pulse Oximetry 94 96 Oxygen Delivery Method Room Air Sepsis Recent Fever Within 48 Hours Sepsis New/Unexplained Change in Mental Status Sepsis Action Taken by Nursing CONSTITUTIONAL/VITAL SIGNS: Reviewed / noted above. GENERAL: Non-toxic in appearance. INTEGUMENTARY: Warm, dry, and [place]. HEAD: Normocephalic. EYES: without scleral icterus or trauma. ENT/OROPHARYNX: clear and moist. LYMPHADENOPATHY/NECK: Is supple without lymphadenopathy or meningismus. RESPIRATORY: Clear to auscultation bilaterally. No increased work of breathing. CARDIOVASCULAR: Regular rate and rhythm. GI/ABDOMEN: Soft and nontender. No organomegaly or pulsatile mass. EXTREMITIES: Warm and well perfused. BACK: No CVA tenderness. NEUROLOGICAL: Intact without focal deficits. PSYCHIATRIC: normal affect. MUSCULOSKELETAL: Normally developed with good muscle tone. TRIAGE NURSING DOCUMENTATION REVIEWED. Course Administered Medications Lactated Ringer's (Lr) 1,000 mls @ 999 mls/hr IV .Q1H1M ONE Stop: 12/10/21 20:29 Last Admin: 12/10/21 19:37 Dose: 999 mls/hr Documented By: JAKE Discontinued Medications Ciprofloxacin (Cipro / D5w) 400 mg in 200 mls @ 100 mls/hr IV NOW STA; Protocol Stop: 12/10/21 17:22 Last Admin: 12/10/21 16:01 Dose: Not Given Documented By: PIA Daptomycin 275 mg/ Syringe 5.5 mls @ 2.75 mls/min IV Q24H RACHEL; Protocol Stop: 12/12/21 15:29 Last Admin: 12/10/21 16:01 Dose: Not Given Documented By: PIA Ampicillin Sodium/Sulbactam Sodium 3,000 mg/ Sodium Chloride 108 mls @ 200 mls/hr IV NOW STA; Protocol Stop: 12/10/21 16:13 Last Infusion: 12/10/21 17:49 Dose: 0 mls/hr Documented By: Admin: 12/10/21 16:56 Dose: 200 mls/hr Documented By: PIA Medical Decision Making Differential Diagnosis Differential includes viral illness, influenza, streptococcal pharyngitis, meningitis, pneumonia, sinusitis, UTI, pyelonephritis, otitis media. Medical Records Attestation: I reviewed the patient's medical records. Home Medications Current Medication List: was personally reviewed by me Laboratory Data Attestation: I reviewed the patient's lab results. Result diagrams: 12/10/21 15:50 12/10/21 15:50 Lab Results 12/10/21 12/10/21 12/10/21 Range/Units 15:47 15:50 15:50 WBC 17.98 H (4.8-10.8) K/ul RBC 4.36 (3.93-5.22) M/uL Hgb 12.8 (12.0-16.0) g/dl Hct 38.0 (34.1-44.9) % MCV 87.2 (80.0-100.0) fL MCH 29.4 (25.0-34.0) pg MCHC 33.7 (32.0-36.0) g/dL RDW Std Deviation 44.8 (36.4-46.3) fL RDW Coeff of [place] 14.0 (11.5-14.5) % Plt Count 180 (130-400) K/uL MPV 10.0 (9.4-12.3) fL Immature Gran % (Auto) 0.6 % Neut % (Auto) 88.1 % Lymph % (Auto) 3.3 % [place] % (Auto) 7.8 % Eos % (Auto) 0.0 % Baso % (Auto) 0.2 % Neut # (Auto) 15.85 H (1.4-6.5) K/uL Lymph # (Auto) 0.59 L (1.2-3.4) K/uL [place] # (Auto) 1.40 H (0.24-0.82) K/uL Eos # (Auto) 0.00 (0-0.50) K/uL Baso # (Auto) 0.04 (0-0.2) K/uL Immature Gran # (Auto) 0.10 H (0.00-0.02) K/uL PT 12.5 H (9.0-12.0) Seconds INR 1.2 H (0.9-1.1) APTT 29.5 (21.0-31.0) Seconds PTT Ratio 1.1 Sodium (136-145) mmol/L Potassium (3.5-5.1) mmol/L Chloride (98-107) mmol/L Carbon Dioxide (21-32) mmol/L Anion Gap (3-11) BUN (6-23) mg/dl Creatinine (0.6-1.2) mg/dl Est Cr Clr Drug Dosing ml/min Est GFR ( Amer) ml/min Est GFR (Non-Af Amer) ml/min BUN/Creatinine Ratio (10-20) Glucose (70-99(Fasting)) mg/dl Lactate (0.4-2.0) mmol/L Calcium (8.5-10.1) mg/dl Magnesium (1.7-2.4) mg/dl Total Bilirubin (0.2-1.0) mg/dl AST (13-39) U/L ALT (7-52) U/L Alkaline Phosphatase (34-104) U/L Total Protein (6.0-8.3) gm/dl Albumin (3.4-5.0) gm/dl Globulin (2.5-4.0) gm/dl Albumin/Globulin Ratio (0.9-2) Procalcitonin (0-0.5) ng/ml Urine Color Urine Appearance (Clear) Urine pH (4.5-7.5) Ur Specific [place] (1.000-1.030) Urine Protein (Negative) Urine Glucose (UA) (Negative) Urine Ketones (Negative) Urine Blood (Negative) Urine Nitrite (Negative) Urine Bilirubin (Negative) Urine Urobilinogen (Negative) Ur Leukocyte Esterase (Negative) Urine WBC (Auto) (0-5) /hpf Urine RBC (Auto) (0-4) /hpf U Hyaline Cast (Auto) (0-5) /lpf U Epithel Cells (Auto) (0-5) /lpf Urine Bacteria (Auto) (Negative) SARS-CoV-2, RNA, NAAT NEGATIVE (NEGATIVE) 12/10/21 12/10/21 12/10/21 Range/Units 15:50 15:50 15:50 WBC (4.8-10.8) K/ul RBC (3.93-5.22) M/uL Hgb (12.0-16.0) g/dl Hct (34.1-44.9) % MCV (80.0-100.0) fL MCH (25.0-34.0) pg MCHC (32.0-36.0) g/dL RDW Std Deviation (36.4-46.3) fL RDW Coeff of [place] (11.5-14.5) % Plt Count (130-400) K/uL MPV (9.4-12.3) fL Immature Gran % (Auto) % Neut % (Auto) % Lymph % (Auto) % [place] % (Auto) % Eos % (Auto) % Baso % (Auto) % Neut # (Auto) (1.4-6.5) K/uL Lymph # (Auto) (1.2-3.4) K/uL [place] # (Auto) (0.24-0.82) K/uL Eos # (Auto) (0-0.50) K/uL Baso # (Auto) (0-0.2) K/uL Immature Gran # (Auto) (0.00-0.02) K/uL PT (9.0-12.0) Seconds INR (0.9-1.1) APTT (21.0-31.0) Seconds PTT Ratio Sodium 134 L (136-145) mmol/L Potassium 3.9 (3.5-5.1) mmol/L Chloride 101 (98-107) mmol/L Carbon Dioxide 24 (21-32) mmol/L Anion Gap 9 (3-11) BUN 26 H (6-23) mg/dl Creatinine 1.62 H (0.6-1.2) mg/dl Est Cr Clr Drug Dosing 32.4 ml/min Est GFR ( Amer) 35.9 ml/min Est GFR (Non-Af Amer) 30.9 ml/min BUN/Creatinine Ratio 16.0 (10-20) Glucose 108 H (70-99(Fasting)) mg/dl Lactate 1.0 (0.4-2.0) mmol/L Calcium 8.8 (8.5-10.1) mg/dl Magnesium 1.6 L (1.7-2.4) mg/dl Total Bilirubin 1.1 H (0.2-1.0) mg/dl AST 21 (13-39) U/L ALT 26 (7-52) U/L Alkaline Phosphatase 79 (34-104) U/L Total Protein 6.8 (6.0-8.3) gm/dl Albumin 3.9 (3.4-5.0) gm/dl Globulin 2.9 (2.5-4.0) gm/dl Albumin/Globulin Ratio 1.3 (0.9-2) Procalcitonin 4.11 H (0-0.5) ng/ml Urine Color Urine Appearance (Clear) Urine pH (4.5-7.5) Ur Specific [place] (1.000-1.030) Urine Protein (Negative) Urine Glucose (UA) (Negative) Urine Ketones (Negative) Urine Blood (Negative) Urine Nitrite (Negative) Urine Bilirubin (Negative) Urine Urobilinogen (Negative) Ur Leukocyte Esterase (Negative) Urine WBC (Auto) (0-5) /hpf Urine RBC (Auto) (0-4) /hpf U Hyaline Cast (Auto) (0-5) /lpf U Epithel Cells (Auto) (0-5) /lpf Urine Bacteria (Auto) (Negative) SARS-CoV-2, RNA, NAAT (NEGATIVE) 12/10/21 Range/Units 16:47 WBC (4.8-10.8) K/ul RBC (3.93-5.22) M/uL Hgb (12.0-16.0) g/dl Hct (34.1-44.9) % MCV (80.0-100.0) fL MCH (25.0-34.0) pg MCHC (32.0-36.0) g/dL RDW Std Deviation (36.4-46.3) fL RDW Coeff of [place] (11.5-14.5) % Plt Count (130-400) K/uL MPV (9.4-12.3) fL Immature Gran % (Auto) % Neut % (Auto) % Lymph % (Auto) % [place] % (Auto) % Eos % (Auto) % Baso % (Auto) % Neut # (Auto) (1.4-6.5) K/uL Lymph # (Auto) (1.2-3.4) K/uL [place] # (Auto) (0.24-0.82) K/uL Eos # (Auto) (0-0.50) K/uL Baso # (Auto) (0-0.2) K/uL Immature Gran # (Auto) (0.00-0.02) K/uL PT (9.0-12.0) Seconds INR (0.9-1.1) APTT (21.0-31.0) Seconds PTT Ratio Sodium (136-145) mmol/L Potassium (3.5-5.1) mmol/L Chloride (98-107) mmol/L Carbon Dioxide (21-32) mmol/L Anion Gap (3-11) BUN (6-23) mg/dl Creatinine (0.6-1.2) mg/dl Est Cr Clr Drug Dosing ml/min Est GFR ( Amer) ml/min Est GFR (Non-Af Amer) ml/min BUN/Creatinine Ratio (10-20) Glucose (70-99(Fasting)) mg/dl Lactate (0.4-2.0) mmol/L Calcium (8.5-10.1) mg/dl Magnesium (1.7-2.4) mg/dl Total Bilirubin (0.2-1.0) mg/dl AST (13-39) U/L ALT (7-52) U/L Alkaline Phosphatase (34-104) U/L Total Protein (6.0-8.3) gm/dl Albumin (3.4-5.0) gm/dl Globulin (2.5-4.0) gm/dl Albumin/Globulin Ratio (0.9-2) Procalcitonin (0-0.5) ng/ml Urine Color Yellow Urine Appearance Cloudy A (Clear) Urine pH 6.0 (4.5-7.5) Ur Specific [place] 1.011 (1.000-1.030) Urine Protein 1+ H (Negative) Urine Glucose (UA) Negative (Negative) Urine Ketones Negative (Negative) Urine Blood 2+ H (Negative) Urine Nitrite Negative (Negative) Urine Bilirubin Negative (Negative) Urine Urobilinogen Negative (Negative) Ur Leukocyte Esterase 3+ H (Negative) Urine WBC (Auto) >30 H (0-5) /hpf Urine RBC (Auto) 0-4 (0-4) /hpf U Hyaline Cast (Auto) 0 (0-5) /lpf U Epithel Cells (Auto) 0-5 (0-5) /lpf Urine Bacteria (Auto) 1+ H (Negative) SARS-CoV-2, RNA, NAAT (NEGATIVE) Imaging Data Radiologist's Impression: Chest X-Ray 12/10/21 15:23 XR chest 1V portable CLINICAL HISTORY: SEPSIS COMPARISON STUDY: Chest CT August 2020. Chest CT November 01, 2020. FINDINGS: Lung volumes are normal. Lungs are clear. There is no pneumothorax or pleural effusion. Cardiac size is normal. Mediastinal contours are normal. There is no evidence for pulmonary edema. IMPRESSION: No acute cardiopulmonary findings. ACT 112: Negative or not required by law. Electronically signed by: Nick Oreilly M.D. 12/10/2021 3:48 PM Abdomen/Pelvis CT 12/10/21 17:45 CT OF THE ABDOMEN AND PELVIS WITHOUT CONTRAST CLINICAL HISTORY: Right flank pain. COMPARISON STUDY: CT of the abdomen and pelvis October 20, 2021. IVP December 07, 2021. TECHNIQUE: Axial images of the abdomen and pelvis were obtained without IV contrast. Images were reviewed in the axial, sagittal, and coronal planes. Automated exposure control was utilized for the study. A dose lowering technique was utilized adhering to the principles of ALARA. FINDINGS: Lung bases are unremarkable. No pneumatosis, free air or portal venous gas is present. Moderate right hydroureteronephrosis has developed since CT of October 20, 2021 and is similar to IVP of December 07, 2021. This is due to a 4 mm mid to distal right ureteral calculus at the level of the inferior sacroiliac joint. No additional ureteral calculi are present. Numerous right renal calculi measure up to 4 mm. Moderate left hydronephrosis with normal caliber left ureter is noted. Left hydronephrosis has decreased since CT of October 20, 2021. There are no left-sided urinary calculi. Evaluation of the remainder of the abdomen and pelvis is suboptimal on this unenhanced exam. There is hepatic steatosis. Unenhanced images of the spleen, adrenal glands and pancreas are unremarkable. No evidence for a bowel obstruction. A moderate amount of stool is noted. There is no lymphadenopathy. No acute fracture or suspicious lesion within the visual ized skeletal structures is present. IMPRESSION: 1. Moderate right hydroureteronephrosis due to a 4 mm mid to distal right ureteral calculus as described above. 2. Moderate left hydronephrosis with normal caliber left ureter. Etiology for hydronephrosis not clear on this exam however decreased since CT of October 20, 2021. No left-sided urinary calculi. 3. Right-sided nephrolithiasis. 4. No bowel obstruction. Moderate amount of stool within the colon. 5. Hepatic steatosis. ACT 112: Negative or not required by law. Electronically signed by: Nick Oreilly M.D. 12/10/2021 6:45 PM ECG Data Attestation: I personally reviewed and interpreted this ECG as follows: Additional Comments: Twelve-lead EKG: Per my interpretation shows normal sinus rhythm at a rate of 89. No ST elevation. No PVCs. Normal QTC. MDM Narrative 36-year-old female presents to the ED with a chief complaint of right flank pain as well as a fever with history of sepsis from urinary tract infections in the past. She is chronically on Macrobid. Symptoms started on Friday. states that she was unable to get out of bed today and for this reason they brought her in for evaluation. Vital signs reveal temperature of 38. Otherwise normal vital signs. Exam was relatively unremarkable. Mild generalized weakness. No distress. EKG shows a normal sinus rhythm. The white blood cell count is elevated at 17.98. BUN is 26 and creatinine is 1.6. Procalcitonin is elevated at 4.1. Urine appears to be infected. Chest x-ray was negative for acute disease. COVID test was negative. CT scan shows a distal 4 mm ureteral calculus with some hydronephrosis. I did speak with Dr. Avendano about this patient. He will see the patient urologic intervention. I also spoke with the hospitalist who will see the patient for admission. Patient was given IV Unasyn as well as some IV fluids Impression & Plan UTI (urinary tract infection), Calculus, ureteral, Renal colic Discharge Plan Visit Data Chief Complaint: Urinary Symptoms ED Provider: Oswald Carmona Discharge Problem: UTI (urinary tract infection), Calculus, ureteral, Renal colic Patient Disposition: Being Evaluated by Hospitalist Forms Stand Alone Forms: [facility] Prescriptions Prescriptions: No Action sumatriptan succinate [Imitrex] 100 mg Tablet 100 mg PO DIRECTED MDD 2 tablets in 24 hours PRN (Reason: Migraine Headache) Qty: 0 Rx Instructions: take at onset of headache albuterol sulfate [Ventolin HFA] 90 mcg/actuation Hfa Aerosol Inhaler 2 puff INHALATION Q4 PRN (Reason: Wheezing) Qty: 0 fluticasone propionate [Flonase Allergy Relief] 50 mcg/actuation [place],Suspension 1 spray intranasal DAILY PRN (Reason: Allergy Symptoms) Qty: 0 omeprazole magnesium [Prilosec OTC] 20 mg Tablet,Delayed Release (Dr/Ec) 20 mg PO DAILY PRN (Reason: HEARTBURN/INDIGESTION) Qty: 0 duloxetine 20 mg Capsule,Delayed Release(Dr/Ec) 20 mg PO AMHS Qty: 0 nitrofurantoin macrocrystal 100 mg capsule 100 mg PO BID Qty: 6 11RF Rx Instructions: must administer with a meal/food gabapentin 600 mg tablet 600 mg PO QPM hydroxyzine HCl 25 mg tablet 25 mg PO QID PRN (Reason: Itching) levocetirizine 5 mg tablet 5 mg PO QPM oxybutynin chloride 10 mg tablet extended release 24hr 10 mg PO QAM Probiotic Acidophilus Biobeads 12.9 mg (2 billion cell) tablet,delayed release (DR/EC) 1 tab PO QAM tamsulosin 0.4 mg capsule 0.4 mg PO HS Qty: 30 0RF multivitamin Tablet 1 tab PO HS levothyroxine 75 mcg tablet 75 mcg PO QAM Medical Marijuana 1 dose sublingual UD PRN (Reason: RESTLESS LEG SYNDROME) Label Comments: USES ORAL AND VIA CREAM FORM Premarin 0.625 mg/gram cream 0.3125 mg vaginal DIRECTED Rx Instructions: 2-4 x per week. phenazopyridine [Pyridium] 200 mg tablet 200 mg PO Q8H PRN (Reason: pain) Qty: 30 0RF gabapentin 400 mg Capsule 400 mg PO .MORNING & MIDDAY magnesium oxide 500 mg Tablet 500 mg PO QPM metoprolol succinate 25 mg Tablet Extended Release 24 Hr 25 mg PO QAM Qty: 30 0RF furosemide 20 mg Tablet 20 mg PO QAM Qty: 30 0RF potassium chloride 10 mEq Capsule, Extended Release 10 meq PO DAILY Qty: 30 0RF omeprazole 20 mg capsule,delayed release(DR/EC) 20 mg PO DAILY PRN (Reason: Heartburn) levothyroxine [Synthroid] 88 mcg tablet 88 mcg PO DAILYBB nitrofurantoin monohyd/m-cryst 100 mg capsule 100 mg PO HS solifenacin 10 mg tablet 10 mg PO QAM Referrals Referrals: Nader Clark MD [Primary Care Provider] -
[2021-12-10] MEDS ORDERED: AMPICILLIN/SULBACTAM SOD 3,000 MG in 0.9 % SODIUM CHLORIDE 100 ML IV STA (15:41)
--- NOTE | 2021-12-10 15:51 | XRay Report ---
XR chest 1V portable CLINICAL HISTORY: SEPSIS COMPARISON STUDY: Chest CT August 2020. Chest CT November 01, 2020. FINDINGS: Lung volumes are normal. Lungs are clear. There is no pneumothorax or pleural effusion. Car diac size is normal. Mediastinal contours are normal. There is no evidence for pulmonary edema. IMPRESSION: No acute cardiopulmonary findings. ACT 112: Negative or not required by law. Electronically signed by: Nick Oreilly M.D. 12/10/2021 3:48 PM
[2021-12-10 16:08] LABS: Basophils # (auto) 0.04 K/uL (0-0.2); Basophils % (auto) 0.2 %; Hemoglobin 12.8 g/dl (12.0-16.0); Immature Granulocytes % (auto) 0.6 %; Lymphocytes # (auto) 0.59 K/uL (1.2-3.4); Lymphocytes % (auto) 3.3 %; Mean Corpuscular Hemoglobin 29.4 pg (25.0-34.0); Mean Corpuscular Hgb Conc 33.7 g/dL (32.0-36.0); Mean Corpuscular Volume 87.2 fL (80.0-100.0); Monocytes % (auto) 7.8 %; Neutrophils # (auto) 15.85 K/uL (1.4-6.5); Neutrophils % (auto) 88.1 %; Platelet Count 180 K/uL (130-400); RDW Standard Deviation 44.8 fL (36.4-46.3); Red Blood Count 4.36 M/uL (3.93-5.22); White Blood Count 17.98 K/ul (4.8-10.8)
[2021-12-10 16:19] LABS: INR 1.2 (0.9-1.1); Partial Thromboplastin Ratio 1.1; Partial Thromboplastin Time 29.5 Seconds (21.0-31.0); Prothrombin Time 12.5 Seconds (9.0-12.0)
[2021-12-10 16:32] LABS: Albumin Globulin Ratio 1.3 (0.9-2); Albumin Level 3.9 gm/dl (3.4-5.0); Bilirubin,Total 1.1 mg/dl (0.2-1.0); Calcium 8.8 mg/dl (8.5-10.1); Creatinine Clr Calc Pharmacy 32.4 ml/min; Est GFR (African American) 35.9 ml/min; Est GFR (Non-African American) 30.9 ml/min; Globulin 2.9 gm/dl (2.5-4.0); Magnesium 1.6 mg/dl (1.7-2.4); Potassium 3.9 mmol/L (3.5-5.1); Total Protein 6.8 gm/dl (6.0-8.3)
[2021-12-10 17:07] LABS: Appearance Urine Cloudy (Clear); Bacteria Urine Automated 1+ (Negative); Bilirubin Urine Negative (Negative); Blood Urine 2+ (Negative); Cast Urine Automated 0 /lpf (0-5); Color Urine Yellow; Epithelial Cell Urine Auto 0-5 /lpf (0-5); Glucose Urine UA Negative (Negative); Ketones Urine Negative (Negative); Leukocyte Esterase Urine 3+ (Negative); Nitrite Urine Negative (Negative); Protein Urine 1+ (Negative); RBC Urine Automated 0-4 /hpf (0-4); Specific Gravity Urine 1.011 (1.000-1.030); Urobilinogen Urine Negative (Negative); WBC Urine Automated >30 /hpf (0-5)
--- NOTE | 2021-12-10 18:47 | CT Scan Report ---
CT OF THE ABDOMEN AND PELVIS WITHOUT CONTRAST CLINICAL HISTORY: Right flank pain. COMPARISON STUDY: CT of the abdomen and pelvis October 20, 2021. IVP December 07, 2021. TECHNIQUE: Axial images of the abdomen and pelvis were obtained without IV contrast. Images were revi ewed in the axial, sagittal, and coronal planes. Automated exposure control was utilized for the kristopher dy. A dose lowering technique was utilized adhering to the principles of ALARA. FINDINGS: Lung bases are unremarkable. No pneumatosis, free air or portal venous gas is present. Mode rate right hydroureteronephrosis has developed since CT of October 20, 2021 and is similar to IVP of [facility] [place]. This is due to a 4 mm mid to distal right ureteral calculus at the level of the infer ior sacroiliac joint. No additional ureteral calculi are present. Numerous right renal calculi measur e up to 4 mm. Moderate left hydronephrosis with normal caliber left ureter is noted. Left hydronephro sis has decreased since CT of October 20, 2021. There are no left-sided urinary calculi. Evaluation of t he remainder of the abdomen and pelvis is suboptimal on this unenhanced exam. There is hepatic steato sis. Unenhanced images of the spleen, adrenal glands and pancreas are unremarkable. No evidence for a bowel obstruction. A moderate amount of stool is noted. There is no lymphadenopathy. No acute fractu re or suspicious lesion within the visualized skeletal structures is present. IMPRESSION: 1. Moderate right hydroureteronephrosis due to a 4 mm mid to distal right ureteral calculus as descri bed above. 2. Moderate left hydronephrosis with normal caliber left ureter. Etiology for hydronephrosis not obed r on this exam however decreased since CT of October 20, 2021. No left-sided urinary calculi. 3. Right-sided nephrolithiasis. 4. No bowel obstruction. Moderate amount of stool within the colon. 5. Hepatic steatosis. ACT 112: Negative or not required by law. Electronically signed by: Nick Oreilly M.D. 12/10/2021 6:45 PM
[2021-12-10] MEDS ORDERED: LACTATED RINGER'S 1,000 ML IV ONE ×3 (19:29→22:42)
[2021-12-10] MEDS ORDERED: ATROPINE SULFATE 0.1 MG/ML 10ML SYR IV PRN (19:49)
[2021-12-10] MEDS ORDERED: ONDANSETRON INJ 2 MG/ML 2 ML VIAL IV PRN (19:49)
[2021-12-10] MEDS ORDERED: fentaNYL citrate 100 MCG/2 ML VIAL IV PRN (19:49)
--- NOTE | 2021-12-10 19:50 | Urology Consultation ---
Date of Consultation December 10, 2021 Assessment & Plan (1) Severe sepsis: (2) Acute pyelonephritis: (3) Hypokalemia: (4) Complicated UTI (urinary tract infection): (5) Calculus, ureteral: Plan Patient acutely ill with worsening fever. Has been dealing with issues over the last few days. Has increased in issues. Had a 102 temperature at home. In the ER patient's temperature is 38. Patient is dealing with hypotension. Has undergone some volume resuscitation. Is going under active critical management of likely severe sepsis with concern for hypotension and significantly elevated white count and fever. Patient has complicated urologic history. No significant family history of malignancy. Has issues with stones in the past. Has history of a hydronephrosis on the left that was found to be stricture disease with severe narrowing caused to a pinpoint stricture that was managed with endopyelotomy. Patient had been seen approximately a year ago for stent removal. Patient now has right-sided stones on CT scan with significant hydronephrosis on the right which is new. 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 It does appear to be improved from patient's most recent imaging which was done earlier in the summer. All the imaging was reviewed interpreted by myself. Patient has obstructing right-sided stone on the distal portion of the ureter causing considerable hydronephrosis. Patient has been given broad-spectrum antibiotics with Unasyn. e. Patient undergoing acute management. Anesthesia has been alerted and is actively managing as well. Patient will need urgent/emergent placement of stent for decompression of system. We will plan to attempt aspiration of urine from right side in order to send for culture due to severe sepsis. Patient has additional labs including cultures that are sent and pending. Patient's current labs were all reviewed patient has a significant white count. Has some electrolyte abnormality with hypokalemia. Patient is actively and acutely ill and undergoing critical management and assessment with plans for admission for close monitoring and management. Extensively reviewed issues. Discussed need for urgent/emergent stent placement due to severe sepsis with obstructing stone. Reviewed extensively. Discussed risk and benefits. Alternatives including options for observation were discussed. Discussed possible other options such as nephrostomy tube. These were reviewed extensively. We will plan to set patient up for cystoscopy with right stent placement emergently for severe sepsis with obstructing stone History of Present Illness History of Present Illness Urgent/emergent consultation for acutely ill and septic patient with UTI/Pyelo, discomfort, and ill feelings. Patient developed sudden onset of pain into flank going down and radiating into groin and back in waves comes and goes. Can be severe at times. Discussed and reviewed patient's personal medical, surgical, social, and family history for any history of issues, infections, and disease. Also, discussed patient's medical/surgery history especially related to any history of urinary issues or stone disease. Patient is undergoing intense/critical management for acute illness and is being admitted to undergo critical care. Hospitalist/ICU team has admitted and is undergoing observation with broad spectrum IV antibiotics. Allergies Allergy/AdvReac Type Severity Reaction Status Date / Time cephalexin Allergy Intermediate Hives Verified 12/10/21 19:43 Sulfa (Sulfonamide Allergy Intermediate HIVES Verified 12/10/21 19:43 Antibiotics) lisinopril AdvReac Mild Cough Verified 12/10/21 19:43 Home Medications Medication Instructions Recorded Confirmed Type albuterol sulfate 90 mcg/actuation 2 puff inhalation Q4 PRN Wheezing 03/19/16 12/10/21 History aerosol inhaler (Ventolin HFA) ##0 duloxetine 20 mg capsule,delayed 20 mg PO AMHS ##0 03/19/16 12/10/21 History release fluticasone propionate 50 2 spray intranasal QAM ##0 03/19/16 12/10/21 History mcg/actuation nasal spray,suspension (Flonase Allergy Relief) sumatriptan succinate 100 mg 100 mg PO DIRECTED PRN Migraine 03/19/16 12/10/21 History tablet (Imitrex) Headache #0 tabs Medical Marijuana 1 dose sublingual UD PRN RESTLESS 06/03/20 12/10/21 History LEG SYNDROME L.acidoph-L.rhamn-B.bifidum-B.long 1 tab PO QAM 06/27/20 12/10/21 History 12.9 mg (2 billion cell) DR anastasiia (Probiotic Acidophilus Tracy) gabapentin 600 mg tablet 600 mg PO QPM 06/27/20 12/10/21 History hydroxyzine HCl 25 mg tablet 25 mg PO Q6 PRN Itching 06/27/20 12/10/21 History levocetirizine 5 mg tablet 5 mg PO HS 06/27/20 12/10/21 History gabapentin 400 mg capsule 400 mg PO .MORNING & MIDDAY 07/03/20 12/10/21 History metoprolol succinate 25 mg 25 mg PO QAM #30 tabs 08/15/20 12/10/21 Rx tablet,extended release 24 hr cyclosporine 0.05 % eye drops in a 1 drp ophthalmic (eye) HS 12/10/21 12/10/21 History dropperette (Restasis) levothyroxine 88 mcg tablet 88 mcg PO DAILYBB 12/10/21 12/10/21 History (Synthroid) nitrofurantoin 100 mg PO HS 12/10/21 12/10/21 History monohydrate/macrocrystals 100 mg capsule omeprazole 20 mg capsule,delayed 20 mg PO DAILY PRN Heartburn 12/10/21 12/10/21 History release solifenacin 10 mg tablet 10 mg PO QAM 12/10/21 12/10/21 History Patient History Medical History (Updated 12/10/21 @ 20:22 by Telly Cabrera MD) Acute pyelonephritis Arthritis GERD (gastroesophageal reflux disease) GERD (gastroesophageal reflux disease) Hypothyroidism Hypothyroidism IBS (irritable bowel syndrome) Kidney stone Migraine Overactive bladder Peripheral neuropathy Restless leg syndrome Restless leg syndrome, familial Sleep apnea CPAP, USING EVERY NIGHT. Surgical History H/O foot surgery R foot hammertoe correction 07/10/20 at [facility]. H/O sinus surgery H/O: hysterectomy History of appendectomy History of bladder surgery BLADDER TACK History of carpal tunnel release RT/LEFT History of cataract surgery RT/LEFT History of colonoscopy History of esophagogastroduodenoscopy (EGD) History of tonsillectomy History of tooth extraction Strabismus LEFT EYE REPAIRED Family History Other No family history of adverse response to anesthesia Social History Smoking Status: Former smoker Tobacco Type: Cigarettes packs per day: 1; Years Smoked: 30; Second Hand Exposure: No; Hx Alcohol Use: Yes Alcohol type: wine Hx Substance Use: Yes Last Used Substance: Unknown Last Used Substance Other:: ONLY RX MARIJUANA Substance Use Type Other:: Medical marijuana Preferred Language: Lao Communication Ability: Effective Visual Impairment: No Limitations Hearing Ability: Normal Director Of Content Marketing Required: No Beliefs That Will Affect Care: None marital status: Current Living Situation: Spouse current occupational status: retired How many Children do You have: 2 Feels Safe at Home: Yes Assistive Devices: None Review of Systems Review of Systems: All systems reviewed & are unremarkable except as noted in HPI & below Physical Exam Physical Exam: General: Acutely ill. Undergoing critical care management for acute severe infection HEENT: Normocephalic Atraumatic. Inspection normal. Cranial Nerves 2-12 Grossly intact. Nares are clear. Neck is supple. Normal inspection of face. Normal inspection of neck. Neurologic: No deficits on inspection. Baseline for motor function and sensory. Psychologic: Anxious/ acute illness Respiratory: Mild labored. No use of accessory muscles. No severe dyspnea. Cardiovascular: tachycardia Skin: [place] and Dry. No rashes or visible lesions. Febrile Extremities: Moving without issues. No motor deficits on inspection Lymphatics: Mild edema Abdomen: Mildly distended. No rebound or guarding. Mild suprapubic/flank tenderness Results & Data ([facility]) Vital Signs (Past 12 Hours) Vital Signs Temp Pulse Pulse Resp BP BP Pulse Ox 12/10/21 19:23 63 18 83/50 L 96 12/10/21 18:00 71 16 94 12/10/21 18:00 92/55 L 12/10/21 17:30 75 18 91 12/10/21 17:30 89/56 L 12/10/21 17:00 74 93 12/10/21 17:00 95/57 L 12/10/21 16:30 80 13 94 12/10/21 16:30 97/62 L 12/10/21 16:00 82 11 L 93 12/10/21 16:00 92/73 L 12/10/21 15:30 88 14 95 12/10/21 15:30 117/62 12/10/21 15:00 88 20 95 12/10/21 15:00 104/54 L 12/10/21 14:43 88 16 95 12/10/21 15:23 93 12/10/21 14:40 38 C H 90 16 109/60 95 O2 Del Method 12/10/21 19:23 Room Air 12/10/21 18:00 09/05/22 18:00 12/10/21 17:30 12/10/21 17:30 12/10/21 17:00 12/10/21 17:00 12/10/21 16:30 12/10/21 16:30 12/10/21 16:00 Room Air 12/10/21 16:00 12/10/21 15:30 Room Air 12/10/21 15:30 12/10/21 15:00 Room Air 12/10/21 15:00 12/10/21 14:43 Room Air 12/10/21 15:23 Room Air 12/10/21 14:40 Room Air PG Care Time/CCT Total # of Minutes Spent Total Time Spent with Patient: Total time spent is greater than 50% in coordination of care (as documented) at patient's floor/unit and/or counseling patient: Coding Level of Care Code 97409 Inpt Consult Level 5 Diagnoses Severe sepsis A41.9; R65.20 Acute pyelonephritis N10 Hypokalemia E87.6 Complicated UTI (urinary tract infection) N39.0 Calculus, ureteral N20.1
[2021-12-10] MEDS ORDERED: POLYETHYLENE (MIRALAX) 17 GM PACK PO PRN (19:52)
--- NOTE | 2021-12-10 19:53 | Anesthesiology Consultation ---
Date of Service December 10, 2021 Assessment & Plan (1) Encounter for pre-operative examination: Chart Review Chart Review: Acceptable Risk for Surgery and Patient NOT seen in Pre Admission Testing Consults Requested none History Surgery Operation Date: 12/10/21 20:30 Proposed Procedures p Cystoscopy(Right) - Aguila Avendano, Height/Weight Height: 5 ft 5 in Weight: 82.8 kg Allergies Allergy/AdvReac Type Severity Reaction Status Date / Time cephalexin Allergy Intermediate Hives Verified 12/10/21 19:43 Sulfa (Sulfonamide Allergy Intermediate HIVES Verified 12/10/21 19:43 Antibiotics) lisinopril AdvReac Mild Cough Verified 12/10/21 19:43 Medications Home Medications Medication Instructions Recorded Confirmed Last Taken albuterol sulfate 90 mcg/actuation 2 puff inhalation Q4 PRN Wheezing 03/19/16 12/10/21 07/31/19 aerosol inhaler (Ventolin HFA) ##0 duloxetine 20 mg capsule,delayed 20 mg PO AMHS ##0 03/19/16 12/10/21 12/10/21 release fluticasone propionate 50 2 spray intranasal QAM ##0 03/19/16 12/10/21 12/10/21 mcg/actuation nasal spray,suspension (Flonase Allergy Relief) sumatriptan succinate 100 mg 100 mg PO DIRECTED PRN Migraine 03/19/16 12/10/21 07/31/19 tablet (Imitrex) Headache #0 tabs Medical Marijuana 1 dose sublingual UD PRN RESTLESS 06/03/20 12/10/21 07/15/20 LEG SYNDROME L.acidoph-L.rhamn-B.bifidum-B.long 1 tab PO QAM 06/27/20 12/10/21 12/10/21 12.9 mg (2 billion cell) DR anastasiia (Probiotic Acidophilus Tracy) gabapentin 600 mg tablet 600 mg PO QPM 06/27/20 12/10/21 12/09/21 hydroxyzine HCl 25 mg tablet 25 mg PO Q6 PRN Itching 06/27/20 12/10/21 07/16/20 levocetirizine 5 mg tablet 5 mg PO HS 06/27/20 12/10/21 12/09/21 gabapentin 400 mg capsule 400 mg PO .MORNING & MIDDAY 07/03/20 12/10/21 12/10/21 metoprolol succinate 25 mg 25 mg PO QAM #30 tabs 08/15/20 12/10/21 12/10/21 tablet,extended release 24 hr cyclosporine 0.05 % eye drops in a 1 drp ophthalmic (eye) HS 12/10/21 12/10/21 12/09/21 dropperette (Restasis) levothyroxine 88 mcg tablet 88 mcg PO DAILYBB 12/10/21 12/10/21 12/10/21 (Synthroid) nitrofurantoin 100 mg PO HS 12/10/21 12/10/21 12/09/21 monohydrate/macrocrystals 100 mg capsule omeprazole 20 mg capsule,delayed 20 mg PO DAILY PRN Heartburn 12/10/21 12/10/21 Unknown release solifenacin 10 mg tablet 10 mg PO QAM 12/10/21 12/10/21 12/10/21 Active Medications Generic Name Dose Route Start Last Admin Trade Name Freq PRN Reason Stop Dose Admin Lactated Ringer's 1,000 mls @ 999 mls/hr 12/10/21 19:29 12/10/21 19:37 Lr IV 12/10/21 20:29 999 mls/hr .Q1H1M ONE Administration Past Medical History Medical History Acute pyelonephritis Arthritis GERD (gastroesophageal reflux disease) GERD (gastroesophageal reflux disease) Hypothyroidism Hypothyroidism IBS (irritable bowel syndrome) Kidney stone Migraine Overactive bladder Peripheral neuropathy Restless leg syndrome Restless leg syndrome, familial Sleep apnea CPAP, USING EVERY NIGHT. Exercise / Class Metabolic Activity II 4-5 Yardwork/Stairs/Walk up hill Past Family History Family History Other No family history of adverse response to anesthesia Past Surgical History Surgical History H/O foot surgery R foot hammertoe correction 07/10/20 at [facility]. H/O sinus surgery H/O: hysterectomy History of appendectomy History of bladder surgery BLADDER TACK History of carpal tunnel release RT/LEFT History of cataract surgery RT/LEFT History of colonoscopy History of esophagogastroduodenoscopy (EGD) History of tonsillectomy History of tooth extraction Strabismus LEFT EYE REPAIRED Past Anesthesia History No Hx of Anesthesia Complications and No Family Hx of Anesthesia Complications History of PONV No Hx of PONV and No Hx of Motion Sickness Social History Smoking Status: Former smoker tobacco type: cigarettes Hx Alcohol Use: Yes Alcohol type: wine alcohol intake frequency: holidays/special occasions only Hx Substance Use: Yes substance use type: marijuana Substance Use Type Other:: Medical marijuana Last Used Substance: Unknown Last Used Substance Other:: ONLY RX MARIJUANA Physical Exam Vital Signs Last Vital Signs Temp 38 C H 12/10/21 14:40 Pulse 63 12/10/21 19:23 Resp 18 12/10/21 19:23 BP 83/50 L 12/10/21 19:23 Pulse Ox 96 12/10/21 19:23 O2 Del Method 12/10/21 19:23 Testing Laboratory Results 12/10/21 15:50 12/10/21 15:50 PT 12.5 Seconds (9.0-12.0) H 12/10/21 15:50 INR 1.2 (0.9-1.1) H 12/10/21 15:50 APTT 29.5 Seconds (21.0-31.0) 12/10/21 15:50 Urine Color Yellow 12/10/21 16:47 Urine Appearance Cloudy (Clear) A 12/10/21 16:47 Urine pH 6.0 (4.5-7.5) 12/10/21 16:47 Ur Specific [place] 1.011 (1.000-1.030) 12/10/21 16:47 Urine Protein 1+ (Negative) H 12/10/21 16:47 Urine Glucose (UA) Negative (Negative) 12/10/21 16:47 Urine Ketones Negative (Negative) 12/10/21 16:47 Urine Nitrite Negative (Negative) 12/10/21 16:47 Ur Leukocyte Esterase 3+ (Negative) H 12/10/21 16:47 Urine WBC (Auto) >30 /hpf (0-5) H 12/10/21 16:47 Urine RBC (Auto) 0-4 /hpf (0-4) 12/10/21 16:47 U Hyaline Cast (Auto) 0 /lpf (0-5) 12/10/21 16:47 U Epithel Cells (Auto) 0-5 /lpf (0-5) 12/10/21 16:47 Urine Bacteria (Auto) 1+ (Negative) H 12/10/21 16:47
[2021-12-10] MEDS ORDERED: ePHEDrine sulfate 50 MG/ML SYR ONE (19:56)
[2021-12-10] MEDS ORDERED: PHENYLEPHRINE 100MCG/ML 5ML SYR ONE (19:56)
[2021-12-10] MEDS ORDERED: fentaNYL citrate 100 MCG/2 ML VIAL ONE (19:56)
[2021-12-10] MEDS ORDERED: ONDANSETRON INJ 2 MG/ML 2 ML VIAL ONE (19:56)
[2021-12-10] MEDS ORDERED: MIDAZOLAM HCL 1 MG/ML 2ML VIAL ONE (19:56)
[2021-12-10] MEDS ORDERED: PROPOFOL IV EMULSION 10 MG/ML 20 ML VIAL IV ONE (19:56)
[2021-12-10] MEDS ORDERED: VANCOMYCIN HCL 1,750 MG in SODIUM CHLORIDE 0.9% 500 ML IV ONE (20:03)
[2021-12-10] MEDS ORDERED: VANCOMYCIN CONSULT ACTIVE PRN (20:03)
--- NOTE | 2021-12-10 20:24 | History & Physical Report ---
Date of Service December 10, 2021 Assessment & Plan (1) Severe sepsis: Plan: - likely secondary to UTI from right obstructing ureteral stone - WBC 18, hypotensive, febrile to 102 at home, positive UA for infection - started on unasyn in ED - IVF for hypotension - continue unasyn for now - cultures pending - urology consulted and plan for OR tonight for stent placement - follow further recs (2) Complicated UTI (urinary tract infection): Plan: - recurrent nephrolithiasis/ureteral stones with UTI and sepsis - current management as above - follows with urology (3) Acute kidney injury: Plan: - likely due to the setting of sepsis from UTI with hypotension - IVF and abx as above to treat sepsis - Cr 1.62 on admission with baseline around 0.8 - trend Cr - monitor UOP (4) GERD (gastroesophageal reflux disease): Plan: - continue ppi (5) Peripheral neuropathy: Plan: - on gabapentin in the past - need to clarify if still taking (6) Hypothyroidism: Plan: - continue levothyroxine - TSH ordered Plan DVT ppx: heparin SC Code Status: Full Code Dispo: med/surg - OR Telly Cabrera MD [facility] Medicine Admission and Anticipated Discharge Date Admission Date: 12/10/2021 History of Present Illness Chief Complaint: fever, right flank pain Primary Care Provider: Nader Clark MD The patient is a 76 year old woman with pmh recurrent nephrolithiasis with UTIs, GERD, hypthyroidism, peripheral neuropathy who presented with 2 days of right flank pain and fever. She reports that on Friday prior to admission, she started feeling right flank/low back pain. She then started feeling worse over the next couple of days with dysuria, fever, chills. She denied nausea or vomiting, abdominal pain, shortness of breath, cough, diarrhea. She reports a history of recurrent kidney stones and infections including sepsis. In the ED, vitals were signficant for temp 38C, HR 60s, BP 80-90s/50s. Labs were significant for WBC 18, Na 134, Cr 1.62 (baseline 0.8, mg 1.6, PCT 4.11, UA with >30 WBC, 3+ LE, bacteria, 2+ blood. CT-AP shows mild left hydronephrosis, right 4mm obstructing ureteral stone with moderate right hydroureteronephrosis. She was started on antibiotics and urology was consulted with plans for OR tonight and admission to medicine. Allergies Allergy/AdvReac Type Severity Reaction Status Date / Time cephalexin Allergy Intermediate Hives Verified 12/10/21 19:43 Sulfa (Sulfonamide Allergy Intermediate HIVES Verified 12/10/21 19:43 Antibiotics) lisinopril AdvReac Mild Cough Verified 12/10/21 19:43 Home Medications Medication Instructions Recorded Confirmed Type albuterol sulfate 90 mcg/actuation 2 puff inhalation Q4 PRN Wheezing 03/19/16 12/10/21 History aerosol inhaler (Ventolin HFA) ##0 duloxetine 20 mg capsule,delayed 20 mg PO AMHS ##0 03/19/16 12/10/21 History release fluticasone propionate 50 2 spray intranasal QAM ##0 03/19/16 12/10/21 History mcg/actuation nasal spray,suspension (Flonase Allergy Relief) sumatriptan succinate 100 mg 100 mg PO DIRECTED PRN Migraine 03/19/16 12/10/21 History tablet (Imitrex) Headache #0 tabs Medical Marijuana 1 dose sublingual UD PRN RESTLESS 06/03/20 12/10/21 History LEG SYNDROME L.acidoph-L.rhamn-B.bifidum-B.long 1 tab PO QAM 06/27/20 12/10/21 History 12.9 mg (2 billion cell) tablet, DR (Probiotic Acidophilus Tracy) gabapentin 600 mg tablet 600 mg PO QPM 06/27/20 12/10/21 History hydroxyzine HCl 25 mg tablet 25 mg PO Q6 PRN Itching 06/27/20 12/10/21 History levocetirizine 5 mg tablet 5 mg PO HS 06/27/20 12/10/21 History gabapentin 400 mg capsule 400 mg PO .MORNING & MIDDAY 07/03/20 12/10/21 History metoprolol succinate 25 mg 25 mg PO QAM #30 tabs 08/15/20 12/10/21 Rx tablet,extended release 24 hr cyclosporine 0.05 % eye drops in a 1 drp ophthalmic (eye) HS 12/10/21 12/10/21 History dropperette (Restasis) levothyroxine 88 mcg tablet 88 mcg PO DAILYBB 12/10/21 12/10/21 History (Synthroid) nitrofurantoin 100 mg PO HS 12/10/21 12/10/21 History monohydrate/macrocrystals 100 mg capsule omeprazole 20 mg capsule,delayed 20 mg PO DAILY PRN Heartburn 12/10/21 12/10/21 History release solifenacin 10 mg tablet 10 mg PO QAM 12/10/21 12/10/21 History Past Med/Surg History Medical History (Updated 12/10/21 @ 20:34 by Telly Cabrera MD) Acute pyelonephritis Arthritis GERD (gastroesophageal reflux disease) GERD (gastroesophageal reflux disease) Hypothyroidism Hypothyroidism IBS (irritable bowel syndrome) Kidney stone Migraine Overactive bladder Peripheral neuropathy Restless leg syndrome Restless leg syndrome, familial Sleep apnea CPAP, USING EVERY NIGHT. Surgical History H/O foot surgery R foot hammertoe correction 07/10/20 at [facility] [place]. H/O sinus surgery H/O: hysterectomy History of appendectomy History of bladder surgery BLADDER TACK History of carpal tunnel release RT/LEFT History of cataract surgery RT/LEFT History of colonoscopy History of esophagogastroduodenoscopy (EGD) History of tonsillectomy History of tooth extraction Strabismus LEFT EYE REPAIRED Family History Other No family history of adverse response to anesthesia Social History Smoking Status: Former smoker Tobacco Type: Cigarettes packs per day: 1; Years Smoked: 30; Second Hand Exposure: No; Hx Alcohol Use: Yes Alcohol type: wine Hx Substance Use: Yes Last Used Substance: Unknown Last Used Substance Other:: ONLY RX MARIJUANA Substance Use Type Other:: Medical marijuana Preferred Language: Telugu Communication Ability: Effective Visual Impairment: No Limitations Hearing Ability: Normal Auto Salvage Worker Required: No Beliefs That Will Affect Care: None marital status: Current Living Situation: Spouse current occupational status: retired How many Children do You have: 2 Feels Safe at Home: Yes Assistive Devices: None Review of Systems Review of Systems: All systems reviewed & are unremarkable except as noted in Subjective Physical Exam Constitutional: WD/WN, vitals as above + obese; no acute distress and not ill appearing Eyes: PERRL, conjunctivae normal, anicteric sclerae ENMT: external ear and nose normal, oropharynx normal Neck: trachea midline, no thyromegaly Respiratory: normal respiratory effort, lungs clear to auscultation Cardiovascular: RRR, no murmur, no edema Gastrointestinal (Abdomen): normal bowel sounds, soft, nontender, no hepatos plenomegaly Musculoskeletal: no cyanosis or clubbing, extremities motor strength 5/5 Skin: no rashes, warm and dry Neurologic: patellar DTR's 2+ bilat, sensation intact and PERRL, EOMI, accommodation nl, no face palsy, no dysarthria Psychiatric: A+Ox3, euthymic affect Genitourinary: no CVA tenderness Results & Data Results & Data ([facility]) Vital Signs (Past 12 Hours) Vital Signs Temp Pulse Pulse Resp BP BP Pulse Ox 12/10/21 19:58 65 16 83/50 L 96 12/10/21 19:23 63 18 83/50 L 96 12/10/21 18:00 71 16 94 12/10/21 18:00 92/55 L 12/10/21 17:30 75 18 91 12/10/21 17:30 89/56 L 12/10/21 17:00 74 93 12/10/21 17:00 95/57 L 12/10/21 16:30 80 13 94 12/10/21 16:30 97/62 L 12/10/21 16:00 82 11 L 93 12/10/21 16:00 92/73 L 12/10/21 15:30 88 14 95 12/10/21 15:30 117/62 12/10/21 15:00 88 20 95 12/10/21 15:00 104/54 L 12/10/21 14:43 88 16 95 12/10/21 15:23 93 12/10/21 14:40 38 C H 90 16 109/60 95 O2 Del Method 12/10/21 19:58 Room Air 12/10/21 19:23 Room Air 12/10/21 18:00 12/10/21 18:00 12/10/21 17:30 12/10/21 17:30 12/10/21 17:00 12/10/21 17:00 12/10/21 16:30 12/10/21 16:30 12/10/21 16:00 Room Air 12/10/21 16:00 12/10/21 15:30 Room Air 12/10/21 15:30 12/10/21 15:00 Room Air 12/10/21 15:00 12/10/21 14:43 Room Air 12/10/21 15:23 Room Air 12/10/21 14:40 Room Air Laboratory Results Short CBC 12/10/21 Range/Units 15:50 WBC 17.98 H (4.8-10.8) K/ul Hgb 12.8 (12.0-16.0) g/dl Hct 38.0 (34.1-44.9) % Plt Count 180 (130-400) K/uL BMP 12/10/21 15:50 Sodium 134 L Potassium 3.9 Chloride 101 Carbon Dioxide 24 BUN 26 H Creatinine 1.62 H Glucose 108 H Calcium 8.8 Liver Function 12/10/21 Range/Units 15:50 Total Bilirubin 1.1 H (0.2-1.0) mg/dl AST 21 (13-39) U/L ALT 26 (7-52) U/L Alkaline Phosphatase 79 (34-104) U/L Albumin 3.9 (3.4-5.0) gm/dl Urine 12/10/21 Range/Units 16:47 Urine Color Yellow Urine Appearance Cloudy A (Clear) Urine pH 6.0 (4.5-7.5) Ur Specific Crystal 1.011 (1.000-1.030) Urine Protein 1+ H (Negative) Urine Glucose (UA) Negative (Negative) Diagnostic Findings Chest X-Ray 12/10/21 15:23 XR chest 1V portable CLINICAL HISTORY: SEPSIS COMPARISON STUDY: Chest CT August 2020. Chest CT November 01, 2020. FINDINGS: Lung volumes are normal. Lungs are clear. There is no pneumothorax or pleural effusion. Cardiac size is normal. Mediastinal contours are normal. There is no evidence for pulmonary edema. IMPRESSION: No acute cardiopulmonary findings. ACT 112: Negative or not required by law. Electronically signed by: Nick Oreilly M.D. 12/10/2021 3:48 PM Abdomen/Pelvis CT 12/10/21 17:45 CT OF THE ABDOMEN AND PELVIS WITHOUT CONTRAST CLINICAL HISTORY: Right flank pain. COMPARISON STUDY: CT of the abdomen and pelvis October 20, 2021. IVP December 07, 2021. TECHNIQUE: Axial images of the abdomen and pelvis were obtained without IV contrast. Images were reviewed in the axial, sagittal, and coronal planes. Automated exposure control was utilized for the study. A dose lowering technique was utilized adhering to the principles of ALARA. FINDINGS: Lung bases are unremarkable. No pneumatosis, free air or portal venous gas is present. Moderate right hydroureteronephrosis has developed since CT of October 20, 2021 and is similar to IVP of December 07, 2021. This is due to a 4 mm mid to distal right ureteral calculus at the level of the inferior sacroiliac joint. No additional ureteral calculi are present. Numerous right renal calculi measure up to 4 mm. Moderate left hydronephrosis with normal caliber left ureter is noted. Left hydronephrosis has decreased since CT of October 20, 2021. There are no left-sided urinary calculi. Evaluation of the remainder of the abdomen and pelvis is suboptimal on this unenhanced exam. There is hepatic steatosis. Unenhanced images of the spleen, adrenal glands and pancreas are unremarkable. No evidence for a bowel obstruction. A moderate amount of stool is noted. There is no lymphadenopathy. No acute fracture or suspicious lesion within the visualized skeletal structures is present. IMPRESSION: 1. Moderate right hydroureteronephrosis due to a 4 mm mid to distal right ureteral calculus as described above. 2. Moderate left hydronephrosis with normal caliber left ureter. Etiology for hydronephrosis not clear on this exam however decreased since CT of October 20 022. No left-sided urinary calculi. 3. Right-sided nephrolithiasis. 4. No bowel obstruction. Moderate amount of stool within the colon. 5. Hepatic steatosis. ACT 112: Negative or not required by law. Electronically signed by: Nick Oreilly M.D. 12/10/2021 6:45 PM Medications Administered Current Inpatient Medications Acetaminophen (Acetaminophen 325 Mg Tab) 650 mg PO Q4H PRN PRN Reason: Pain or Fever Stop: 01/09/22 19:51 Atropine Sulfate (Atropine Sulfate 0.1 Mg/Ml 10ml Syr) 0.5 mg IV Q1M PRN PRN Reason: PACU Use-HR<40 &/or Bradycardi Stop: 12/11/21 03:49 Ephedrine Sulfate (Ephedrine Sulfate 50 Mg/Ml Amp) 5 mg IV Q5M PRN PRN Reason: PACU Use Only-SBP<90 mmHg Stop: 12/11/21 03:49 Fentanyl Citrate (Fentanyl Citrate 100 Mcg/2 Ml Vial) 25 mcg IV Q5M PRN PRN Reason: PACU Use Only-Pain Stop: 12/11/21 03:50 Heparin Sodium (Porcine) (Heparin Sod 5,000 Unit/0.5 Ml Vial) 5,000 units SQ Q8 RACHEL Stop: 01/10/22 05:59 Lactated Ringer's (Lr) 1,000 mls @ 999 mls/hr IV .Q1H1M ONE Stop: 12/10/21 20:29 Last Admin: 12/10/21 19:37 Dose: 999 mls/hr Piperacillin Sod/Tazobactam (Sod 3.375 gm/ Dextrose) 115 mls @ 28.75 mls/hr IV Q6 RACHEL; Protocol Stop: 12/21/21 00:00 Vancomycin HCl 1,750 mg/ (Sodium Chloride) 535 mls @ 200 mls/hr IV NOW ONE Stop: 12/10/21 22:43 Miscellaneous Information (Vancomycin Consult Active) 1 each N/A UD PRN PRN Reason: Consult Stop: 01/09/22 20:02 Ondansetron HCl (Ondansetron Inj 2 Mg/Ml 2 Ml Vial) 4 mg IV ONCE PRN PRN Reason: PACU Use Only-Nausea/Vomiting Stop: 12/11/21 03:50 Polyethylene Glycol (Polyethylene (Miralax) 17 Gm Pack) 17 gm PO DAILY PRN PRN Reason: Constipation Stop: 01/09/22 19:51 Code Status & VTE Plan Code Status Full Code VTE Prophylaxis Plan VTE Prophylaxis will be ordered: Yes
[2021-12-10] MEDS ORDERED: AMPICILLIN/SULBACTAM SOD 3,000 MG in 0.9 % SODIUM CHLORIDE 100 ML IV SCH (20:45)
[2021-12-10] MEDS ORDERED: DIATRIZOATE MEGLUMINE 30% 100ML VIAL INSTIL ONE (20:48)
--- NOTE | 2021-12-10 20:53 | Operative Report ---
PG Post Operative Report Pre & Post Diagnosis Operation Date: 12/10/21 20:30 Pre-Op Diagnosis: Right Ureteral Stone. Severe Sepsis Postop: Same I identified the patient and participated in the time-out.: Yes Procedure Operation Date: 12/10/21 20:30 Actual Procedures p Cystoscopy with Right retrograde pyelogram, urine aspiration, and stent placement (Right) - Aguila Avendano DO Surgeon Aguila Avendano, II, DO Retail [employer] Sales Representative None Estimated Blood Loss 1 Findings Consistent with Post-Op Diagnosis Stent placed in good position. Significant purulent material from right ureter with severe hydronephrosis of renal pelvis. Urine from right renal pelvis sent for culture. Specimens Urine Right Renal Pelvis. Drains 6 Fr Multilength Anesthesia Type MAC Complications none Disposition Disposition: Recovery Room Indications Patient with obstruction. Risks and benefits discussed at length. Description of Procedure Patient was consented and brought back to the operating room. Patient was placed under anesthesia in the supine position and moved to the dorsal lithotomy position. Patient was prepped and draped in the regular sterile fashion. A time out was completed. A 30degree Cystoscope was placed into the bladder and the entire bladder was examined. The UO's were identified. The UO was cannulized with a catheter, urine was aspirated from the right renal pelvis, and a retrograde pyelogram was completed. A wire was then placed. With the wire in place, a 6 Fr Double J stent was placed. It was confirmed with flu oroscopy. With the stent in place, the bladder was emptied. The scope was removed. The patient was cleaned, aroused from anesthesia, and transferred to the pacu in stable condition having tolerated the procedure well with no complications. I was present and participated in all aspects of the procedure. The patient will be monitored in the PACU until transferred to the floor. Will monitor post procedure with broad spectrum antibiotics and supportive care. Will continue resuscitation. Will likely need stone treatment after 1-3 weeks of antibiotics and clearance of infection. I attest to the content of the Intraoperative Record and any orders documented therein. Any exceptions are noted below.
[2021-12-10] MEDS ORDERED: ePHEDrine sulfate 50 MG/ML AMP ONE (21:22)
[2021-12-10] MEDS: ePHEDrine sulfate 50 MG/ML AMP IV PRN ×4 (21:26→21:48)
[2021-12-10] MEDS ORDERED: LACTATED RINGER'S 1,000 ML IV SCH (22:30)
--- NOTE | 2021-12-10 22:34 | Anesthesiology Progress Note ---
Date of Service December 10, 2021 Anesthesia Post Procedure Vital Signs Vital Signs: Temp Pulse Pulse Resp BP BP Pulse Ox 12/10/21 22:20 80 19 93/58 L 99 12/10/21 22:10 83 17 92/53 L 98 12/10/21 22:00 36.6 C 88 22 87/55 L 98 12/10/21 21:50 36.1 C L 87 15 94/54 L 96 12/10/21 21:40 85 16 97/53 L 96 12/10/21 21:30 85 16 86/53 L 94 12/10/21 21:20 83 16 86/54 L 95 12/10/21 21:10 84 17 92/62 L 97 12/10/21 21:02 36 C L 82 13 122/65 99 12/10/21 19:58 65 16 83/50 L 96 12/10/21 19:23 63 18 83/50 L 96 12/10/21 18:00 71 16 94 12/10/21 18:00 92/55 L 12/10/21 17:30 75 18 91 12/10/21 17:30 89/56 L 12/10/21 17:00 74 93 12/10/21 17:00 95/57 L 12/10/21 16:30 80 13 94 12/10/21 16:30 97/62 L 12/10/21 16:00 82 11 L 93 12/10/21 16:00 92/73 L 12/10/21 15:30 88 14 95 12/10/21 15:30 117/62 12/10/21 15:00 88 20 95 12/10/21 15:00 104/54 L 12/10/21 14:43 88 16 95 12/10/21 15:23 93 12/10/21 14:40 38 C H 90 16 109/60 95 O2 Del Method O2 Flow Rate 12/10/21 22:20 Nasal Cannula 2 12/10/21 22:10 Nasal Cannula 2 12/10/21 22:00 Nasal Cannula 2 12/10/21 21:50 Nasal Cannula 2 12/10/21 21:40 Nasal Cannula 2 12/10/21 21:30 Oxymask 4 12/10/21 21:20 Oxymask 4 12/10/21 21:10 Oxymask 6 12/10/21 21:02 Oxymask 6 12/10/21 19:58 Room Air 12/10/21 19:23 Room Air 12/10/21 18:00 12/10/21 18:00 12/10/21 17:30 12/10/21 17:30 12/10/21 17:00 12/10/21 17:00 12/10/21 16:30 12/10/21 16:30 12/10/21 16:00 Room Air 12/10/21 16:00 12/10/21 15:30 Room Air 12/10/21 15:30 12/10/21 15:00 Room Air 12/10/21 15:00 12/10/21 14:43 Room Air 12/10/21 15:23 Room Air 12/10/21 14:40 Room Air Transfer of Care Handoff Completed per policy Notes Mental Status: alert / awake / arousable and participated in evaluation Patient Amnestic to Procedure: Yes Nausea / Vomiting: adequately controlled Pain: adequately controlled Airway Patency, RR, SpO2: stable & adequate BP & HR: see Notes below Hydration State: stable & adequate Anesthetic Complications: no major complications apparent and Pt Satisfied with anesthetic care Notes: pt conversant and answering questions appropriately. continued to be slightly hypotensive and pacu nursehad to administer several doses of vasoactive medications. hospitalist consultated and ordered fluid bolus. bp somewhat improved and pt to be admitted and closely followed.
[2021-12-10] MEDS ORDERED: PANTOprazole 40 MG TAB PO PRN (23:05)
--- NOTE | 2021-12-10 23:13 | Critical Care Consultation ---
Date of Consultation December 10, 2021 Assessment & Plan (1) Admitted to intensive care unit: Reason Critically Ill: 76-year-old female presenting with RIGHT-sided ureteral stone with hydro nephritis and concerns for pyelonephritis and sepsis requiring ongoing management and possible need for pressors. NEURO - * CAM ICU: NEGATIVE * Peripheral neuropathy: * Gabapentin to be renally dosed per pharmacy. CARDIAC/VASCULAR - * Hypotension: * Likely secondary to sepsis syndrome. * Appropriately resuscitated with crystalloid. Continue with ongoing IV fluid as needed. * Pressors if needed. * Monitor on telemetry. RESPIRATORY - * No history of pulmonary disease. * Saturating well on 2 L. GI/NUTRITION - * Progress diet as tolerated. RENAL/LYTES - * RADHA: * Likely multifactorial in the setting of obstructing ureteral stone, dehydration, and hypotension. * Continue w/ IVF resuscitation. * Support BP with pressors if needed. * IVF: LR @ 150 mL/hr - * RIGHT Ureteral Stone w/ Hydronephrosis, Pyelonephritis, and sepsis: * Source management w/ stent placement. * See ID for abx. * Zapata in place - Strict I&Os. ENDO - * No h/o DM * BSGs per unit protocol. ISS --> gtt per unit policy. * Hypothyroidism: * Continue home dosing of Levothyroxine. HEME - * Stable H&H ID - * Sepsis 2/2 Urinary Source: * Initially received cipro, dapto, Unasyn. * Reviewed previous urine cultures. * Will change to Zosyn and Dapto for now given the severity of patient illness. * PCT >4 * Lactate WNL * Blood/Urine Cx pending LINES/IV ACCESS - * PIVs x2 * Zapata DVT PROPHYLAXIS - * Heparin sq * SCDs I have personally spent 45 minutes of critical care time in the direct management of this patient. This is a life/limb threatening event. This includes time spent evaluating patient, direct bedside care, chart review, placing orders, interpretation of diagnostic studies, discussion with consultants, patient, and family members, as well as other required patient management activities. This time is exclusive of all separately billable procedures, and teaching time and separate from and in addition to any other critical care service time. Thank you for allowing us to participate in the care of this patient. Please refer to my attending physician's documentation for any further recommendations. (2) Sepsis: (3) Complicated UTI (urinary tract infection): (4) Hydronephrosis: (5) Acute pyelonephritis: (6) Calculus, ureteral: (7) Hypothyroidism: (8) Peripheral neuropathy: (9) Acute kidney injury: History of Present Illness Attending Physician: Lian Sommer MD History of Present Illness Patient is a 76-year-old female with a significant past medical history of recurrent UTIs, GERD, peripheral neuropathy, and hypothyroidism. Patient developed RIGHT flank pain on Friday. Her symptoms progressed to include dysuria as well as fever and nausea. She reports that her had described her as being confused on and off since Friday. She was thought to be confused upon arrival in the emergency department today. She was noted to have RIGHT- sided obstructing nephrolithiasis with hydronephrosis with concerns for sepsis. Patient noted to be borderline hypotensive with elevated procalcitonin in the emergency department. She was started on Cipro, Unasyn, and daptomycin in the emergency department. She underwent cystoscopy today with stent placement. While in PACU, the patient did require a few boluses of phenylephrine as well as ongoing IV fluid resuscitation. ICU was consulted for ongoing management with concerns for ongoing hypotension in the setting of likely bacteremia. Upon evaluation in the ICU, the patient is awake, alert, and oriented. She denies any complaints of pain at this time. She reports feeling much better than when she initially presented. Patient reports that she has had recurrent UTIs and stones in the past. Otherwise, she reports good health up until Friday. Patient currently denies complaints of headaches, dizziness, lightheadedness, chest pain, palpitations, shortness of breath, pleuritic pain, nausea, vomiting, or abdominal pain. Allergies Allergy/AdvReac Type Severity Reaction Status Date / Time cephalexin Allergy Intermediate Hives Verified 12/10/21 19:43 Sulfa (Sulfonamide Allergy Intermediate HIVES Verified 12/10/21 19:43 Antibiotics) lisinopril AdvReac Mild Cough Verified 12/10/21 19:43 Home Medications Medication Instructions Recorded Confirmed Type albuterol sulfate 90 mcg/actuation 2 puff inhalation Q4 PRN Wheezing 03/19/16 12/10/21 History aerosol inhaler (Ventolin HFA) ##0 duloxetine 20 mg capsule,delayed 20 mg PO AMHS ##0 03/19/16 12/10/21 History release fluticasone propionate 50 2 spray intranasal QAM ##0 03/19/16 12/10/21 History mcg/actuation nasal spray,suspension (Flonase Allergy Relief) sumatriptan succinate 100 mg 100 mg PO DIRECTED PRN Migraine 03/19/16 12/10/21 History tablet (Imitrex) Headache #0 tabs Medical Marijuana 1 dose sublingual UD PRN RESTLESS 06/03/20 12/10/21 History LEG SYNDROME L.acidoph-L.rhamn-B.bifidum-B.long 1 tab PO QAM 06/27/20 12/10/21 History 12.9 mg (2 billion cell) tablet, DR (Probiotic Acidophilus Biobeads) gabapentin 600 mg tablet 600 mg PO QPM 06/27/20 12/10/21 History hydroxyzine HCl 25 mg tablet 25 mg PO Q6 PRN Itching 06/27/20 12/10/21 History levocetirizine 5 mg tablet 5 mg PO HS 06/27/20 12/10/21 History gabapentin 400 mg capsule 400 mg PO .MORNING & MIDDAY 07/03/20 12/10/21 History metoprolol succinate 25 mg 25 mg PO QAM #30 tabs 08/15/20 12/10/21 Rx tablet,extended release 24 hr cyclosporine 0.05 % eye drops in a 1 drp ophthalmic (eye) HS 12/10/21 12/10/21 History dropperette (Restasis) levothyroxine 88 mcg tablet 88 mcg PO DAILYBB 12/10/21 12/10/21 History (Synthroid) nitrofurantoin 100 mg PO HS 12/10/21 12/10/21 History monohydrate/macrocrystals 100 mg capsule omeprazole 20 mg capsule,delayed 20 mg PO DAILY PRN Heartburn 12/10/21 12/10/21 History release solifenacin 10 mg tablet 10 mg PO QAM 12/10/21 12/10/21 History Patient History Medical History Acute pyelonephritis Arthritis GERD (gastroesophageal reflux disease) GERD (gastroesophageal reflux disease) Hypothyroidism Hypothyroidism IBS (irritable bowel syndrome) Kidney stone Migraine Overactive bladder Peripheral neuropathy Restless leg syndrome Restless leg syndrome, familial Sleep apnea CPAP, USING EVERY NIGHT. Surgical History H/O foot surgery R foot hammertoe correction 07/10/20 at [facility]. H/O sinus surgery H/O: hysterectomy History of appendectomy History of bladder surgery BLADDER TACK History of carpal tunnel release RT/LEFT History of cataract surgery RT/LEFT History of colonoscopy History of esophagogastroduodenoscopy (EGD) History of tonsillectomy History of tooth extraction Strabismus LEFT EYE REPAIRED Family History Other No family history of adverse response to anesthesia Social History Smoking Status: Former smoker Tobacco Type: Cigarettes packs per day: 1; Years Smoked: 30; Second Hand Exposure: No; Hx Alcohol Use: Yes Alcohol type: wine Hx Substance Use: Yes Last Used Substance: Unknown Last Used Substance Other:: ONLY RX MARIJUANA Substance Use Type Other:: Medical marijuana Preferred Language: Polish Communication Ability: Effective Visual Impairment: No Limitations Hearing Ability: Normal University Archivist Required: No Beliefs That Will Affect Care: None marital status: Current Living Situation: Spouse current occupational status: retired How many Children do You have: 2 Feels Safe at Home: Yes Safety Concerns: Feels Safe At This Time Assistive Devices: CPAP Review of Systems Review of Systems: A complete 10 point review of systems was reviewed with the patient with pertinent positives and negatives as per history of present illness. All else were negative. Physical Exam Physical Exam: VITAL SIGNS - Vital signs and nursing notes were reviewed. GENERAL - 76-year-old female appearing her stated age who is in no acute distress. Communicates well with provider and answers questions appropriately. HEAD - NC/AT. EYES - PERRL with EOMI bilaterally. Sclera anicteric. Palpebral conjunctiva pink and moist with no injection noted. EARS - No deformities of external structures noted on gross examination bilaterally. NOSE - Midline and without cyanosis. No epistaxis or purulent drainage noted. S MOUTH/OROPHARYNX - Without perioral cyanosis. Buccal mucosa pink and moist. NECK - Neck with FROM. Supple to palpation. No nuchal rigidity. LUNGS - Chest wall symmetric without accessory muscle use, intercostals retractions, or central cyanosis. Normal vesicular breath sounds CTA B/L. No wheezes, rales, or rhonchi appreciated. CARDIAC - RRR with S1/S2. No murmur, rubs, or gallops appreciated. ABDOMEN - Abdominal contour obese without pulsations or visible masses. Negative Glasgow's or Simmons Borrego's Signs. BS normoactive all four quadrants. No tenderness to palpation appreciated throughout. No guarding. No Rebound Tenderness. EXTREMITIES - No clubbing or peripheral cyanosis. No pretibial edema present. +3/5 radial and dorsalis pedis pulses palpated throughout. +5/5 strength noted in UE/LE bilaterally. NEUROLOGIC - Cranial nerves II through XII grossly intact. PSYCH - A&Ox3 and cooperates fully with examiner. Pt is very pleasant and interacts well with examiner. Results & Data Results & Data ([facility]) Vital Signs (Past 12 Hours) Vital Signs Temp Pulse Pulse Resp BP BP Pulse Ox 12/10/21 22:40 80 15 83/62 L 100 12/10/21 22:30 80 19 97/50 L 100 12/10/21 22:20 80 19 93/58 L 99 12/10/21 22:10 83 17 92/53 L 98 12/10/21 22:00 36.6 C 88 22 87/55 L 98 12/10/21 21:50 36.1 C L 87 15 94/54 L 96 12/10/21 21:40 85 16 97/53 L 96 12/10/21 21:30 85 16 86/53 L 94 12/10/21 21:20 83 16 86/54 L 95 12/10/21 21:10 84 17 92/62 L 97 12/10/21 21:02 36 C L 82 13 122/65 99 12/10/21 19:58 65 16 83/50 L 96 12/10/21 19:23 63 18 83/50 L 96 12/10/21 18:00 71 16 94 12/10/21 18:00 92/55 L 12/10/21 17:30 75 18 91 12/10/21 17:30 89/56 L 12/10/21 17:00 74 93 12/10/21 17:00 95/57 L 12/10/21 16:30 80 13 94 12/10/21 16:30 97/62 L 12/10/21 16:00 82 11 L 93 12/10/21 16:00 92/73 L 12/10/21 15:30 88 14 95 12/10/21 15:30 117/62 12/10/21 15:00 88 20 95 12/10/21 15:00 104/54 L 12/10/21 14:43 88 16 95 12/10/21 15:23 93 12/10/21 14:40 38 C H 90 16 109/60 95 O2 Del Method O2 Flow Rate 12/10/21 22:40 Nasal Cannula 2 12/10/21 22:30 Nasal Cannula 2 12/10/21 22:20 Nasal Cannula 2 12/10/21 22:10 Nasal Cannula 2 12/10/21 22:00 Nasal Cannula 2 12/10/21 21:50 Nasal Cannula 2 12/10/21 21:40 Nasal Cannula 2 12/10/21 21:30 Oxymask 4 12/10/21 21:20 Oxymask 4 12/10/21 21:10 Oxymask 6 12/10/21 21:02 Oxymask 6 12/10/21 19:58 Room Air 12/10/21 19:23 Room Air 12/10/21 18:00 12/10/21 18:00 12/10/21 17:30 12/10/21 17:30 12/10/21 17:00 12/10/21 17:00 12/10/21 16:30 12/10/21 16:30 12/10/21 16:00 Room Air 12/10/21 16:00 12/10/21 15:30 Room Air 12/10/21 15:30 12/10/21 15:00 Room Air 12/10/21 15:00 12/10/21 14:43 Room Air 12/10/21 15:23 Room Air 12/10/21 14:40 Room Air Coding Level of Care Code Critical Care 1st 30-74 mins Diagnoses Admitted to intensive care unit Z78.9 Sepsis A41.9 Sepsis acute organ dysfunction status: without acute organ dysfunction Sepsis type: sepsis due to unspecified organism Complicated UTI (urinary tract infection) N39.0 Hydronephrosis N13.30 Acute pyelonephritis N10 Calculus, ureteral N20.1 Hypothyroidism E03.9 Peripheral neuropathy G62.9 Acute kidney injury N17.9 Time Spent (min) 45 (1) Sepsis Sepsis acute organ dysfunction status: without acute organ dysfunction Sepsis type: sepsis due to unspecified organism Qualified Code(s): A41.9 - Sepsis, unspecified organism
[2021-12-10] MEDS ORDERED: DAPTOmycin 400 MG in SYRINGE 0 ML IV SCH (23:30)
[2021-12-11] MEDS ORDERED: DAPTOmycin 125 MG in SYRINGE 0 ML IV ONE
[2021-12-11] MEDS ORDERED: AMPICILLIN/SULBACTAM SOD 3,000 MG in 0.9 % SODIUM CHLORIDE 100 ML IV SCH
[2021-12-11] MEDS ORDERED: PIPERACILLIN/TAZOBACTAM 4.5 GM in DEXTROSE 5% 100 ML IV ONE
[2021-12-11] MEDS ORDERED: PIPERACILLIN/TAZOBACTAM 3.375 GM in DEXTROSE 5% 100 ML IV SCH
[2021-12-11] MEDS: LACTATED RINGER'S 1,000 ML IV SCH ×4 (00:24→16:04)
[2021-12-11] MEDS ORDERED: DAPTOmycin 275 MG in SYRINGE 0 ML IV ONE (00:30)
[2021-12-11] MEDS ORDERED: ACETAMINOPHEN 1,000 MG/100 ML VIAL IV STA ×2 (03:05→23:58)
[2021-12-11] MEDS ORDERED: LACTATED RINGER'S 500 ML IV ONE (03:05)
[2021-12-11] MEDS ORDERED: LACTATED RINGER'S 250 ML IV ONE (04:39)
[2021-12-11] MEDS ORDERED: STAT IV Infusion **Titration per Protocol STA ×2 (04:55→05:48)
[2021-12-11] MEDS: PIPERACILLIN/TAZOBACTAM 4.5 GM in DEXTROSE 5% 100 ML IV SCH ×3 (05:08→21:07)
[2021-12-11] MEDS: PHENYLEPHRINE HCL 20 MG in DEXTROSE 5% 500 ML IV SCH ×5 (05:08→16:04)
[2021-12-11] MEDS: LEVOTHYROXINE SODIUM 88 MCG TABLET PO SCH (05:09)
[2021-12-11] MEDS: HEPARIN SOD 5,000 UNIT/0.5 ML VIAL SQ SCH ×3 (05:09→21:07)
[2021-12-11] MEDS ORDERED: AMIODARONE IV BOLUS & DRIP IV STA (05:48)
[2021-12-11] MEDS ORDERED: AMIODARONE / D5W 150 MG/100 ML BAG IV STA (05:48)
[2021-12-11] MEDS ORDERED: 0.2 MICRON FILTER SET 1 EACH IV STA (05:48)
[2021-12-11] MEDS ORDERED: AMIODARONE / D5W 360 MG/200 ML BAG IV ONE (05:58)
[2021-12-11 06:13] LABS: Hematocrit (blood only) 30.6 % (34.1-44.9); Hemoglobin 10.3 g/dl (12.0-16.0); Mean Corpuscular Hemoglobin 29.4 pg (25.0-34.0); Mean Corpuscular Hgb Conc 33.7 g/dL (32.0-36.0); Mean Corpuscular Volume 87.4 fL (80.0-100.0); Mean Platelet Volume 10.9 fL (9.4-12.3); Platelet Count 160 K/uL (130-400); RDW Coefficient of Variation 14.4 % (11.5-14.5); RDW Standard Deviation 45.5 fL (36.4-46.3)
--- NOTE | 2021-12-11 06:20 | Communication Note ---
Date of Service: December 11, 2021 0445: Patient noted to convert to a tachycardic rhythm which appeared irregularly irregular on the monitor. Order placed for additional 250 mL of LR as well as an EKG. Patient assessed at bedside. She is awake, alert, and oriented. She is without complaints at this time. EKG confirms suspicion of A fib w/ RVR. In the meantime, the patient had a drop in her BP necessitating the order for IV Neosyephrine gtt. Despite several minutes on the Karthik gtt, the patient had no real improvement in her HR despite modest improvement in her BP. At this point, decision was made to administer Amiodarone bolus followed by drip. Per patient's med rec, she does take metoprolol daily. While I would have preferred a beta preet in this patient, her hemodynamics are not amendable to this. Also, patient does not warrant full anticoagulation at this time. It is with hopes that we are able to convert her back into SR quickly. Her AM labs are pending. We will replace any electrolyte derangements. I have personally spent 45 minutes of critical care time in the direct management of this patient. This is a life/limb threatening event. This includes time spent evaluating patient, direct bedside care, chart review, placing orders, interpretation of diagnostic studies, discussion with consultants, patient, and family members, as well as other required patient management activities. This time is exclusive of all separately billable procedures, and teaching time and separate from and in addition to any other critical care service time. Coding Level of Care Code Critical Care 1st 30-74 mins Time Spent (min) 45
[2021-12-11 06:44] LABS: Albumin Globulin Ratio 1.4 (0.9-2); BUN Creatinine Ratio 14.9 (10-20); Calcium 7.8 mg/dl (8.5-10.1); Creatinine Clr Calc Pharmacy 33.3 ml/min; Est GFR (African American) 38.1 ml/min; Est GFR (Non-African American) 32.9 ml/min; Globulin 2.1 gm/dl (2.5-4.0); Magnesium 1.3 mg/dl (1.7-2.4); Phosphorus 1.4 mg/dl (2.5-4.9); Potassium 3.3 mmol/L (3.5-5.1); Total Protein 5.1 gm/dl (6.0-8.3)
[2021-12-11] MEDS ORDERED: POTASSIUM PHOS 3 MMOL/1 ML INFUSION IV STA (06:48)
[2021-12-11] MEDS ORDERED: POTASSIUM CHLORIDE CRTAB 20 MEQ TABCR PO STA (06:48)
--- NOTE | 2021-12-11 07:01 | Critical Care Progress Note ---
Date of Service December 11, 2021 Assessment & Plan (1) Admitted to intensive care unit: Plan: Reason Critically Ill: 76-year-old female presenting with RIGHT-sided ureteral stone with hydro nephritis and concerns for pyelonephritis and sepsis requiring ongoing management and possible need for pressors. NEURO - * CAM ICU: NEGATIVE * Peripheral neuropathy: * Gabapentin to be renally dosed per pharmacy- currently 400 mg BID CARDIAC/VASCULAR - * Atrial fibrillation with RVR * Likely triggered by sepsis syndrome w/ subsequent electrolyte abnormalities * Pt reportedly had AF with a previous surgery/hospitalization, this is unlikely to be new onset, deferring cardiology consult for now * Pt currently in sinus rhythm, HR 70s-80s- discontinue amiodarone * Not on anticoagulation at present- does have heparin 5000u TID for DVT prophylaxis * Pt does take beta preet Toprol 25 mg daily at home, currently being held for recent hypotension- will resume as HR/BP tolerates * Hypotension * Likely secondary to sepsis syndrome. * Continue neosynephrine, attempt to wean as BP tolerates * Continue LR 150 cc/hr * BP has improved to 100s/60s by time of evaluation * MAP goal > 65 * Elevated troponin * Troponin HS 21.7 on admission * Likely due to mild demand ischemia * No evidence of acute infarction on EKG * Repeat troponin ordered * Monitor on telemetry. RESPIRATORY - * No history of pulmonary disease. * Saturating well on RA at time of evaluation GI/NUTRITION - * No issues at this time * Regular diet RENAL/ELECTROLYTES - * RADHA: * Likely multifactorial in the setting of obstructing ureteral stone, dehydration, and hypotension. * Continue w/ IVF resuscitation- LR 150 cc/hr * Cr 1.62 to 1.54 today * Electrolyte derangements (Phos 1.4, Mg 1.3, K 3.3), on ICU electrolyte repletion protocol * Start magnesium oxide 400 mg nightly * Trend BMP, Mg, Phos - * R ureteral stone w/ hydronephrosis, pyelonephritis, and sepsis: * Source management w/ stent placement, POD1 * Urology following- continue broad spectrum antibiotics for now * Spontaneously voiding without issue, will avoid Zapata placement ENDO - * No h/o DM * BSGs per unit protocol. ISS --> gtt per unit policy. * BSGs acceptable * Hypothyroidism: * Continue home dosing of levothyroxine HEME - * Hgb 12.8 on admission to 10.3 today * No concern for acute bleeding at this time * Trend CBC ID - * Sepsis 2/ urinary source: * Initially received ciprofloxacin, daptomycin, Unasyn * UCx preliminary growth of gram negative bacilli, BCx pending * 39.5 C on 12/10 with chills- switched to Zosyn + daptomycin * PCT >4, lactate wnl on admission, MRSA nares negative * WBC 18 on admission to 16.7 today * Discontinue daptomycin, continue Zosyn- narrow per sensitivities LINES/IV ACCESS - * PIVs x2 * Zapata DVT PROPHYLAXIS - * Heparin 5000u SQ q8h * SCDs (2) Sepsis: (3) Complicated UTI (urinary tract infection): (4) Hydronephrosis: (5) Acute pyelonephritis: (6) Calculus, ureteral: (7) Hypothyroidism: (8) Peripheral neuropathy: (9) Acute kidney injury: Admission and Anticipated Discharge Date Admission Date: December 10, 2021 Subjective 0307: pt had temperature 39.5 C, given IV Tylenol with fever resolution to 37.6 C 0445: pt converted from sinus rhythm to atrial fibrillation w/ RVR, confirmed by EKG- did not have any symptoms or complaints at time, administered 250 ml LR. Did become hypotensive to 80s/50s which prompted IV neosynephrine administration- some improvement of BP but none in HR- amiodarone then administered. Pt did convert back to sinus rhythm later in AM On evaluation, pt denies any chest pain, lightheadedness, palpitations, abdominal pain, nausea. She did have some chills last night and has been sweating but otherwise denies any acute complaints. Voiding without difficulty. Of note, she does state she had atrial fibrillation before in the past following a previous surgery. Review of Systems Review of Systems: Per subjective Physical Exam Physical Exam: VITAL SIGNS - Vital signs and nursing notes were reviewed. GENERAL - 76-year-old female appearing her stated age who is in no acute distress. Communicates well with provider and answers questions appropriately. HEAD - NC/AT. EYES - Anicteric sclerae, b/l conjunctiva pink and moist with no injection noted. EARS - No deformities of external structures noted on gross examination bilaterally. NOSE - Midline and without cyanosis. No epistaxis or purulent drainage noted MOUTH/OROPHARYNX - Without perioral cyanosis. Buccal mucosa pink and moist. NECK - Supple, no tracheal deviation LUNGS - Chest wall symmetric without accessory muscle use, intercostals retractions, or central cyanosis. Normal vesicular breath sounds CTA B/L. No wheezes, rales, or rhonchi appreciated. CARDIAC - RRR with normal S1/S2. No murmur, rubs, or gallops appreciated. ABDOMEN - Soft, nontender, nondistended, no guarding or rebound, normal bowel sounds EXTREMITIES - No clubbing or peripheral cyanosis. No pretibial edema present. distal LE pulses intact b/l NEUROLOGIC - no gross focal motor or sensory deficits PSYCH - A&Ox3 and cooperates fully with examiner. Pt is pleasant and interacts well with examiner. Results & Data Results & Data ([facility]) Vital Signs (Past 12 Hours) Vital Signs Temp Pulse Pulse Resp BP BP Pulse Ox 12/11/21 06:30 80 17 120/61 97 12/11/21 06:22 87 19 94 12/11/21 06:22 91/65 L 12/11/21 06:20 82/63 L 12/11/21 06:20 90 17 96 12/11/21 06:10 83/55 L 12/11/21 06:10 133 H 19 93 12/11/21 06:00 130 H 18 95 12/11/21 06:00 90/62 L 12/11/21 05:50 104/74 12/11/21 05:50 136 H 14 96 12/11/21 05:43 153 H 19 97 12/11/21 05:43 118/93 12/11/21 05:30 136 H 16 84/63 L 96 12/11/21 05:15 126 H 18 100/64 93 12/11/21 04:48 142 H 20 92/60 L 93 12/11/21 04:46 93 H 18 87/50 L 97 12/11/21 04:30 99 H 18 87/47 L 95 12/11/21 04:31 37.6 C H 12/11/21 04:03 104 H 10 L 96 12/11/21 04:00 103 H 14 89/47 L 95 12/11/21 03:15 91/55 L 12/11/21 03:15 108 H 17 98 12/11/21 03:02 114 H 16 95 12/11/21 03:02 83/43 L 12/11/21 03:00 124 H 27 H 98 12/11/21 03:00 80/47 L 12/11/21 02:48 97/52 L 12/11/21 02:48 111 H 14 92 12/11/21 02:45 114 H 18 90 12/11/21 02:45 86/53 L 12/11/21 03:07 39.5 C H 12/11/21 02:38 112 H 16 101/60 93 12/11/21 02:00 115 H 21 111/66 93 12/11/21 01:37 112 H 24 123/77 91 12/11/21 00:30 93 H 16 98/72 L 92 12/11/21 00:15 94 H 16 120/69 94 12/11/21 00:00 97 H 24 107/68 90 12/10/21 23:30 84 22 99/73 L 92 12/10/21 23:15 83 18 92/50 L 92 12/10/21 23:13 12/10/21 23:13 36.7 C 83 13 95/64 L 98 12/10/21 22:40 80 15 83/62 L 100 12/10/21 22:30 80 19 97/50 L 100 12/10/21 22:20 80 19 93/58 L 99 12/10/21 22:10 83 17 92/53 L 98 12/10/21 22:00 36.6 C 88 22 87/55 L 98 12/10/21 21:50 36.1 C L 87 15 94/54 L 96 12/10/21 21:40 85 16 97/53 L 96 12/10/21 21:30 85 16 86/53 L 94 12/10/21 21:20 83 16 86/54 L 95 12/10/21 21:10 84 17 92/62 L 97 12/10/21 21:02 36 C L 82 13 122/65 99 12/10/21 19:58 65 16 83/50 L 96 12/10/21 19:23 63 18 83/50 L 96 O2 Del Method O2 Flow Rate 12/11/21 06:30 Nasal Cannula 2 12/11/21 06:22 12/11/21 06:22 12/11/21 06:20 12/11/21 06:20 12/11/21 06:10 12/11/21 06:10 12/11/21 06:00 12/11/21 06:00 12/11/21 05:50 12/11/21 05:50 12/11/21 05:43 12/11/21 05:43 12/11/21 05:30 Nasal Cannula 2 12/11/21 05:15 Nasal Cannula 2 12/11/21 04:48 12/11/21 04:46 12/11/21 04:30 Nasal Cannula 2 12/11/21 04:31 12/11/21 04:03 12/11/21 04:00 Nasal Cannula 2 12/11/21 03:15 12/11/21 03:15 12/11/21 03:02 12/11/21 03:02 12/11/21 03:00 12/11/21 03:00 12/11/21 02:48 12/11/21 02:48 12/11/21 02:45 12/11/21 02:45 12/11/21 03:07 12/11/21 02:38 Nasal Cannula 2 12/11/21 02:00 Nasal Cannula 2 12/11/21 01:37 Nasal Cannula 2 12/11/21 00:30 12/11/21 00:15 12/11/21 00:00 12/10/21 23:30 12/10/21 23:15 12/10/21 23:13 Nasal Cannula 2 12/10/21 23:13 Nasal Cannula 2 12/10/21 22:40 Nasal Cannula 2 12/10/21 22:30 Nasal Cannula 2 12/10/21 22:20 Nasal Cannula 2 12/10/21 22:10 Nasal Cannula 2 12/10/21 22:00 Nasal Cannula 2 12/10/21 21:50 Nasal Cannula 2 12/10/21 21:40 Nasal Cannula 2 12/10/21 21:30 Oxymask 4 12/10/21 21:20 Oxymask 4 12/10/21 21:10 Oxymask 6 12/10/21 21:02 Oxymask 6 12/10/21 19:58 Room Air 12/10/21 19:23 Room Air Resident Activity Tracking Resident Involvement: Resident Care Provided Care Provided: Adult Hospital Medicine (1) Sepsis Sepsis acute organ dysfunction status: without acute organ dysfunction Sepsis type: sepsis due to unspecified organism Qualified Code(s): A41.9 - Sepsis, unspecified organism
[2021-12-11 07:25] LABS: Basophils # (auto) 0.02 K/uL (0-0.2); Basophils % (auto) 0.1 %; Dohle Bodies 1+; Echinocytes 1+; Immature Granulocytes # (auto) 0.95 K/uL (0.00-0.02); Immature Granulocytes % (auto) 5.7 %; Lymphocytes # (auto) 0.34 K/uL (1.2-3.4); Monocytes # (auto) 1.32 K/uL (0.24-0.82); Monocytes % (auto) 7.9 %; Neutrophils # (auto) 14.07 K/uL (1.4-6.5); Neutrophils % (auto) 84.3 %
--- NOTE | 2021-12-11 07:53 | Urology Progress Note ---
Date of Service December 11, 2021 Assessment & Plan (1) Sepsis: (2) Calculus, ureteral: (3) Complicated UTI (urinary tract infection): (4) Acute kidney injury: (5) Admitted to intensive care unit: Plan 76yo F admitted with sepsis secondary to an obstructing right ureteral stone and UTI - POD #1 s/p Cystoscopy with Right retrograde pyelogram, urine aspiration, and stent placement. - Subjectively feeling much better, tolerating the ureteral stent with minimal bother. - Pt had temperature 39.5 C earlier this morning, given IV Tylenol with fever resolution to 37.6 C. - Labs reviewed - Wbc down from 17.98-16.70 today, Creatinine down from 1.62- 1.54 today - Continue to trend. - UC&S prelim gram negative bacilli; Intraop urine aspirate right kidney pending; Blood cultures pending. - Continues on IV Zosyn and Daptomycin, follow cultures. - Continues supportive care and antibiotic therapy. - Will need definitive stone treatment after resolution of infection. - Patient follows with [facility] urology and plans to follow-up with them upon discharge for continued care. - Urology will follow peripherally. Please contact us any further questions, concerns, or changes in patient status. Admission and Anticipated Discharge Date Admission Date: December 10, 2021 Subjective Patient examined at bedside this AM. Awake, resting in bed on arrival. No acute distress. Subjectively feeling much better. Denies any pain or discomfort at present. Reports she is voiding without issue. Denies hematuria or dysuria. Febrile earlier this morning. Tolerating diet, but reports decreased appetite. No nausea or vomiting. Overnight, Pt converted from sinus rhythm to atrial fibrillation w/ RVR, confirmed by EKG. Also did become hypotensive to 80s/50s which prompted IV errol administration. Review of Systems Constitutional: as per Subjective / HPI Gastrointestinal: as per Subjective / HPI Genitourinary: as per Subjective / HPI Physical Exam Constitutional: no acute distress Respiratory: no respiratory distress and no labored breathing Gastrointestinal (Abdomen): Inspection/Auscultation: abdomen normal to inspection Neurologic: awake Psychiatric: Orientation: alert and oriented x 3 Results & Data ([facility]) Vital Signs (Past 12 Hours) Vital Signs Temp Pulse Pulse Resp BP BP Pulse Ox 12/11/21 06:30 80 17 120/61 97 12/11/21 06:22 87 19 94 12/11/21 06:22 91/65 L 12/11/21 06:20 82/63 L 12/11/21 06:20 90 17 96 12/11/21 06:10 83/55 L 12/11/21 06:10 133 H 19 93 12/11/21 06:00 130 H 18 95 12/11/21 06:00 90/62 L 12/11/21 05:50 104/74 12/11/21 05:50 136 H 14 96 12/11/21 05:43 153 H 19 97 12/11/21 05:43 118/93 12/11/21 05:30 136 H 16 84/63 L 96 12/11/21 05:15 126 H 18 100/64 93 12/11/21 04:48 142 H 20 92/60 L 93 12/11/21 04:46 93 H 18 87/50 L 97 12/11/21 04:30 99 H 18 87/47 L 95 12/11/21 04:31 37.6 C H 12/11/21 04:03 104 H 10 L 96 12/11/21 04:00 103 H 14 89/47 L 95 12/11/21 03:15 91/55 L 12/11/21 03:15 108 H 17 98 12/11/21 03:02 114 H 16 95 12/11/21 03:02 83/43 L 12/11/21 03:00 124 H 27 H 98 12/11/21 03:00 80/47 L 12/11/21 02:48 97/52 L 12/11/21 02:48 111 H 14 92 12/11/21 02:45 114 H 18 90 12/11/21 02:45 86/53 L 12/11/21 03:07 39.5 C H 12/11/21 02:38 112 H 16 101/60 93 12/11/21 02:00 115 H 21 111/66 93 12/11/21 01:37 112 H 24 123/77 91 12/11/21 00:30 93 H 16 98/72 L 92 12/11/21 00:15 94 H 16 120/69 94 12/11/21 00:00 97 H 24 107/68 90 12/10/21 23:30 84 22 99/73 L 92 12/10/21 23:15 83 18 92/50 L 92 12/10/21 23:13 12/10/21 23:13 36.7 C 83 13 95/64 L 98 12/10/21 22:40 80 15 83/62 L 100 12/10/21 22:30 80 19 97/50 L 100 12/10/21 22:20 80 19 93/58 L 99 12/10/21 22:10 83 17 92/53 L 98 12/10/21 22:00 36.6 C 88 22 87/55 L 98 12/10/21 21:50 36.1 C L 87 15 94/54 L 96 12/10/21 21:40 85 16 97/53 L 96 12/10/21 21:30 85 16 86/53 L 94 12/10/21 21:20 83 16 86/54 L 95 12/10/21 21:10 84 17 92/62 L 97 12/10/21 21:02 36 C L 82 13 122/65 99 12/10/21 19:58 65 16 83/50 L 96 O2 Del Method O2 Flow Rate 12/11/21 06:30 Nasal Cannula 2 12/11/21 06:22 12/11/21 06:22 12/11/21 06:20 12/11/21 06:20 12/11/21 06:10 12/11/21 06:10 12/11/21 06:00 12/11/21 06:00 12/11/21 05:50 12/11/21 05:50 12/11/21 05:43 12/11/21 05:43 12/11/21 05:30 Nasal Cannula 2 12/11/21 05:15 Nasal Cannula 2 12/11/21 04:48 12/11/21 04:46 12/11/21 04:30 Nasal Cannula 2 12/11/21 04:31 12/11/21 04:03 12/11/21 04:00 Nasal Cannula 2 12/11/21 03:15 12/11/21 03:15 12/11/21 03:02 12/11/21 03:02 12/11/21 03:00 12/11/21 03:00 12/11/21 02:48 12/11/21 02:48 12/11/21 02:45 12/11/21 02:45 12/11/21 03:07 12/11/21 02:38 Nasal Cannula 2 12/11/21 02:00 Nasal Cannula 2 12/11/21 01:37 Nasal Cannula 2 12/11/21 00:30 12/11/21 00:15 12/11/21 00:00 12/10/21 23:30 12/10/21 23:15 12/10/21 23:13 Nasal Cannula 2 12/10/21 23:13 Nasal Cannula 2 12/10/21 22:40 Nasal Cannula 2 12/10/21 22:30 Nasal Cannula 2 12/10/21 22:20 Nasal Cannula 2 12/10/21 22:10 Nasal Cannula 2 12/10/21 22:00 Nasal Cannula 2 12/10/21 21:50 Nasal Cannula 2 12/10/21 21:40 Nasal Cannula 2 12/10/21 21:30 Oxymask 4 12/10/21 21:20 Oxymask 4 12/10/21 21:10 Oxymask 6 12/10/21 21:02 Oxymask 6 12/10/21 19:58 Room Air PG Care Time/CCT Total # of Minutes Spent Total Time Spent with Patient: Total time spent is greater than 50% in coordination of care (as documented) at patient's floor/unit and/or counseling patient: Coding Level of Care Code 44063 Subseq Hosp Care Lvl 2 Diagnoses Sepsis A41.9 Sepsis acute organ dysfunction status: without acute organ dysfunction Sepsis type: sepsis due to unspecified organism Calculus, ureteral N20.1 Complicated UTI (urinary tract infection) N39.0 Acute kidney injury N17.9 Admitted to intensive care unit Z78.9 (1) Sepsis Sepsis acute organ dysfunction status: without acute organ dysfunction Sepsis type: sepsis due to unspecified organism Qualified Code(s): A41.9 - Sepsis, unspecified organism
[2021-12-11] MEDS ORDERED: POTASSIUM PHOSPHATE 21 MMOL in SODIUM CHLORIDE 0.9% 500 ML IV ONE (08:00)
[2021-12-11] MEDS: GABAPENTIN 400 MG CAP PO SCH ×2 (08:00→12:23)
[2021-12-11] MEDS: ADVANCED PROBIOTIC 1250 MG CAPSULE PO SCH (08:01)
[2021-12-11] MEDS: MAGNESIUM SULFATE / D5W 1 GM/100 ML BAG IV SCH ×2 (08:26→10:09)
[2021-12-11] MEDS: POTASSIUM CHLORIDE / WTR 10 MEQ/100 ML PLCT IV SCH ×4 (08:26→23:46)
[2021-12-11] MEDS ORDERED: METOPROLOL SUCC 25MG EXT REL TAB PO SCH (09:00)
--- NOTE | 2021-12-11 09:33 | Communication Note ---
Date of Service: December 11, 2021 Patient reports previous episode of atrial fibrillation however this was associated with an episode of sepsis. Patient denies conversation of risks and benefits of systemic anticoagulation. She denies longstanding history of palpitations lightheadedness or passing out. At this point on lead to believe this is likely paroxysmal atrial fibrillation related to extreme physiologic stress of sepsis/severe sepsis. Advised patient to follow-up with primary care provider for more risk stratification outside of acute setting. Weaning off phenylephrine as tolerated and continue IV antibiotics at this time. Urine has produced gram-negative bacilli will discontinue daptomycin given clinical improvement since stent placement. Once off vasoactive's would be stable for downgrade out of ICU. Currently tolerating p.o. Discontinue amiodarone after current bag infuses. Optimize electrolytes. Magnesium oxide 400 mg p.o. nightly. Patient was discussed in multidisciplinary rounds I have personally spent 30 minutes of critical care time in the direct management of this patient. This is a life/limb threatening event. This includes time spent evaluating patient, direct bedside care, chart review, placing orders, interpretation of diagnostic studies, discussion with consultants, patient, and/or family members regarding treatment decisions, as well as other required patient management activities. This time is exclusive of all separately billable procedures, and teaching time and separate from and in addition to any other critical care service time. Coding Level of Care Code Critical Care shell [email or web address] 30 min
--- NOTE | 2021-12-11 09:45 | Fluoroscopy Report ---
INTRAOPERATIVE RADIOGRAPHS CLINICAL HISTORY: Right-sided ureteral stent placement. Fluoroscopy time: 16 seconds. FINDINGS: 3 spot fluoroscopic views of the right abdomen are presented. Correlation is made with abdo rosalina CT dated 12/10/2021. The initial image shows a catheter at the right ureteropelvic junction. Inje cted contrast shows moderate to severe right-sided hydronephrosis. The final 2 images show the proxim al and distal ends of a right ureteral stent in appropriate position. IMPRESSION: Intraoperative images from a right ureteral stent placement as above. Electronically signed by: Joni Fay M.D. 12/11/2021 9:44 AM
--- NOTE | 2021-12-11 11:30 | Electrocardiogram Report ---
Test Reason : Blood Pressure : / mmHG Vent. Rate : 089 BPM Atrial Rate : 089 BPM P-R Int : 170 ms QRS Dur : 086 ms QT Int : 370 ms P-R-T Axes : 047 -46 052 degrees QTc Int : 450 ms Normal sinus rhythm Left anterior fascicular block Poor R wave progression, consider anterior PR vs. lead placement vs. LVH Abnormal ECG When compared with ECG of 01-NOV-2020 22:19, Nonspecific T wave abnormality no longer evident in Inferior leads T wave inversion no longer evident in Anterior leads Confirmed by German Pak ([id number] on 12/11/2021 11:30:05 AM Referred By: REFERRED SELF Confirmed By:Charles Pak
[2021-12-11] MEDS ORDERED: AMIODARONE / D5W 360 MG/200 ML BAG IV SCH (12:00)
[2021-12-11] MEDS: ACETAMINOPHEN 325 MG TAB PO PRN ×2 (12:22→21:07)
[2021-12-11] MEDS: ICU ELECTROLYTE REPLACEMENT PROTOCOL SCH (12:27)
--- NOTE | 2021-12-11 14:55 | Hospitalist Progress Note ---
Date of Service December 11, 2021 Assessment & Plan (1) Severe sepsis: Plan: - likely secondary to UTI from right obstructing ureteral stone - WBC 18, hypotensive, febrile to 102 at home, positive UA for infection - started on unasyn in ED and discontinued later on and has been getting Zosyn -Ciprofloxacin and daptomycin were discontinued -Has been receiving IVF for hypotension -Urine culture is growing gram-negative bacilli and blood culture is pending -The patient was transferred to ICU due to ongoing hypotension and requirements of pressor resents -Has been feeling better this morning but remains weak and lethargic -Blood pressure is improving and he is trying to take off pressor resents Transient episode of atrial fibrillation Received intravenous amiodarone and converted to sinus rhythm We will continue current medications Electrolyte imbalance Severe hypophosphatemia and hypokalemia with hypomagnesemia Has been getting supplementation as per ICU team Will monitor electrolytes and labs (2) Complicated UTI (urinary tract infection): Plan: - recurrent nephrolithiasis/ureteral stones with UTI and sepsis -Appreciate urology input and recommendation -Status post cystoscopy, right retrograde pyelogram, urine aspiration and right ureteric stent placement on 12/10/2021 -Has been on intravenous Zosyn -Clinically better (3) Acute kidney injury: Plan: - likely due to the setting of sepsis from UTI with hypotension - IVF and abx as above to treat sepsis - Cr 1.62 on admission with baseline around 0.8 -Creatinine has been improved (4) GERD (gastroesophageal reflux disease): Plan: - continue ppi (5) Peripheral neuropathy: Plan: - on gabapentin in the past - need to clarify if still taking (6) Hypothyroidism: Plan: - continue levothyroxine - TSH ordered Plan DVT ppx: heparin SC Code Status: Full Code Dispo: med/surg - OR Admission and Anticipated Discharge Date Admission Date: December 10, 2021 Subjective 12/11/2021 The patient was seen and examined in ICU She was admitted with severe sepsis secondary to complicated UTI and has been requiring ICU care She remains weak and lethargic and complains some pain in the right side of the abdomen and groin Denies any nausea no vomiting or abdominal distention Review of Systems Review of Systems: All systems reviewed and are unremarkable except as noted below Gastrointestinal: Abdominal pain on the right side and at the back Physical Exam Physical Exam: Lying in bed with minimal distress due to abdominal pain Constitutional: well developed, well nourished, + ill appearing and + obese Eyes: PERRL, conjunctivae normal, anicteric sclerae ENMT: external ear and nose normal, oropharynx normal Neck: trachea midline, no thyromegaly Respiratory: no respiratory distress Auscultation: lungs clear to auscultation bilaterally; no crackles Cardiovascular: Rate/Rhythm: regular rate and regular rhythm; not tachycardic Heart Sounds: normal S1 and normal S2; no murmur Extremities: no edema Gastrointestinal (Abdomen): Inspection/Auscultation: normal bowel sounds; abdomen not distended Percussion/Palpation: + abdomen tender (Right groin and right renal angle) Musculoskeletal: No acute arthritis involving any joint Neurologic: Alert, awake and oriented x3. Generally very weak and lethargic Lymphatic: no cervical or axillary lymphadenopathy Results & Data Results & Data ([facility]) Vital Signs (Past 12 Hours) Vital Signs Temp Pulse Pulse Resp BP BP Pulse Ox 12/11/21 13:01 85 22 94 12/11/21 13:01 100/56 L 12/11/21 12:00 164/109 H 12/11/21 12:35 38.9 C H 85 23 126/51 L 94 12/11/21 11:00 83 16 97 12/11/21 11:00 118/70 12/11/21 10:32 79 14 91 12/11/21 10:32 102/51 L 12/11/21 10:30 80 17 92 12/11/21 10:00 77 18 91 12/11/21 10:00 136/87 12/11/21 09:30 75 20 92 12/11/21 09:30 118/82 12/11/21 09:00 76 12 96 12/11/21 08:34 88/67 L 12/11/21 08:34 80 21 94 12/11/21 08:01 84/56 L 12/11/21 08:01 81 21 94 12/11/21 07:00 79 16 98 12/11/21 07:00 102/61 12/11/21 09:00 36.9 C 71 18 114/60 97 12/11/21 06:30 80 17 120/61 97 12/11/21 06:22 87 19 94 12/11/21 06:22 91/65 L 12/11/21 06:20 82/63 L 12/11/21 06:20 90 17 96 12/11/21 06:10 83/55 L 12/11/21 06:10 133 H 19 93 12/11/21 06:00 130 H 18 95 12/11/21 06:00 90/62 L 12/11/21 05:50 104/74 12/11/21 05:50 136 H 14 96 12/11/21 05:43 153 H 19 97 12/11/21 05:43 118/93 12/11/21 05:30 136 H 16 84/63 L 96 12/11/21 05:15 126 H 18 100/64 93 12/11/21 04:48 142 H 20 92/60 L 93 12/11/21 04:46 93 H 18 87/50 L 97 12/11/21 04:30 99 H 18 87/47 L 95 12/11/21 04:31 37.6 C H 12/11/21 04:03 104 H 10 L 96 12/11/21 04:00 103 H 14 89/47 L 95 12/11/21 03:15 91/55 L 12/11/21 03:15 108 H 17 98 12/11/21 03:02 114 H 16 95 12/11/21 03:02 83/43 L 12/11/21 03:00 124 H 27 H 98 12/11/21 03:00 80/47 L 12/11/21 02:48 97/52 L 12/11/21 02:48 111 H 14 92 12/11/21 02:45 114 H 18 90 12/11/21 02:45 86/53 L 12/11/21 03:07 39.5 C H O2 Del Method O2 Flow Rate 12/11/21 13:01 12/11/21 13:01 12/11/21 12:00 12/11/21 12:35 Nasal Cannula 3 12/11/21 11:00 12/11/21 11:00 12/11/21 10:32 12/11/21 10:32 12/11/21 10:30 12/11/21 10:00 12/11/21 10:00 12/11/21 09:30 12/11/21 09:30 12/11/21 09:00 12/11/21 08:34 12/11/21 08:34 12/11/21 08:01 12/11/21 08:01 12/11/21 07:00 12/11/21 07:00 12/11/21 09:00 Nasal Cannula 2 12/11/21 06:30 Nasal Cannula 2 12/11/21 06:22 12/11/21 06:22 12/11/21 06:20 12/11/21 06:20 12/11/21 06:10 12/11/21 06:10 12/11/21 06:00 12/11/21 06:00 12/11/21 05:50 12/11/21 05:50 12/11/21 05:43 12/11/21 05:43 12/11/21 05:30 Nasal Cannula 2 12/11/21 05:15 Nasal Cannula 2 12/11/21 04:48 12/11/21 04:46 12/11/21 04:30 Nasal Cannula 2 12/11/21 04:31 12/11/21 04:03 12/11/21 04:00 Nasal Cannula 2 12/11/21 03:15 12/11/21 03:15 12/11/21 03:02 12/11/21 03:02 12/11/21 03:00 12/11/21 03:00 12/11/21 02:48 12/11/21 02:48 12/11/21 02:45 12/11/21 02:45 12/11/21 03:07 Laboratory Results Short CBC 12/10/21 12/11/21 Range/Units 15:50 05:02 WBC 17.98 H 16.70 H (4.8-10.8) K/ul Hgb 12.8 10.3 L (12.0-16.0) g/dl Hct 38.0 30.6 L (34.1-44.9) % Plt Count 180 160 (130-400) K/uL BMP 12/10/21 12/11/21 15:50 05:02 Sodium 134 L 135 L Potassium 3.9 3.3 L Chloride 101 104 Carbon Dioxide 24 21 BUN 26 H 23 Creatinine 1.62 H 1.54 H Glucose 108 H 95 Calcium 8.8 7.8 L Liver Function 12/10/21 12/11/21 Range/Units 15:50 05:02 Total Bilirubin 1.1 H 1.0 (0.2-1.0) mg/dl AST 21 17 (13-39) U/L ALT 26 17 (7-52) U/L Alkaline Phosphatase 79 65 (34-104) U/L Albumin 3.9 3.0 L (3.4-5.0) gm/dl Urine 12/10/21 Range/Units 16:47 Urine Color Yellow Urine Appearance Cloudy A (Clear) Urine pH 6.0 (4.5-7.5) Ur Specific [place] 1.011 (1.000-1.030) Urine Protein 1+ H (Negative) Urine Glucose (UA) Negative (Negative) Medications Administered Current Inpatient Medications Acetaminophen (Acetaminophen 325 Mg Tab) 650 mg PO Q4H PRN PRN Reason: Pain or Fever Stop: 01/09/22 19:51 Last Admin: 12/11/21 12:22 Dose: 650 mg Duloxetine HCl (Duloxetine Hcl 20 Mg Cap) 20 mg PO AMHS [facility] Stop: 01/10/22 08:59 Gabapentin (Gabapentin 400 Mg Cap) 400 mg PO BID@0900,1400 [facility] Stop: 01/10/22 08:59 Last Admin: 12/11/21 12:23 Dose: 400 mg Heparin Sodium (Porcine) (Heparin Sod 5,000 Unit/0.5 Ml Vial) 5,000 units SQ Q8 [facility] Stop: 01/10/22 05:59 Last Admin: 12/11/21 12:22 Dose: 5,000 units Piperacillin Sod/Tazobactam (Sod 4.5 gm/ Dextrose) 120 mls @ 30 mls/hr IV Q8H [facility]; Protocol Stop: 12/21/21 05:59 Last Admin: 12/11/21 12:26 Dose: 30 mls/hr Lactated Ringer's (Lr) 1,000 mls @ 150 mls/hr IV .Q6H40M [facility] Stop: 01/09/22 23:29 Last Infusion: 12/11/21 13:24 Dose: Infused Phenylephrine HCl 20 mg/ (Dextrose) 502 mls @ 0 mls/hr IV .Q0M [facility]; Protocol Stop: 01/10/22 04:59 Last Titration: 12/11/21 13:24 Dose: 0 mcg/kg/min, 0 mls/hr Lactobacillus Acidophilus (Advanced Probiotic 1250 Mg Capsule) 2 cap PO QAM [facility] Stop: 01/10/22 08:59 Last Admin: 12/11/21 08:01 Dose: 2 cap Levothyroxine Sodium (Levothyroxine Sodium 88 Mcg Tablet) 88 mcg PO DAILYBB [facility] Stop: 01/10/22 06:29 Last Admin: 12/11/21 05:09 Dose: 88 mcg Magnesium Oxide (Magnesium Oxide 400 Mg Tab) 400 mg PO HS [facility] Stop: 01/10/22 20:59 Metoprolol Succinate (Metoprolol Succ 25mg Ext Rel Tab) 25 mg PO QAM [facility] Stop: 01/10/22 08:59 Miscellaneous (Order Awaiting Action: Cyclosporine [Restasis] 0.05 % Dropperette) 1 each N/A QS [facility] Stop: 01/10/22 00:00 Last Admin: 12/11/21 10:24 Dose: Not Given Miscellaneous (Order Awaiting Action: Levocetirizine 5 Mg Tablet) 1 each N/A QS [facility] Stop: 01/10/22 00:00 Last Admin: 12/11/21 10:25 Dose: Not Given Miscellaneous (Icu Electrolyte Replacement Protocol) 1 each N/A BID@,18 [facility]; Protocol Stop: 12/18/21 17:59 Last Admin: 12/11/21 12:27 Dose: Not Given Pantoprazole Sodium (Pantoprazole 40 Mg Tab) 40 mg PO DAILY PRN PRN Reason: Heartburn Polyethylene Glycol (Polyethylene (Miralax) 17 Gm Pack) 17 gm PO DAILY PRN PRN Reason: Constipation Stop: 01/09/22 19:51
[2021-12-11] MEDS ORDERED: GABAPENTIN 600 MG TAB PO SCH (21:00)
[2021-12-11] MEDS: MAGNESIUM OXIDE 400 MG TAB PO SCH (21:32)
[2021-12-11 21:45] LABS: Phosphorus 2.5 mg/dl (2.5-4.9)
[2021-12-11 21:46] LABS: BUN Creatinine Ratio 12.8 (10-20); Calcium 8.1 mg/dl (8.5-10.1); Creatinine Clr Calc Pharmacy 28.6 ml/min; Est GFR (African American) 31.8 ml/min; Est GFR (Non-African American) 27.4 ml/min; Magnesium 2.2 mg/dl (1.7-2.4); Potassium 3.7 mmol/L (3.5-5.1)
[2021-12-11] MEDS ORDERED: NSS + 20MEQ KCL 20 MEQ/1,000 ML BAG IV SCH (22:15)
[2021-12-12] MEDS ORDERED: DAPTOmycin 400 MG in SYRINGE 0 ML IV SCH
[2021-12-12] MEDS: PIPERACILLIN/TAZOBACTAM 4.5 GM in DEXTROSE 5% 100 ML IV SCH (05:27)
[2021-12-12] MEDS: HEPARIN SOD 5,000 UNIT/0.5 ML VIAL SQ SCH ×3 (05:27→21:13)
[2021-12-12] MEDS: LEVOTHYROXINE SODIUM 88 MCG TABLET PO SCH (05:28)
[2021-12-12 05:46] LABS: Hematocrit (blood only) 33.1 % (34.1-44.9); Hemoglobin 10.9 g/dl (12.0-16.0); Mean Corpuscular Hemoglobin 29.3 pg (25.0-34.0); Mean Corpuscular Hgb Conc 32.9 g/dL (32.0-36.0); Mean Platelet Volume 10.7 fL (9.4-12.3); Platelet Count 178 K/uL (130-400); RDW Coefficient of Variation 14.6 % (11.5-14.5); RDW Standard Deviation 47.2 fL (36.4-46.3); Red Blood Count 3.72 M/uL (3.93-5.22); White Blood Count 14.17 K/ul (4.8-10.8)
[2021-12-12 05:56] LABS: BUN Creatinine Ratio 12.7 (10-20); Bilirubin Direct 0.2 mg/dl (0-0.2); Bilirubin,Total 0.8 mg/dl (0.2-1.0); Calcium 7.7 mg/dl (8.5-10.1); Creatinine Clr Calc Pharmacy 31.1 ml/min; Est GFR (African American) 35.1 ml/min; Est GFR (Non-African American) 30.3 ml/min; Magnesium 2.1 mg/dl (1.7-2.4); Phosphorus 2.7 mg/dl (2.5-4.9); Potassium 3.8 mmol/L (3.5-5.1); Total Protein 5.5 gm/dl (6.0-8.3)
[2021-12-12 05:57] LABS: Basophils # (auto) 0.04 K/uL (0-0.2); Basophils % (auto) 0.3 %; Eosinophils # (auto) 0.09 K/uL (0-0.50); Eosinophils % (auto) 0.6 %; Immature Granulocytes # (auto) 0.16 K/uL (0.00-0.02); Immature Granulocytes % (auto) 1.1 %; Lymphocytes # (auto) 0.65 K/uL (1.2-3.4); Lymphocytes % (auto) 4.6 %; Monocytes # (auto) 1.22 K/uL (0.24-0.82); Monocytes % (auto) 8.6 %; Neutrophils # (auto) 12.01 K/uL (1.4-6.5); Neutrophils % (auto) 84.8 %
[2021-12-12] MEDS: ICU ELECTROLYTE REPLACEMENT PROTOCOL SCH (06:22)
[2021-12-12] MEDS: POTASSIUM CHLORIDE CRTAB 20 MEQ TABCR PO SCH ×2 (06:28→10:09)
--- NOTE | 2021-12-12 09:11 | Urology Progress Note ---
Date of Service December 12, 2021 Assessment & Plan (1) Sepsis: (2) Calculus, ureteral: (3) Complicated UTI (urinary tract infection): (4) Acute kidney injury: (5) Admitted to intensive care unit: Plan 76yo F admitted with sepsis secondary to an obstructing right ureteral stone and UTI - POD #2 s/p Cystoscopy with Right retrograde pyelogram, urine aspiration, and stent placement. - Tolerating the ureteral stent with minimal bother. - Afebrile at present, but had temperature 39.1 C overnight. - Labs reviewed - Wbc downtrending, Creatinine 1.65 today. Continue to trend. - UC&S final with Klebsiella; Intraop urine aspirate right kidney negative; Blood cultures no growth x 24 hours - Antibiotics changed from Zosyn to Ceftriaxone today. - Voiding spontaneously, output appears adequate. Continue to monitor, bladder scan prn. - Continue supportive care and antibiotic therapy. - Will need definitive stone treatment after resolution of infection. - Patient follows with [facility] urology and plans to follow-up with them upon discharge for continued care. - Urology will follow peripherally. Please contact us any further questions, concerns, or changes in patient status. Admission and Anticipated Discharge Date Admission Date: December 10, 2021 Supervising Physician Co-Signing Physician Notes I have discussed Ms. Sewell's case with SHELLY Zeng and agree with the above documentation. Should have adequate source control with ureteral stent in place. It is not uncommon to have some cyclic fevers with pyelonephritis up to 72hrs after adequate source control. Recommend continuing with antibiotics and supportive care. Subjective Patient examined at bedside this AM in ICU. Awake, resting in bed on arrival. Feels tired this morning. Was febrile overnight at 39.1C. Notes some right flank/abdominal pain earlier this morning, but has now improved. States she does not have much of an appetite. Denies nausea or vomiting. Voiding without issue and feels she is emptying her bladder well. Notes some dysuria, but no hematuria. Review of Systems Constitutional: as per Subjective / HPI Genitourinary: as per Subjective / HPI Physical Exam Constitutional: + ill appearing; no acute distress Respiratory: no respiratory distress and no labored breathing Gastrointestinal (Abdomen): Inspection/Auscultation: abdomen normal to inspection Neurologic: awake Psychiatric: Orientation: alert and oriented x 3 Results & Data ([facility]) Vital Signs (Past 12 Hours) Vital Signs Temp Pulse Resp BP Pulse Ox O2 Del Method O2 Flow Rate 12/12/21 08:13 85 16 103/47 L 95 Room Air 12/12/21 08:00 79 14 91/61 L 95 Nasal Cannula 2 12/12/21 07:23 78 20 112/64 96 Nasal Cannula 2 12/12/21 07:00 80 14 82/57 L 95 Nasal Cannula 2 12/12/21 08:41 80 12/12/21 08:00 Room Air 12/12/21 06:00 70 17 96/60 L 97 Room Air 12/12/21 05:00 72 17 102/60 97 Nasal Cannula 2 12/12/21 04:00 72 17 94/55 L 97 Nasal Cannula 2 12/12/21 04:00 36.8 C 12/12/21 03:00 71 18 98/58 L 95 Nasal Cannula 2 12/12/21 02:00 80 18 104/60 95 Nasal Cannula 2 12/12/21 01:54 37.0 C 12/12/21 01:00 87 14 100/50 L 94 Nasal Cannula 2 12/12/21 00:00 91 H 17 104/55 L 93 Nasal Cannula 2 12/12/21 00:00 39.1 C H 12/11/21 23:00 99 H 19 114/58 L 93 Nasal Cannula 2 12/11/21 22:00 97 H 27 H 117/58 L 94 Nasal Cannula 2 PG Care Time/CCT Total # of Minutes Spent Total Time Spent with Patient: Total time spent is greater than 50% in coordination of care (as documented) at patient's floor/unit and/or counseling patient: Coding Level of Care Code 99080 Subseq Hosp Care Lvl 2 Diagnoses Sepsis A41.9 Sepsis acute organ dysfunction status: without acute organ dysfunction Sepsis type: sepsis due to unspecified organism Calculus, ureteral N20.1 Complicated UTI (urinary tract infection) N39.0 Acute kidney injury N17.9 Admitted to intensive care unit Z78.9 (1) Sepsis Sepsis acute organ dysfunction status: without acute organ dysfunction Sepsis type: sepsis due to unspecified organism Qualified Code(s): A41.9 - Sepsis, unspecified organism
[2021-12-12] MEDS: ADVANCED PROBIOTIC 1250 MG CAPSULE PO SCH (09:18)
[2021-12-12] MEDS: GABAPENTIN 400 MG CAP PO SCH ×2 (09:18→14:22)
[2021-12-12] MEDS ORDERED: bisacodyL 5 MG TABEC PO ONE (09:35)
--- NOTE | 2021-12-12 09:40 | Critical Care Progress Note ---
Date of Service December 12, 2021 Assessment & Plan (1) Admitted to intensive care unit: Plan: Reason Critically Ill: 76-year-old female presenting with RIGHT-sided ureteral stone with hydro nephritis and concerns for pyelonephritis and sepsis requiring ongoing management and possible need for pressors. NEURO - * CAM ICU: NEGATIVE * Peripheral neuropathy: * Gabapentin to be renally dosed per pharmacy. CARDIAC/VASCULAR - * Hypotension: resolved, off pressors * Continue to hold metoprolol x1 day * Monitor on telemetry. RESPIRATORY - * No history of pulmonary disease. * Saturating well on 2 L. GI/NUTRITION - * Constipation RENAL/LYTES - * RADHA: improving * IVF: Discontinue additional IV fluids - * RIGHT Ureteral Stone w/ Hydronephrosis, Pyelonephritis, and sepsis: * Source management w/ stent placement. * See ID for abx. ENDO - * No h/o DM * BSGs per unit protocol. ISS --> gtt per unit policy. * Hypothyroidism: * Continue home dosing of Levothyroxine. HEME - * Stable H&H ID - * Sepsis 2/2 Urinary Source: * Initially received cipro, dapto, Unasyn. * De-escalate to ceftriaxone IV given continued fevers * Anticipate 10 days total effective therapy LINES/IV ACCESS - * PIVs x2 DVT PROPHYLAXIS - * Heparin sq * SCDs Patient is stable for downgrade out of the ICU. (2) Sepsis: (3) Complicated UTI (urinary tract infection): (4) Hydronephrosis: (5) Acute pyelonephritis: (6) Calculus, ureteral: (7) Hypothyroidism: (8) Peripheral neuropathy: (9) Acute kidney injury: Admission and Anticipated Discharge Date Admission Date: December 10, 2021 Subjective Feels better than yesterday generally just tired Physical Exam Physical Exam: General: Alert. nontoxic. Skin: Warm, dry, Head: Atraumatic Ears, nose, mouth and throat: airway patent Cardiovascular: Normal peripheral perfusion Respiratory: no respiratory distress Gastrointestinal: Non distended Musculoskeletal: No deformity Results & Data Results & Data ([facility]) Vital Signs (Past 12 Hours) Vital Signs Temp Pulse Resp BP Pulse Ox O2 Del Method O2 Flow Rate 12/12/21 08:00 36.8 C 12/12/21 09:00 83 16 95/60 L 95 Room Air 12/12/21 08:13 85 16 103/47 L 95 Room Air 12/12/21 08:00 79 14 91/61 L 95 Nasal Cannula 2 12/12/21 07:23 78 20 112/64 96 Nasal Cannula 2 12/12/21 07:00 80 14 82/57 L 95 Nasal Cannula 2 12/12/21 08:41 80 12/12/21 08:00 Room Air 12/12/21 06:00 70 17 96/60 L 97 Room Air 12/12/21 05:00 72 17 102/60 97 Nasal Cannula 2 12/12/21 04:00 72 17 94/55 L 97 Nasal Cannula 2 12/12/21 04:00 36.8 C 12/12/21 03:00 71 18 98/58 L 95 Nasal Cannula 2 12/12/21 02:00 80 18 104/60 95 Nasal Cannula 2 12/12/21 01:54 37.0 C 12/12/21 01:00 87 14 100/50 L 94 Nasal Cannula 2 12/12/21 00:00 91 H 17 104/55 L 93 Nasal Cannula 2 12/12/21 00:00 39.1 C H 12/11/21 23:00 99 H 19 114/58 L 93 Nasal Cannula 2 12/11/21 22:00 97 H 27 H 117/58 L 94 Nasal Cannula 2 Critical Care Results & Data Vital Signs (Past 12 Hours) Vital Signs Temp Pulse Resp BP Pulse Ox O2 Del Method O2 Flow Rate 12/12/21 08:00 36.8 C 12/12/21 09:00 83 16 95/60 L 95 Room Air 12/12/21 08:13 85 16 103/47 L 95 Room Air 12/12/21 08:00 79 14 91/61 L 95 Nasal Cannula 2 12/12/21 07:23 78 20 112/64 96 Nasal Cannula 2 12/12/21 07:00 80 14 82/57 L 95 Nasal Cannula 2 12/12/21 08:41 80 12/12/21 08:00 Room Air 12/12/21 06:00 70 17 96/60 L 97 Room Air 12/12/21 05:00 72 17 102/60 97 Nasal Cannula 2 12/12/21 04:00 72 17 94/55 L 97 Nasal Cannula 2 12/12/21 04:00 36.8 C 12/12/21 03:00 71 18 98/58 L 95 Nasal Cannula 2 12/12/21 02:00 80 18 104/60 95 Nasal Cannula 2 12/12/21 01:54 37.0 C 12/12/21 01:00 87 14 100/50 L 94 Nasal Cannula 2 12/12/21 00:00 91 H 17 104/55 L 93 Nasal Cannula 2 12/12/21 00:00 39.1 C H 12/11/21 23:00 99 H 19 114/58 L 93 Nasal Cannula 2 12/11/21 22:00 97 H 27 H 117/58 L 94 Nasal Cannula 2 Lab & Micro Results (Past 24 Hours) RBC 3.72 M/uL (3.93-5.22) L 12/12/21 WBC 14.17 K/ul (4.8-10.8) H 12/12/21 Hgb 10.9 g/dl (12.0-16.0) L 12/12/21 Hct 33.1 % (34.1-44.9) L 12/12/21 MCV 89.0 fL (80.0-100.0) 12/12/21 MCH 29.3 pg (25.0-34.0) 12/12/21 MCHC 32.9 g/dL (32.0-36.0) 12/12/21 RDW Standard Deviation 47.2 fL (36.4-46.3) H 12/12/21 RDW Coefficient of Variation 14.6 % (11.5-14.5) H 12/12/21 Plt Count 178 K/uL (130-400) 12/12/21 MPV 10.7 fL (9.4-12.3) 12/12/21 Neutrophils (%) (Auto) 84.8 % 12/12/21 Lymphocytes (%) (Auto) 4.6 % 12/12/21 Monocytes # (Auto) 1.22 K/uL (0.24-0.82) H 12/12/21 Eosinophils # (Auto) 0.09 K/uL (0-0.50) 12/12/21 Immature Granulocyte % (Auto) 1.1 % 12/12/21 Neutrophils # (Auto) 12.01 K/uL (1.4-6.5) H 12/12/21 Lymphocytes # (Auto) 0.65 K/uL (1.2-3.4) L 12/12/21 Monocytes # (Auto) 1.22 K/uL (0.24-0.82) H 12/12/21 Eosinophils # (Auto) 0.09 K/uL (0-0.50) 12/12/21 Basophils # (Auto) 0.04 K/uL (0-0.2) 12/12/21 Immature Granulocyte # (Auto) 0.16 K/uL (0.00-0.02) H 12/12 Na 138 mmol/L (136-145) 12/12/21 K 3.8 mmol/L (3.5-5.1) 12/12/21 Cl 109 mmol/L (98-107) H 12/12/21 CO2 21 mmol/L (21-32) 12/12/21 Anion Gap 8 (3-11) 12/12/21 BUN 21 mg/dl (6-23) 12/12/21 Creatinine 1.65 mg/dl (0.6-1.2) H 12/12/21 Estimated GFR ( Amer) 35.1 ml/min 12/12/21 Estimated GFR (Non-Af Amer) 30.3 ml/min 12/12/21 BUN/Creatinine Ratio 12.7 (10-20) 12/12/21 Glu 105 mg/dl (70-99(Fasting)) H 12/12/21 Ca 7.7 mg/dl (8.5-10.1) L 12/12/21 Phosphorus Level 2.7 mg/dl (2.5-4.9) 12/12/21 Total Bilirubin 0.8 mg/dl (0.2-1.0) 12/12/21 Direct Bilirubin 0.2 mg/dl (0-0.2) 12/12/21 AST 23 U/L (13-39) 12/12/21 ALT 17 U/L (7-52) 12/12/21 Alkaline Phosphatase 60 U/L (34-104) 12/12/21 TP 5.5 gm/dl (6.0-8.3) L 12/12/21 Albumin 3.0 gm/dl (3.4-5.0) L 12/12/21 Mg 2.1 mg/dl (1.7-2.4) 09/07/22 05:26 Calcium Level 7.7 mg/dl (8.5-10.1) L 12/12/21 05:26 Microbiology 12/10/21 16:47 Urine Culture - Preliminary Urine,Clean Catch Klebsiella pneumoniae 12/10/21 15:50 Aerobic Blood Culture - Preliminary Blood No growth in Aerobic bottle after 24 hours. Anaerobic Blood Culture - Preliminary No growth in Anaerobic bottle after 24 hours. 12/10/21 15:50 Aerobic Blood Culture - Preliminary Blood No growth in Aerobic bottle after 24 hours. Anaerobic Blood Culture - Preliminary No growth in Anaerobic bottle after 24 hours. 12/10/21 20:50 Urine Culture - Preliminary Urine,Kidney No growth - Less than 1,000 colonies/mL, Final report to follow. Diagnostic Findings (Past 24 Hours) Retrograde Pyelogram 12/10/21 00:00 INTRAOPERATIVE RADIOGRAPHS CLINICAL HISTORY: Right-sided ureteral stent placement. Fluoroscopy time: 16 seconds. FINDINGS: 3 spot fluoroscopic views of the right abdomen are presented. Correlation is made with abdominal CT dated 12/10/2021. The initial image shows a catheter at the right ureteropelvic junction. Injected contrast shows moderate to severe right-sided hydronephrosis. The final 2 images show the proximal and distal ends of a right ureteral stent in appropriate position. IMPRESSION: Intraoperative images from a right ureteral stent placement as above. Electronically signed by: Joni Fay M.D. 12/11/2021 9:44 AM I & O Totals 24 Hours 12/11/21 12/12/21 12/13/21 06:59 06:59 06:59 Intake Total 6617.905 / 6617.905 3769.241 / 3769.241 120 / 120 Output Total 851 / 851 3350 / 3350 425 / 425 Balance 5766.905 / 5766.905 419.241 / 419.241 -305 / -305 Cumulative 12/10/21 14:10 thru 12/12/21 09:26 Intake Total 77578.146 Output Total 4626 Balance 5881.146 RT Ventilator Mngmt (Last Documented) Ventilator Ordered Settings Respiratory Rate 16 12/12/21 09:00 Ventilator - PT Measurements Respiratory Rate 16 Coding Level of Care Code 68813 Subseq Hosp Care Lvl 3 Diagnoses Admitted to intensive care unit Z78.9 Sepsis A41.9 Sepsis acute organ dysfunction status: without acute organ dysfunction Sepsis type: sepsis due to unspecified organism Complicated UTI (urinary tract infection) N39.0 Hydronephrosis N13.30 Acute pyelonephritis N10 Calculus, ureteral N20.1 Hypothyroidism E03.9 Peripheral neuropathy G62.9 Acute kidney injury N17.9 (1) Sepsis Sepsis acute organ dysfunction status: without acute organ dysfunction Sepsis type: sepsis due to unspecified organism Qualified Code(s): A41.9 - Sepsis, unspecified organism
--- NOTE | 2021-12-12 10:43 | XRay Report ---
XR chest 1V portable HISTORY: Sepsis. COMPARISON: Chest 12/10/2021. FINDINGS: No pneumothorax. No pleural effusions. There is progressive interstitial/vascular thickenin g suggestive of developing congestive change. No new focal lung consolidations identified. The heart is mildly enlarged. IMPRESSION: Cardiomegaly with interval development of mild pulmonary vascular congestion. ACT 112: Negative or not required by law. Electronically signed by: Bacilio Jang M.D. 12/12/2021 10:41 AM
[2021-12-12] MEDS: D5W AND NSS 1,000 ML IV SCH (14:16)
[2021-12-12] MEDS: cefTRIAXone SODIUM 2,000 MG in DEXTROSE 5% 50 ML IV SCH (14:20)
--- NOTE | 2021-12-12 16:20 | Hospitalist Progress Note ---
Date of Service December 12, 2021 Assessment & Plan (1) Severe sepsis: Plan: per Dr. Sommer's notes with addendum: - likely secondary to UTI from right obstructing ureteral stone - WBC 18, hypotensive, febrile to 102 at home, positive UA for infection - started on unasyn in ED and discontinued later on and has been getting Zosyn -Ciprofloxacin and daptomycin were discontinued -Has been receiving IVF for hypotension -Urine culture is growing gram-negative bacilli and blood culture is pending -The patient was transferred to ICU due to ongoing hypotension and requirements of pressor resents -Has been feeling better this morning but remains weak and lethargic -Blood pressure is improving and he is trying to take off pressor resents 12/12 off pressors transfer to PCU Urine Cx: (+) Klebsiella Blood Cx: negative so far Zosyn changed to Ceftriaxone IV Urology on board Transient episode of atrial fibrillation Received intravenous amiodarone and converted to sinus rhythm We will continue current medications Electrolyte imbalance Severe hypophosphatemia and hypokalemia with hypomagnesemia -- resolved (2) Complicated UTI (urinary tract infection): Plan: - recurrent nephrolithiasis/ureteral stones with UTI and sepsis -Appreciate urology input and recommendation -Status post cystoscopy, right retrograde pyelogram, urine aspiration and right ureteric stent placement on 12/10/2021 -- per above (3) Acute kidney injury: Plan: - likely due to the setting of sepsis from UTI with hypotension - IVF and abx as above to treat sepsis crea 0.9 to 1.6 remains at 1.6 continue IV fluids Hypoglycemia episode? BSGs in the afternoon 70s, patient felt shaky serum glucose 90s not on insulin given soda [id number] ordered monitor BSGs q4h advised to increase PO intake (4) GERD (gastroesophageal reflux disease): Plan: - continue ppi (5) Peripheral neuropathy: Plan: - on gabapentin in the past - need to clarify if still taking (6) Hypothyroidism: Plan: - continue levothyroxine - TSH: 0.76 Plan DVT ppx: heparin SC Code Status: Full Code Dispo: PT/OT eval Admission and Anticipated Discharge Date Admission Date: December 10, 2021 Subjective ff up for severe sepsis, UTI, ureteral stone, etc off pressors seen resting in bed, comfortable not in distress states she feels tired, poor appetite but otherwise improving no chest pain, dyspnea, palpitations, dizziness no abdominal pain, nausea/vomiting no other symptoms Review of Systems Review of Systems: all noted and negative except for above Physical Exam Physical Exam: General- oriented x 3, not in distress, speaks in sentences with no effort or accessory muscle use Eyes- anicteric Neck- no JVD Lungs- clear BS bilaterally, no rales/wheezes Heart- normal rate, regular rhythm; no murmurs Abdomen- normal bowel sounds, nondistended, soft, nontender Extremities- no pretibial edema, no calf tenderness Neuro- alert, oriented x 3; no gross focal neurologic deficits Skin- warm & dry Results & Data Results & Data ([facility]) Vital Signs (Past 12 Hours) Vital Signs Temp Pulse Resp BP Pulse Ox O2 Del Method O2 Flow Rate 12/12/21 14:01 102 H 20 145/58 H 12/12/21 13:00 87 21 138/84 12/12/21 12:00 88 15 105/57 L 12/12/21 14:03 38.1 C H 12/12/21 11:00 80 17 117/68 94 Room Air 12/12/21 10:00 79 11 L 101/58 L 94 Room Air 12/12/21 08:00 36.8 C 12/12/21 09:00 83 16 95/60 L 95 Room Air 12/12/21 08:13 85 16 103/47 L 95 Room Air 12/12/21 08:00 79 14 91/61 L 95 Nasal Cannula 2 12/12/21 07:23 78 20 112/64 96 Nasal Cannula 2 12/12/21 07:00 80 14 82/57 L 95 Nasal Cannula 2 12/12/21 08:41 80 12/12/21 08:00 Room Air 12/12/21 06:00 70 17 96/60 L 97 Room Air 12/12/21 05:00 72 17 102/60 97 Nasal Cannula 2 all noted and reviewed including below
--- NOTE | 2021-12-12 17:42 | Electrocardiogram Report ---
Test Reason : Blood Pressure : / mmHG Vent. Rate : 158 BPM Atrial Rate : 138 BPM P-R Int : 000 ms QRS Dur : 086 ms QT Int : 310 ms P-R-T Axes : 000 -58 123 degrees QTc Int : 502 ms Atrial fibrillation with rapid ventricular response Left anterior fascicular block Poor R wave progression, consider anterior SD vs. lead placement vs. LVH Abnormal ECG When compared with ECG of 10-DEC-2021 14:43, (unconfirmed) Atrial fibrillation has replaced Sinus rhythm Vent. rate has increased BY [address] now depressed in Anterolateral leads Inverted T waves have replaced nonspecific T wave abnormality in Lateral leads Confirmed by German Pak ([id number] on 12/12/2021 5:42:14 PM Referred By: REFERRED SELF Confirmed By:Charles Pak
[2021-12-12] MEDS: ACETAMINOPHEN 325 MG TAB PO PRN (19:36)
[2021-12-12] MEDS: MAGNESIUM OXIDE 400 MG TAB PO SCH (21:13)
[2021-12-13] MEDS: D5W AND NSS 1,000 ML IV SCH ×2 (00:10→14:38)
[2021-12-13] MEDS: LEVOTHYROXINE SODIUM 88 MCG TABLET PO SCH (05:42)
[2021-12-13] MEDS: HEPARIN SOD 5,000 UNIT/0.5 ML VIAL SQ SCH ×3 (05:42→20:28)
[2021-12-13 06:29] LABS: BUN Creatinine Ratio 10.1 (10-20); Creatinine Clr Calc Pharmacy 39.8 ml/min; Est GFR (African American) 47.2 ml/min; Est GFR (Non-African American) 40.8 ml/min; Magnesium 1.9 mg/dl (1.7-2.4); Phosphorus 2.4 mg/dl (2.5-4.9); Potassium 4.1 mmol/L (3.5-5.1)
[2021-12-13] MEDS: GABAPENTIN 400 MG CAP PO SCH ×2 (08:27→14:38)
[2021-12-13] MEDS: ADVANCED PROBIOTIC 1250 MG CAPSULE PO SCH (08:28)
[2021-12-13] MEDS: ACETAMINOPHEN 325 MG TAB PO PRN ×2 (14:37→22:43)
[2021-12-13] MEDS: cefTRIAXone SODIUM 2,000 MG in DEXTROSE 5% 50 ML IV SCH (14:37)
--- NOTE | 2021-12-13 19:14 | Hospitalist Progress Note ---
Date of Service December 13, 2021 delayed entry date of service noted above Assessment & Plan (1) Severe sepsis: Plan: per Dr. Sommer's notes with addendum: - likely secondary to UTI from right obstructing ureteral stone - WBC 18, hypotensive, febrile to 102 at home, positive UA for infection - started on unasyn in ED and discontinued later on and has been getting Zosyn -Ciprofloxacin and daptomycin were discontinued -Has been receiving IVF for hypotension -Urine culture is growing gram-negative bacilli and blood culture is pending -The patient was transferred to ICU due to ongoing hypotension and requirements of pressor resents -Has been feeling better this morning but remains weak and lethargic -Blood pressure is improving and he is trying to take off pressor resents 12/13 off pressors transferred to PCU Urine Cx: (+) Klebsiella Blood Cx: negative so far Zosyn changed to Ceftriaxone IV Urology on board Transient episode of atrial fibrillation Received intravenous amiodarone and converted to sinus rhythm on Metoprolol PO Electrolyte imbalance Severe hypophosphatemia and hypokalemia with hypomagnesemia -- resolved (2) Complicated UTI (urinary tract infection): Plan: - recurrent nephrolithiasis/ureteral stones with UTI and sepsis -Appreciate urology input and recommendation -Status post cystoscopy, right retrograde pyelogram, urine aspiration and right ureteric stent placement on 12/10/2021 -- per above (3) Acute kidney injury: Plan: - likely due to the setting of sepsis from UTI with hypotension - IVF and abx as above to treat sepsis crea 0.9 to 1.6 improved to 1.3 Hypoglycemia episode? BSGs in the afternoon 70s, patient felt shaky serum glucose 90s not on insulin given soda [id number] ordered monitor BSGs q4h advised to increase PO intake -- no recurrence of symptoms (4) GERD (gastroesophageal reflux disease): Plan: - continue ppi (5) Peripheral neuropathy: Plan: - on gabapentin in the past - need to clarify if still taking (6) Hypothyroidism: Plan: - continue levothyroxine - TSH: 0.76 Plan DVT ppx: heparin SC Code Status: Full Code Dispo: PT/OT eval Admission and Anticipated Discharge Date Admission Date: December 10, 2021 Subjective ff up for Klebsiella UTI, Ureteral stone, severe sepsis, etc seen resting in bed, comfortable states she is improving daily less weak appetite slowly improving no abdominal pain, dysuria, hematuria no chest pain, dyspnea, palpitations, dizziness no other symptoms Review of Systems Review of Systems: all noted and negative except for above Physical Exam Physical Exam: General- oriented x 3, not in distress, speaks in sentences with no effort or accessory muscle use Eyes- anicteric Neck- no JVD Lungs- clear BS bilaterally, no rales/wheezes Heart- normal rate, regular rhythm; no murmurs Abdomen- normal BS, nondistended, soft, nontender Extremities- no pretibial edema, no calf tenderness Neuro- alert, oriented x 3; no gross focal neurologic deficits Skin- warm & dry Results & Data Results & Data ([facility]) Vital Signs (Past 12 Hours) Vital Signs Temp Pulse Pulse Resp BP Pulse Ox O2 Del Method 12/13/21 19:00 36.8 C 77 16 144/99 H 94 Room Air 12/13/21 15:31 37.2 C 76 17 120/76 95 Room Air 12/13/21 10:55 37.3 C 76 18 123/81 94 Room Air 12/13/21 08:00 88 12/13/21 07:21 37.1 C 90 18 123/83 94 Nasal Cannula O2 Flow Rate 12/13/21 19:00 12/13/21 15:31 12/13/21 10:55 12/13/21 08:00 12/13/21 07:21 2 all noted and reviewed including below
[2021-12-13] MEDS: MAGNESIUM OXIDE 400 MG TAB PO SCH (20:28)
[2021-12-14] MEDS: HEPARIN SOD 5,000 UNIT/0.5 ML VIAL SQ SCH ×3 (05:46→21:34)
[2021-12-14] MEDS: LEVOTHYROXINE SODIUM 88 MCG TABLET PO SCH (05:47)
[2021-12-14 07:03] LABS: BUN Creatinine Ratio 11.9 (10-20); Calcium 8.6 mg/dl (8.5-10.1); Creatinine Clr Calc Pharmacy 38.4 ml/min; Est GFR (African American) 45.1 ml/min; Est GFR (Non-African American) 38.9 ml/min; Magnesium 1.9 mg/dl (1.7-2.4); Phosphorus 3.5 mg/dl (2.5-4.9)
[2021-12-14] MEDS: ADVANCED PROBIOTIC 1250 MG CAPSULE PO SCH (08:31)
[2021-12-14] MEDS: GABAPENTIN 400 MG CAP PO SCH ×2 (08:31→13:26)
[2021-12-14] MEDS: cefTRIAXone SODIUM 2,000 MG in DEXTROSE 5% 50 ML IV SCH (13:08)
--- NOTE | 2021-12-14 16:38 | Cardiology Consultation ---
Date of Consultation December 14, 2021 Assessment & Plan (1) Calculus, ureteral: (2) Complicated UTI (urinary tract infection): (3) Severe sepsis: (4) PAF (paroxysmal atrial fibrillation): Plan For now I would recommend restarting the patient's metoprolol. She still has some hematuria and I would not at this time recommend starting anticoagulation. If she continues to have runs of atrial fibrillation/flutter then we will reconsider start of anticoagulation. She is currently comfortable and in a sinus rhythm. History of Present Illness Attending Physician: Elijah Wagner MD History of Present Illness This is a 76-year-old female with no significant cardiac history who was admitted with urosepsis. Has a history of renal calculi and was found to have hydronephrosis. Urology placed a ureteral stent. The patient was hypotensive and septic on admission. She was admitted to the ICU for several days and eventually transferred up to the medical floor. Today she was convalescing and developed atrial fibrillation/flutter with high heart rates. No treatment was initiated and after several minutes she spontaneously returned to normal sinus rhythm. Of note is that she has been on metoprolol at home which was held due to hypotension during her sepsis. She also informs me that previously when she has had similar problems in the hospital she has had paroxysmal atrial arrhythmias. No arrhythmias after she returned home. She has no ongoing cardiac complaints today. Allergies Allergy/AdvReac Type Severity Reaction Status Date / Time cephalexin Allergy Intermediate Hives Verified 12/10/21 19:43 Sulfa (Sulfonamide Allergy Intermediate HIVES Verified 12/10/21 19:43 Antibiotics) lisinopril AdvReac Mild Cough Verified 12/10/21 19:43 Home Medications Medication Instructions Recorded Confirmed Type albuterol sulfate 90 mcg/actuation 2 puff inhalation Q4 PRN Wheezing 03/19/16 12/10/21 History aerosol inhaler (Ventolin HFA) ##0 duloxetine 20 mg capsule,delayed 20 mg PO [facility] ##0 03/19/16 12/10/21 History release fluticasone propionate 50 2 spray intranasal QAM ##0 03/19/16 12/10/21 History mcg/actuation nasal spray,suspension (Flonase Allergy Relief) sumatriptan succinate 100 mg 100 mg PO DIRECTED PRN Migraine 03/19/16 12/10/21 History tablet (Imitrex) Headache #0 tabs Medical Marijuana 1 dose sublingual UD PRN RESTLESS 06/03/20 12/10/21 History LEG SYNDROME L.acidoph-L.rhamn-B.bifidum-B.long 1 tab PO QAM 06/27/20 12/10/21 History 12.9 mg (2 billion cell) tablet, DR (Probiotic Acidophilus Biobeads) gabapentin 600 mg tablet 600 mg PO QPM 06/27/20 12/10/21 History hydroxyzine HCl 25 mg tablet 25 mg PO Q6 PRN Itching 06/27/20 12/10/21 History levocetirizine 5 mg tablet 5 mg PO HS 06/27/20 12/10/21 History gabapentin 400 mg capsule 400 mg PO .MORNING & MIDDAY 07/03/20 12/10/21 History metoprolol succinate 25 mg 25 mg PO QAM #30 tabs 08/15/20 12/10/21 Rx tablet,extended release 24 hr cyclosporine 0.05 % eye drops in a 1 drp ophthalmic (eye) HS 12/10/21 12/10/21 History dropperette (Restasis) levothyroxine 88 mcg tablet 88 mcg PO DAILYBB 12/10/21 12/10/21 History (Synthroid) nitrofurantoin 100 mg PO HS 12/10/21 12/10/21 History monohydrate/macrocrystals 100 mg capsule omeprazole 20 mg capsule,delayed 20 mg PO DAILY PRN Heartburn 12/10/21 12/10/21 History release solifenacin 10 mg tablet 10 mg PO QAM 12/10/21 12/10/21 History Patient History Medical History Acute pyelonephritis Arthritis GERD (gastroesophageal reflux disease) GERD (gastroesophageal reflux disease) Hypothyroidism Hypothyroidism IBS (irritable bowel syndrome) Kidney stone Migraine Overactive bladder Peripheral neuropathy Restless leg syndrome Restless leg syndrome, familial Sleep apnea CPAP, USING EVERY NIGHT. Surgical History H/O foot surgery R foot hammertoe correction 07/10/20 at [facility]. H/O sinus surgery H/O: hysterectomy History of appendectomy History of bladder surgery BLADDER TACK History of carpal tunnel release RT/LEFT History of cataract surgery RT/LEFT History of colonoscopy History of esophagogastroduodenoscopy (EGD) History of tonsillectomy History of tooth extraction Strabismus LEFT EYE REPAIRED Family History Other No family history of adverse response to anesthesia Social History Smoking Status: Former smoker Tobacco Type: Cigarettes packs per day: 1; Years Smoked: 30; Second Hand Exposure: No; Hx Alcohol Use: Yes Alcohol type: wine Hx Substance Use: Yes Last Used Substance: Unknown Last Used Substance Other:: ONLY RX [place] Substance Use Type Other:: Medical marijuana Preferred Language: [place] Communication Ability: Effective Visual Impairment: No Limitations Hearing Ability: Normal Alkylation Operator Required: No Beliefs That Will Affect Care: None marital status: Current Living Situation: Spouse current occupational status: retired How many Children do You have: 2 Feels Safe at Home: Yes Safety Concerns: Feels Safe At This Time Assistive Devices: CPAP Review of Systems Review of Systems: Review of Systems: See HPI for pertinent positives. All other 10 point review of systems are negative. Physical Exam Physical Exam: General: no acute distress and stated age Head: normocephalic, no masses, lesions, tenderness or abnormalities Eyes: conjunctiva are pink and non-injected, sclera clear Neck: supple, no adenopathy, no bruits, normal jugular venous pulse, no hepatojugular reflux Chest: normal shape and normal respiratory effort Lungs: clear to auscultation and percussion Cardiac Exam: - regular rate & rhythm, no murmurs gallops or rubs - normal S1, normal S2 Pulses: 2(+) throughout Abdomen: abdomen soft, non-tender, no abnormal masses and no hepatosplenomegaly Musculoskeletal: no gait disturbance, no joint inflammation, no deforming arthritis Extremities: no edema and no cyanosis Neuro: grossly normal exam Results & Data ([facility]) Vital Signs (Past 12 Hours) Vital Signs Temp Pulse Pulse Resp BP Pulse Ox O2 Del Method 12/14/21 15:18 37.2 C 70 19 114/83 94 Room Air 12/14/21 14:17 99 H 12/14/21 11:40 36.8 C 66 17 139/73 95 Room Air 12/14/21 05:51 77 12/14/21 07:52 36.5 C 80 17 122/62 94 Room Air Laboratory Results Laboratory Results - last 24 hr 12/13/21 12/14/21 12/14/21 20:16 05:44 07:18 Sodium 138 Potassium 4.0 Chloride 108 H Carbon Dioxide 23 Anion Gap 7 BUN 16 Creatinine 1.34 H Est Cr Clr Drug Dosing 38.4 Est GFR ( Amer) 45.1 Est GFR (Non-Af Amer) 38.9 BUN/Creatinine Ratio 11.9 Glucose 91 POC Glucose 90 91 Calcium 8.6 Phosphorus 3.5 D Magnesium 1.9 12/14/21 12/14/21 11:17 16:02 Sodium Potassium Chloride Carbon Dioxide Anion Gap BUN Creatinine Est Cr Clr Drug Dosing Est GFR ( Amer) Est GFR (Non-Af Amer) BUN/Creatinine Ratio Glucose POC Glucose 97 98 Calcium Phosphorus Magnesium Medications Administered Current Inpatient Medications Acetaminophen (Acetaminophen 325 Mg Tab) 650 mg PO Q4H PRN PRN Reason: Pain or Fever Stop: 01/09/22 19:51 Last Admin: 12/13/21 22:43 Dose: 650 mg Duloxetine HCl (Duloxetine Hcl 20 Mg Cap) 20 mg PO [facility] Stop: 01/10/22 08:59 Gabapentin (Gabapentin 400 Mg Cap) 400 mg PO BID@0900,1400 [facility] Stop: 01/10/22 08:59 Last Admin: 12/14/21 13:26 Dose: 400 mg Heparin Sodium (Porcine) (Heparin Sod 5,000 Unit/0.5 Ml Vial) 5,000 units SQ Q8 [facility] Stop: 01/10/22 05:59 Last Admin: 12/14/21 13:08 Dose: 5,000 units Ceftriaxone Sodium 2,000 mg/ (Dextrose) 70 mls @ 140 mls/hr IV DAILY@1400 [facility]; Protocol Stop: 12/20/21 13:59 Last Infusion: 12/14/21 14:03 Dose: Infused Lactobacillus Acidophilus (Advanced Probiotic 1250 Mg Capsule) 2 cap PO QAM [facility] Stop: 01/10/22 08:59 Last Admin: 12/14/21 08:31 Dose: 2 cap Levothyroxine Sodium (Levothyroxine Sodium 88 Mcg Tablet) 88 mcg PO DAILYBB [facility] Stop: 01/10/22 06:29 Last Admin: 12/14/21 05:47 Dose: 88 mcg Magnesium Oxide (Magnesium Oxide 400 Mg Tab) 400 mg PO HS [facility] Stop: 01/10/22 20:59 Last Admin: 12/13/21 20:28 Dose: 400 mg Metoprolol Succinate (Metoprolol Succ 25mg Ext Rel Tab) 25 mg PO QAM [facility] Stop: 01/10/22 08:59 Pantoprazole Sodium (Pantoprazole 40 Mg Tab) 40 mg PO DAILY PRN PRN Reason: Heartburn Polyethylene Glycol (Polyethylene (Miralax) 17 Gm Pack) 17 gm PO DAILY PRN PRN Reason: Constipation Stop: 01/09/22 19:51 Last Admin: 12/14/21 08:40 Dose: 17 gm
--- NOTE | 2021-12-14 18:28 | Hospitalist Progress Note ---
Date of Service December 14, 2021 Assessment & Plan (1) Severe sepsis: Plan: per Dr. Sommer's notes with addendum: - likely secondary to UTI from right obstructing ureteral stone - WBC 18, hypotensive, febrile to 102 at home, positive UA for infection - started on unasyn in ED and discontinued later on and has been getting Zosyn -Ciprofloxacin and daptomycin were discontinued -Has been receiving IVF for hypotension -Urine culture is growing gram-negative bacilli and blood culture is pending -The patient was transferred to ICU due to ongoing hypotension and requirements of pressor resents -Has been feeling better this morning but remains weak and lethargic -Blood pressure is improving and he is trying to take off pressor resents 12/14 off pressors transferred to PCU Urine Cx: (+) Klebsiella Blood Cx: negative so far Zosyn changed to Ceftriaxone IV Doing well overall Urology on board Transient episode of atrial fibrillation History of paroxysmal A. fib Received intravenous amiodarone and converted to sinus rhythm Resume usual metoprolol Electrolyte imbalance Severe hypophosphatemia and hypokalemia with hypomagnesemia -- resolved (2) Complicated UTI (urinary tract infection): Plan: - recurrent nephrolithiasis/ureteral stones with UTI and sepsis -Appreciate urology input and recommendation -Status post cystoscopy, right retrograde pyelogram, urine aspiration and right ureteric stent placement on 12/10/2021 -- per above (3) Acute kidney injury: Plan: - likely due to the setting of sepsis from UTI with hypotension - IVF and abx as above to treat sepsis crea 0.9 to 1.6 improved to 1.3 Hypoglycemia episode? BSGs in the afternoon 70s, patient felt shaky serum glucose 90s not on insulin (4) GERD (gastroesophageal reflux disease): Plan: - continue ppi (5) Peripheral neuropathy: Plan: Resume Cymbalta (6) Hypothyroidism: Plan: - continue levothyroxine - TSH: 0.76 Plan DVT ppx: heparin SC Code Status: Full Code Dispo: PT/OT dagoberto recommending discharge to home Possible discharge home tomorrow Admission and Anticipated Discharge Date Admission Date: December 10, 2021 Subjective Follow-up for severe sepsis, UTI, etc. Seen in bed, comfortable, not in distress States she feels fine overall Improving daily Appetite improving No hematuria, dysuria, fevers or chills Noted to have A. fib with RVR while having physical therapy, lasted for about 15 minutes Patient asymptomatic No other symptoms Review of Systems Review of Systems: all noted and negative except for above Physical Exam Physical Exam: General- oriented x 3, not in distress, speaks in sentences with no effort or accessory muscle use Eyes- anicteric Neck- no JVD Lungs- clear BS bilaterally, no rales/wheezes Heart- normal rate, regular rhythm; no murmurs Abdomen- normal bowel sounds, nondistended, soft, no tenderness Extremities- no pretibial edema, no calf tenderness Neuro- alert, oriented x 3; no gross focal neurologic deficits Skin- warm & dry Results & Data Results & Data ([facility]) Vital Signs (Past 12 Hours) Vital Signs Temp Pulse Pulse Resp BP Pulse Ox O2 Del Method 12/14/21 15:18 37.2 C 70 19 114/83 94 Room Air 12/14/21 14:17 99 H 12/14/21 11:40 36.8 C 66 17 139/73 95 Room Air 12/14/21 07:52 36.5 C 80 17 122/62 94 Room Air
[2021-12-14] MEDS ORDERED: METOPROLOL SUCC 25MG EXT REL TAB PO ONE (18:30)
[2021-12-14] MEDS: DULoxetine HCL 20 MG CAP PO SCH (21:33)
[2021-12-14] MEDS: MAGNESIUM OXIDE 400 MG TAB PO SCH (21:33)
[2021-12-14] MEDS: ACETAMINOPHEN 325 MG TAB PO PRN (21:38)
[2021-12-15] MEDS: HEPARIN SOD 5,000 UNIT/0.5 ML VIAL SQ SCH ×3 (06:14→21:46)
[2021-12-15] MEDS: LEVOTHYROXINE SODIUM 88 MCG TABLET PO SCH (06:16)
[2021-12-15 06:56] LABS: BUN Creatinine Ratio 13.3 (10-20); Calcium 9.3 mg/dl (8.5-10.1); Creatinine Clr Calc Pharmacy 37.4 ml/min; Est GFR (African American) 44.7 ml/min; Est GFR (Non-African American) 38.6 ml/min; Magnesium 2.1 mg/dl (1.7-2.4); Phosphorus 3.7 mg/dl (2.5-4.9); Potassium 4.2 mmol/L (3.5-5.1)
[2021-12-15] MEDS: GABAPENTIN 400 MG CAP PO SCH ×2 (08:44→13:30)
[2021-12-15] MEDS: ADVANCED PROBIOTIC 1250 MG CAPSULE PO SCH (08:44)
[2021-12-15] MEDS: DULoxetine HCL 20 MG CAP PO SCH ×2 (08:44→21:45)
[2021-12-15] MEDS ORDERED: MECLIZINE 12.5 MG TAB PO PRN (10:26)
[2021-12-15] MEDS: SODIUM CHLORIDE 0.9% 1000ML 1,000 ML IV SCH (10:30)
[2021-12-15 10:39] LABS: Hematocrit (blood only) 36.8 % (34.1-44.9); Hemoglobin 12.6 g/dl (12.0-16.0); Mean Corpuscular Hemoglobin 29.5 pg (25.0-34.0); Mean Corpuscular Hgb Conc 34.2 g/dL (32.0-36.0); Mean Corpuscular Volume 86.2 fL (80.0-100.0); Mean Platelet Volume 9.5 fL (9.4-12.3); Platelet Count 316 K/uL (130-400); RDW Coefficient of Variation 14.7 % (11.5-14.5); RDW Standard Deviation 46.1 fL (36.4-46.3); Red Blood Count 4.27 M/uL (3.93-5.22); White Blood Count 8.45 K/ul (4.8-10.8)
--- NOTE | 2021-12-15 10:45 | Electrocardiogram Report ---
Test Reason : Blood Pressure : / mmHG Vent. Rate : 087 BPM Atrial Rate : 087 BPM P-R Int : 202 ms QRS Dur : 082 ms QT Int : 372 ms P-R-T Axes : 033 -53 025 degrees QTc Int : 447 ms Sinus rhythm with Premature atrial complexes Left anterior fascicular block Septal infarct (cited on or before 14-DEC-2021)vs lead placement Abnormal ECG When compared with ECG of 11-DEC-2021 04:51, Sinus rhythm has replaced Atrial fibrillation Vent. rate has decreased BY 71 BPM Questionable change in initial forces of Septal leads ST no longer depressed in Anterolateral leads T wave inversion no longer evident in Lateral leads Confirmed by Johnson Stapleton ([id number]) on 12/15/2021 10:45:33 AM Referred By: REFERRED SELF Confirmed By:Johnson Stapleton
--- NOTE | 2021-12-15 11:20 | Cardiology Progress Note ---
Date of Service December 15, 2021 Assessment & Plan (1) PAF (paroxysmal atrial fibrillation): (2) Complicated UTI (urinary tract infection): (3) Calculus, ureteral: Plan: - Patient's status post cystoscopy with right retrograde pyelogram, and aspiration, ureter stent placement 12/10/2021. -She is now transferred out of the intensive care unit. Per most recent neurology progress note, she will require definitive stone treatment after resolution of her infection. Patient's [id number] score is 2 for risk factors of female sex and age over 65, but she is almost 77, and at that point her score would be 3. Anticoagulation therefore likely indicated for stroke prophylaxis. Patient states her gross hematuria has resolved. We will continue ongoing treatment with metoprolol. As long as she remains stable from a hematuria standpoint we will consider starting Eliquis tomorrow if feasible from a cost standpoint with thoughts that it can be held as needed for repeat urology intervention. Continue ceftriaxone. Continue subcutaneous heparin for DVT prophylaxis. Admission and Anticipated Discharge Date Admission Date: December 10, 2021 Subjective Patient seen in cardiology follow-up. Telemetry reveals sinus rhythm in the 60s this morning. She did have a recurrent episode of atrial fibrillation from 8:52 PM until 9:06 PM with spontaneous conversion to sinus rhythm. Patient having had a transient episode of dizziness when she got up to wash up this morning. This is since resolved. Physical Exam Physical Exam: Temp Pulse Resp BP Pulse Ox O2 Del Method O2 Flow Rate 36.6 C 77 18 115/71 96 2 12/15/21 07:40 12/15/21 09:39 12/15/21 07:40 12/15/21 09:39 12/15/21 07:40 12/15/21 07:40 12/13/21 07:21 Constitutional: WD/WN, vitals as above Respiratory: normal respiratory effort, lungs clear to auscultation Cardiovascular: RRR, no murmur, no edema Gastrointestinal (Abdomen): normal bowel sounds, soft, nontender, no hepatosplenomegaly Neurologic: PERRL, EOMI, accommodation nl, no face palsy, no dysarthria Results & Data ([facility]) Vital Signs (Past 12 Hours) Vital Signs Temp Pulse Pulse Resp BP Pulse Ox O2 Del Method 12/15/21 09:39 77 115/71 12/15/21 06:33 65 12/15/21 07:40 36.6 C 66 18 133/64 96 Room Air 12/15/21 00:00 88 12/15/21 03:07 36.6 C 73 20 124/72 95 Room Air Laboratory Results Urine culture: 12/10/21: Klebsiella pneumonia Echocardiogram reviewed independently by the undersigned today, performed on at 7 AM: Sinus rhythm present during echocardiogram, mild concentric left ventricular perjury, normal LV wall motion, LVEF 6065%, mild mitral gravitation, grade 1 diastolic dysfunction CBC 12/15/21 Range/Units 10:25 WBC 8.45 (4.8-10.8) K/ul RBC 4.27 (3.93-5.22) M/uL Hgb 12.6 (12.0-16.0) g/dl Hct 36.8 (34.1-44.9) % Plt Count 316 (130-400) K/uL Comprehensive Metabolic Panel 12/15/21 Range/Units 06:03 Sodium 138 (136-145) mmol/L Potassium 4.2 (3.5-5.1) mmol/L Chloride 106 (98-107) mmol/L Carbon Dioxide 22 (21-32) mmol/L BUN 18 (6-23) mg/dl Creatinine 1.35 H (0.6-1.2) mg/dl Glucose 91 (70-99(Fasting)) mg/dl Calcium 9.3 (8.5-10.1) mg/dl Intake and Output 12/14/21 12/15/21 12/15/21 22:59 06:59 14:59 Intake Total 150 / 885 150 / 885 Balance 150 / 885 150 / 885 Intake: Oral 150 / 815 150 / 815 Other: # Unmeasured Voids 3 1 Weight 80 kg Weight Measurement Method Built in [facility]
[2021-12-15 11:21] LABS: Basophils # (auto) 0.05 K/uL (0-0.2); Basophils % (auto) 0.6 %; Eosinophils # (auto) 0.36 K/uL (0-0.50); Eosinophils % (auto) 4.3 %; Immature Granulocytes # (auto) 0.27 K/uL (0.00-0.02); Immature Granulocytes % (auto) 3.2 %; Lymphocytes # (auto) 1.01 K/uL (1.2-3.4); Monocytes # (auto) 1.13 K/uL (0.24-0.82); Monocytes % (auto) 13.4 %; Neutrophils # (auto) 5.63 K/uL (1.4-6.5); Neutrophils % (auto) 66.5 %
[2021-12-15] MEDS: cefTRIAXone SODIUM 2,000 MG in DEXTROSE 5% 50 ML IV SCH (13:30)
--- NOTE | 2021-12-15 15:45 | Hospitalist Progress Note ---
Date of Service December 15, 2021 Assessment & Plan (1) Severe sepsis: Plan: per Dr. Sommer's notes with addendum: - likely secondary to UTI from right obstructing ureteral stone - WBC 18, hypotensive, febrile to 102 at home, positive UA for infection - started on unasyn in ED and discontinued later on and has been getting Zosyn -Ciprofloxacin and daptomycin were discontinued -Has been receiving IVF for hypotension -Urine culture is growing gram-negative bacilli and blood culture is pending -The patient was transferred to ICU due to ongoing hypotension and requirements of pressor resents -Has been feeling better this morning but remains weak and lethargic -Blood pressure is improving and he is trying to take off pressor resents 12/15 off pressors transferred to PCU Urine Cx: (+) Klebsiella Blood Cx: negative Zosyn changed to Ceftriaxone IV Doing well overall Urology on board Will need to complete 2-week course total of antibiotics Transient episode of atrial fibrillation History of paroxysmal A. fib Received intravenous amiodarone and converted to sinus rhythm Had another burst of A. fib RVR last night around 9 PM, over 20 minutes Usual metoprolol XL 25 mg p.o. daily resumed [employer] on board, plan to initiate Eliquis tomorrow Electrolyte imbalance Severe hypophosphatemia and hypokalemia with hypomagnesemia -- resolved Episode of dizziness --Occurred after bending forward while brushing her teeth at the sink --Not associated with arrhythmia on telemetry --From vertigo? PT OT requested to perform [place]-Hallpike, Rafael's maneuver --Rule out orthostasis? IV fluids ordered, orthostatic vital signs Monitor (2) Complicated UTI (urinary tract infection): Plan: - recurrent nephrolithiasis/ureteral stones with UTI and sepsis -Appreciate urology input and recommendation -Status post cystoscopy, right retrograde pyelogram, urine aspiration and right ureteric stent placement on 12/10/2021 -- per above (3) Acute kidney injury: Plan: - likely due to the setting of sepsis from UTI with hypotension - IVF and abx as above to treat sepsis crea 0.9 to 1.6 improved to 1.3 Hypoglycemia episode? while in ICU, BSGs in the afternoon 70s, patient felt shaky serum glucose 90s not on insulin (4) GERD (gastroesophageal reflux disease): Plan: - continue ppi (5) Peripheral neuropathy: Plan: Resume Cymbalta (6) Hypothyroidism: Plan: - continue levothyroxine - TSH: 0.76 Plan DVT ppx: heparin SC Code Status: Full Code Dispo: PT/OT lenardal recommending discharge to home Anticipate return to home medically stable Admission and Anticipated Discharge Date Admission Date: December 10, 2021 Subjective Follow-up for severe sepsis, UTI, ureteral stone, etc. Seen resting in bed, sitting up, not in distress, in good spirits Had dizziness spell associate with nausea upon bending forward brushing her teeth today Upon returning to her bed, patient's symptoms improved On exam, patient states she feels fine overall No active shortness of breath, chest pain, palpitations, dizziness, nausea No abdominal pain, problems with urination No other symptoms Review of Systems Review of Systems: all noted and negative except for above Physical Exam Physical Exam: General- oriented x 3, not in distress, speaks in sentences with no effort or accessory muscle use Eyes- anicteric Neck- no JVD Lungs- clear BS BL Heart- normal rate, regular rhythm; no murmurs Abdomen- normal bowel sounds, nondistended, soft, nontender Extremities- no pretibial edema, no calf tenderness Neuro- alert, oriented x 3; no gross focal neurologic deficits Skin- warm & dry Results & Data Results & Data ([facility]) Vital Signs (Past 12 Hours) Vital Signs Temp Pulse Pulse Resp BP Pulse Ox O2 Del Method 12/15/21 14:43 74 12/15/21 15:02 36.8 C 85 16 133/81 94 Room Air 12/15/21 13:24 85 108/69 12/15/21 13:22 81 136/79 12/15/21 13:20 71 121/70 12/15/21 11:45 36.4 C L 64 16 149/95 H 96 Room Air 12/15/21 09:39 77 115/71 12/15/21 06:33 65 12/15/21 07:40 36.6 C 66 18 133/64 96 Room Air all noted and reviewed including below
[2021-12-15] MEDS ORDERED: METOPROLOL SUCC 25MG EXT REL TAB PO SCH (16:00)
[2021-12-15] MEDS: LIDOCAINE 5% 1 PATCH TD SCH (16:08)
[2021-12-15] MEDS: MAGNESIUM OXIDE 400 MG TAB PO SCH (21:50)
[2021-12-16] MEDS: SODIUM CHLORIDE 0.9% 1000ML 1,000 ML IV SCH (00:33)
[2021-12-16] MEDS: LEVOTHYROXINE SODIUM 88 MCG TABLET PO SCH (06:08)
[2021-12-16] MEDS: HEPARIN SOD 5,000 UNIT/0.5 ML VIAL SQ SCH (06:08)
[2021-12-16 07:40] LABS: BUN Creatinine Ratio 14.6 (10-20); Calcium 8.6 mg/dl (8.5-10.1); Est GFR (Non-African American) 43.2 ml/min; Phosphorus 3.3 mg/dl (2.5-4.9); Potassium 4.3 mmol/L (3.5-5.1)
[2021-12-16] MEDS: GABAPENTIN 400 MG CAP PO SCH (09:12)
[2021-12-16] MEDS: ADVANCED PROBIOTIC 1250 MG CAPSULE PO SCH (09:13)
[2021-12-16] MEDS: LIDOCAINE 5% 1 PATCH TD SCH (09:13)
[2021-12-16] MEDS: DULoxetine HCL 20 MG CAP PO SCH (09:13)
--- NOTE | 2021-12-16 10:49 | Hospitalist Progress Note ---
Date of Service December 16, 2021 Assessment & Plan (1) Severe sepsis: (2) Complicated UTI (urinary tract infection): (3) Acute kidney injury: (4) GERD (gastroesophageal reflux disease): (5) Peripheral neuropathy: (6) Hypothyroidism: Plan: (1) Severe sepsis: Plan: per Dr. Sommer's notes with addendum: - likely secondary to UTI from right obstructing ureteral stone - WBC 18, hypotensive, febrile to 102 at home, positive UA for infection - started on unasyn in ED and discontinued later on and has been getting Zosyn -Ciprofloxacin and daptomycin were discontinued -Has been receiving IVF for hypotension -Urine culture is growing gram-negative bacilli and blood culture is pending -The patient was transferred to ICU due to ongoing hypotension and requirements of pressor resents -Has been feeling better this morning but remains weak and lethargic -Blood pressure is improving and he is trying to take off pressor resents 12/16 off pressors transferred to PCU Urine Cx: (+) Klebsiella Blood Cx: negative Zosyn changed to Ceftriaxone IV Day 5 Doing well overall Urology on board Will need to complete 2-week course total of antibiotics Transient episode of atrial fibrillation History of paroxysmal A. fib Received intravenous amiodarone and converted to sinus rhythm 12/15 Had another burst of A. fib RVR last night around 9 PM, over 20 minutes Usual metoprolol XL 25 mg p.o. daily resumed Ornamental Ironworker on board, plan to initiate Eliquis today Electrolyte imbalance Severe hypophosphatemia and hypokalemia with hypomagnesemia -- resolved Episode of dizziness --Occurred after bending forward while brushing her teeth at the sink --Not associated with arrhythmia on telemetry --From vertigo? PT OT requested to perform [place]-Hallpike, Rafael's maneuver: negative --Rule out orthostasis? IV fluids ordered, orthostatic vital signs -- resolved ambulating now with no problems (2) Complicated UTI (urinary tract infection): Plan: - recurrent nephrolithiasis/ureteral stones with UTI and sepsis -Appreciate urology input and recommendation -Status post cystoscopy, right retrograde pyelogram, urine aspiration and right ureteric stent placement on 12/10/2021 -- per above (3) Acute kidney injury: Plan: - likely due to the setting of sepsis from UTI with hypotension - IVF and abx as above to treat sepsis crea 0.9 to 1.6 improved to 1.3 Hypoglycemia episode? while in ICU, BSGs in the afternoon 70s, patient felt shaky serum glucose 90s not on insulin (4) GERD (gastroesophageal reflux disease): Plan: - continue ppi (5) Peripheral neuropathy: Plan: Resume Cymbalta (6) Hypothyroidism: Plan: - continue levothyroxine - TSH: 0.76 Plan DVT ppx: heparin SC Code Status: Full Code Dispo: PT/OT lenardal recommending discharge to home Anticipate return to home today when cleared by interventional nurse as well Admission and Anticipated Discharge Date Admission Date: December 10, 2021 Subjective ff up for severe sepsis, uti, etc seen resting in bed, comfortable in good spirits states she feels better overall ambulating in her room, no dizziness, nausea no chest pain, dyspnea, palpitations, dizziness no problems with urination no other symptoms Review of Systems Review of Systems: all noted and negative except for above Physical Exam Physical Exam: General- oriented x 3, not in distress, speaks in sentences with no effort or accessory muscle use Eyes- anicteric Neck- no JVD Lungs- clear BS bilaterally, no rales/wheezes Heart- normal rate, regular rhythm; no murmurs Abdomen- normal bowel sounds, nondistended, soft, nontender Extremities- no pretibial edema, no calf tenderness Neuro- alert, oriented x 3; no gross focal neurologic deficits Skin- warm & dry Results & Data Results & Data ([facility]) Vital Signs (Past 12 Hours) Vital Signs Temp Pulse Pulse Resp BP Pulse Ox O2 Del Method 12/16/21 08:20 36.5 C 75 16 121/64 96 Room Air 12/16/21 06:08 68 12/16/21 00:00 73 12/16/21 03:52 37.0 C 70 16 119/71 95 Room Air 12/15/21 23:02 36.9 C 72 20 119/76 96 Room Air all noted and reviewed including below
--- NOTE | 2021-12-16 12:15 | Cardiology Progress Note ---
Date of Service December 16, 2021 Assessment & Plan (1) PAF (paroxysmal atrial fibrillation): (2) Complicated UTI (urinary tract infection): (3) Calculus, ureteral: Plan: - Patient's status post cystoscopy with right retrograde pyelogram, and aspiration, ureter stent placement 12/10/2021. -She is now transferred out of the intensive care unit. Per most recent neurology progress note, she will require definitive stone treatment after resolution of her infection, which per my discussion with Dr Wagner is anticipated to take place within the next 2 weeks or so. Patient's [id number] score is 2 for risk factors of female sex and age over 65, but she is almost 77, and at that point her score would be 3. Anticoagulation therefore likely indicated for stroke prophylaxis. Patient states her gross hematuria has resolved. We will continue ongoing treatment with metoprolol succinate 25 mg daily. Patient stable for discharge from a cardiac perspective, with planned completion of antibiotic course, and short-term outpatient follow-up with urology. Would recommend holding off of anticoagulation for the next 2 weeks, pending urology course, with consideration of placing patient on Eliquis after definitive treatment for her stone. Outpatient cardiology follow-up appointment requested. Admission and Anticipated Discharge Date Admission Date: December 10, 2021 Subjective Patient seen in cardiology follow-up of atrial fibrillation. Telemetry reviewed, sinus rhythm in 60s present this morning. No atrial fibrillation s robbie 12/14/2021. Patient denies current gross hematuria. Feeling well. Review of Systems Review of Systems: All systems reviewed & are unremarkable except as noted in HPI & below Physical Exam Constitutional: WD/WN, vitals as above Respiratory: normal respiratory effort, lungs clear to auscultation Cardiovascular: RRR, no murmur, no edema Gastrointestinal (Abdomen): normal bowel sounds, soft, nontender, no hepatosplenomegaly Neurologic: PERRL, EOMI, accommodation nl, no face palsy, no dysarthria Results & Data ([facility]) Vital Signs (Past 12 Hours) Vital Signs Temp Pulse Pulse Resp BP Pulse Ox O2 Del Method 12/16/21 08:20 36.5 C 75 16 121/64 96 Room Air 12/16/21 06:08 68 12/16/21 03:52 37.0 C 70 16 119/71 95 Room Air Laboratory Results Comprehensive Metabolic Panel 12/16/21 Range/Units 06:27 Sodium 136 (136-145) mmol/L Potassium 4.3 (3.5-5.1) mmol/L Chloride 106 (98-107) mmol/L Carbon Dioxide 21 (21-32) mmol/L BUN 18 (6-23) mg/dl Creatinine 1.23 H (0.6-1.2) mg/dl Glucose 87 (70-99(Fasting)) mg/dl Calcium 8.6 (8.5-10.1) mg/dl Intake and Output 12/15/21 12/16/21 12/16/21 22:59 06:59 14:59 Intake Total 320 / 1520 1200 / 1520 670 / 670 Balance 320 / 1520 1200 / 1520 670 / 670 Intake: IV 70 / 1070 1000 / 1070 670 / 670 Sodium Chloride 0.9% 1000ML 1, 1000 / 1000 670 / 670 000 ml @ 75 mls/hr IV .[id number] RACHEL Rx#:[id number] cefTRIAXone SODIUM 2,000 mg In 70 / 70 Dextrose 5% 50 ml @ 140 mls/hr IV DAILY@1400 RACHEL Rx#:[id number] Oral 250 / 450 200 / 450 Other: # Unmeasured Voids 2 2 Weight 79.9 kg Weight Measurement Method Built in [facility] Diagnostic Findings EKG 12/15/2021, interpreted independently: Normal sinus rhythm at 65 bpm, first- degree AV block, NM interval 206 ms, normal EKG.
--- NOTE | 2021-12-16 12:19 | Discharge Summary ---
Discharge Summary Date of Service December 16, 2021 Notes For Next Care Provider Ureteral stent placement performed at [facility], patient was advised to follow again with Dr. Delbert Shaw for definitive management of ureteral stone She has an appointment with Dr. Shaw at December 21, 2021. Cardiology service contemplating on initiation of anticoagulation for paroxysmal A. fib. As per Dr. Waters, patient can have urologic procedure for ureteral stone, t hen follow-up with cardiology clinic for initiation of anticoagulation. Medication Changes From Visit New medications: Cefdinir 30 mg twice daily x9 days Magnesium 400 mg p.o. daily x14 days Admission HPI Per Admitting Provider The patient is a 76 year old woman with pmh recurrent nephrolithiasis with UTIs, GERD, hypthyroidism, peripheral neuropathy who presented with 2 days of right flank pain and fever. She reports that on Friday prior to admission, she started feeling right flank/low back pain. She then started feeling worse over the next couple of days with dysuria, fever, chills. She denied nausea or vomiting, abdominal pain, shortness of breath, cough, diarrhea. She reports a history of recurrent kidney stones and infections including sepsis. In the ED, vitals were signficant for temp 38C, HR 60s, BP 80-90s/50s. Labs were significant for WBC 18, Na 134, Cr 1.62 (baseline 0.8, mg 1.6, PCT 4.11, UA with >30 WBC, 3+ LE, bacteria, 2+ blood. CT-AP shows mild left hydronephrosis, right 4mm obstructing ureteral stone with moderate right hydroureteronephrosis. She was started on antibiotics and urology was consulted with plans for OR tonight and admission to medicine. Admission Exam Per Admitting Provider Constitutional: WD/WN, vitals as above + obese; no acute distress and not ill appearing Eyes: PERRL, conjunctivae normal, anicteric sclerae ENMT: external ear and nose normal, oropharynx normal Neck: trachea midline, no thyromegaly Respiratory: normal respiratory effort, lungs clear to auscultation Cardiovascular: RRR, no murmur, no edema Gastrointestinal (Abdomen): normal bowel sounds, soft, nontender, no hepatosplenomegaly Musculoskeletal: no cyanosis or clubbing, extremities motor strength 5/5 Skin: no rashes, warm and dry Neurologic: patellar DTR's 2+ bilat, sensation intact and PERRL, EOMI, accommodation nl, no face palsy, no dysarthria Psychiatric: A+Ox3, euthymic affect Genitourinary: no CVA tenderness Principal Dx & Hospital Course #1 = Principal Diagnosis (1) Severe sepsis: (2) Complicated UTI (urinary tract infection): (3) Acute kidney injury: (4) GERD (gastroesophageal reflux disease): (5) Peripheral neuropathy: (6) Hypothyroidism: Severe sepsis: - secondary to UTI from right obstructing ureteral stone - recurrent nephrolithiasis/ureteral stones with UTI and sepsis - WBC 18, hypotensive, febrile to 102 at home, positive UA for infection -The patient was transferred to ICU due to ongoing hypotension and requirements of pressor resents 12/10/2021: Cystoscopy with Right retrograde pyelogram, urine aspiration, and stent placement (Right) - Aguila Avendano, 12/16 off pressors transferred to PCU Urine Cx: (+) Klebsiella Blood Cx: negative Zosyn changed to Ceftriaxone IV Day 5 Patient significantly improved Patient to complete cefdinir 300 mg twice daily x9 days, to complete 14 days of antibiotic treatment Return to Dr. Delbert Shaw for definitive management of ureteral stone Transient episode of atrial fibrillation History of paroxysmal A. fib Received intravenous amiodarone and converted to sinus rhythm 12/15 Had another burst of A. fib RVR last night around 9 PM, over 20 minutes Usual metoprolol XL 25 mg p.o. daily resumed Mis Specialist on board, plan to initiate Eliquis today Electrolyte imbalance Severe hypophosphatemia and hypokalemia with hypomagnesemia -- resolved Episode of dizziness --Occurred after bending forward while brushing her teeth at the sink --Not associated with arrhythmia on telemetry --From vertigo? PT OT requested to perform [place]-Hallpike, Rafael's maneuver: negative --Rule out orthostasis? IV fluids ordered, orthostatic vital signs -- resolved ambulating now with no problems Complicated UTI (urinary tract infection): Plan: -Appreciate urology input and recommendation -Status post cystoscopy, right retrograde pyelogram, urine aspiration and right ureteric stent placement on 12/10/2021 -- per above Acute kidney injury: - likely due to the setting of sepsis from UTI with hypotension - IVF and abx as above to treat sepsis crea 0.9 to 1.6 improved to 1.3 Hepatic Steatosis - ff up as outpatient GERD (gastroesophageal reflux disease): Plan: - continue ppi Peripheral neuropathy: Plan: Resume Cymbalta Hypothyroidism: Plan: - continue levothyroxine - TSH: 0.76 Plan DVT ppx: heparin SC given Code Status: Full Code Dispo: PT OT eval: Recommend discharge to home Discharge to home today Follow-up with PCP in 1 week Follow-up with urologist in 1 week Follow-up with consumer insight manager in 3 to 4 weeks plan of care discussed with patient in detail and at length all questions answered She is understanding, agreeable, comfortable with the plan of care Discharge Exam General- oriented x 3, not in distress, speaks in sentences with no effort or accessory muscle use Eyes- anicteric Neck- no JVD Lungs- clear BS bilaterally, no rales/wheezes Heart- normal rate, regular rhythm; no murmurs Abdomen- normal bowel sounds, nondistended, soft, no tenderness Extremities- no pretibial edema, no calf tenderness Neuro- alert, oriented x 3; no gross focal neurologic deficits Skin- warm & dry Updated Medication List Medication Instructions Recorded Confirmed Type albuterol sulfate 90 mcg/actuation 2 puff inhalation Q4 PRN Wheezing 03/19/16 12/10/21 History aerosol inhaler (Ventolin HFA) ##0 duloxetine 20 mg capsule,delayed 20 mg PO AMHS ##0 03/19/16 12/10/21 History release fluticasone propionate 50 2 spray intranasal QAM ##0 03/19/16 12/10/21 History mcg/actuation nasal spray,suspension (Flonase Allergy Relief) sumatriptan succinate 100 mg 100 mg PO DIRECTED PRN Migraine 03/19/16 12/10/21 History tablet (Imitrex) Headache #0 tabs Medical Marijuana 1 dose sublingual UD PRN RESTLESS 06/03/20 12/10/21 History LEG SYNDROME L.acidoph-L.rhamn-B.bifidum-B.long 1 tab PO QAM 06/27/20 12/10/21 History 12.9 mg (2 billion cell) DR anastasiia (Probiotic Acidophilus Tracy) gabapentin 600 mg tablet 600 mg PO QPM 06/27/20 12/10/21 History hydroxyzine HCl 25 mg tablet 25 mg PO Q6 PRN Itching 06/27/20 12/10/21 History levocetirizine 5 mg tablet 5 mg PO HS 06/27/20 12/10/21 History gabapentin 400 mg capsule 400 mg PO .MORNING & MIDDAY 07/03/20 12/10/21 History metoprolol succinate 25 mg 25 mg PO QAM #30 tabs 08/15/20 12/10/21 Rx tablet,extended release 24 hr cyclosporine 0.05 % eye drops in a 1 drp ophthalmic (eye) HS 12/10/21 12/10/21 History dropperette (Restasis) levothyroxine 88 mcg tablet 88 mcg PO DAILYBB 12/10/21 12/10/21 History (Synthroid) omeprazole 20 mg capsule,delayed 20 mg PO DAILY PRN Heartburn 12/10/21 12/10/21 History release solifenacin 10 mg tablet 10 mg PO QAM 12/10/21 12/10/21 History cefdinir 300 mg capsule 300 mg PO BID 9 days #18 caps 12/16/21 Rx magnesium oxide 400 mg (241.3 mg 400 mg PO HS 14 days #14 tabs 12/16/21 Rx magnesium) tablet Hospital Stay Data Consultations 12/10/21 19:17 ED Decision to Admit Stat 12/10/21 19:57 Consult Urology Routine 12/10/21 22:46 Consult Precast Concrete Ironworker Routine 12/14/21 15:30 Consult Cardiology Routine Procedures Performed Operation Date: 12/10/21 20:30 Actual Procedures p Cystoscopy, Right Retrograde Pyelogram, Urine Aspiration, Right Stent Placement(Right) - Aguila Avendano DO Diagnostic Imagining Performed Retrograde Pyelogram 12/10/21 00:00 INTRAOPERATIVE RADIOGRAPHS CLINICAL HISTORY: Right-sided ureteral stent placement. Fluoroscopy time: 16 seconds. FINDINGS: 3 spot fluoroscopic views of the right abdomen are presented. Correlation is made with abdominal CT dated 12/10/2021. The initial image shows a catheter at the right ureteropelvic junction. Injected contrast shows moderate to severe right-sided hydronephrosis. The final 2 images show the proximal and distal ends of a right ureteral stent in appropriate position. IMPRESSION: Intraoperative images from a right ureteral stent placement as above. Electronically signed by: Join Fay M.D. 12/11/2021 9:44 AM Abdomen/Pelvis CT 12/10/21 17:45 CT OF THE ABDOMEN AND PELVIS WITHOUT CONTRAST CLINICAL HISTORY: Right flank pain. COMPARISON STUDY: CT of the abdomen and pelvis October 20, 2021. IVP December 07, 2021. TECHNIQUE: Axial images of the abdomen and pelvis were obtained without IV contrast. Images were reviewed in the axial, sagittal, and coronal planes. Automated exposure control was utilized for the study. A dose lowering techn ique was utilized adhering to the principles of ALARA. FINDINGS: Lung bases are unremarkable. No pneumatosis, free air or portal venous gas is present. Moderate right hydroureteronephrosis has developed since CT of October 20, 2021 and is similar to IVP of December 07, 2021. This is due to a 4 mm mid to distal right ureteral calculus at the level of the inferior sacroiliac joint. No additional ureteral calculi are present. Numerous right renal calculi measure up to 4 mm. Moderate left hydronephrosis with normal caliber left ureter is noted. Left hydronephrosis has decreased since CT of October 20, 2021. There are no left-sided urinary calculi. Evaluation of the remainder of the abdomen and pelvis is suboptimal on this unenhanced exam. There is hepatic steatosis. Unenhanced images of the spleen, adrenal glands and pancreas are unremarkable. No evidence for a bowel obstruction. A moderate amount of stool is noted. There is no lymphadenopathy. No acute fracture or suspicious lesion within the visualized skeletal structures is present. IMPRESSION: 1. Moderate right hydroureteronephrosis due to a 4 mm mid to distal right ureteral calculus as described above. 2. Moderate left hydronephrosis with normal caliber left ureter. Etiology for hydronephrosis not clear on this exam however decreased since CT of October 20, 2021. No left-sided urinary calculi. 3. Right-sided nephrolithiasis. 4. No bowel obstruction. Moderate amount of stool within the colon. 5. Hepatic steatosis. ACT 112: Negative or not required by law. Electronically signed by: Nick Oreilly M.D. 12/10/2021 6:45 PM Chest X-Ray 12/12/21 07:00 XR chest 1V portable HISTORY: Sepsis. COMPARISON: Chest 12/10/2021. FINDINGS: No pneumothorax. No pleural effusions. There is progressive interstitial/vascular thickening suggestive of developing congestive change. No new focal lung consolidations identified. The heart is mildly enlarged. IMPRESSION: Cardiomegaly with interval development of mild pulmonary vascular congestion. ACT 112: Negative or not required by law. Electronically signed by: Bacilio Jang M.D. 12/12/2021 10:41 AM Pending Results Patient Have Any Pending Studies at Discharge: No Discharge Instructions Given to Patient (Per Discharging Provider) PLEASE REFER TO YOUR NEW MEDICATION LIST AND FOLLOW INSTRUCTIONS CAREFULLY. YOUR NEW MEDICATIONS INCLUDE: CEFDINIR- antibiotic for urinary tract infection TAKE A PROBIOTIC DAILY (OVER THE COUNTER- RENEW LIFE BRAND) FOR AT LEAST 1 MONTH. YOU CAN USE LIDODERM PATCH 4% (0VER THE COUNTER) FOR NECK PAIN. DRINK PLENTY OF WATER DAILY. PLEASE CALL YOUR PRIMARY CARE PHYSICIAN OR RETURN TO THE ER IF WITH WORSENING OF SYMPTOMS, INCLUDING CHANGES WITH URINATION, BLEEDING, FEVER/CHILLS, FLANK/ABDOMINAL PAIN, NAUSEA/VOMITING, WEAKNESS, CHEST PAIN, DIZZINESS, PALPITATIONS. FOLLOW UP WITH PRIMARY CARE PHYSICIAN OUTLINED ABOVE. FOLLOW UP WITH UROLOGIST DR. SHAW SCHEDULED. FOLLOW UP WITH [employer] REPRESENTATIVES DR. WATERS IN 3-4 WEEKS. THE CLINIC WILL BE CALLING YOU FOR AN APPOINTMENT. Total Time Total Time Spent Total Time Spent (In Minutes): >30 minutes
--- NOTE | 2021-12-16 14:33 | Electrocardiogram Report ---
Test Reason : Blood Pressure : / mmHG Vent. Rate : 065 BPM Atrial Rate : 065 BPM P-R Int : 206 ms QRS Dur : 076 ms QT Int : 444 ms P-R-T Axes : 045 -35 031 degrees QTc Int : 461 ms Normal sinus rhythm Left axis deviation Abnormal ECG When compared with ECG of 14-DEC-2021 18:41, Premature atrial complexes are no longer Present Confirmed by Johnson Stapleton ([id number]) on 12/16/2021 2:33:30 PM Referred By: REFERRED SELF Confirmed By:Johnson Stapleton
== END 2021-12-16 13:29 | disposition home or self-care (01) | DRG 854 ==
LOC: ED 14:36 → OR 20:13 → 1E 20:14 → SUATTDRO 20:14 → OR 20:25 → 2E 12-12 15:45
DX: K76.0 Fatty (change of) liver, not elsewhere classified; G62.9 Polyneuropathy, unspecified; R65.20 Severe sepsis without septic shock; N17.9 Acute kidney failure, unspecified; A41.59 Other Gram-negative sepsis; I24.8 Other forms of acute ischemic heart disease; Z87.440 Personal history of urinary (tract) infections; I48.0 Paroxysmal atrial fibrillation; N13.6 Pyonephrosis; E83.39 Other disorders of phosphorus metabolism; E16.2 Hypoglycemia, unspecified; K21.9 Gastro-esophageal reflux disease without esophagitis; Z87.891 Personal history of nicotine dependence; Z88.2 Allergy status to sulfonamides; E83.42 Hypomagnesemia; E03.9 Hypothyroidism, unspecified; Z88.1 Allergy status to other antibiotic agents; Z79.890 Hormone replacement therapy; E87.6 Hypokalemia